=== PATIENT | female | born 2000 | race Caucasian/White ===

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

== ENCOUNTER 2023-05-28 17:58 | Inpatient (IN) ==
[2023-05-28] MEDS ORDERED: OXYTOCIN 30 UNITS/NSS 30 UNITS/500 ML BAG IV PRN (18:05)
[2023-05-28] MEDS ORDERED: LACTATED RINGER'S 1,000 ML IV PRN (18:05)
[2023-05-28] MEDS ORDERED: LIDOCAINE 1% LOCAL 20 ML VIAL INFIL PRN (18:05)
[2023-05-28] MEDS ORDERED: BETAMETH SOD PHOS/ACETATE IA 6 MG/ML IM STA (18:07)
--- OUTSIDE RECORDS SUMMARY | 2023-05-28 18:09 | External Medical Summary | Summary of Care ---
Author Name Unknown Organization [facility] Address [address] [place] [address] Phone [phone] Care Team Providers Care Kitchen And Bath Designer Name Role Phone Gail Gil MD Primary Care Provid er Reason for Visit * Reason Comments Return Visit Encounter Details Date Type Department Care Team (Late st Contact Info) Description 04/24/2023 1:15 PM EDT Office Visit Gynecology/Obstetri gm Devi [address] [place] [address] Darlni Grace CRNP [address] [place] [address] Nurse [facility] Return Alfie [address] [place] [address] Normal in third trimester*; Late care; Vapes nicotine containing substance; Family history of Down syndrome; Marijuana use during ; Gonorrhea affecting , antepartum; Need for prophylactic vaccination with combined zifmfevkwu-fburkop-up rtussis (DTP) vaccine Allergies No known active allergiesdocumented as of this encounter (statuses as of 04/24/2023) Medications Medication Sig Dispensed Refills Start Date End Date Status Breast PumpIndications:No rmal in second trimester Pump daily when 1 Each 0 03/27/2023 Active 19 29-1 MG Oral Tablet ChewableIndication s:Normal in second trimester Take 1 Tablet by mouth every evening. 90 Tablet 2 04/11/2023 Active Azelastine HCl 0.15 % Nasal SolutionIndication s:Dysfunction of right eustachian tube Administer 1 [place] into nostril in the morning and 1 [place] before bedtime. 30 mL 12 04/11/2023 Active documented as of this encounter (statuses as of 04/24/2023) Active Problems Problem Noted Date Diagnosed Date Abnormal GTT (glucose tolerance test) 04/11/2023 Gonorrhea affecting 04/06/2023 Marijuana use during 03/29/2023 Overview: Urine drug screen positive for cannabinoids on 03/28/23 at [facility] visit at 26w3d History of abnormal cervical Pap smear Overview: 03/2022 ASCUS, HPV+. Pap repeated 03/27/2023 at [facility] visit. History of gonorrhea 03/27/2023 Family history of Down syndrome 03/27/2023 Overview: Maternal aunt. Offered Qnatal at [facility] on 03/27/23 at 26w2d. Patient checking insurance coverage. Health counseling 03/27/2023 Overview: Problem Action Taken Date entered Entered by Date resolved Father of baby incarcerated Talked to patient, she has good support at home 03/27/2023 Gabriela Guallpa RN 03/27/2023 Problem Action Taken Date entered Entered by Date resolved Need for baby supplies Breast pump prescription set 03/27/2023 Gabriela Guallpa RN 03/27/2023 Problem Action Taken Date entered Entered by Date resolved Poor dental hygiene referal to local dental clinic that [place] 03/27/2023 Gabriela Guallpa RN 03/27/2023 Problem Action Taken Date entered Entered by Date resolved Need for food assistance referred to [facility] and local food alberts 03/27/2023 Gabriela Guallpa RN 03/27/2023 Problem Action Taken Date entered Entered by Date resolved Current needs or questions Patient denies having any current needs or questions 04/10/2023 Gabriela Guallpa RN 04/10/2023 Problem Action Taken Date entered Entered by Date resolved Current needs or questions Patient denies having any current needs or questions 04/24/2023 Zahira De Guzman RN 04/24/2023 Normal 03/15/2023 Late care 03/15/2023 Overview: Initiated care at [facility] at 26w2d. Dating ultrasound [facility] at 16 weeks. Anxiety 03/15/2023 Vapes nicotine containing substance 03/15/2023 Estimated Date of Delivery Comme nts Yes 07/01/2023 Based on last me nstrual period of 09/24/2022 (Exact Date) documented as of this encounter (statuses as of 04/24/2023) Immunizations Name Administration Dates Next Due [id number] PENTAVALENT NON-US 01/13/2000 DTaP Dipth/Tet/Acell Pertussis (Infanrix), Peds 01/13/2000 HPV Vaccine, 9-Valent 04/05/2021 IPV - Polio Virus Vaccine (Inact) 01/13/2000 SEASONAL INFLUENZA, PF, 6 M & Above, IM , (FLULAVAL or FLUZONE) 03/27/2023 TDAP (age 10 and older)(Boostrix) 04/24/2023 documented as of this encounter Social History Tobacco Use Types Packs/Day Years Used Date Smoking Tobacco: Former Cigarettes 0.2 Smokeless Tobacco: Never Alcohol Use Standard Drinks/Week Comments Not Currently 0 (1 standard drink = 0.6 oz pur e alcohol) PHQ-2 Answer Date Recorded PHQ Adult Total Score 0 04/10/2023 Hunger Vital Sign Answer Date Recorded Within the past 12 months, y ou worried that your food would run out before you got the money to buy more. Never true 03/27/20 23 Within the past 12 months, t he food you bought just didn't last and you didn't have money to get more. Never true 03/27/2023 [place] Depression Scale Answer Date Recorded [place] Depression Scale Total 3 03/27/2023 The thought of harming myself has occurred to me . Never 03/27/2023 Estimated Date of Delivery Comme nts Yes 07/01/2023 Based on last me nstrual period of 09/24/2022 (Exact Date) Sex and Gender Information Value Date Recorded Sex Assigned at Female 03/27/2023 2:49 PM EDT Gender Identity Female 03/27/2023 2:49 PM EDT Sexual Orientation Straight 03/27/2023 2: 49 PM EDT Job Start Date Occupation Industry Not on file Not on file Not on file documented as of this encounter Last Filed Vital Signs Vital Sign Reading Time Taken Comments Blood Pressure 116/60 04/24/2023 1:15 PM EDT Pulse - - Temperature - - Respiratory Rate - - Oxygen Saturation - - Inhaled Oxygen Concentration - - Weight 68.6 kg (151 lb 3.2 oz) 04/24/2023 1:15 P M EDT Height 160 cm (5' 3") 04/24/2023 1:15 PM EDT Body Mass Index 26.78 04/24/2023 1:15 PM EDT documented in this encounter Progress Notes * Darlin Grace CRNP - 04/24/2023 1:39 PM EDT 30w2d C/o constipation, nursing staff reviewed remedies and meds safe in . No other concerns. Baby moving well. No contractions or bleeding, no LOF. Planning to breastfeed today. TDAP today. GAVIOTA Lovell * Mary Sahni LPN - 04/24/2023 1:23 PM EDT 30w2d Pt denies any concerns, desires tdap. documented in this encounter Nursing Notes * Zahira De Guzman RN - 04/24/2023 2:28 PM EDT Patient seen by [facility] Utility Forester. * Mary Sahni LPN - 04/24/2023 1:31 PM EDT Patient here for tdap injection. Patient doing well no complaints. Injection given IM as ordered. Patient tolerated well. Patient to follow up as directed. Patient instructed to call if any complications. Patient verbalized understanding of instructions given. Injection site: Left Deltoid Medication Source: Dispensed stock medication documented in this encounter Plan of Treatment Health Maintenance Due Date Last Done Comments Hepatitis B (1 of 3 - 3-dose series) 1998 COVID-19 Vaccine (#1) 06/28/1999 GARDASIL-HPV IMMUNIZATION SERIES (2 - 3-dose series) 05/03/2021 04/05/2021 Gonorrhea / Chlamydia Screen 03/27/202407/2022, 04/05/2021 Depression Screening 04/10/2024 04/10/2023 Pap Smear 03/27/2026 03/27/2023, 04/05/2021 DTaP,Tdap,and Td Vaccines (3 - Td or Tdap) 04/24/2033 04/24/2023, 01/13/2000 Influenza Vaccine (FLU shot) Completed 03/27/2023 MENINGOCOCCAL (MENACTRA/MENVEO) Aged Out No longer eligible b ased on patient's age to complete this topic Pneumococcal Vaccine: Pediatrics (0 to 5 Years) and At-Risk Patients (6 to 64 Years) Aged Out No longer eligible b ased on patient's age to complete this topic documented as of this encounter Medical Devices Not on filedocumented as of this encounter Visit Diagnoses Diagnosis Normal in third trimester- Primary Late care Insufficient care Vapes nicotine containing substance Family history of Down syndrome Family history of congenital anomalies Marijuana use during Gonorrhea affecting , antepartum Need for prophylactic vaccination with combined tozshvzion-jvcyddn-rkspqubcv (DTP) vaccine documented in this encounter Care Teams Kitchen And Bath Designer Relationship Specialty Start Date End Date Gail Gil MD [address] [place] [address] PCP - General Family Medicine 03/18/21 documented as of this encounter
--- OUTSIDE RECORDS SUMMARY | 2023-05-28 18:09 | External Medical Summary ---
Author Name Unknown Address Unknown Organization [id number]:[facility] [address] [place] [address] Laboratory Report Ordering Provider Test Date Status NIURKA ALLAN 04/17/2023 11:29:02 Final Observation Date Value Abnormality Reference (Units ) Status Glucose [Mass/volume] in Serum or Plasma --1 hour post dose glucose 04/17/2023 11:29:02 142 70-179 (mg/dL) Final Performing Location [facility] [address] [place] [address]
--- OUTSIDE RECORDS SUMMARY | 2023-05-28 18:09 | External Medical Summary | Summary of Care ---
Author Name Unknown Organization [facility] Address [address] [place] [address] Phone [phone] Care Team Providers Care Compressor Repairer Name Role Phone Gail Gil MD Primary Care Provid er Encounter Details Date Type Department Care Team Description 04/11/2023 Telephone Gynecology/Obstetrics [facility] [address] [facility] [place] [address] Lexus Corrigan, F[place]SH[place] [address] [facility] [place] [phone] Allergies No known active allergiesdocumented as of this encounter (statuses as of 04/11/2023) Medications Medication Sig Dispensed Refills Start Date End Date Status 19 29-1 MG Oral Tablet ChewableIndication s:Normal in second trimester Take 1 Tablet by mouth every evening. 90 Tablet 2 03/27/2023 Active Breast PumpIndications:No rmal in second trimester Pump daily when 1 Each 0 03/27/2023 Active documented as of this encounter (statuses as of 04/11/2023) Active Problems Problem Noted Date Abnormal GTT (glucose tolerance test) Gonorrhea affecting 04/06/2023 Marijuana use during Overview: Urine drug screen positive for cannabinoids on 03/28/23 at [facility] visit at 26w3d History of abnormal cervical Pap smear 1 Overview: 03/2022 ASCUS, HPV+. Pap repeated 03/27/2023 at [facility] visit. History of gonorrhea 03/27/2023 Family history of Down syndrome 03/27/20 Overview: Maternal aunt. Offered Qnatal at [facility] [...] supplies Breast pump prescription set 03/27/2023 Gabriela Guallpa, ANKUSH 03/27/2023 Problem Action Taken Date entered Entered by Date resolved Poor dental hygiene referal to local dental clinic that [place] 03/27/2023 Gabriela Guallpa RN 03/27/2023 Problem Action Taken Date entered Entered by Date resolved Need for food assistance referred to [facility] and local [place] 03/27/2023 Gabriela Guallpa RN 03/27/2023 Problem Action Taken Date entered Entered by Date resolved Current needs or questions Patient denies having any current needs or questions 04/10/2023 Gabriela Guallpa RN 04/10/2023 Normal 03/15/2023 Late care 03/15/2023 Overview: Initiated care at [facility] at 26w2d. Dating ultrasound was done at [facility] at 16 weeks. Anxiety 03/15/2023 Vapes nicotine containing substance 02/25 Estimated Date of Delivery Comme nts Yes 07/01/2023 Based on last me nstrual period of 09/24/2022 (Exact Date) documented as of this encounter (statuses as of 04/11/2023) Immunizations Name Administration Dates Next Due HPV Vaccine, 9-Valent 04/05/2021 SEASONAL INFLUENZA, PF, 6 M & Above, IM , (FLULAVAL or FLUZONE) 03/27/2023 documented as of this encounter Social History Tobacco Use Types Packs/Day Years Used Date Smoking Tobacco: Former Cigarettes 0.2 Smokeless Tobacco: Never Alcohol Use Standard Drinks/Week Comments Not Currently 0 (1 standard drink = 0.6 oz pur e alcohol) Food Insecurity Answer Date Recorded Within the past 12 months, y ou worried that your food would run out before you got money to buy more. Never true 03/27/2023 Within the past 12 months, t he food you bought just didn't last and you didn't have money to get more. Never true 03/27/2023 Estimated Date of Delivery Comme nts Yes 07/01/2023 Based on last me nstrual period of 09/24/2022 (Exact Date) Sex Assigned at Date Recorded Female 03/27/2023 2:49 PM E DT Job Start Date Occupation Industry Not on file Not on file Not on file documented as of this encounter Miscellaneous Notes * Telephone Encounter - Gabriela Guallpa RN - 04/11/2023 9:04 AM EDT Attempted to call patient. No answer, LVM to return call. * Telephone Encounter - Alyssia Kimbrough LPN - 04/11/2023 8:24 AM EDT ----- Message from Lexus Corrigan CNM sent at 04/11/2023 8:20 AM EDT ----- Please let patient know she did not pass her 1 hour glucose screen. She needs to complete a 3 hour GTT as soon as possible. Please provide instructions and assist with scheduling. Thanks! Lexus Corrigan CNM documented in this encounter Plan of Treatment Upcoming Encounters Date Type Specialty Care Team Description 04/11/2023 Office Visit Family Medicine Gail Gil MD [address] [place] [address] 04/24/2023 Office Visit Gynecology Obstetrics Darlin Grace CRNP [address] [place] [address] Nurse [facility] Return Alfie [address] [place] [address] Health Maintenance Due Date Last Done Comments Hepatitis B (1 of 3 - 3-dose series) 1998 COVID-19 Vaccine (#1) 06/28/1999 DTaP,Tdap,and Td Vaccines (1 - Tdap) 2017 GARDASIL-HPV IMMUNIZATION SERIES (2 - 3-dose series) 05/03/2021 04/05/2021 Gonorrhea / Chlamydia Screen 03/27/202407/2022, 04/05/2021 Depression Screening 04/10/2024 04/10/2023 Pap Smear 03/27/2026 03/27/2023, 04/05/2021 Influenza Vaccine (FLU shot) Completed 03/27/2023 MENINGOCOCCAL [...] Not on filedocumented as of this encounter Care Teams Compressor Repairer Relationship Specialty Start Date End Date Gail Gil MD [address] [place] [address] PCP - General Family Medicine 03/18/21 documented as of this encounter
--- OUTSIDE RECORDS SUMMARY | 2023-05-28 18:09 | External Medical Summary | Summary of Care ---
Author Name Unknown Organization [facility] Address [address] [place] [address] Phone [phone] Care Team Providers Care Clinical Implementation Specialist Name Role Phone Gail Gil MD Primary Care Provid er Encounter Details Date Type Department Care Team Description 04/11/2023 Telephone Gynecology/Obstetrics [facility] 132 [facility] [place] [address] Lexus Corrigan, [facility] [address] [facility] [place] [address] Allergies No known active allergiesdocumented as of this encounter (statuses as of 04/14/2023) Medications Medication Sig Dispensed Refills Start Date End Date Status Breast PumpIndications: Normal in second trimester Pump daily when 1 Each 0 03/27/2023 Active 19 29-1 MG Oral Tablet ChewableIndicati ons:Normal in second trimester Take 1 Tablet by mouth every evening. 90 Tablet 2 03/27/2023 3 Discontinue d(Refill) documented as of this encounter (statuses as of 04/14/2023) Active Problems Problem Noted Date Abnormal GTT [...] resolved Need for food assistance referred to [facility] and local food alberts 03/27/2023 Gabriela Guallpa RN 03/27/2023 Problem Action Taken Date entered Entered by Date resolved Current needs or questions Patient denies having any current needs or questions 04/10/2023 Gabriela Guallpa RN 04/10/2023 Normal 03/15/2023 Late care 03/15/2023 Overview: Initiated care at [facility] at 26w2d. Dating ultrasound was done at [facility] at 16 weeks. Anxiety 03/15/2023 Vapes nicotine containing substance 02/25 Estimated Date of Delivery Comme nts Yes 07/01/2023 Based on last me nstrual period of 09/24/2022 (Exact Date) documented as of this encounter (statuses as of 04/14/2023) Immunizations Name Administration Dates Next Due [id number] PENTAVALENT NON-US 01/13/2000 DTaP Dipth/Tet/Acell Pertussis (Infanrix), [...] Telephone Encounter - Gabriela Guallpa RN - 04/14/2023 9:15 AM EDT Patient calling back in. Made aware. Patient given instructions for 3 hour glucose testing. Patientverbalized understanding, sent to scheduling. * Telephone Encounter - Gabriela Guallpa RN - 04/13/2023 9:03 AM EDT Attempted to call patient. No answer, LVM to return call. Certified letter sent. * Telephone Encounter - Gabriela Guallpa RN [...] Encounters Date Type Specialty Care Team Description 04/17/2023 Laboratory Laboratory Jory Devi [address] [place] [address] 04/24/2023 Office Visit Gynecology Obstetrics Darlin Grace CRNP [address] [place] [address] Nurse [facility] Return Alfie [address] [place] [address] Health Maintenance Due Date Last Done Comments Hepatitis B (1 of 3 - 3-dose series) 1998 COVID-19 Vaccine (#1) 06/28/1999 DTaP,Tdap,and Td Vaccines (2 - Tdap) 2017 01/13/2000 GARDASIL-HPV IMMUNIZATION SERIES (2 - 3-dose series) [...] filedocumented as of this encounter Care Teams Clinical Implementation Specialist Relationship Specialty Start Date End Date Gail Gil MD [address] [place] [address] PCP - General Family Medicine 03/18/21 documented as of this encounter
--- OUTSIDE RECORDS SUMMARY | 2023-05-28 18:09 | External Medical Summary | Summary of Care ---
Author Name Unknown Organization [facility] Address [address] [place] [address] Phone [phone] Care Team Providers Care Insulation Extruder Operator Name Role Phone Gail Gil MD Primary Care Provid er Encounter Details Date Type Department Care Team (Late st Contact Info) Description 04/18/2023 Telephone Gynecology/Obstetrics [facility] [address] [facility] [place] [address] Lexus Corrigan CN [address] [facility] [place] [phone] Allergies No known active allergiesdocumented as of this encounter (statuses as of 04/21/2023) Medications Medication Sig Dispensed Refills Start Date End Date Status Breast PumpIndications:No rmal in second trimester Pump daily when 1 Each 0 03/27/2023 Active 19 29-1 MG Oral Tablet ChewableIndication s:Normal in second trimester Take 1 Tablet by mouth every evening. 90 Tablet 2 04/11/2023 Active Azelastine HCl 0.15 % Nasal SolutionIndication s:Dysfunction of right eustachian tube Administer 1 [place] into nostril in the morning and 1 [place] before bedtime. 30 mL 12 04/11/2023 Active documented as of this encounter (statuses as of 04/21/2023) Active Problems Problem Noted Date Diagnosed Date [...] resolved Need for food assistance referred to [facility] and local food alberts 03/27/2023 Gabriela Guallpa RN 03/27/2023 Problem Action Taken Date entered Entered by Date resolved Current needs or questions Patient denies having any current needs or questions 04/10/2023 Gabriela Guallpa RN 04/10/2023 Normal 03/15/2023 Late care 03/15/2023 Overview: Initiated care at [facility] at 26w2d. Dating ultrasound was done at [facility] at 16 weeks. Anxiety 03/15/2023 Vapes nicotine containing substance 03/15/2023 Estimated Date of Delivery Comme nts Yes 07/01/2023 Based on last me nstrual period of 09/24/2022 (Exact Date) documented as of this encounter (statuses as of 04/21/2023) Immunizations Name Administration Dates Next Due [id number] PENTAVALENT NON-US 01/13/2000 DTaP Dipth/Tet/Acell Pertussis (Infanrix), [...] money to get more. Never true 03/27/2023 [place] Depression Scale Answer Date Recorded [place] Depression Scale Total 3 03/27/2023 The thought [...] encounter Miscellaneous Notes * Telephone Encounter - Alyssia Kimbrough LPN - 04/18/2023 8:24 AM EDT ----- Message from Lexus Corrigan CNM sent at 04/18/2023 8:13 AM EDT ----- Please let patient know she passed her 3 hour glucose screen. Thanks! Lexus Corrigan CNM documented in this encounter Plan of Treatment Upcoming Encounters Date Type Department Care Team (Late st Contact Info) Description 04/24/2023 1:15 PM EDT Office Visit Gynecology/Obstetrics Jason Devi [address] [place] [address] Darlin Grace CRNP [address] [place] [address] Nurse [facility] Return Alfie [address] [place] [address] Health Maintenance Due Date Last Done Comments [...] filedocumented as of this encounter Care Teams Insulation Extruder Operator Relationship Specialty Start Date End Date Gail Gil MD [address] [facility] [place] [address] PCP - General Family Medicine 03/18/21 documented as of this encounter
--- OUTSIDE RECORDS SUMMARY | 2023-05-28 18:09 | External Medical Summary | Summary of Care ---
Author Name Unknown Organization [facility] Address [address] [place] [address] Phone [phone] Care Team Providers Care Metal Melter Name Role Phone Gail Gil MD Primary Care Provid er Reason for Visit * Reason Comments Outpatient Testing Encounter Details Date Type Department Care Team Description 04/10/2023 Laboratory Laboratory, [facility] [address] [place] [address] [facility] [address] [place] [address] Normal in second trimester Allergies No known active allergiesdocumented as of this encounter (statuses as of 04/10/2023) Medications Medication Sig Dispensed Refills Start Date End Date Status 19 29-1 MG Oral Tablet ChewableIndication s:Normal in second trimester Take 1 Tablet by mouth every evening. 90 Tablet 2 03/27/2023 Active Breast PumpIndications:No rmal in second trimester Pump daily when 1 Each 0 03/27/2023 Active documented as of this encounter (statuses as of 04/10/2023) Active Problems Problem Noted Date Gonorrhea affecting 04/06/2023 Marijuana use during Overview: [...] resolved Need for food assistance referred to [facility] and local food alberts 03/27/2023 Gabriela Guallpa RN 03/27/2023 Problem Action Taken Date entered Entered by Date resolved Current needs or questions Patient denies having any current needs or questions 04/10/2023 Gabriela Guallpa RN 04/10/2023 Normal 03/15/2023 Late care 03/15/2023 Overview: Initiated care at [facility] at 26w2d. Dating ultrasound was done at [facility] at 16 weeks. Anxiety 03/15/2023 Vapes nicotine containing substance 02/25 Estimated Date of Delivery Comme nts Yes 07/01/2023 Based on last me nstrual period of 09/24/2022 (Exact Date) documented as of this encounter (statuses as of 04/10/2023) Immunizations Name Administration Dates Next Due HPV [...] on file documented as of this encounter Plan of Treatment Upcoming Encounters Date Type Specialty Care Team Description 04/11/2023 Office Visit Family Medicine Gail Gil MD [address] [place] [address] 04/24/2023 Office Visit Gynecology Obstetrics Darlin Grace CRNP [address] [place] [address] Nurse [facility] Return Alfie [address] [place] [address] Pending Results Name Type Priority Associated Diagnoses Date /Time 50-G GESTATIONAL GLUCOSE, 1 HOUR Lab Routine Normal in second trimester 04/10/2023 10:57 AM EDT Health Maintenance Due Date Last Done Comments Hepatitis B (1 of 3 - 3-dose series) 1998 COVID-19 Vaccine (#1) 06/28/1999 Depression Screening 2010 DTaP,Tdap,and Td Vaccines (1 - Tdap) 2017 GARDASIL-HPV IMMUNIZATION SERIES (2 - 3-dose series) 05/03/2021 04/05/2021 Gonorrhea / Chlamydia Screen 03/27/202407/2022, 04/05/2021 Pap Smear 03/27/2026 03/27/2023, 04/05/2021 Influenza Vaccine [...] this encounter Visit Diagnoses Diagnosis Normal in second trimester documented in this encounter Care Teams Metal Melter Relationship Specialty Start Date End Date Gail Gil MD [address] [place] [address] PCP - General Family Medicine 03/18/21 documented as of this encounter
--- OUTSIDE RECORDS SUMMARY | 2023-05-28 18:09 | External Medical Summary | Summary of Care ---
Author Name Unknown Organization [facility] Address [address] [place] [address] Phone [phone] Care Team Providers Care Board Handler Name Role Phone Gail Gil MD Primary Care Provid er Reason for Visit * Reason Onset Date Comments TRIAGE 05/28/2023 Encounter Details Date Type Department Care Team (Late st Contact Info) Description 05/28/2023 Telephone [facility] [address] [place] [address] Rehana Marina, DO [address], [place] [id number] TRIAGE Allergies No known active allergiesdocumented as of this encounter (statuses as of 05/28/2023) Medications Medication Sig Dispensed Refills Start Date End Date Status Breast PumpIndications:No rmal in second trimester Pump daily when 1 Each 0 03/27/2023 Active 19 29-1 MG Oral Tablet ChewableIndication s:Normal in second trimester Take 1 Tablet by mouth every evening. 90 Tablet 2 04/11/2023 Active Azelastine HCl 0.15 % Nasal SolutionIndication s:Dysfunction of right eustachian tube Administer 1 [place] into nostril in the morning and 1 [place] before bedtime. 30 mL 12 04/11/2023 Active documented as of this encounter (statuses as of 05/28/2023) Active Problems Problem Noted Date Diagnosed Date Abnormal GTT (glucose tolerance test) 04/11/2023 Gonorrhea affecting 04/06/2023 Overview: Gonorrhea of the throat - Patient tested positive on 01/12/23 and was treated at the [facility]. Neg testing 03/2023 Marijuana use during 03/29/2023 Overview: Urine drug [...] resolved Need for food assistance referred to [facility] and local food alberts 03/27/2023 Gabriela Guallpa RN 03/27/2023 Problem Action Taken Date entered Entered by Date resolved Current needs or questions Patient denies having any current needs or questions 04/10/2023 Gabriela Guallpa RN 04/10/2023 Problem Action Taken Date entered Entered by Date resolved Current needs or questions Patient denies having any current needs or questions 04/24/2023 Zahira De Guzman RN 04/24/2023 Problem Action Taken Date entered Entered by Date resolved Current needs or questions Patient denies having any current needs or questions 05/16/2023 Gabriela Guallpa RN 05/16/2023 Normal 03/15/2023 Late care 03/15/2023 Overview: Initiated care at [facility] at 26w2d. Dating ultrasound was done at [facility] at 16 weeks. Anxiety 03/15/2023 Vapes nicotine containing substance 03/15/2023 Estimated Date of Delivery Comme nts Yes 07/01/2023 Based on last me nstrual period of 09/24/2022 (Exact Date) documented as of this encounter (statuses as of 05/28/2023) Immunizations Name Administration Dates Next Due [id number] PENTAVALENT NON-US 01/13/2000 DTaP Dipth/Tet/Acell Pertussis (Infanrix), [...] money to get more. Never true 03/27/2023 [place] Depression Scale Answer Date Recorded [place] Depression Scale Total 8 05/16/2023 The thought of harming myself has occurred to me . Never 05/16/2023 Estimated Date of Delivery Comme nts Yes [...] encounter Miscellaneous Notes * Telephone Encounter - Rehana Marina DO - 05/28/2023 4:42 PM EST Returned patient page. Confirmed name and . Patient states she is 36 weeks and is complaining of a large amount of vaginal bleeding similar to a period. She was on her exercise ball when she felt the first gush of blood, she got up and walked around and continued to have gushes of blood. She has been using paper towels and has been changing them frequently as she continues to endorse bleeding. Endorses some FM, but decreased compared to baseline. Endorses some tightening of her abdomen, but states its irregular and not very painful. She lives 2 hours from [place] and [facility] is 15 minutes from her. Recommend she present to [facility] ED for further evaluation. Patient agrees. Will call transfer center to inform of her arrival. documented in this encounter Plan of Treatment Upcoming Encounters Date Type Department Care Team (Late st Contact Info) Description 06/01/2023 2:45 PM EST Office Visit Gynecology/Obstetrics Jason Devi [address] [place] [phone] Boy Enriquez MD [address] [place] [address] Nurse [facility] Return Alfie [address] [place] [address] Health Maintenance Due Date Last Done Comments [...] filedocumented as of this encounter Care Teams Board Handler Relationship Specialty Start Date End Date Gail Gil MD [address] [place] [address] PCP - General Family Medicine 03/18/21 documented as of this encounter
--- OUTSIDE RECORDS SUMMARY | 2023-05-28 18:09 | External Medical Summary | Summary of Care ---
Author Name Unknown Organization [facility] Address [address] [place] [address] Phone [phone] Care Team Providers Care Accountant Tax Name Role Phone Gail Gil MD Primary Care Provid er Reason for Visit * Reason Comments Return Visit Encounter Details Date Type Department Care Team (Late st Contact Info) Description 04/24/2023 1:15 PM EDT Office Visit Gynecology/Obstetri gm Devi [address] [place] [address] Darlin Grace CRNP [address] [place] [address] Nurse [facility] Return Alfie [address] [place] [address] Normal in third trimester*; Late care; Vapes nicotine containing substance; Family history of Down syndrome; Marijuana use during ; Gonorrhea affecting , antepartum; Need for prophylactic vaccination with combined rogmognkzm-dyabxdu-ql rtussis (DTP) vaccine Allergies No known active [...] s:Dysfunction of right eustachian tube Administer 1 [place] into nostril in the morning and 1 [place] before bedtime. 30 mL 12 04/11/2023 Active [...] Need for food assistance referred to [facility] and local food alberts 03/27/2023 Gabreila Guallpa RN 03/27/2023 Problem Action Taken Date entered Entered by Date resolved Current needs or questions Patient denies having any current needs or questions 04/10/2023 Gabriela Guallpa RN 04/10/2023 Normal 03/15/2023 Late care 03/15/2023 Overview: Initiated care at [facility] at 26w2d. Dating ultrasound was done at [facility] at 16 weeks. Anxiety 03/15/2023 Vapes nicotine containing substance 03/15/2023 Estimated Date of Delivery Comme nts Yes 07/01/2023 Based on last me nstrual period of 09/24/2022 (Exact Date) documented as of this encounter (statuses as of 04/24/2023) Immunizations Name Administration Dates Next Due [id number] PENTAVALENT NON-US 01/13/2000 DTaP Dipth/Tet/Acell Pertussis (Infanrix), [...] money to get more. Never true 03/27/2023 [place] Depression Scale Answer Date Recorded [place] Depression Scale Total 3 03/27/2023 The thought [...] documented in this encounter Nursing Notes * Mary Sahni LPN - 04/24/2023 1:31 [...] antepartum Need for prophylactic vaccination with combined nuhqnavjae-qamanxp-jelvceoyh (DTP) vaccine documented in this encounter Care Teams Accountant Tax Relationship Specialty Start Date End Date Gail Gil MD [address] [place] [address] PCP - General Family Medicine 03/18/21 documented as of this encounter
--- OUTSIDE RECORDS SUMMARY | 2023-05-28 18:09 | External Medical Summary | Summary of Care ---
Author Name Unknown Organization [facility] Address [address] [place] [address] Phone [phone] Care Team Providers Care Stretching Machine Tender Frame Name Role Phone Gail Gil MD Primary Care Provid er Encounter Details Date Type Department Care Team Description 04/11/2023 Telephone Gynecology/Obstetrics [facility] [address] [facility] [place] [address] Lexus Corrigan, [facility] [address] [facility] [place] [address] Allergies No known active allergiesdocumented as of this encounter (statuses as of 04/13/2023) Medications Medication Sig Dispensed Refills Start Date End Date Status Breast PumpIndications: Normal in second trimester Pump daily when 1 Each 0 03/27/2023 Active 19 29-1 MG Oral Tablet ChewableIndicati ons:Normal in second trimester Take 1 Tablet by mouth every evening. 90 Tablet 2 03/27/2023 3 Discontinue d(Refill) documented as of this encounter (statuses as of 04/13/2023) Active Problems Problem Noted Date Abnormal GTT [...] resolved Need for food assistance referred to [facility] and local food alberts 03/27/2023 Gabriela Guallpa RN 03/27/2023 Problem Action Taken Date entered Entered by Date resolved Current needs or questions Patient denies having any current needs or questions 04/10/2023 Gabriela Guallpa RN 04/10/2023 Normal 03/15/2023 Late care 03/15/2023 Overview: Initiated care at [facility] at 26w2d. Dating ultrasound was done at [facility] at 16 weeks. Anxiety 03/15/2023 Vapes nicotine containing substance 02/25 Estimated Date of Delivery Comme nts Yes 07/01/2023 Based on last me nstrual period of 09/24/2022 (Exact Date) documented as of this encounter (statuses as of 04/13/2023) Immunizations Name Administration Dates Next Due [id number] PENTAVALENT NON-US 01/13/2000 DTaP Dipth/Tet/Acell Pertussis (Infanrix), [...] Encounters Date Type Specialty Care Team Description 04/24/2023 Office Visit Gynecology Obstetrics Darlin Grace CRNP [address] [place] [address] Nurse [facility] Return Alfie [address] [place] [address] Health Maintenance Due Date Last Done Comments [...] filedocumented as of this encounter Care Teams Stretching Machine Tender Frame Relationship Specialty Start Date End Date Gail Gil MD [address] [place] [address] PCP - General Family Medicine 03/18/21 documented as of this encounter
--- OUTSIDE RECORDS SUMMARY | 2023-05-28 18:09 | External Medical Summary ---
Author Name Unknown Address Unknown Organization [facility] [address] [place] [address] Laboratory Report Ordering Provider Test Date Status NIURKA ALLAN 04/17/2023 10:28:51 Final Based on ACOG guideline, ges tational diabetes mellitus is diagnosed when any of the following is met:
Fasting is greater than or equal to 95 mg/dL
1 hour is greater than or equal to 180 mg/dL
2 hour is greater than or equal to 155 mg/dL
3 hour is greater than or equal to 140 mg/dL Observation Date Value Abnormality Reference (Units ) Status Glucose, fasting 04/17/2023 10:28:51 93 70- 94 (mg/dL) Final Performing Location [facility] [address] [place] [address]
--- OUTSIDE RECORDS SUMMARY | 2023-05-28 18:09 | External Medical Summary | Summary of Care ---
Author Name Unknown Organization [facility] Address [address] [place] [address] Phone [phone] Care Team Providers Care Teradata Developer Name Role Phone Gail Gil MD Primary Care Provid er Reason for Visit * Reason Comments Ear Pain Pt states that she h as been having R ear pain about 4 days Encounter Details Date Type Department Care Team Description 04/11/[address] [facility] [address] [place] [address] Gail Gil MD [address] [place] [address] Dysfunction of right eustachian tube*; Normal in second trimester Allergies No known [...] 04/11/2023 Active Azelastine HCl 0.15 % Nasal SolutionIndicati ons:Dysfunction of right eustachian tube Administer 1 [place] into nostril in the morning and 1 [place] before bedtime. 30 mL 12 04/11/2023 Active 19 29-1 MG Oral Tablet ChewableIndicati ons:Normal in second trimester Take 1 Tablet by mouth every evening. 90 Tablet 2 03/27/2023 Discontinue d(Refill) documented as of this encounter (statuses as of 04/11/2023) Active Problems Problem Noted Date Abnormal GTT (glucose tolerance test) Gonorrhea affecting 04/06/2023 Marijuana use during Overview: Urine drug screen positive for cannabinoids on 03/28/23 at [facility] visit at 26w3d History of abnormal cervical Pap smear 1 Overview: 03/2022 ASCUS, HPV+. Pap repeated 03/27/2023 at [facility] visit. History of gonorrhea 03/27/2023 Family history of Down syndrome 03/27/20 Overview: Maternal aunt. Offered Qnatal at [facility] on 03/27/23 at 26w2d. Patient checking insurance [...] resolved Need for food assistance referred to [facility] and local food [place] 03/27/2023 Gabriela Guallpa RN 03/27/2023 Problem Action Taken Date entered Entered by Date resolved Current needs or questions Patient denies having any current needs or questions 04/10/2023 Gabriela Guallpa RN 04/10/2023 Normal 03/15/2023 Late care 03/15/2023 Overview: Initiated care at [facility] at 26w2d. Dating ultrasound was done at [facility] at 16 weeks. Anxiety 03/15/2023 Vapes nicotine containing substance 02/25 Estimated Date of Delivery Comme nts Yes 07/01/2023 Based on last me nstrual period of 09/24/2022 (Exact Date) documented as of this encounter (statuses as of 04/11/2023) Immunizations Name Administration Dates Next Due [id number] PENTAVALENT NON-US 01/13/2000 DTaP Dipth/Tet/Acell Pertussis (Infanrix), Peds 01/13/2000 HPV Vaccine, 9-Valent 04/05/2021 IPV - Polio Virus Vaccine (Inact) 01/13/2000 SEASONAL INFLUENZA, PF, 6 M & Above, IM , (FLULAVAL or FLUZONE) 03/27/2023 documented as of this encounter Social History Tobacco Use Types Packs/Day Years Used Date Smoking Tobacco: Former Cigarettes 0.2 Smokeless Tobacco: Never Tobacco Cessation:Counseling Given: Not Answered Alcohol Use Standard Drinks/Week Comments Not Currently [...] Sign Reading Time Taken Comments Blood Pressure 102/84 04/11/2023 11:22 AM EDT Pulse 86 04/11/2023 11:22 AM EDT Temperature 36.1 C (97 F) 04/11/2023 11: 22 AM EDT Respiratory Rate 18 04/11/2023 11:2 2 AM EDT Oxygen Saturation 97% 04/11/2023 11: 22 AM EDT Inhaled Oxygen Concentration - - Weight 67.1 kg (147 lb 14.4 oz) 023 11:22 AM EDT Height 160 cm (5' 3") 04/11/2023 11:22 AM EDT Body Mass Index 26.2 04/11/2023 11:22 AM EDT documented in this encounter Progress Notes * Gail Gil MD - 04/11/2023 11:32 AM EDT ASSESSMENT / PLAN: Una Eagle is a 22 year old female Dysfunction of right eustachian tube (Primary) - Azelastine HCl 0.15 % Nasal Solution; Administer 1 [place] into nostril in the morning and 1 [place] before bedtime. Normal in second trimester - 19 29-1 MG Oral Tablet Chewable; Take 1 Tablet by mouth every evening. A/P: This is day 4 of illness and not improving - reviewed supportive care like saline spray (if no improvement could consider steroid containing spray), antihistamine, and pushing fluids. If needed, prefers contact by: Ok to leave message on phone: SUBJECTIVE: Nursing Notes: ADWOA Boss 04/11/23 1124 Signed Una Eagle is a 22 year old female who presents today for Chief Complaint Patient presents with Ear Pain Pt states that she has been having R ear pain about 4 days HPI: Una Eagle is a 22 year old female. This is day 4 of illness - endorses right ear pressure. No hearing changes but will get a sensationlike "thumping" in the ear . Has tried cleaning out her ears Sick contacts? no Missed days of work / needs doctor's note? no Patient Active Problem List Diagnosis Code Normal Z34.90 Late care O09.30 Anxiety F41.9 Vapes nicotine containing substance Z72.0 History of abnormal cervical Pap smear Z87.42 History of gonorrhea Z86.19 Family history of Down syndrome Z82.79 Health counseling Z71.9 Marijuana use during O99.320, F12.90 Gonorrhea affecting O98.219 Abnormal GTT (glucose tolerance test) R73.09 Current Outpatient Medications Medication Sig Dispense Refill Breast Pump Pump daily when 1 Each 0 19 29-1 MG Oral Tablet Chewable Take 1 Tablet by mouth every evening. 90 Tablet 2 Azelastine HCl 0.15 % Nasal Solution Administer 1 [place] into nostril in the morning and 1 [place] before bedtime. 30 mL 12 No current facility-administered medications for this visit. OBJECTIVE: BP 102/84 (BP Site: Right Arm, BP Position: Sitting, BP Cuff Size: Regular) | Pulse 86 | Temp 36.1 C (97 F) (Temporal Artery) | Resp 18 | Ht 1.6 m (5' 3") | Wt 67.1 kg (147 lb 14.4 oz) | LMP 09/24/2022 (Exact Date) | SpO2 97% | BMI 26.20 kg/m | BSA 1.73 m Vitals reviewed and is normotensive / afebrile / and not tachycardic General: No acute distress. Neuro: Alert Pleasant & interactive. Respiratory: Good inspiratory effort, no labored breathing. CTAB CV: RRR no M R G HEENT: Conjunctivae appear clear. No swelling noted face or lips. RT TM has small clear effusion, negative for erythema or otorrhea. LT TM wnl. Skin: No rash visible on exposed skin areas, normal coloration & appears dry. Psych: Normal affect. Fluent speech. Gail Gil MD [address] [address] There are no Patient Instructions on file for this visit. documented in this encounter Nursing Notes * ADWOA Boss - 04/11/2023 11:22 AM EDT Una Eagle is a 22 year old female who presents today for Chief Complaint Patient presents with Ear Pain Pt states that she has been having R ear pain about 4 days documented in this encounter Plan of Treatment Upcoming Encounters Date Type Specialty Care Team Description 04/24/2023 Office Visit Gynecology Obstetrics Darlin Grace CRNP [address] [place] [address] Nurse Mar[facility] Return Alfie [address] [place] [address] Health Maintenance Due Date Last Done Comments [...] as of this encounter Visit Diagnoses Diagnosis Dysfunction of right eustachian tube- Primary Dysfunction of Eustachian tube Normal in second trimester documented in this encounter Care Teams Teradata Developer Relationship Specialty Start Date End Date [facility] Gil [facility] [address] [facility] [address] PCP - General Family Medicine 03/18/21 documented as of this encounter
--- OUTSIDE RECORDS SUMMARY | 2023-05-28 18:09 | External Medical Summary | Summary of Care ---
Author Name Unknown Organization [facility] Address [address] [place] [address] Phone [phone] Care Team Providers Care Merry Go Round Attendant Name Role Phone Gail Gil MD Primary Care Provid er Reason for Visit * Reason Comments Return Visit Encounter Details Date Type Department Care Team (Late st Contact Info) Description 05/16/2023 1:30 PM EST Office Visit Gynecology/Obstetric s Jason Devi [address] [place] [address] Maryanne Nuñez CRNP [address] [place] [address] Normal in third trimester*; Late care; Vapes nicotine containing substance; Family history of Down syndrome; Marijuana use during ; Gonorrhea affecting , antepartum Allergies No known active allergiesdocumented as of this encounter (statuses as of 05/16/2023) Medications Medication Sig Dispensed Refills Start Date End Date Status Breast PumpIndications:No rmal in second trimester Pump daily when 1 Each 0 03/27/2023 Active 19 29-1 MG Oral Tablet ChewableIndication s:Normal in second trimester Take 1 Tablet by mouth every evening. 90 Tablet 2 04/11/2023 Active Azelastine HCl 0.15 % Nasal SolutionIndication s:Dysfunction of right eustachian tube Administer 1 [place] into nostril in the morning and 1 [place] before bedtime. 30 mL 12 04/11/2023 Active documented as of this encounter (statuses as of 05/16/2023) Active Problems Problem Noted Date Diagnosed Date Abnormal GTT (glucose tolerance test) 04/11/2023 Gonorrhea affecting 04/06/2023 Overview: Gonorrhea of the throat - Patient tested positive on 01/12/23 and was treated at the [facility]. Neg testing 03/2023 Marijuana use during 03/29/2023 [...] resolved Need for food assistance referred to [facility] and local food alberts 03/27/2023 [...] Late care 03/15/2023 Overview: Initiated care at [facility] at 26w2d. Dating ultrasound was done at [facility] at 16 weeks. Anxiety 03/15/2023 Vapes nicotine containing substance 03/15/2023 Estimated Date of Delivery Comme nts Yes 07/01/2023 Based on last me nstrual period of 09/24/2022 (Exact Date) documented as of this encounter (statuses as of 05/16/2023) Immunizations Name Administration Dates Next Due [id number] PENTAVALENT NON-US 01/13/2000 DTaP Dipth/Tet/Acell Pertussis (Infanrix), [...] money to get more. Never true 03/27/2023 [place] Depression Scale Answer Date Recorded [place] Depression Scale Total 8 05/16/2023 The thought [...] Sign Reading Time Taken Comments Blood Pressure 102/60 05/16/2023 1:20 PM EST Pulse - - Temperature - - Respiratory Rate - - Oxygen Saturation - - Inhaled Oxygen Concentration - - Weight 69.9 kg (154 lb) 05/16/2023 1:20 PM EST Height - - Body Mass Index 27.28 04/24/2023 1:15 PM EDT documented in this encounter Progress Notes * Maryanne Nuñez CRNP - 05/16/2023 1:27 PM EST 33w3d Doing well, reports good movement. No ctx/leaking/bleeding. Labor instructions given. Plans to see peds at [facility]. 2 week return GAVIOTA Mendoza * Roselyn Estrada LPN - 05/16/2023 1:21 PM EST 33w3d Denies vaginal bleeding/rom + movement Labor instructions given today documented in this encounter Nursing Notes * Gabriela Guallpa RN - 05/16/2023 1:30 PM EST Patient seen by [facility] Preschool Education Director. Patient denies any questions or concerns. documented in this encounter Plan of Treatment Upcoming Encounters Date Type Department Care Team (Late st Contact Info) Description 06/01/2023 2:45 PM EST Office Visit Gynecology/Obstetrics [facility] [address] [place] [address] Boy Enriquez MD [address] [place] [address] Nurse Marito [facility] Return Alfie [address] [place] [address] Health Maintenance Due Date Last Done Comments [...] Marijuana use during Gonorrhea affecting , antepartum documented in this encounter Care Teams Merry Go Round Attendant Relationship Specialty Start Date End Date Gail Gil MD [address] [place] [address] PCP - General Family Medicine 03/18/21 documented as of this encounter
--- OUTSIDE RECORDS SUMMARY | 2023-05-28 18:09 | External Medical Summary | Summary of Care ---
Author Name Unknown Organization [facility] Address [address] [place] [address] Phone [phone] Care Team Providers Care Medical Staff Assistant Name Role Phone Gail Gil MD Primary Care Provid er Encounter Details Date Type Department Care Team (Late st Contact Info) Description 01/27/2023 Telephone Gynecology/Obstetrics Jason Devi [address] [place] [id number] Karma Sharma PA-C [address] [place] [id number] Allergies No known active allergiesdocumented as of this encounter (statuses as of 04/28/2023) Medications Medication Sig Dispensed Refills Start Date End Date Status Clindamycin Phosphate 1 % External GelIndications:Acn e, unspecified acne type Apply topically to affected area 2 times a day. To affected area of skin on buttocks. 60 g 11 04/05/2021 03/15/2023 Discontinued (Medication List Clean Up) documented as of this encounter (statuses as of 04/28/2023) Active Problems Problem Noted Date Diagnosed Date [...] 03/27/2023 Overview: Maternal aunt. Offered Qnatal at [facility] on 03/27/23 at 26w2d. Patient checking insurance [...] resolved Need for food assistance referred to [facility] and local [employer] 03/27/2023 Gabriela Guallpa RN 03/27/2023 Problem Action [...] Late care 03/15/2023 Overview: Initiated care at [facility] at 26w2d. Dating ultrasound was done at [facility] at 16 weeks. Anxiety 03/15/2023 Vapes nicotine containing substance 03/15/2023 documented as of this encounter (statuses as of 04/28/2023) Immunizations Name Administration Dates Next Due [id number] PENTAVALENT NON-US 01/13/2000 DTaP Dipth/Tet/Acell Pertussis (Infanrix), Peds 01/13/2000 HPV Vaccine, 9-Valent 04/05/2021 IPV - Polio Virus Vaccine (Inact) 01/13/2000 documented as of this encounter Social History Tobacco Use Types Packs/Day Years Used Date Smoking Tobacco: Every Day Cigarettes 0.2 Smokeless Tobacco: Never Alcohol Use Standard Drinks/Week Comments Not Asked 0 (1 standard drink = 0.6 oz [...] money to get more. Never true 03/27/2023 [place] Depression Scale Answer Date Recorded [place] Depression Scale Total 3 03/27/2023 The thought of harming myself has occurred to me . Never 03/27/2023 Sex and Gender Information Value Date Recorded Sex Assigned at Female 03/27/2023 2:49 PM EDT Gender Identity Female 03/27/2023 2:49 PM EDT Sexual Orientation Straight 03/27/2023 2: 49 PM EDT Job Start Date Occupation Industry Not on file Not on file Not on file documented as of this encounter Miscellaneous Notes * Telephone Encounter - Karma Sharma PA-C - 01/30/2023 8:22 AM EDT Records reviewed and indicate patient had ultrasound on 01/13/2023 indicating viable perdomo at 16weeks 2 days. Placenta posterior fundal and EDC by U/S at 06/28/2023. LMP 09/24/2022. EDC 07/02/2023. Patient does not need another ultrasound ahead of NOB. Will plan to coordinate anatomy ultrasound shortly after NOB visit. Routing back as FYI. * Telephone Encounter - Gabriela Guallpa RN - 01/27/2023 11:30 AM EDT Received records from [facility] on patient. Patient was seen there for Dating US and STI testing. Patientscheduled for NOB with Karma on 01/31. Records placed on Karma's desk for review to determine if we need to get another dating US for patient prior to NOB. documented in this encounter Plan of Treatment [...] filedocumented as of this encounter Care Teams Medical Staff Assistant Relationship Specialty Start Date End Date Gail Gil MD [address] [place] [address] PCP - General Family Medicine 03/18/21 documented as of this encounter
--- OUTSIDE RECORDS SUMMARY | 2023-05-28 18:09 | External Medical Summary ---
Author Name Unknown Address Unknown Organization [id number] [address] [place] [address] Laboratory Report Ordering Provider Test Date Status NIURKA ALLAN 04/17/2023 12:27:34 Final Observation Date Value Abnormality Reference (Units ) Status Glucose, 2-hr post glucose challenge 04/17/2023 12:27:34 141 70-154 (mg/dL) Final Performing Location [facility] [address] [place] [address]
--- OUTSIDE RECORDS SUMMARY | 2023-05-28 18:09 | External Medical Summary | Summary of Care ---
Author Name Unknown Organization [facility] Address [address] [place] [address] Phone [phone] Care Team Providers Care Shoe Patternmaker Name Role Phone Gail Gil MD Primary Care Provid er Reason for Visit * Reason Onset Date Comments New Visit Medication Administration 03/27/2023 Flu an d/or Pneumo Inj Encounter Details Date Type Department Care Team Description 03/27/2023 Office Visit Gynecology/Obstetrics [facility] [address] [facility] [place] [address] Jerrell Corrigan, [facility] [address] [place] [address] Normal in second trimester*; Late care; Vapes nicotine containing substance; History of abnormal cervical Pap smear; History of gonorrhea; Family history of Down syndrome; Need for prophylactic vaccination and inoculation against influenza; Abnormal GTT (glucose tolerance test) Allergies No known active allergiesdocumented as of this encounter (statuses as of 04/11/2023) Medications Medication Sig Dispensed Refills Start Date End Date Status 19 29-1 MG Oral Tablet ChewableIndicati ons:Normal in second trimester Take 1 Tablet by mouth every evening. 90 Tablet 2 03/27/2023 Active Breast PumpIndications: Normal in second trimester Pump daily when 1 Each 0 03/27/2023 Active 19 29-1 MG Oral Tablet Chewable Take by mouth. 0 3 Discontinue d(Refill) documented as of this [...] 03/27/20 Overview: Maternal aunt. Offered Qnatal at B on 03/27/23 at 26w2d. Patient checking insurance [...] Need for food assistance referred to [facility] and local food alberts 03/27/2023 Gabriela Guallpa RN 03/27/2023 Problem Action Taken Date entered Entered by Date resolved Current needs or questions Patient denies having any current needs or questions 04/10/2023 Gabriela Guallpa RN 04/10/2023 Normal 03/15/2023 Late care 03/15/2023 Overview: Initiated care at [facility] at 26w2d. Dating ultrasound was done [...] Sign Reading Time Taken Comments Blood Pressure - - Pulse - - Temperature - - Respiratory Rate - - Oxygen Saturation - - Inhaled Oxygen Concentration - - Weight 65.3 kg (144 lb) 03/27/2023 2:36 PM EDT Height - - Body Mass Index 25.51 03/15/2023 9:33 AM EDT documented in this encounter Progress Notes * Jerrell Corrigan CNM - 03/27/2023 2:44 PM EDT Una Eagle [id number] CC: NOB HPI: Una Eagle is a 22 year old female here for initial OB exam at 26w2d EGA. LAURA 07/01/2023 by LMP. LMP: 09/24/2022 Menses were regular, occuring q 28 days. Last menses were normal. Patient states this was unplanned but she is now very excited to meet the baby. She is expecting a boy and plans to name him "Reuben Shah." She had a dating and viability ultrasound performed at the [facility] and plans to continue going there for parenting classes and resources. FOB is Avery, age 22, currently incarcerated, physically healthy, no children outside this relationship (per patient report). She is taking vitamins. Desires an Rx for PNV. She plans to breastfeed infant. Reviewed PMH, social hx, family hx, surgical hx, ob hx with patient. Pertinent positives: (1) Patient's maternal aunt has Down Syndrome (age 34). (2) Gonorrhea of the throat - Patient tested positive on 01/12/23 and was treated at the [facility]. Patient denies any new sex partners. Denies family history of genetic conditions in patient's and FOB's families except as listed above. Current symptoms: no breast tenderness, +nausea, vomiting about once weekly, +headaches (2-3 weekly, resolve "almost immediately") Denies vaginal bleeding, pelvic pain, vision changes, and RUQ pain. Affirms good movement. Current medications: PNV only Last pap smear: 04/05/2021 (ASCUS, HPV+) Denies tobacco, marijuana, and vaping. Quit vaping 4-5 days ago. She is agreeable to a urine drug screen due to late care. Denies concern for depression or anxiety. Plans to start therapy at [facility] and has an upcoming intake appointment on 04/11/23. She states it is preventative and was recommended by her mother. Patient lives with her mother in [place]. Feels safe at home. Works at [employer]. Plans to deliver at [facility]. Review of outside records from [facility]: Negative HIV on 01/12/23 Non-reactive syphilis on 01/12/23 Negative chlamydia on 01/12/23 (throat and vaginal) Negative vaginal gonorrhea on 01/12/23 Positive throat gonorrhea on 01/12/23 Dating/viability ultrasound on 01/13/23 showing "Viable perdomo at 16 2/7 days" with EDC 06/28/2023 by ultrasound. FHR 141bpm. Posterior fundal placenta. (Per Dr. Ahsan Álvarez, OBGYN). [place] Depression Scale: Score = 3 OB History Para Term AB Living 1 SAB IAB Ectopic Multiple Live Births # Outcome Date GA Lbr Rodrick/2nd Weight Sex Delivery Anes PTL Lv 1 Current Past Medical History: Diagnosis Date Anxiety 03/15/2023 Vapes nicotine containing substance 03/15/2023 Social History Socioeconomic History Marital status: Single Tobacco Use Smoking status: Former Packs/day: 0.20 Types: Cigarettes Smokeless tobacco: Never Vaping Use Vaping Use: Every day Substance and Sexual Activity Alcohol use: Not Currently Drug use: Not Currently Sexual activity: Yes Partners: Male No past surgical history on file. Current Outpatient Medications Medication Sig Dispense Refill 19 29-1 MG Oral Tablet Chewable Take by mouth. No current facility-administered medications for this visit. Review of patient's allergies indicates: No Known Allergies Family History Problem Relation Age of Onset Other (brain tumor) Grandfather (Maternal) ROS: General: no fevers, chills CV: no chest pain, SOB GI: no constipation, diarrhea, + nausea, +vomiting Breast: no masses, nipple discharge, + tenderness : no vaginal bleeding, unusual vaginal discharge, dysuria Psychological: no anxiety, no depression PHYSICAL EXAM: please see physical FHT: 130-140bpm per doppler FH: 25cm Air Conditioning Mechanic Industrial Documentation Provider requested rawhide trimmer. Name of rawhide trimmer: Alyssia Kimbrough LPN ASSESSMENT/PLAN: (O09.30) Late care Plan: TOXICOLOGY, URINE SCREEN W/ CONFIRMATION, BUPRENORPHINE, URINE SCREEN W/ CONFIRMATION, BUPRENORPHINE, URINE SCREEN W/ CONFIRMATION -Patient agreeable to a urine drug screen today. Explained that this was due to late care. (Z72.0) Vapes nicotine containing substance Plan: -Patient states she quit a few days ago. -Encouraged complete cessation from vaping and avoidance of marijuana and tobacco during . (Z87.42) History of abnormal cervical Pap smear Plan: FLAT SHEET MAKER PAP DIAGNOSTIC -Pap smear done today (Z86.19) History of gonorrhea Plan: -STI testing repeated today, including trichomonas (with patient's permission). (Z82.79) Family history of Down syndrome Plan: -Discussed Qnatal; patient is considering. -Recommended anatomy ultrasound as soon as possible. (Z23) Need for prophylactic vaccination and inoculation against influenza Plan: INFLUENZA VACC, QUAD, PF, 6 MONTHS & UP, 0.5 ML, IM (Z34.92) Normal in second trimester (primary encounter diagnosis) Plan: CULTURE, URINE, QUANTITATIVE, TYPE AND SCREEN, HIV ANTIGEN & ANTIBODY SCREEN W/ CONFIRMATION, ABO/RH, CBC WITH WBC DIFFERENTIAL AND ANEMIA REFLEX WORKUP, HEPATITIS C ANTIBODY SCREEN WITH PROGRESSION TO HEPATITIS C RNA QUANTITATIVE, RUBELLA IGG ANTIBODY, SYPHILIS ANTIBODY SCREEN WITH REFLEX TO RPR, HEPATITIS B SURFACE ANTIGEN, CHLAMYDIA TRACHOMATIS AND NEISSERIA GONORRHOEAE, AMPLIFIED PROBE, 50-G GESTATIONAL GLUCOSE, 1 HOUR, CULTURE, URINE, QUANTITATIVE, CHLAMYDIA TRACHOMATIS AND NEISSERIA GONORRHOEAE, AMPLIFIED PROBE, TRICHOMONAS VAGINALIS, AMPLIFIED PROBE, US PREG SINGLE/1ST GEST, 14 WEEKS OR LATER - discussed timing of routine OB care - flu vaccine given today - Patient has received the Moderna Covid-19 vaccine - Offered genetic screening and explained that screening does not provide a definitive diagnosis. Patient is considering Qnatal and will check insurance coverage and notified provider. - Recommended clean healthy diet and discussed foods/drinks to avoid in . Discussed recommend weight gain in . - Recommended daily vitamin. Patient was given a prescription. - Discussed labs as ordered and instructed patient to present to lab following appointment. - MFM referral not indicated. -anatomy scan ordered to be done as soon as possible -provided Rx for breast pump -patient was enrolled in [employer] and met with Gabriela Guallpa RN - discussed 1 hour glucose screen to be completed at next visit Follow up: - RTO in 2 weeks for SARAH, PRN with concern Jerrell Corrigan CNM documented in this encounter Nursing Notes * Gabriela Guallpa RN - 03/27/2023 3:43 PM EDT Patient here to enroll [facility] the [facility] program. Forms completed and intake assessment form completed. have you cut down with your smoking yes have you quit yes have you seen a furniture fabricator no have you seen a social work professor no are you receiving counseling no have you received dental care during your no are you enrolled in WIC has appointment do you receive food stamps or baldwin assistance yes Patient here for flu injection. Patient doing well no complaints. Injection given IM as ordered. Patient tolerated well. Patient to follow up as directed. Patient instructed to call if any complications. Patient verbalized understanding of instructions given and her follow up appt for 2 weeks Injection site: Left Deltoid Medication Source: Dispensed stock medication Gabriela Guallpa RN * Alyssia Kimbrough LPN - 03/27/2023 2:40 PM EDT Pt is currently 26w2d with an Estimated Date of Delivery: 07/01/23 - documented in this encounter Miscellaneous Notes * Addendum Note - Jerrell Corrigan CNM - 04/11/2023 8:20 AM EDTAddended by: JERRELL CORRIGAN on: 04/11/2023 08:20 AM Modules accepted: Orders * Result Encounter Note - Jerrell Corrigan CNM - 04/05/2023 1:02 PM EDT Please let patient know her pap smear was abnormal showing high risk HPV (HPV+) and low grade squamous intraepithelial lesion (LSIL) and atypical squamous cells, cannot exclude high grade lesions (ASC-H). She needs a colposcopy as soon as possible, which may be done during . She may also elect to defer until after , but I recommend it be done as soon as possible. Please assist with scheduling. Thanks! Jerrell Corrigan CNM documented in this encounter Plan of Treatment Upcoming Encounters Date Type Specialty Care Team Description 04/11/2023 Office Visit Family Medicine Gail Gil MD [address] [place] [address] 04/24/2023 Office Visit Gynecology Obstetrics Darlin Grace CRNP [address] [place] [address] Nurse Mar[facility] Return [place] [address] [place] [address] Scheduled Orders Name Type Priority Associated Diagnoses Orde r Schedule GESTATIONAL GLUCOSE TOLERANCE, 3 HOUR Lab Routine Abnormal GTT (glucose tolerance test) Expected: 04/11/2023, Expires: 04/11/2024 Health Maintenance Due Date Last Done Comments [...] Not on filedocumented as of this encounter Procedures Procedure Name Priority Date/Time Associated Diagnosis Comments TOXICOLOGY, URINESCREEN W/ CONFIRMATION Routine 03/27/2023 3:25 PM EDT Late care BUPRENORPHINE, URINE SCREEN W/ CONFIRMATION Routine 03/27/2023 3:25 PM EDT Late care THC METABOLITE, URINE CONFIRMATION Routine 03/27/2023 3:25 PM EDT Late care HUMAN PAPILLOMA VIRUS, PROBE Routine 03/27/2023 3:25 PM EDT History of abnormal cervical Pap smear FLAT SHEET MAKER PAP DIAGNOSTIC Routine 03/27/2023 3: 25 PM EDT History of abnormal cervical Pap smear CHLAMYDIA TRACHOMATIS AND NEISSERIA GONORRHOEAE, AMPLIFIED PROBE Routine 03/27/2023 3:18 PM EDT Normal in second trimester TRICHOMONAS VAGINALIS, AMPLIFIED PROBE Routine 03/27/2023 3:18 PM EDT Normal in second trimester CULTURE, URINE, QUANTITATIVE Routine 03/27/2023 3:18 PM EDT Normal in second trimester documented in this encounter Results * (ABNORMAL) 50-G GESTATIONAL GLUCOSE, 1 HOUR (04/10/2023 10:57 AM EDT) 50-g Gestational Glucose, 1 Hour 157(H) 70 - 129 mg/dL 04/10/2023 11:41 AM EDT [facility] [place] 57-10 Blood Venous blood specimen / Unknown Venipuncture / Unknown 04/10/2023 10:57 AM EDT 04/10/2023 10:57 AM EDT Jerrell Corrigan [facility] LAB BLOOD ORDERABLES [facility] [place] [address] [place] [address] * US PREG SINGLE/1ST GEST, 14 WEEKS OR LATER (04/05/2023 2:53 PM EDT) Anatomical Region Laterality Modality Pelvis, Body Ultrasound 04/05/2023 4:08 PM EDT Impressions 04/05/2023 4:06 PM EDT IMPRESSION 1. Single live fetus with composite age 27 weeks 3 days and LAURA of 07/02/2023. 2. Anatomy well demonstrated and normal, as above. Narrative 04/05/2023 4:06 PM EDT EXAM US PREG SINGLE/1ST GEST, 14 WEEKS OR LATER - 04/05/2023 2:53 pm HISTORY anatomy ultrasound COMPARISON None TECHNIQUE Sonographic examination performed. FINDINGS General : Perdomo Presentation: Vertex heart rate: 139 bpm Amniotic Fluid: Normal YENI: 16.1 cm which is near 50th percentile for this stage of . Placenta: Posterior, no previa Anatomy Lateral ventricles: Seen Cerebellum: Seen Cisterna magna: Seen C-Spine: Seen T-Spine: Seen L-Spine: Seen S-Spine: Seen Nuchal fold: N/A Orbits: Seen Facial profile: Seen Upper lip: Seen 4-chamber view: Seen LVOT: Seen RVOT: Seen Stomach: Seen Abdominal cord insertion: Seen Umbilical cord: 3 vessel cord Kidneys: Seen Bladder: Seen Arms: Seen Legs: Seen Biometry Biparietal diameter: 6.9 cm, 27w 4d Head circumference: 25.5 cm, 27w 5d Abdominal circumference: 22.8 cm, 27w 1d Femur length: 5.1 cm, 27w 1d Humeral length: 4.6 cm, 27w 1d HC/AC: 1.12,within normal limits EFW: 1044 g. The composite age is 27 weeks 3 days, which gives an estimated date of delivery of 07/02/2023. All anatomic measurements within normal limits of variation. Maternal Structures Myometrium: Unremarkable Right ovary: Normal Left ovary: Normal Procedure Note Charlie Whiteside MD - 04/05/2023 EXAM US PREG SINGLE/1ST GEST, 14 WEEKS OR LATER - 04/05/2023 2:53 pm HISTORY anatomy ultrasound COMPARISON None TECHNIQUE Sonographic examination performed. FINDINGS General : Perdomo Presentation: Vertex heart rate: 139 bpm Amniotic Fluid: Normal YENI: 16.1 cm which is near 50th percentile for this stage of . Placenta: Posterior, no previa Anatomy Lateral ventricles: Seen Cerebellum: Seen Cisterna magna: Seen C-Spine: Seen T-Spine: Seen L-Spine: Seen S-Spine: Seen Nuchal fold: N/A Orbits: Seen Facial profile: Seen Upper lip: Seen 4-chamber view: Seen LVOT: Seen RVOT: Seen Stomach: Seen Abdominal cord insertion: Seen Umbilical cord: 3 vessel cord Kidneys: Seen Bladder: Seen Arms: Seen Legs: Seen Biometry Biparietal diameter: 6.9 cm, 27w 4d Head circumference: 25.5 cm, 27w 5d Abdominal circumference: 22.8 cm, 27w 1d Femur length: 5.1 cm, 27w 1d Humeral length: 4.6 cm, 27w 1d HC/AC: 1.12,within normal limits EFW: 1044 g. The composite age is 27 weeks 3 days, which gives an estimated dateof delivery of 07/02/2023. All anatomic measurements within normal limitsof variation. Maternal Structures Myometrium: Unremarkable Right ovary: Normal Left ovary: Normal IMPRESSION IMPRESSION 1. Single live fetus with composite age 27 weeks 3 days and LAURA of07/02/2023. 2. Anatomy well demonstrated and normal, as above. Jerrell Corrigan CNM RAD ULTRASOUND * TYPE AND SCREEN (03/27/2023 3:55 PM EDT) ABO A 03/28/2023 12:37 AM EDT LABORATORY [facility] BLOOD BANK Rh Positive 03/28/2023 12:37 AM EDT LABORATORY [facility] BLOOD BANK Red Blood Cell Antibody Screen Negative 03/28/2023 12:37 AM EDT LAB[facility]ATORY [facility] BLOOD BANK Specimen Expiration Date 03/30/2023 23:59 03/28/2023 12:37 AM EDT LAB[facility]ATORY [facility] BLOOD BANK Blood Venous blood specimen / Unknown Venipuncture / Unknown 03/27/2023 3:55 PM EDT 03/27/2023 3:55 PM EDT Jerrell Corrigan CNM LAB BLOOD BANK TEST ORDERABLES LABORATORY [facility] BLOOD BANK [address] [place] [address] * HEPATITIS B SURFACE ANTIGEN (03/27/2023 3:54 PM EDT) Hepatitis B Surface Antigen Negative Negative 03/28/2023 12:16 AM EDT LAB[facility]ATORY [facility] Blood Venous blood specimen / Unknown Venipuncture / Unknown 03/27/2023 3:54 PM EDT 03/27/2023 3:54 PM EDT Jerrell Corrigan CNM LAB BLOOD ORDERABLES LABORATORY [address] [address] * (ABNORMAL) RUBELLA IGG ANTIBODY (03/27/2023 3:54 PM EDT) Pathologist [facility] Rubella IgG Antibody Positive( A) Negative 03/28/2023 12:16 AM EDT LABORATORY [facility] Comment:A positive result is consistent with having had rubella virus or vaccination. Blood Venous blood specimen / Unknown Venipuncture / Unknown 03/27/2023 3:54 PM EDT 03/27/2023 3:54 PM EDT Jerrell SHANNON LAB BLOOD ORDERABLES Performing Organization Address [facility] Co de Phone Number LABORATORY [facility] [address] [place] [address] * HIV ANTIGEN & ANTIBODY SCREEN W/ CONFIRMATION (03/27/2023 3:54 PM EDT) [facility] HIV Antigen & Antibody Negative Negative 03/28/2023 12:16 AM EDT LABORATORY [facility] Comment:Negative HIV-1/2 ant igen and antibody screening tset results usually indicate the absence of HIV-1 and HIV-2 infection. However, such negative results do not rule-out acute HIV infection. If acute HIV-1 infection is highly suspected, it is recommended that a specimen be submitted for detection of HIV-1 RNA. Blood Venous blood specimen / Unknown Venipuncture / Unknown 03/27/2023 3:54 PM EDT 03/27/2023 3:54 PM EDT Jerrell SHANNONM LAB BLOOD ORDERABLES Performing Organization Address [facility] Co de Phone Number LABORATORY [address] [address] * (ABNORMAL) HUMAN PAPILLOMA VIRUS, PROBE (03/27/2023 3:25 PM EDT) [facility] Human Papilloma Virus Result Positive (A) Not Applicable 04/04/2023 11:33 AM EDT LABORATORY [facility] Comment: One or more high/intermediate-risk Human Papillomavirus (HPV E6/E7 messenger RNA) detected by nucleic acid amplification. This assay looks for high/intermediate risk Human Papillomavirus (HPV E6/E7 messenger RNA) by nucleic acid amplification. This assay includes the qualitative detection of HPV types 16,18,31,33,35,39,45,51,52,56,58,59,66 and 68 from cervical specimens. This assay has been FDA cleared for Thin prep collection vials. This assay has not been approved for use as a primary screening test for HPV and should be tested in conjunction with a PAP screen. If collected utilizing a Surepath vial, the collection and specimen preparation of this test was developed, and its performance characteristics determined by [facility]. It has not been cleared or approved by the U.S. Food and Drug Administration (FDA). The FDA has determined that such clearance or approval is not necessary. This assay has been performed at [facility], [address] [place] [address]. [id number]. Pap Test Specimen from wound / Unknown 03/27/2023 3:25 PM EDT 03/30/2023 6:16 AM EDT Jerrell Corrigan [facility] LAB MICRO - GENERAL [place] [address] * (ABNORMAL) THC METABOLITE, URINE CONFIRMATION (03/27/2023 3:25 PM EDT) [facility] Methodology LC-MS/MS 03/30/2023 9:26 AM EDT LABORATORY [facility] Cannabinoids 229(H) Negative ng/mL 03/30/2023 9:26 AM EDT LAB[facility]ATORY [facility] Urine Urine specimen obtained by clean catch procedure / Unknown Non-blood Collection / Unknown 03/27/2023 3:25 PM EDT 03/27/2023 3:25 PM EDT [facility] LABORATORY [facility] - 03/30/2023 9:26 AM EDT Cutoff Concentration: Drug Level THC-COOH 10 ng/mL This test was developed and its performance characteristics determined by [facility]. It has not been cleared or approved by the US Food and Drug Administration. Jerrell Corrigan CNM LAB URINE ORDERABLES LABORATORY [facility] [address] [place] [address] * FLAT SHEET MAKER PAP DIAGNOSTIC (03/27/2023 3:25 PM EDT) Final Diagnosis A. Cervix, SurePath Pap test: Adequacy: Satisfactory for evaluation; transformation zone present. Interpretation: Epithelial cell abnormality: Low-grade squamous intraepithelial lesion (LSIL, [facility]). Epithelial cell abnormality: Focal atypical squamous cells, cannot exclude HSIL (ASC-H, [facility]). AUTOMATED REVIEW: Focal Point computerized screening device (quintile 4, review). 04/04/2023 11:33 AM EDT LABORATORY [facility] Performing Labs Primary Montessori Teacher screening performed at [address] [address]. Pathologist sign out performed at [facility] ([facility] [address] [place] [id number]. 04/04/2023 11:33 AM EDT LABORATORY [facility] Gross Description A. Cervix. SurePath vial received labeled with the patient's identification. 04/04/2023 11:33 AM EDT LABORATORY [facility] EDUCATIONAL NOTE: The Pap test (thin-layer cervical screening specimen) is a screening test that aids in the detection of cervical cancer and cancer precursors. Both false positive and false negative results can occur. The test should be used at regular intervals (as per the ASCCP guidelines) and positive results should be confirmed before definitive therapy. Discrepancies between the Pap test findings and clinical impressions should be resolved with diagnostic tests such as colposcopy and biopsy. 04/04/2023 11:33 AM EDT LABORATORY [facility] Case Report Gynecologic Cytology Report Case: [id number] Authorizing Provider: Jerrell Corrigan CNM Collected: 03/27/2023 03:25 PM Ordering Location: Gynecology/Obstetr ics Received: 03/27/2023 03:25 PM Jason Devi First Screen: SADIE Fuentes(ASCP) Pathologist: Uma Hendrix MD Specimen: SurePath Pap test, Cervix 04/04/2023 11:33 AM EDT LABORATORY [facility] PAP Indication for Procedure: Previous abnormal pap 04/04/2023 11:33 AM EDT LABORATORY [facility] PAP Previous Cancer: None 04/04/2023 11:33 AM EDT LAB[facility]ATORY [facility] HPV Permissions: HPV Regardless (Including cotest) 04/04/2023 11:33 AM EDT LABORATORY [facility] PAP Contraceptive History: None 04/04/2023 11:33 AM EDT LABORATORY [facility] Pap Test Specimen from wound / Unknown 03/27/2023 3:25 PM EDT 03/27/2023 3:25 PM EDT Jerrell Corrigan CNM LAB CYTOLOGY ORDERAB LES LABORATORY [facility] [address] [place] [address] * BUPRENORPHINE, URINE SCREEN W/ CONFIRMATION (03/27/2023 3:25 PM EDT) Buprenorphine Negative Negative 03/27/2023 10:37 PM EDT LABORATORY [facility] Urine Urine specimen obtained by clean catch procedure / Unknown Non-blood Collection / Unknown 03/27/2023 3:25 PM EDT 03/27/2023 3:25 PM EDT Narrative LABORATORY [facility] - 03/27/2023 10:37 PM EDT Cutoff Concentration: Drug Level Buprenorphine 5 ng/mL Screening results are presumptive and can only be used for medical purposes. Positive screening results are reflexed to confirmatory testing. Jerrell Corrigan CNM LAB URINE ORDERABLES Performing Organization Address City/[facility]/ZIP Co de Phone Number LABORATORY [place] [address] [place] [address] * (ABNORMAL) TOXICOLOGY, URINESCREEN W/ CONFIRMATION (03/27/2023 3:25 PM EDT) Amphetamine Negative Negative 03/27/2023 10:45 PM EDT LABORATORY C Benzodiazepines Negative Negative 10:45 PM EDT LABORATORY [facility] Cannabinoids Positive(A) Negative 03/27/2023 10:45 PM EDT LABORATORY [facility] Cocaine Metabolite Negative Negative 2022 10:45 PM EDT LAB[facility]ATORY [facility] Fentanyl Negative Negative 03/27/2023 10:45 PM EDT LABORATORY [facility] Hydrocodone / Hydromorphone Negative Negative 03/27/2023 10:45 PM EDT LAB[facility]ATORY [facility] Methadone Metabolite Negative Negative 03/27/2023 10:45 PM EDT LABORATORY [facility] Morphine / Codeine Negative Negative 2022 10:45 PM EDT LABORATORY [facility] Oxycodone / Oxymorphone Negative Negative 03/27/2023 10:45 PM EDT LAB[facility]ATORY [facility] Urine Urine specimen obtained by clean catch procedure / Unknown Non-blood Collection / Unknown 03/27/2023 3:25 PM EDT 03/27/2023 3:25 PM EDT Narrative LABORATORY [facility] - 03/27/2023 10:45 PM EDT Cutoff Concentrations: Drug Level Amphetamines 500 ng/mL Benzodiazepines 100 ng/mL Cannabinoids 50 ng/mL Cocaine Metabolite 150 ng/mL Fentanyl 1 ng/mL Hydrocodone / Hydromorphone 300 ng/mL Methadone Metabolite 100 ng/mL Morphine / Codeine 300 ng/mL Oxycodone / Oxymorphone 100 ng/mL Screening results are presumptive and can only be used for medical purposes. Positive screening results are reflexed to confirmatory testing. Jerrell Corrigan CNM LAB URINE ORDERABLES LABORATORY [facility] [address] [place] [address] * TRICHOMONAS VAGINALIS, AMPLIFIED PROBE (03/27/2023 3:18 PM EDT) Trichomonas Vaginalis Result Negative Negative 03/28/2023 1:30 PM EDT LABORATORY [facility] Comment:No Trichomonas vagin wesley detected by property supervisor mediated nucleic acid amplification. Swab Specimen from wound / Unknown 03/27/2023 3:18 PM EDT 03/27/2023 3:18 PM EDT Jerrell Corrigan CNM LAB MICRO - GENERAL ORDERABLES Performing Organization Address [facility] Co de Phone Number LABORATORY [facility] [address] [place] [address] * CHLAMYDIA TRACHOMATIS AND NEISSERIA GONORRHOEAE, AMPLIFIED PROBE (03/27/2023 3:18 PM EDT) Chlamydia Trachomatis Result Negative Negative 03/28/2023 1:44 PM EDT LABORATORY [facility] Comment:No Chlamydia trachom atis detected by property supervisor-mediated nucleic acid amplification. Neisseria Gonorrhoeae Result Negative Negative 03/28/2023 1:44 PM EDT LABORATORY [facility] Comment:No Neisseria gonorrh oeae detected by property supervisor-mediated nucleic acid amplification. Swab Specimen from wound / Unknown 03/27/2023 3:18 PM EDT 03/27/2023 3:18 PM EDT Jerrell Corrigan CNM LAB MICRO - GENERAL ORDERABLES Performing Organization Address [facility] de Phone Number LABORATORY [facility] [address] [place] [address] * CULTURE, URINE, QUANTITATIVE (03/27/2023 3:18 PM EDT) Pathologist [facility] Culture Growth No significant growth 03/28/2023 4:31 PM EDT LABORATORY [facility] Urine Urine specimen obtained by clean catch procedure / Unknown Non-blood Collection / Unknown 03/27/2023 3:18 PM EDT 03/27/2023 3:18 PM EDT Jerrell Corrigan CNM LAB MICRO - GENERAL ORDERABLES Performing Organization Address [facility] Co de Phone Number LABORATORY [facility] [address] [place] [address] documented in this encounter Visit Diagnoses Diagnosis Normal in second trimester- Primary Late care Insufficient care Vapes nicotine containing substance History of abnormal cervical Pap smear Personal history of other genital system and obstetric disorders History of gonorrhea Personal history of other infectious and parasitic disease Family history of Down syndrome Family history of congenital anomalies Need for prophylactic vaccination and inoculation against influenza Abnormal GTT (glucose tolerance test) Impaired glucose tolerance test Normal in second trimester documented in this encounter Care Teams Shoe Patternmaker Relationship Specialty Start Date End Date Gail Gil MD [address] [place] [phone] PCP - General Family Medicine 03/18/21 documented as of this encounter
--- OUTSIDE RECORDS SUMMARY | 2023-05-28 18:09 | External Medical Summary | Summary of Care ---
Author Name Unknown Organization [facility] Address [address] [place] [address] Phone [phone] Care Team Providers Care Band Tacker Name Role Phone Gail Gil MD Primary Care Provid er Reason for Visit * Reason Comments Outpatient Testing Encounter Details Date Type Department Care Team (Late st Contact Info) Description 04/17/2023 10:20 AM EDT Laboratory [facility] [address] [phone] [facility] [address] [place] [address] Abnormal GTT (glucose tolerance test) Allergies No known active allergiesdocumented as of this encounter (statuses as of 04/17/2023) Medications Medication Sig Dispensed Refills Start Date End Date Status Breast PumpIndications:No rmal in second trimester Pump daily when 1 Each 0 03/27/2023 Active 19 29-1 MG Oral Tablet ChewableIndication s:Normal in second trimester Take 1 Tablet by mouth every evening. 90 Tablet 2 04/11/2023 Active Azelastine HCl 0.15 % Nasal SolutionIndication s:Dysfunction of right eustachian tube Administer 1 [place] into nostril in the morning and 1 [place] before bedtime. 30 mL 12 04/11/2023 Active documented as of this encounter (statuses as of 04/17/2023) Active Problems Problem Noted Date Diagnosed Date [...] resolved Need for food assistance referred to [facility] and local food alberts 03/27/2023 Gabriela Guallpa RN 03/27/2023 Problem Action Taken Date entered Entered by Date resolved Current needs or questions Patient denies having any current needs or questions 04/10/2023 Gabriela Guallpa RN 04/10/2023 Normal 03/15/2023 Late care 03/15/2023 Overview: Initiated care at [facility] at 26w2d. Dating ultrasound was done at [facility] at 16 weeks. Anxiety 03/15/2023 Vapes nicotine containing substance 03/15/2023 Estimated Date of Delivery Comme nts Yes 07/01/2023 Based on last me nstrual period of 09/24/2022 (Exact Date) documented as of this encounter (statuses as of 04/17/2023) Immunizations Name Administration Dates Next Due [id number] PENTAVALENT NON-US 01/13/2000 DTaP Dipth/Tet/Acell Pertussis (Infanrix), [...] money to buy more. Never true 03/27/20 Within the past 12 months, t he food you bought just didn't last and you didn't have money to get more. Never true 03/27/2023 Flushing Depression Scale Answer Date Recorded Flushing Depression Scale Total 3 03/27/2023 The thought [...] Jason Devi [address] [place] [address] Darlin Grace CRNP [address] [place] [place] [phone] Nurse [facility] Return [facility]f[place] [address] [place] [phone] Pending Results Name Type Priority Associated Diagnoses Date /Time GESTATIONAL GLUCOSE TOLERANCE, 3 HOUR Lab Routine Abnormal GTT (glucose tolerance test) 04/17/2023 10:28 AM EDT 100-G GESTATIONAL GLUCOSE, 3 HOUR Lab Routine Abnormal GTT (glucose tolerance test) 04/17/2023 1:30 PM EDT Health Maintenance Due Date Last Done [...] Procedure Name Priority Date/Time Associated Diagnosis Comments 100-G GESTATIONAL GLUCOSE, 2 HOUR Routine 04/17/2023 12:27 PM EDT Abnormal GTT (glucose tolerance test) 100-G GESTATIONAL GLUCOSE, 1 HOUR Routine 04/17/2023 11:29 AM EDT Abnormal GTT (glucose tolerance test) 100-G GESTATIONAL GLUCOSE, FASTING Routine 04/17/2023 10:28 AM EDT Abnormal GTT (glucose tolerance test) documented in this encounter Results * 100-G GESTATIONAL GLUCOSE, 2 HOUR (04/17/2023 12:27 PM EDT) 100-g Gestational Glucose, 2 Hour 141 70 - 154 mg/dL 04/17/2023 1:43 PM EDT LAB[facility]ATORY [place] [facility]10 Blood Venous blood specimen / Unknown Venipuncture / Unknown 04/17/2023 12:27 PM EDT 04/17/2023 12:27 PM EDT Lexus SHANNON LAB BLOOD ORDERABLES LABORATORY [place] [address] [place] [address] * 100-G GESTATIONAL GLUCOSE, 1 HOUR (04/17/2023 11:29 AM EDT) 100-g Gestational Glucose, 1 Hour 142 70 - 179 mg/dL 04/17/2023 12:41 PM EDT LABORATORY [place] [facility]10 Blood Venous blood specimen / Unknown Venipuncture / Unknown 04/17/2023 11:29 AM EDT 04/17/2023 11:29 AM EDT Lexus SHANNON LAB BLOOD ORDERABLES LAB[facility] [address] [place] [address] * 100-G GESTATIONAL GLUCOSE, FASTING (04/17/2023 10:28 AM EDT) 100-g Gestational Glucose, Fasting 93 70 - 94 mg/dL 04/17/2023 11:42 AM EDT LABORATORY [place] [facility] Blood Venous blood specimen / Unknown Venipuncture / Unknown 04/17/2023 10:28 AM EDT 04/17/2023 10:28 AM EDT Narrative LABORATORY [place] [facility] - 04/17/2023 11:42 AM EDT Based on ACOG guideline, gestational diabetes mellitus is diagnosed when any of the following is met: Fasting is greater than or equal to 95 mg/dL 1 hour is greater than or equal to 180 mg/dL 2 hour is greater than or equal to 155 mg/dL 3 hour is greater than or equal to 140 mg/dL Lexus Corrigan CNM LAB BLOOD ORDERABLES LAB[facility]ATORY [place] [facility] [address] [facility] [place] [address] documented in this encounter Visit Diagnoses Diagnosis Abnormal GTT (glucose tolerance test) Impaired glucose tolerance test documented in this encounter Care Teams Band Tacker Relationship Specialty Start Date End Date Gail Gil MD [address] [phone] PCP - General Family Medicine 03/18/21 documented as of this encounter
--- OUTSIDE RECORDS SUMMARY | 2023-05-28 18:10 | External Medical Summary ---
Author Name Unknown Address Unknown Organization [id number]:LABORATORY [facility] - [address] [place] [address] Laboratory Report Ordering Provider Test Date Status NIURKA ALLAN 03/27/2023 15:18:02 Final Observation Date Value Abnormality Reference (Units ) Status Trichomonas vaginalis rRNA [Presence] in Specimen by CLEOPATRA with probe detection 03/27/2023 15:18:02 Negative Negative Final No Trichomonas vaginalis det ected by production stage manager mediated nucleic acid amplification. Performing Location LABORATORY [facility] - [address] [place] [address]
--- OUTSIDE RECORDS SUMMARY | 2023-05-28 18:10 | External Medical Summary ---
Author Name Unknown Address Unknown Organization [id number]:[facility]ATORY [facility] [place] [address] [place] [address] Laboratory Report Ordering Provider Test Date Status JERRELLPARISHY 03/27/2023 15:54:51 Final Observation Date Value Abnormality Reference (Units ) Status Rubella virus IgG Ab [Presence] in Serum 03/27/2023 15:54:51 Positive Abnormal Negative Final A positive result is consist ent with having had rubella virus or vaccination. Performing Location LAB[facility]ATORY [facility] - [address] [place] [address]
--- OUTSIDE RECORDS SUMMARY | 2023-05-28 18:10 | External Medical Summary ---
Author Name Unknown Address Unknown Organization K01:LABORATORY [address] [facility] [address] Laboratory Report Ordering Provider Test Date Status NIURKA ALLAN 03/27/2023 15:25:00 Final Observation Date Value Abnormality Reference (Units ) Status Human papilloma virus E6+E7 mRNA [Presence] in Cervix by CLEOPATRA with probe detection 03/27/2023 15:25:00 Positive Abnormal Not Applicable Final One or more high/intermediat e-risk Human Papillomavirus (HPV E6/E7 messenger RNA) detected [...] developed, and its performance characteristics determined by [employer]. It has not been cleared or approved by the U.S. Food and Drug Administration (FDA). The FDA has determined that such clearance or approval is not necessary.
This assay has been performed at [facility], [address], [place]. [address]. Performing Location LABORATORY [address] [place] [facility] [address]
--- OUTSIDE RECORDS SUMMARY | 2023-05-28 18:10 | External Medical Summary ---
Author Name Unknown Address Unknown Organization [id number]:[facility] [place] [facility] [address] [place] [address] Laboratory Report Ordering Provider Test Date Status NIURKA ALLAN 03/27/2023 15:18:02 Final Observation Date Value Abnormality Reference (Units ) Status Chlamydia trachomatis rRNA [Presence] in Specimen by CLEOPATRA with probe detection 03/27/2023 15:18:02 Negative Negative Final No Chlamydia trachomatis det ected by manufacturing analyst-mediated nucleic acid amplification. Neisseria gonorrhoeae rRNA [ Presence] in Specimen by CLEOPATRA with probe detection 03/27/2023 15:18:02 Negative Negative Final No Neisseria gonorrhoeae det ected by manufacturing analyst-mediated nucleic acid amplification. Performing Location [facility] [place] [address] [place] [address]
--- OUTSIDE RECORDS SUMMARY | 2023-05-28 18:10 | External Medical Summary | Summary of Care ---
Author Name Unknown Organization [facility] Address [address] [place] [address] Phone [phone] Care Team Providers Care Senior Media Planner Name Role Phone Gail Gil MD Primary Care Provid er Reason for Visit * Reason Comments Return Visit Encounter Details Date Type Department Care Team Description 04/10/2023 Office Visit Gynecology/Obstetric s Jason Devi [address] [place] [address] Karma Sharma PA-C [address] [place] [address] Nurse [facility] Return [place]fie [address] [place] [address] Normal in third trimester*; Late care; Vapes nicotine containing substance; Family history of Down syndrome; Marijuana use during ; Gonorrhea affecting in third trimester Allergies No known active allergiesdocumented as [...] Late care 03/15/2023 Overview: Initiated care at [facility] at 26w2d. Dating ultrasound was done at [...] Sign Reading Time Taken Comments Blood Pressure 110/70 04/10/2023 9:14 AM EDT Pulse - - Temperature - - Respiratory Rate - - Oxygen Saturation - - Inhaled Oxygen Concentration - - Weight 66.1 kg (145 lb 12.8 oz) 04/10/2023 9:14 AM EDT Height 160 cm (5' 3") 04/10/2023 9:14 AM EDT Body Mass Index 25.83 04/10/2023 9:14 AM EDT documented in this encounter Progress Notes * Karma Sharma PA-C - 04/10/2023 10:00 AM EDT 28w2d Had questions regarding pap screen results: LSIL, cannot exclude high grade ASC- H/+HPV. Colpo recommended, she is now in third trimester. Pt deferring to after . Reviewed importance of follow up for colpo, we discuss pap screening purpose is for cervical cancer. All questions answered, sheunderstands importance. Denies bleeding, leaking, contractions. Pos fm. RTC in 2 weeks Karma Sharma PA-C * Mary Sahni LPN - 04/10/2023 9:20 AM EDT 28w2d Pt plans to do 28wk labs today. Pt needs referral for pcp. Would like to discuss +HPV test results. documented in this encounter Nursing Notes * Gabriela Guallpa RN - 04/10/2023 9:45 AM EDT Patient seen by [facility] Laboratory Technician. Patient denies any questions or concerns. Stillworking on getting in contact with [facility] for breast pump. documented in this encounter Plan of Treatment Upcoming Encounters Date Type Specialty Care Team Description 04/11/2023 Office Visit Family Medicine Gail Gil MD [address] [place] [address] 04/24/2023 Office Visit Gynecology Obstetrics Darlin Grace CRNP [address] [place] [address] Nurse Mar[facility]ie [address] [place] [address] Health Maintenance Due Date Last Done Comments [...] congenital anomalies Marijuana use during Gonorrhea affecting in third trimester documented in this encounter Care Teams Senior Media Planner Relationship Specialty Start Date End Date Gail Gil MD [address] [place] [address] PCP - General Family Medicine 03/18/21 documented as of this encounter
--- OUTSIDE RECORDS SUMMARY | 2023-05-28 18:10 | External Medical Summary | Summary of Care ---
Author Name Unknown Organization [facility] Address [address] [place] [address] Phone [phone] Care Team Providers Care A Class Lineman Name Role Phone Gail Gil MD Primary Care Provid er Encounter Details Date Type Department Care Team Description 03/29/2023 Telephone Gynecology/Obstetrics [facility] [address] [facility] [address] [facility] [place] [address] Lexus Corrigan, FARSH[place] [address] [facility] [address] [place] [phone] Allergies No known active allergiesdocumented as of this encounter (statuses as of 03/31/2023) Medications Medication Sig Dispensed Refills Start Date End Date Status 19 29-1 MG Oral Tablet ChewableIndication s:Normal in second trimester Take 1 Tablet by mouth every evening. 90 Tablet 2 03/27/2023 Active Breast PumpIndications:No rmal in second trimester Pump daily when 1 Each 0 03/27/2023 Active documented as of this encounter (statuses as of 03/31/2023) Active Problems Problem Noted Date Marijuana use during Overview: Urine drug screen positive for cannabinoids on 03/28/23 at [facility] visit at 26w3d History of abnormal cervical Pap smear 1 Overview: 03/2022 ASCUS, HPV+. Pap repeated 03/27/2023 at [facility] visit. History of gonorrhea 03/27/2023 Family history of Down syndrome 03/27/20 Overview: Maternal aunt. Offered [facility] at [facility] on 03/27/23 at 26w2d. Patient checking insurance [...] assistance referred to [facility] and local [place] 03/27/2023 Gabriela Guallpa RN 03/27/2023 Normal 03/15/2023 Late care 03/15/2023 Overview: Initiated care at [facility] at 26w2d. Dating ultrasound was done at [facility] at 16 weeks. Anxiety 03/15/2023 Vapes nicotine containing substance 02/25 Estimated Date of Delivery Comme nts Yes 07/01/2023 Based on last me nstrual period of 09/24/2022 (Exact Date) documented as of this encounter (statuses as of 03/31/2023) Immunizations Name Administration Dates Next Due HPV [...] encounter Miscellaneous Notes * Telephone Encounter - Kira Elder LPN - 03/31/2023 8:22 AM EDT Letter sent and myg sent * Telephone Encounter - Gabriela Guallpa RN - 03/29/2023 1:36 PM EDT Attempted to call patient on both numbers in chart, no answer, LVM to return call. * Telephone Encounter - Gabriela Guallpa RN - 03/29/2023 12:59 PM EDT ----- Message from Lexus Corrigan CNM sent at 03/29/2023 12:10 PM EDT ----- Please let patient know she tested negative for gonorrhea, chlamydia, trichomonas, syphilis, hepatitis B, hepatitis C, and HIV. Her urine drug screen was positive for cannabinoids (Marijuana) only. We do not recommend marijuana in . Her CBC showed no anemia, blood type is A positive and she has immunity to rubella. Her urine culture showed no infection. Thanks! Lexus Corrigan CNM documented in this encounter Plan of Treatment Upcoming Encounters Date Type Specialty Care Team Description 04/05/2023 Imaging Radiology 04/10/2023 Office Visit Gynecology Obstetrics Karma Sharma PA-C [address] [place] [address] Nurse [facility] [address] [place] [address] Health Maintenance Due Date Last Done Comments Hepatitis B (1 of 3 - 3-dose series) 1998 COVID-19 Vaccine (#1) 06/28/1999 Depression Screening 2010 DTaP,Tdap,and Td Vaccines (1 - Tdap) 2017 GARDASIL-HPV IMMUNIZATION SERIES (2 - 3-dose series) 05/03/2021 04/05/2021 Gonorrhea / Chlamydia Screen 03/27/202407/2022, 04/05/2021 Pap Smear 04/05/2024 04/05/2021 Influenza Vaccine (FLU shot) Completed 03/27/2023 [...] filedocumented as of this encounter Care Teams A Class Lineman Relationship Specialty Start Date End Date Gail Gil MD [address] [place] [address] PCP - General Family Medicine 03/18/21 documented as of this encounter
--- OUTSIDE RECORDS SUMMARY | 2023-05-28 18:10 | External Medical Summary ---
Author Name Unknown Address Unknown Organization K01:LABORATORY [facility] [place] [facility] - [address] [place] [address] Laboratory Report Ordering Provider Test Date Status NIURKA ALLAN 03/27/2023 15:55:22 Final Observation Date Value Abnormality Reference (Units ) Status ABO 03/27/2023 15:55:22 A Final RH 03/27/2023 15:55:22 Positive Final RED BLOOD CELL ANTIBODY SCREEN 03/27/2023 15:55:22 Negative Final SPECIMEN EXPIRATION DATE 03/27/2023 15:55:22 03/30/2023 23:59 Final Performing Location LABORATORY [facility] [place] [facility] - [address] [place] [address]
--- OUTSIDE RECORDS SUMMARY | 2023-05-28 18:10 | External Medical Summary ---
Author Name Unknown Address Unknown Organization K01:LABORATORY [facility] [place] - [address] [place] [address] [place] [address] Laboratory Report Ordering Provider Test Date Status NIURKA ALLAN 03/27/2023 15:54:51 Final Observation Date Value Abnormality Reference (Units ) Status Treponema pallidum Ab [Presence] in Serum by Immunoassay 03/27/2023 15:54:51 Nonreactive Nonreactive Final No serologic evidence of syp hilis. No additional testing clinicially indicated at this time. Consider repeat testing in 2-4 weeks if acute or primary syphilis is suspected. Performing Location LABORATORY [facility] [place] - [address] [place] [address]
--- OUTSIDE RECORDS SUMMARY | 2023-05-28 18:10 | External Medical Summary | Summary of Care ---
Author Name Unknown Organization [facility] Address [address] [place] [address] Phone [phone] Care Team Providers Care Float Operator Name Role Phone Gail Gil MD Primary Care Provid er Reason for Visit * Reason Onset Date Comments New Visit Medication Administration 03/27/2023 Flu an d/or Pneumo Inj Encounter Details Date Type Department Care Team Description 03/27/2023 Office Visit Gynecology/Obstetrics [facility] [address] [facility] [place] [address] Lexus Corrigan, [facility] [address] [place] [address] Normal in second trimester*; Late care; Vapes nicotine containing substance; History of abnormal cervical Pap smear; History of gonorrhea; Family history of Down syndrome; Need for prophylactic vaccination and inoculation against influenza Allergies No known active allergiesdocumented as of this encounter (statuses as of 03/27/2023) Medications Medication Sig Dispensed Refills Start Date [...] as of this encounter (statuses as of 03/27/2023) Active Problems Problem Noted Date History of abnormal cervical Pap smear 1 Overview: 03/2022 ASCUS, HPV+. Pap repeated 03/27/2023 at [facility] visit. History of gonorrhea 03/27/2023 Family history of Down syndrome 03/27/20 Overview: Maternal aunt. Offered Qnatal at [facility] on 03/27/23 at 26w2d. Patient checking insurance [...] resolved Need for food assistance referred to [facility] and local food alberts 03/27/2023 Gabriela Guallpa RN 03/27/2023 Normal 03/15/2023 Late care 03/15/2023 Overview: Initiated care at [facility] at 26w2d. Dating ultrasound was done at [facility] at 16 weeks. Anxiety 03/15/2023 Vapes nicotine containing substance 02/25 Estimated Date of Delivery Comme nts Yes 07/01/2023 Based on last me nstrual period of 09/24/2022 (Exact Date) documented as of this encounter (statuses as of 03/27/2023) Immunizations Name Administration Dates Next Due HPV [...] documented in this encounter Progress Notes * Lexus Corrigan CNM - 03/27/2023 2:44 PM EDT Una Eagle [id number] CC: NOB HPI: Una Eagle is a [...] ultrasound performed at the [facility] and plans to continue going there for [...] was treated at the [facility]. Patient denies any new sex partners. Denies [...] or anxiety. Plans to start therapy at [facility] and has an upcoming intake appointment on 04/11/23. She states it is preventative and was recommended by her mother. Patient lives with her mother in [place]. Feels safe at home. Works at [email or web address]. Plans to deliver at [facility]. Review of outside records from [facility]: Negative HIV on 01/12/23 Non-reactive syphilis on 01/12/23 Negative chlamydia on 01/12/23 (throat and vaginal) Negative vaginal gonorrhea on 01/12/23 Positive throat gonorrhea on 01/12/23 Dating/viability ultrasound on 01/13/23 showing "Viable perdomo at 16 2/7 days" with EDC 06/28/2023 by ultrasound. FHR 141bpm. Posterior fundal placenta. (Per Dr. Ahsan Álvarez, OBGYN). Carriere Depression Scale: Score = 3 OB History [...] physical FHT: 130-140bpm per doppler FH: 25cm Knifeman Documentation Provider requested climatology teacher. Name of climatology teacher: Alyssia Kimbrough LPN ASSESSMENT/PLAN: (O09.30) Late care [...] History of abnormal cervical Pap smear Plan: SIGN WIRER PAP DIAGNOSTIC -Pap smear done today (Z86.19) [...] for breast pump -patient was enrolled in [facility] and met with Gabriela Guallpa RN - discussed 1 hour glucose screen to be completed at next visit Follow up: - RTO in 2 weeks for BEBETO SMITH with concern Lexus Corrigan CNM documented in this encounter Nursing Notes * Gabriela Guallpa RN - 03/27/2023 3:43 PM EDT Patient here to enroll in the [facility] program. Forms completed and intake assessment form completed. have you cut down with your smoking yes have you quit yes have you seen a network design architect no have you seen a social worker assistant no are you receiving counseling no have you received dental care during your no are you enrolled in [facility] has appointment do you receive food stamps [...] Delivery: 07/01/23 - documented in this encounter Plan of Treatment Upcoming Encounters Date Type Specialty Care Team Description 04/05/2023 Imaging Radiology 04/10/2023 Office Visit Gynecology Obstetrics Karma Sharma PA-C [address] [place] [address] Nurse Mar[facility] Return [place] [address] [place] [address] Pending Results Name Type Priority Associated Diagnoses Date /Time CULTURE, URINE, QUANTITATIVE Lab Routine Normal in second trimester 03/27/2023 3:18 PM EDT TYPE AND SCREEN Lab Routine Normal in second trimester 03/27/2023 3:55 PM EDT HIV ANTIGEN & ANTIBODY SCREEN W/ CONFIRMATION Lab Routine Normal in second trimester 03/27/2023 3:54 PM EDT ABO/RH Lab Routine Normal in second trimester 03/27/2023 3:54 PM EDT CBC WITH WBC DIFFERENTIAL AND ANEMIA REFLEX WORKUP Lab Routine Normal in second trimester 03/27/2023 3:54 PM EDT HEPATITIS C ANTIBODY SCREEN WITH PROGRESSION TO HEPATITIS C RNA QUANTITATIVE Lab Routine Normal in second trimester 03/27/2023 3:54 PM EDT RUBELLA IGG ANTIBODY Lab Routine Normal in second trimester 03/27/2023 3:54 PM EDT SYPHILIS ANTIBODY SCREEN WITH REFLEX TO RPR Lab Routine Normal in second trimester 03/27/2023 3:54 PM EDT HEPATITIS B SURFACE ANTIGEN Lab Routine Normal in second trimester 03/27/2023 3:54 PM EDT CHLAMYDIA TRACHOMATIS AND NEISSERIA GONORRHOEAE, AMPLIFIED PROBE Lab Routine Normal in second trimester 03/27/2023 3:18 PM EDT TOXICOLOGY, URINESCREEN W/ CONFIRMATION Lab Routine Late care 03/27/2023 3:25 PM EDT BUPRENORPHINE, URINE SCREEN W/ CONFIRMATION Lab Routine Late care 03/27/2023 3:25 PM EDT SIGN WIRER PAP DIAGNOSTIC Pathology Routine History of abnormal cervical Pap smear 03/27/2023 3:25 PM EDT Scheduled Orders Name Type Priority Associated Diagnoses Orde r Schedule CULTURE, URINE, QUANTITATIVE Lab Routine Normal in second trimester Expected: 03/27/2023, Expires: 03/27/2024 TYPE AND SCREEN Lab Routine Normal in second trimester Expected: 03/27/2023, Expires: 04/27/2024 HIV ANTIGEN & ANTIBODY SCREEN W/ CONFIRMATION Lab Routine Normal in second trimester Expected: 03/27/2023, Expires: 03/27/2024 ABO/RH Lab Routine Normal in second trimester Expected: 03/27/2023, Expires: 04/27/2024 CBC WITH WBC DIFFERENTIAL AND ANEMIA REFLEX WORKUP Lab Routine Normal in second trimester Expected: 03/27/2023, Expires: 03/27/2024 HEPATITIS C ANTIBODY SCREEN WITH PROGRESSION TO HEPATITIS C RNA QUANTITATIVE Lab Routine Normal in second trimester Expected: 03/27/2023, Expires: 03/27/2024 RUBELLA IGG ANTIBODY Lab Routine Normal in second trimester Expected: 03/27/2023, Expires: 03/27/2024 SYPHILIS ANTIBODY SCREEN WITH REFLEX TO RPR Lab Routine Normal in second trimester Expected: 03/27/2023, Expires: 03/27/2024 HEPATITIS B SURFACE ANTIGEN Lab Routine Normal in second trimester Expected: 03/27/2023, Expires: 03/27/2024 CHLAMYDIA TRACHOMATIS AND NEISSERIA GONORRHOEAE, AMPLIFIED PROBE Lab Routine Normal in second trimester Expected: 03/27/2023, Expires: 03/27/2024 50-G GESTATIONAL GLUCOSE, 1 HOUR Lab Routine Normal in second trimester Expected: 04/27/2023 (Approximate), Expires: 03/27/2024 BUPRENORPHINE, URINE SCREEN W/ CONFIRMATION Lab Routine Late care Expected: 03/27/2023, Expires: 03/27/2024 TRICHOMONAS VAGINALIS, AMPLIFIED PROBE Lab Routine Normal in second trimester Expected: 03/27/2023, Expires: 03/27/2024 US PREG SINGLE/1ST GEST, 14 WEEKS OR LATER Medical Imaging Routine Normal in second trimester Expected: 03/27/2023, Expires: 04/27/2024 Health Maintenance Due Date Last Done Comments Hepatitis B (1 of 3 - 3-dose series) 1998 COVID-19 Vaccine (#1) 06/28/1999 Depression Screening 2010 HIV Screening 2013 Hepatitis C Screening 2016 DTaP,Tdap,and Td Vaccines (1 - Tdap) 2017 GARDASIL-HPV IMMUNIZATION SE MARY (2 - 3-dose series) 05/03/2021 04/05/2021 Gonorrhea / Chlamydia Screen 04/05/2022 04/05/2021 Pap Smear 04/05/2024 04/05/2021 Influenza Vaccine (FLU shot) Completed 03/27/2023 MENINGOCOCCAL (MENACTRA/MENVEO) Aged Out No longer eligible based on patient's age to complete this topic Pneumococcal Vaccine: Pediat rics (0 to 5 Years) and At-Risk Patients (6 to 64 Years) Aged Out No longer eligi ble based on patient's age to complete this topic [...] for prophylactic vaccination and inoculation against influenza documented in this encounter Care Teams Float Operator Relationship Specialty Start Date End Date Gail Gil MD [address] [place] [address] PCP - General Family Medicine 03/18/21 documented as of this encounter
--- OUTSIDE RECORDS SUMMARY | 2023-05-28 18:10 | External Medical Summary | Summary of Care ---
Author Name Unknown Organization [facility] Address [address] [facility] [address] Phone [phone] Care Team Providers Care Aquatic Laborer Name Role Phone Gail Gil MD Primary Care Provid er Reason for Visit * Reason Comments Outpatient Testing Encounter Details Date Type Department Care Team Description 03/27/2023 Laboratory Laboratory, [facility] [address] [place] [address] [facility] [address] [place] [address] Normal in second trimester Allergies No known active allergiesdocumented as of this encounter (statuses as of 03/27/2023) Medications Medication Sig Dispensed Refills Start Date End Date Status 19 29-1 MG Oral Tablet ChewableIndications:N ormal in second trimester Take 1 Tablet by mouth every evening. 90 Tablet 2 03/27/2023 Active documented as of this encounter (statuses as of 03/27/2023) Active Problems Problem Noted Date History of abnormal cervical Pap smear 1 Overview: 03/2022 ASCUS, HPV+. Pap repeated 03/27/2023 at [facility] visit. History of gonorrhea 03/27/2023 Family history of Down syndrome 03/27/20 Overview: Maternal aunt. Offered Qnatal at [facility] on 03/27/23 at 26w2d. Patient checking insurance [...] Initiated care at [facility] at 26w2d. Dating ultrasound was done at [...] Visit Gynecology Obstetrics Karma Sharma PA-C [address] [place] [address] Nurse [facility] Return [facility] [address] [place] [address] Pending Results Name Type Priority Associated Diagnoses Date /Time HIV ANTIGEN & ANTIBODY SCREEN W/ CONFIRMATION [...] in second trimester 03/27/2023 3:54 PM EDT ANEMIA CBC Lab Routine Normal in second trimester 03/27/2023 3:54 PM EDT DIFFERENTIAL, AUTOMATED Lab Routine Normal in second trimester 03/27/2023 3:54 PM EDT ANEMIA REFLEX CHEMISTRY HOLD Lab Routine Normal in second trimester 03/27/2023 3:54 PM EDT HEPATITIS C ANTIBODY Lab Routine Normal in second trimester 03/27/2023 3:54 PM EDT HEPATITIS C RNA ADD ON Lab Routine Normal in second trimester 03/27/2023 3:54 PM EDT SYPHILIS ANTIBODY SCREEN Lab Routine Normal in second trimester 03/27/2023 3:54 PM EDT TYPE AND SCREEN Lab Routine Normal in second trimester 03/27/2023 3:55 PM EDT Health Maintenance Due Date Last [...] trimester documented in this encounter Care Teams Aquatic Laborer Relationship Specialty Start Date End Date Gail Gil MD [address] [place] [address] PCP - General Family Medicine 03/18/21 documented as of this encounter
--- OUTSIDE RECORDS SUMMARY | 2023-05-28 18:10 | External Medical Summary | Summary of Care ---
Author Name Unknown Organization [facility] Address [address] [place] [address] Phone [phone] Care Team Providers Care Tack Puller Machine Name Role Phone Gail Gil MD Primary Care Provid er Encounter Details Date Type Department Care Team Description 04/05/2023 Telephone Gynecology/Obstetrics [facility] [address] [place] [address] Lexus Corrigan [facility] [address] [place], [place] [id number] Allergies No known active allergiesdocumented as of this encounter (statuses as of 04/05/2023) Medications Medication Sig Dispensed Refills Start Date End Date Status 19 29-1 MG Oral Tablet ChewableIndication s:Normal in second trimester Take 1 Tablet by mouth every evening. 90 Tablet 2 03/27/2023 Active Breast PumpIndications:No rmal in second trimester Pump daily when 1 Each 0 03/27/2023 Active documented as of this encounter (statuses as of 04/05/2023) Active Problems Problem Noted Date Marijuana use during Overview: Urine drug screen positive for cannabinoids on 03/28/23 at [facility] visit at 26w3d History of abnormal cervical Pap smear 1 Overview: 03/2022 ASCUS, HPV+. Pap repeated 03/27/2023 at [facility] visit. History of gonorrhea 03/27/2023 Family history of Down syndrome 03/27/20 Overview: Maternal aunt. Offered Qnatal at [facility] on 03/27/23 at 26w2d. Patient checking [...] resolved Need for food assistance referred to [facility] and local [employer] [place] 03/27/2023 Gabriela Guallpa RN 03/27/2023 Normal 03/15/2023 Late care 03/15/2023 Overview: Initiated care at [facility] at 26w2d. Dating ultrasound was done at [facility] at 16 weeks. Anxiety 03/15/2023 Vapes nicotine containing substance 02/25 Estimated Date of Delivery Comme nts Yes 07/01/2023 Based on last me nstrual period of 09/24/2022 (Exact Date) documented as of this encounter (statuses as of 04/05/2023) Immunizations Name Administration Dates Next Due HPV [...] Telephone Encounter - Kira Elder LPN - 04/05/2023 2:41 PM EDT Spoke with pt she would like to discuss with provider at her next visit and see if she should have done during or wait until after she delivers. I went over the procedure with her multiple times and she still would like to discuss with provider. * Telephone Encounter - Kira Elder LPN - 04/05/2023 2:30 PM EDT ----- Message from Lexus Corrigan CNM sent at 04/05/2023 1:02 PM EDT ----- Please let patient know her pap smear [...] as possible. Please assist with scheduling. Thanks! Lexus Corrigan CNM documented in this encounter Plan of Treatment Upcoming Encounters Date Type Specialty Care Team Description 04/10/2023 Office Visit Gynecology Obstetrics Karma Sharma PA-C [address] [facility] [place] [address] Nurse Mar[facility]ie [address] [place] [address] Health Maintenance Due Date Last Done Comments [...] filedocumented as of this encounter Care Teams Tack Puller Machine Relationship Specialty Start Date End Date Gail Gil MD [address] [place] [facility] [place] [address] PCP - General Family Medicine 03/18/21 documented as of this encounter
--- OUTSIDE RECORDS SUMMARY | 2023-05-28 18:10 | External Medical Summary ---
Author Name Unknown Address Unknown Organization [id number]:LABORATORY [facility] - [facility] [address] [place] [address] Laboratory Report Ordering Provider Test Date Status NIURKA ALLAN 03/27/2023 15:54:51 Final Observation Date Value Abnormality Reference (Units ) Status HIV 1+2 Ab+HIV1 p24 Ag [Presence] in Serum or Plasma by Immunoassay 03/27/2023 15:54:51 Negative Negative Final Negative HIV-1/2 antigen and antibody screening tset results usually indicate the absence of HIV-1 and HIV-2 infection. However, such negative results do not rule-out acute HIV infection. If acute HIV-1 infection is highly suspected, it is recommended that a specimen be submitted for detection of HIV-1 RNA. Performing Location LABORATORY [facility] - [address] [place] [address]
--- OUTSIDE RECORDS SUMMARY | 2023-05-28 18:10 | External Medical Summary ---
Author Name Unknown Address Unknown Organization [id number]:LABORATORY [facility] - [address] [place] [address] Laboratory Report Ordering Provider Test Date Status NIURKA ALLAN 03/27/2023 15:25:01 Final Cutoff Concentration:
Dr ug Level
Buprenorphine 5 ng/mL

Screening results are presumptive and can only be used for medical purposes. Positive screening results are reflexed to confirmatory testing. Observation Date Value Abnormality Reference (Units ) Status Buprenorphine [Presence] in Urine 03/27/2023 15:25:01 Negative Negative Final Performing Location LABORATORY [facility] - [address] [place] [address]
--- OUTSIDE RECORDS SUMMARY | 2023-05-28 18:10 | External Medical Summary ---
Author Name Unknown Address Unknown Organization [id number]:[facility] - [facility] [address] [place] [address] Laboratory Report Ordering Provider Test Date Status NIURKA ALLAN 03/27/2023 15:25:01 Final Cutoff Concentration:
D rug Level
THC-COOH 10 ng/mL

This test was developed and its performance characteristics determined by [employer]. It has not been cleared or approved by the [place] Food and Drug Administration.
null Observation Date Value Abnormality Reference (Units ) Status METHODOLOGY 03/27/2023 15:25:01 LC-MS/MS Final Cannabinoids, Urine confirmatory 03/27/2023 15:25:01 229 Above high normal Negative (ng/mL) Final Performing Location LAB[facility] - [facility] [place] [address]
--- OUTSIDE RECORDS SUMMARY | 2023-05-28 18:10 | External Medical Summary | Summary of Care ---
Author Name Unknown Organization [facility] Address [address] [facility] [place] [address] Phone [phone] Care Team Providers Care Hospitality Intern Name Role Phone Gail Gil MD Primary Care Provid er Reason for Visit * Reason Onset Date Comments Left Without Being Seen 03/15/2023 Encounter Details Date Type Department Care Team Description 03/15/2023 [facility] [address] [place] [address] Maryanne Nuñez CRNP [address] [place] [address] Left without being seen* Allergies No known active allergiesdocumented as of this encounter (statuses as of 03/15/2023) Medications Medication Sig Dispensed Refills Start Date End Date Status 19 29-1 MG Oral Tablet Chewable Take by mouth. 0 Active Clindamycin Phosphate 1 % External GelIndications:Acn e, unspecified acne type Apply topically to affected area 2 times a day. To affected area of skin on buttocks. 60 g 11 04/05/2021 03/15/2023 Discontinued (Medication List Clean Up) documented as of this encounter (statuses as of 03/15/2023) Active Problems Problem Noted Date Normal 03/15/2023 Late care 03/15/2023 Anxiety 03/15/2023 Vapes nicotine containing substance 02/25 Estimated Date of Delivery Comme nts Yes 07/01/2023 Based on last me nstrual period of 09/24/2022 (Exact Date) documented as of this encounter (statuses as of 03/15/2023) Immunizations Name Administration Dates Next Due HPV Vaccine, 9-Valent 04/05/2021 documented as of this encounter Social History Tobacco Use Types Packs/Day Years Used Date Smoking Tobacco: Former Cigarettes 0.2 Smokeless Tobacco: Never Alcohol Use Standard Drinks/Week Comments Not Currently 0 (1 standard drink = 0.6 oz pur e alcohol) Estimated Date of Delivery Comme nts Yes 07/01/2023 Based on last me nstrual period of 09/24/2022 (Exact Date) Sex Assigned at Date Recorded Not on file Job Start Date Occupation Industry Not on file Not on file Not on file documented as of this encounter Last Filed Vital Signs Vital Sign Reading Time Taken Comments Blood Pressure - - Pulse - - Temperature - - Respiratory Rate - - Oxygen Saturation - - Inhaled Oxygen Concentration - - Weight - - Height 160 cm (5' 3") 03/15/2023 9:33 AM EDT Body Mass Index - - documented in this encounter Progress Notes * GAVIOTA Arthur - 03/15/2023 10:06 AM EDT Patient left without being seen by the provider. documented in this encounter Plan of Treatment Upcoming Encounters Date Type Specialty Care Team Description 03/27/2023 Office Visit Gynecology Obstetrics Lexus Corrigan, [address] [place] [address] Health Maintenance Due Date Last Done Comments Hepatitis B (1 of 3 - 3-dose series) 1998 COVID-19 Vaccine (#1) 06/28/1999 Depression Screening 2010 HIV Screening 2013 Hepatitis C Screening 2016 DTaP,Tdap,and Td Vaccines (1 - Tdap) 2017 GARDASIL-HPV IMMUNIZATION SE MARY (2 - 3-dose series) 05/03/2021 04/05/2021 Gonorrhea / Chlamydia Screen 04/05/2022 04/05/2021 Influenza Vaccine (FLU shot) (#1) 2023 Pap Smear 04/05/2024 04/05/2021 MENINGOCOCCAL (MENACTRA/MENVEO) Aged Out No longer eligible based on patient's age to complete this topic Pneumococcal Vaccine: Pediat rics (0 to 5 Years) and At-Risk Patients (6 to 64 Years) Aged Out No longer eligi ble based on patient's age to complete this topic documented as of this encounter Medical Devices Not on filedocumented as of this encounter Visit Diagnoses Diagnosis Left without being seen- Primary documented in this encounter Care Teams Hospitality Intern Relationship Specialty Start Date End Date Gail Gil MD [address] [place] [address] PCP - General Family Medicine 03/18/21 documented as of this encounter
--- OUTSIDE RECORDS SUMMARY | 2023-05-28 18:10 | External Medical Summary ---
Author Name Unknown Address Unknown Organization K01:[facility]ORY [facility] - [address] [place] [id number] Laboratory Report Ordering Provider Test Date Status NIURKA ALLAN 03/27/2023 15:18:02 Final Observation Date Value Abnormality Reference (Units) Status Bacteria identified in Specimen by Culture 03/27/2023 15:18:02 No significant growth Final Test: Culture, Urine, Quanti tative
Specimen Source: Urine, Clean Catch
Specimen Type: Urine
Specimen Date: 03/27/2023 3:18 PM
Result Date: 03/28/2023 4:31 PM
Result Status: Final result
Resulting Lab: [facility]
[address]
[place] [id number]

CULTURE

No significant growth

null Performing Location LABOR[facility] - [address] [facility] [address]
--- OUTSIDE RECORDS SUMMARY | 2023-05-28 18:10 | External Medical Summary | Summary of Care ---
Author Name Unknown Organization [facility] Address [address] [place] [address] Phone [phone] Care Team Providers Care Electrical Maintenance Supervisor Name Role Phone Gail Gil MD Primary Care Provid er Encounter Details Date Type Department Care Team Description 03/29/2023 Telephone Gynecology/Obstetrics [facility] 132 [facility] [place] [address] Lexus Corrigan, FARSHAD 400 [facility] [place] [id number] Allergies No known active allergiesdocumented as of this encounter (statuses as of 03/29/2023) Medications Medication Sig Dispensed Refills Start Date End Date Status 19 29-1 MG Oral Tablet ChewableIndication s:Normal in second trimester Take 1 Tablet by mouth every evening. 90 Tablet 2 03/27/2023 Active Breast PumpIndications:No rmal in second trimester Pump daily when 1 Each 0 03/27/2023 Active documented as of this encounter (statuses as of 03/29/2023) Active Problems Problem Noted Date Marijuana use during Overview: Urine drug screen positive for cannabinoids on 03/28/23 at NOB visit at 26w3d History of abnormal cervical Pap smear 1 Overview: 03/2022 ASCUS, HPV+. Pap repeated 03/27/2023 at NOB visit. History of gonorrhea 03/27/2023 Family history of Down syndrome 03/27/20 Overview: Maternal aunt. Offered Qnatal at [facility] on 03/27/23 at 26w2d. Patient [...] referred to [facility] and local [email or web address] 03/27/2023 Gabriela Guallpa RN 03/27/2023 Normal 03/15/2023 Late care 03/15/2023 Overview: Initiated care at [facility] at 26w2d. Dating ultrasound was done at [facility] at 16 weeks. Anxiety 03/15/2023 Vapes nicotine containing substance 02/25 Estimated Date of Delivery Comme nts Yes 07/01/2023 Based on last me nstrual period of 09/24/2022 (Exact Date) documented as of this encounter (statuses as of 03/29/2023) Immunizations Name Administration Dates Next Due HPV [...] Karma Sharma PA-C [address] [place] [address] Nurse [facility] Return [place]fie [address] [place] [address] Health Maintenance Due Date Last Done Comments [...] filedocumented as of this encounter Care Teams Electrical Maintenance Supervisor Relationship Specialty Start Date End Date Gail Gil MD [address] [place] [address] PCP - General Family Medicine 03/18/21 documented as of this encounter
--- OUTSIDE RECORDS SUMMARY | 2023-05-28 18:10 | External Medical Summary ---
Author Name Unknown Address Unknown Organization [id number]:[facility] [place] 100 [facility] [address] [place] [address] Laboratory Report Ordering Provider Test Date Status NIURKA ALLAN 03/27/2023 15:54:51 Final Observation Date Value Abnormality Reference (Units ) Status WBC, Total 03/27/2023 15:54:51 10.58 4.00-10.8 0 (K/uL) Final RBC 03/27/2023 15:54:51 4.11 3.85-5.15 (M/uL) Final Hemoglobin 03/27/2023 15:54:51 12.4 12.0-15.3 (g/dL) Final Anemia reflex testing trigge rs on a HGB < 12.0 for Females and HGB < 13.0 for Males in accordance with the WHO Anemia Guidelines
Anemia reflex testing triggers on a HGB < 12.0 for Females and HGB < 13.0 for Males in accordance with the WHO Anemia Guidelines HCT 03/27/2023 15:54:51 38.2 36.0-45.2 (%) Final MCV 03/27/2023 15:54:51 92.9 81.5-97.5 (fL) Final MCH 03/27/2023 15:54:51 30.2 27.0-34.0 (pg) Final MCHC 03/27/2023 15:54:51 32.5 32.0-36.0 (g/dL) Final RDW 03/27/2023 15:54:51 12.9 11.5-15.5 (%) Final Platelets 03/27/2023 15:54:51 261 140-400 (K /uL) Final MPV 03/27/2023 15:54:51 11.1 6.6-11.1 ( fL) Final Nucleated erythrocytes/100 leukocytes [Ratio] in Blood by Automated count 03/27/2023 15:54:51 0 <=0 (/100 WBCs) Fi [facility] Performing Location [facility] [place] [address] [facility] [address]
--- OUTSIDE RECORDS SUMMARY | 2023-05-28 18:10 | External Medical Summary ---
Author Name Unknown Address Unknown Organization [id number][place] [place] [address] [place] [id number] Laboratory Report Ordering Provider Test Date Status NIURKA ALLAN 03/27/2023 15:25:01 Final Cutoff Concentrations:
Drug Level
Amphetamines 500 ng/mL
[...] Date Value Abnormality Reference (Units ) Status Amphetamines, Urine screen 03/27/2023 15:25:01 Negative Negative Final Benzodiazepines, Urine screen 03/27/2023 15:25:01 Negative Negative Final Cannabinoids, Urine screen 03/27/2023 15:25:01 Positive Abnormal Negative Final Cocaine Metabolite, Urine screen 03/27/2023 15:25:01 Negative Negative Final fentaNYL [Presence] in Urine by Screen method 03/27/2023 15:25:01 Negative Negative Final HYDROcodone [Presence] in Urine by Screen method 03/27/2023 15:25:01 Negative Negative Final 2-Zdgotpshkh-5,5-Dimeth yl-3,3-Diphenylpyrrolid ine (EDDP) [Presence] in Urine 03/27/2023 15:25:01 Negative Negative Final Opiates, Urine screen 03/27/2023 15:25:01 Negative Negative Final oxyCODONE [Presence] in Urine by Screen method 03/27/2023 15:25:01 Negative Negative Final Performing Location [facility] [place] [address] [facility] [address]
--- OUTSIDE RECORDS SUMMARY | 2023-05-28 18:10 | External Medical Summary | Summary of Care ---
Author Name Unknown Organization [facility] Address [address] [place] [address] Phone [phone] Care Team Providers Care Votator Machine Operator Name Role Phone Gail Gil MD Primary Care Provid er Encounter Details Date Type Department Care Team Description 03/29/2023 Telephone Gynecology/Obstetrics [facility] 132 [facility] [place] [address] Lexus Corrigan, FARSHAD 400 [facility] [place] [phone] Allergies No known active allergiesdocumented as of [...] Maternal aunt. Offered Qnatal at [facility] on 03/27/23 at 26w2d. Patient [...] resolved Need for food assistance referred to [facility] and local [employer] 03/27/2023 Gabriela Guallpa RN 03/27/2023 Normal 03/15/2023 Late care 03/15/2023 Overview: Initiated care at [facility] at 26w2d. Dating ultrasound was done at [...] - 03/31/2023 8:22 AM EDT Letter sent * Telephone Encounter - Gabriela Guallpa [...] Karma Sharma PA-C [address] [place] [address] Nurse [facility] Alfie [address] [place] [address] Health Maintenance Due Date Last Done Comments [...] filedocumented as of this encounter Care Teams Votator Machine Operator Relationship Specialty Start Date End Date Gail Gil MD [address] [place] [address] PCP - General Family Medicine 03/18/21 documented as of this encounter
--- OUTSIDE RECORDS SUMMARY | 2023-05-28 18:10 | External Medical Summary ---
Author Name Unknown Address Unknown Organization [id number]:LABORATORY [facility] - [address] [place] [address] Laboratory Report Ordering Provider Test Date Status NIURKA ALLAN 04/10/2023 10:57:50 Final Observation Date Value Abnormality Reference (Units ) Status Glucose [Moles/volume] in Serum or Plasma --1 hour post 50 g glucose PO 04/10/2023 10:57:50 157 Above high normal 70-129 (mg/dL) Final Performing Location [facility] - [address] [place] [address]
--- OUTSIDE RECORDS SUMMARY | 2023-05-28 18:10 | External Medical Summary ---
Author Name Unknown Address Unknown Organization [id number]:[facility] [place] - [address] [place] [address] Laboratory Report Ordering Provider Test Date Status NIURKA ALLAN 03/27/2023 15:54:51 Final Observation Date Value Abnormality Reference (Units ) Status Hep B surface Ag 03/27/2023 15:54:51 Negative Neg ative Final Performing Location LABORATORY [facility] - [address] [place] [address]
--- OUTSIDE RECORDS SUMMARY | 2023-05-28 18:10 | External Medical Summary ---
Author Name Unknown Address Unknown Organization [id number]:[facility]ORY [facility] [place] - [address] [facility] [address] [place] [address] Laboratory Report Ordering Provider Test Date Status NIURKA ALLAN 03/27/2023 15:54:51 Final Observation Date Value Abnormality Reference (Units ) Status Hep C Ab 03/27/2023 15:54:51 Negative Negative Final Further HCV quantitative ayanna ting not performed per protocol. Performing Location LABORATORY [facility] - [address] [place] [address]
--- OUTSIDE RECORDS SUMMARY | 2023-05-28 18:10 | External Medical Summary | Summary of Care ---
Author Name Unknown Organization [facility] Address [address] [facility] [place] [address] Phone [phone] Care Team Providers Care Inorganic Chemistry Teacher Name Role Phone Gail Gil MD Primary Care Provid er Reason for Visit * Reason Comments New Visit Encounter Details Date Type Department Care Team Description 03/06/2023 Nurse Only Gynecology/Obstetrics [facility] 132 [facility] [place] [address] Gw, Nurse Optometry Professor [facility] [address] [facility] [place] [address] New Visit Allergies No known active allergiesdocumented as of this encounter (statuses as of 03/06/2023) Medications Medication Sig Dispensed Refills Start Date End Date Status Clindamycin Phosphate 1 % External GelIndications:Acne, unspecified acne type Apply topically to affected area 2 times a day. To affected area of skin on buttocks. 60 g 11 04/05/2021 Active Additional Information Patient not taking.Reported on 03/06/2023 19 29-1 MG Oral Tablet Chewable Take by mouth. 0 Active documented as of this encounter (statuses as of 03/06/2023) Active Problems Estimated Date of Delivery Comme nts Yes 07/01/2023 Based on last me nstrual period of 09/24/2022 (Exact Date) No known active problems documented as of this encounter (statuses as of 03/06/2023) Immunizations Name Administration Dates Next Due HPV [...] - Inhaled Oxygen Concentration - - Weight 58.1 kg (128 lb) 03/06/2023 12:52 PM EDT Height - - Body Mass Index 22.67 04/05/2021 4:40 PM EDT documented in this encounter Progress Notes * Gabriela Guallpa RN - 03/06/2023 12:53 PM EDT Patient documented in this encounter Nursing Notes * Gabriela Guallpa RN - 03/06/2023 1:16 PM EDT Patient called for NOB visit Patient is Currently 23w2d Had US at [facility] Dating information entered LAURA 07/01/2022 per LMP Patient denies bleeding/leaking/pain/N/V/BOWLES Eduction given Taking Triage number given Gabriela Guallpa RN documented in this encounter Plan of Treatment Upcoming Encounters Date Type Specialty Care Team Description 03/15/2023 Office Visit Gynecology Obstetrics Backer, GAVIOTA Marr [address] [place] [address] Health Maintenance Due Date Last Done Comments Hepatitis B (1 of 3 - 3-dose series) 1998 COVID-19 Vaccine (#1) 06/28/1999 Pneumococcal Vaccine: Pediat rics (0 to 5 Years) and At-Risk Patients (6 to 64 Years) (1 - PCV) 2004 Depression Screening 2010 HIV Screening 2013 Hepatitis [...] filedocumented as of this encounter Care Teams Inorganic Chemistry Teacher Relationship Specialty Start Date End Date Gail Gil MD [address] [place] [address] PCP - General Family Medicine 03/18/21 documented as of this encounter
--- OUTSIDE RECORDS SUMMARY | 2023-05-28 18:10 | External Medical Summary ---
Author Name Unknown Address Unknown Organization [id number][place] [place] 100 [facility] [place] [address] Laboratory Report Ordering Provider Test Date Status NIURKA ALLAN 03/27/2023 15:54:51 Final Observation Date Value Abnormality Reference (Units ) Status SYNC LEUKOCYTES IN BLOOD BY AUTOMATED COUNT 03/27/2023 15:54:51 10.58 4.00-10.80 (K/uL) Final Segs 03/27/2023 15:54:51 74.0 40.0-75.0 (%) Final Lymphs % 03/27/2023 15:54:51 16.6 Below low normal 18.0-42.0 (%) Final Monos 03/27/2023 15:54:51 6.8 1.0-11.0 (%) Final Eosinophils 03/27/2023 15:54:51 1.3 0.0-6.0 (%) Final Basos 03/27/2023 15:54:51 0.4 0.0-2.0 (%) Final Immature Granulocyte, Percent 03/27/2023 15:54:51 0.9 0.0-2.0 (%) Final Absolute Segs 03/27/2023 15:54:51 7.82 Above high normal 1.80-7.70 (K/uL) Final Lymphs, absolute 03/27/2023 15:54:51 1.76 1.00-4.80 (K/ul) Final Monos, Abs 03/27/2023 15:54:51 0.72 0.00-1.10 (K/uL) Final Eos, Abs 03/27/2023 15:54:51 0.14 0.00-0.70 (K/uL) Final Basos, Abs 03/27/2023 15:54:51 0.04 0.00-0.20 (K/uL) Final Immature Granulocytes, Number 03/27/2023 15:54:51 0.10 0.00-0.20 (K/uL) Final Performing Location [facility] [place] [facility] [place] [address]
--- NOTE | 2023-05-28 18:47 | History & Physical Report ---
Date of Service May 28, 2023 Assessment & Plan (1) Hemorrhage affecting in third trimester: Plan: 22-year-old at 35 weeks and 1 day gestation presenting today with acute hemorrhage, active vaginal bleeding, and contractions most likely with premature rupture of membranes and remote from delivery, Vital signs stable afebrile, heart rate is reassuring for now, History of smoking and drug use in this , her history is inconsistent Due to above findings and heaviness of the vaginal bleeding recommended delivery via primary , Patient understands the risks and benefits and signed informed consent, Plan to admit, stat labs, proceed with primary , All questions were answered. (2) Placental abruption in third trimester: (3) Marijuana use during : (4) Tobacco smoking affecting : Admission and Anticipated Discharge Date Admission Date: May 28, 2023 History of Present Illness Chief Complaint: Gushing blood Primary Care Provider: NO PCP Patient is an 22-year-old G1, P0 at 35 weeks and 1 days gestation who was exercising, bending on the ball this evening when she started to gush blood. She Ativan shoulders soaked a large pad within minutes and then called here labor and delivery. She she was then told to come to labor and delivery at [facility] by answering service. Within half an hour or so she soaked 6 pads, regular menstrual pads as well as multiple toilet papers and paper towels. She initially had a lot of cramping but then slowed down. She has been feeling the baby move. Her has been complicated by 1. Late care in second trimester, 2. Depression anxiety for which she uses marijuana and stop using her antidepressant medications which are not helping her, 3. Marijuana use during , her UDS showed positive marijuana as well as Suboxone but patient declines using Suboxone, She admits using marijuana today 4. Gonorrhea infection during this , treated She denies smoking tobacco, cocaine nor heroin use to me. She admits smoking and vaping daily to her nurse Tawana. Allergies Allergy/AdvReac Type Severity Reaction Status Date / Time No Known Allergies Allergy Verified 11/06/21 23:44 Home Medications Medication Instructions Recorded Confirmed Type No Known Home Medications 11/06/21 11/06/21 History Patient History Medical History ADD (attention deficit disorder) No pertinent family history Surgical History No pertinent past surgical history Social History Smoking Status: Current every day smoker Tobacco Type: Cigarettes and E-cigarettes / Vaping Second Hand Exposure: Yes; Do You Dip or Chew Tobacco: No; Tobacco Cessation Education Requested by Patient: No Hx Alcohol Use: No Hx Substance Use: Yes Last Used Substance Other:: Marijuana daily- pt states she has medical card (unable to provide) Preferred Language: Vietnamese Communication Ability: Effective Dag Sprayer Required: No Beliefs That Will Affect Care: None Current Living Situation Comment: Boyfriend- Gary Moreno Other Information That Helps Us Care for You: No Feels Safe at Home: Yes Safety Concerns: Feels Safe At This Time Assistive Devices: None VERIFICATION CLERK History Has a history of gonorrhea during this , treated Review of Systems as per Subjective / HPI Physical Exam Constitutional: WD/WN, vitals as above well developed, well nourished and + acute distress (She is nervous and appears to be anxious) Gastrointestinal (Abdomen): normal bowel sounds, soft, nontender, no hepatosplenomegaly (She has multiple contractions every 1 to 2 minutes) Genitourinary: normal external appearance (Covered with blood) Speculum/Bimanual Exam: + vaginal bleeding (There was about 5 to 6 cc of blood in upper fornix which was cleared) Manual OB Exam: + cervical dilation fingertip, + cervical effacement 20% and + station -2 OB Exam Monitor Tracing: + external uterine monitor used and + category I Bedside sono revealed vertex presentation, placenta fundal posterior, AFV is visually decreased, when I measure 3 pockets YENI came up to 8 cm. Results & Data Vital Signs (Past 12 Hours) Vital Signs Temp Resp BP 05/28/23 18:15 36.7 C 16 122/76
[2023-05-28 18:48] LABS: Hematocrit (blood only) 33.4 % (37.0-47.0); Hemoglobin 11.7 g/dl (12.0-16.0); Mean Corpuscular Hemoglobin 29.5 pg (25.0-34.0); Mean Corpuscular Volume 84.3 fL (80.0-100.0); Mean Platelet Volume 11.1 fL (9.4-12.4); Platelet Count 224 K/uL (130-400); RDW Coefficient of Variation 13.1 % (11.5-14.5); RDW Standard Deviation 39.9 fL (36.4-46.3); Red Blood Count 3.96 M/uL (4.20-5.40); White Blood Count 14.17 K/ul (4.8-10.8)
[2023-05-28 18:59] LABS: Alanine Aminotransferase 13 U/L (7-52); Albumin Globulin Ratio 1.3 (0.9-2); Albumin Level 3.6 gm/dl (3.4-5.0); Alkaline Phosphatase 176 U/L (34-104); Anion Gap 8 (3-11); Aspartate Aminotransferase 15 U/L (13-39); BUN Creatinine Ratio 14.3 (10-20); Bilirubin,Total 0.3 mg/dl (0.2-1.0); Blood Urea Nitrogen 7 mg/dl (6-23); Calcium 8.3 mg/dl (8.6-10.3); Carbon Dioxide 19 mmol/L (21-32); Chloride 108 mmol/L (98-107); Creatinine Clr Calc Pharmacy 162.1 ml/min; Est GFR (African American) > 150.0 ml/min; Est GFR (Non-African American) 136.4 ml/min; Globulin 2.7 gm/dl (2.5-4.0); Glucose 79 mg/dl (70-99(Fasting)); Potassium 3.6 mmol/L (3.5-5.1); Sodium 135 mmol/L (136-145); Total Protein 6.3 gm/dl (6.0-8.3)
[2023-05-28] MEDS ORDERED: CITRIC ACID/SODIUM CITRATE 15 ML UDC PO SCH (19:00)
[2023-05-28] MEDS ORDERED: ceFAZolin 2000MG 2,000 MG/15 ML SYR IV SCH (19:00)
[2023-05-28] MEDS ORDERED: LACTATED RINGER'S 1,000 ML IV SCH ×2 (19:00→20:45)
[2023-05-28 19:10] LABS: Fibrinogen 514 mg/dl (184-400); INR 0.9 (0.9-1.1); Partial Thromboplastin Ratio 0.9; Partial Thromboplastin Time 26.5 Seconds (21.0-31.0)
[2023-05-28 19:12] LABS: Amphetamines+Metham, Urine Neg (Neg); Barbiturates, Urine Neg (Neg); Benzodiazepine, Urine Neg (Neg); Cocaine, Urine Neg (Neg); MDMA (Ecstacy), Urine Neg (Neg); Marijuana, Urine Pos (Neg); Methadone, Urine Neg (Neg); Opiate, Urine Neg (Neg); Phencyclidine, Urine Neg (Neg)
--- NOTE | 2023-05-28 19:12 | Anesthesiology Consultation ---
Date of Service May 28, 2023 Assessment & Plan Chart Review Chart Review: Acceptable Risk for Surgery and Patient NOT seen in Pre Admission Testing Consults Requested none ASA ASA2E Proposed Anesthesia Anesthesia Type: MAC Spinal (intrathecal narcotics) Risk / Benefits Reviewed With: PT / POA / Parent / Guardian, Accepts Plan and Informed Consent Obtained History Surgery Operation Date: 05/28/23 19:00 Proposed Procedures p Section in LD - Jonn Ellis MD Height/Weight Height: 5 ft 2 in Weight: 69.853 kg Allergies Allergy/AdvReac Type Severity Reaction Status Date / Time No Known Allergies Allergy Verified 11/06/21 23:44 Medications Home Medications Medication Instructions Recorded Confirmed Last Taken No Known Home Medications 11/06/21 11/06/21 Unknown Active Medications Generic Name Dose Route Start Last Admin Trade Name Freq PRN Reason Stop Dose Admin Lactated Ringer's 1,000 mls @ 150 mls/hr 05/28/23 18:05 05/28/23 18:30 Lr IV 05/30/23 18:04 999 mls/hr .[id number] PRN Administration L&D Protocol Protocol Past Medical History Medical History ADD (attention deficit disorder) No pertinent family history Exercise / Class Metabolic Activity II 4-5 Yardwork/Stairs/Walk up hill Past Surgical History Surgical History No pertinent past surgical history Past Anesthesia History No Hx of Anesthesia Complications and No Family Hx of Anesthesia Complications History of PONV No Hx of PONV and No Hx of Motion Sickness Social History Smoking Status: Current every day smoker tobacco type: cigarettes and e-cigarettes Do You Dip or Chew Tobacco: No Hx Alcohol Use: No Hx Substance Use: Yes substance use type: marijuana Last Used Substance Other:: Marijuana daily- pt states she has medical card (unable to provide) Physical Exam Vital Signs Last Vital Signs Temp 36.7 C 05/28/23 18:15 Pulse 62 05/28/23 19:02 Resp 16 05/28/23 18:15 BP 112/56 L 05/28/23 19:02 ENMT Mouth: no dentition abnormality Thyromental Distance: > or= 3.5 Finger Breadths Mallampati Class: II Neck normal visual inspection Respiratory normal respiratory effort Auscultation: lungs clear to auscultation bilaterally Cardiovascular Rate/Rhythm: regular rate and regular rhythm Psychiatric Orientation: alert Testing Laboratory Results 05/28/23 18:18 05/28/23 18:18 PT 10.0 Seconds (9.0-12.0) 05/28/23 18:18 INR 0.9 (0.9-1.1) 05/28/23 18:18 APTT 26.5 Seconds (21.0-31.0) 05/28/23 18:18
[2023-05-28] MEDS ORDERED: MoRPHine SULFATE PF 1 MG/ML 10 ML AMP/VIAL ONE (19:22)
[2023-05-28] MEDS ORDERED: fentaNYL citrate PF 100 MCG/2 ML VIAL ONE ×2 (20:01→20:11)
[2023-05-28] MEDS ORDERED: KETOROLAC 30 MG/ML VIAL ONE (20:33)
[2023-05-28] MEDS ORDERED: OXYTOCIN 10 UNITS/ML VIAL ONE (20:33)
[2023-05-28] MEDS ORDERED: ONDANSETRON INJ 2 MG/ML 2 ML VIAL ONE (20:33)
[2023-05-28] MEDS ORDERED: HYDROCORTISONE ACETATE 25 MG SUPP PR PRN (20:38)
[2023-05-28] MEDS ORDERED: SENNA 8.6 MG TAB PO PRN (20:38)
[2023-05-28] MEDS ORDERED: BENZOCAINE 20% SPRY 85 APPLN/85 GM CAN EXT PRN (20:38)
[2023-05-28] MEDS ORDERED: MAGNESIUM HYDROXIDE SUSP 30 ML UDC PO PRN (20:38)
--- NOTE | 2023-05-28 20:43 | Operative Report ---
Post Operative Report Pre & Post Diagnosis Operation Date: 05/28/23 19:00 Pre-Op Diagnosis: 1.) Placental Abruption 2.) Vaginal Bleeding 3.) Remote from Delivery Post-Op Diagnosis: Same as pre op I identified the patient and participated in the time-out.: Yes Procedure Operation Date: 05/28/23 19:00 Actual Procedures p Primary Section for the of a liable male child at 1953. - Jonn Ellis MD Surgeon Jonn Ellis MD Medication Reconciliation Technician Radha Oscar RN Estimated Blood Loss 600 Findings Consistent with Post-Op Diagnosis Baby was a viable male infant delivered at 1951 2 PM Apgars were 5/8, weight was 2390 g. Bloody amniotic fluid was noted Maternal findings: Small amount of free blood in anterior cul-de-sac, otherwise normal uterus open tubes and ovaries. Fluids 1000 ML LR Specimens Placenta Drains Paredes catheter drained 250 cc of clear urine Anesthesia Type Spinal Complications none Indications Patient is a 22-year-old at 35 weeks and 1 day gestation presented to labor and delivery acute hemorrhage, contractions suggesting placental abruption and remote from delivery. Maternal vital signs were stable and heart rate was reassuring. Due to above decision was made to proceed with emergent delivery via primary . Description of Procedure Patient was taken to operating room where a spinal anesthesia was given without difficulty. She was placed in dorsal supine position with a leftward tilt. She was prepared and draped in usual sterile fashion. Testing was done and patient was still feeling pain. Per Dr. Wolf, anesthesiologist, recommendations we waited another 3 to 4 minutes and then tested again with good pain control. A financial skin incision was made and carried through to the underlying layer of fascia with the Bovie. Fascia was incised in the midline and incision was extended laterally with the help of Pfeiffer scissors. Then the upper aspect of the fascial incision was grasped with 2 Bela clamps elevated the underlying rectus muscles were dissected off sharply with Pfeiffer scissors. Same thing was done on the lower incision. Then the muscles were in the midline, peritoneum was identified grasped with 2 pickups and entered sharply with Metzenbaum scissors. Peritoneal incision was extended superior and inferiorly with good visualization of the bladder. The bladder blade was inserted. There was a small amount of dark blood in the anterior cul-de-sac. Vesicouterine peritoneum was identified, grasped with pickups and entered sharply with Metzenbaum scissors, bladder flap was created digitally and bladder blade was reinserted. Uterus was incised in transverse fashion, incision was extended laterally with fingers, membranes were ruptured and bloodstained amniotic fluid was obtained. Then baby is hand was presenting over the head. The hand was pushed back into uterine cavity and then the head was brought to the incision and was delivered without faculty difficulty, followed by shoulders and then body. The cord was noted to be long and wrapped around the ankles. Those were reduced and then mouth and nose were suctioned, the cord was clamped times and cut and then the was handed off to the pediatric team. The placenta was delivered manually as intact and complete. Uterus was externalized and cleared of all clots and debris's. Uterine incision was repaired with 0 Vicryl in a running locked fashion, second umbricating layer was placed with the same suture in running locked fashion. Excellent hemostasis achieved. Cul-de-sac and the pelvis was irrigated with warm normal saline and suctioned. Incision was checked of anesthetic again. Uterus was returned to the abdomen, parietal peritoneum was reapproximated with 3-0 Vicryl in a running fashion and the muscles were reapproximated in the same suture in a running fashion. All of the fascia and rectus muscles were hemostatic. Rectus fascia was reapproximated with 3-0 Vicryl starting from both columns meeting in the midline. Subcuticular fat tissue was brought together with 2-0 Vicryl in a runn ing fashion, skin was closed with 4-0 Monocryl in a subcuticular cuticular fashion. The mom and baby tolerated procedure well. Sponge needle instrument count was correct x3. No complications happened, I was present during whole procedure. My application assistant was needed for retraction, hemostasis and aid during delivery of . I attest to the content of the Intraoperative Record and any orders documented therein. Any exceptions are noted below.
[2023-05-28] MEDS ORDERED: MEPERIDINE HCL 25 MG/ML CARP/VIAL IV PRN (20:52)
[2023-05-28] MEDS ORDERED: KETOROLAC 30 MG/ML VIAL IV PRN (20:52)
[2023-05-28] MEDS ORDERED: diphenhydrAMINE 50 MG/ML VIAL IV PRN (20:52)
[2023-05-28] MEDS ORDERED: LACTATED RINGER'S 500 ML IV PRN (20:52)
[2023-05-28] MEDS ORDERED: MoRPHine SULFATE 2 MG/ML CARP IV PRN (20:52)
[2023-05-28] MEDS ORDERED: ePHEDrine sulfate 50 MG/ML AMP IV PRN (20:52)
[2023-05-28] MEDS ORDERED: NALOXONE HCL 0.4 MG/1 ML VIAL/CARP IV PRN (20:52)
[2023-05-28] MEDS ORDERED: PROMETHAZINE HCL 6.25 MG in SODIUM CHLORIDE 0.9% 50 ML IV PRN (20:52)
[2023-05-28] MEDS ORDERED: NALBUPHINE HCL 5 MG in SYRINGE 0 ML IV PRN (20:52)
[2023-05-28] MEDS ORDERED: NALOXONE HCL 1 MG in SODIUM CHLORIDE 0.9% 1,000 ML IV PRN (20:52)
[2023-05-28] MEDS ORDERED: MoRPHine SULFATE PF 1 MG/ML 10 ML AMP/VIAL INT SPINAL ONE (20:52)
[2023-05-28] MEDS ORDERED: ONDANSETRON INJ 2 MG/ML 2 ML VIAL IV PRN (20:52)
[2023-05-28] MEDS ORDERED: NALOXONE HCL 0.08 MG in SYRINGE 1.8 ML IV PRN (20:52)
[2023-05-28] MEDS ORDERED: HYDROmorphone INJ 0.5 MG/0.5 ML SYR IV PRN (20:52)
--- NOTE | 2023-05-28 20:52 | Anesthesiology Progress Note ---
Date of Service May 28, 2023 Anesthesia Post Procedure Vital Signs Vital Signs: Temp Pulse Resp BP 05/28/23 20:44 53 L 107/56 L 05/28/23 19:02 62 112/56 L 05/28/23 18:15 36.7 C 16 122/76 Transfer of Care Handoff Completed per policy Notes Mental Status: alert / awake / arousable Nausea / Vomiting: adequately controlled Pain: adequately controlled Airway Patency, RR, SpO2: stable & adequate BP & HR: stable & adequate Hydration State: stable & adequate Neuraxial Anesthesia: was administered and sensory block is resolving Anesthetic Complications: no major complications apparent and Pt Satisfied with anesthetic care Notes: spinal injected without issue, csf drawn at start and end of injection. however, it did seem to be quite slow to set up enough for surgical anesthetic, and never did reach T4 level. Patient was well managed intraoperatively with some opioids and prn nitrous.
[2023-05-28 20:54] LABS: CO2 Cord Arterial Blood 56 mmHg (39.1-73.5); HCO3 Cord Arterial Blood 25 mmol/L (19.7-28.5); Oxygen Sat Cord Arterial Blood < 60.0 % (<60); PO2 Cord Arterial Blood < 20 mmHg (4.1-31.7); pH Cord Arterial Blood 7.26 (7.1-7.38)
[2023-05-28 20:55] LABS: Base Excess Cord Venous Blood -2.7 mEq/L (-7.7-1.9); Cord Venous Blood HCO3 24 mmol/L (18.4-26.8); Cord Venous Blood PCO2 48 mmHg (30.4-57.2); Cord Venous Blood PO2 < 20 mmHg (14.1-43.3); Cord Venous Blood pH 7.31 (7.20-7.44); O2 Saturation Cord Venous Bld < 60.0 % (<68)
[2023-05-28] MEDS ORDERED: NO NARCOTICS OR SEDATIVES SCH (21:00)
[2023-05-28] MEDS ORDERED: SODIUM CHLORIDE 0.9% 1,000 ML IV SCH (21:00)
[2023-05-28] MEDS ORDERED: DC INTRASPINAL MORPHINE SCH (21:00)
[2023-05-28] MEDS: OXYTOCIN 20 UNITS/LR 1,002 ML IV SCH (22:57)
[2023-05-29] MEDS: DOCUSATE SODIUM 100 MG CAP PO SCH ×3 (01:22→20:18)
[2023-05-29] MEDS: SIMETHICONE 80 MG CHEW PO SCH ×5 (01:22→20:18)
[2023-05-29 06:22] LABS: Basophils # (auto) 0.03 K/uL (0.00-0.20); Basophils % (auto) 0.2 %; Eosinophils # (auto) 0.08 K/uL (0.00-0.50); Eosinophils % (auto) 0.5 %; Hematocrit (blood only) 35.4 % (37.0-47.0); Hemoglobin 11.7 g/dl (12.0-16.0); Immature Granulocytes # (auto) 0.11 K/uL (0.01-0.20); Immature Granulocytes % (auto) 0.6 %; Lymphocytes # (auto) 1.05 K/uL (1.20-3.40); Mean Corpuscular Hemoglobin 28.6 pg (25.0-34.0); Mean Corpuscular Hgb Conc 33.1 g/dL (32.0-36.0); Mean Corpuscular Volume 86.6 fL (80.0-100.0); Mean Platelet Volume 10.9 fL (9.4-12.4); Monocytes # (auto) 0.55 K/uL (0.11-0.59); Monocytes % (auto) 3.1 %; Neutrophils # (auto) 15.75 K/uL (1.40-6.50); Neutrophils % (auto) 89.6 %; Platelet Count 213 K/uL (130-400); RDW Coefficient of Variation 13.1 % (11.5-14.5); RDW Standard Deviation 40.7 fL (36.4-46.3); Red Blood Count 4.09 M/uL (4.20-5.40); White Blood Count 17.57 K/ul (4.8-10.8)
[2023-05-29] MEDS: OXYTOCIN 20 UNITS/LR 1,002 ML IV SCH (07:13)
--- NOTE | 2023-05-29 07:55 | Obstetrical Progress Note ---
Date of Service May 29, 2023 Assessment & Plan (1) Normal course: Continue routine care Child Referral already placed, anticipate case management to see patient Admission HIV and syphilis were not drawn, lab came by to draw this morning. 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, buprenorphine added to urine tox screen (3) Placental abruption in third trimester: Postop hemoglobin same as preoperatively Subjective Ambulation: limited ambulation Voiding: martines catheter in place Passing Gas:: Yes Diet Tolerance:: regular diet Lochia:: Small Feeding Type:: breast feeding Current Pain Level(1-10): 0 Doing well, support person at bedside (boyfriend) Childline referral already placed with poor latch, also using formula Physical Exam Constitutional WD/WN, vitals as above Respiratory normal respiratory effort, lungs clear to auscultation Cardiovascular RRR, no murmur, no edema Gastrointestinal (Abdomen) normal bowel sounds, soft, nontender, no hepatosplenomegaly Incision clean dry, bandage in place Results & Data Vital Signs (Past 12 Hours) Vital Signs Temp Pulse Pulse Resp BP BP Pulse Ox 05/29/23 06:06 18 97 05/29/23 04:57 18 97 05/29/23 04:04 16 96 05/29/23 03:01 16 99 05/29/23 02:33 36.7 C 58 L 18 101/60 100 05/29/23 01:50 16 99 05/29/23 01:09 18 98 05/29/23 00:00 16 97 05/28/23 23:15 05/28/23 23:15 36.6 C 55 L 16 112/63 98 05/28/23 23:00 05/28/23 23:00 16 98 05/28/23 22:45 36.7 C 18 05/28/23 22:45 68 121/59 L 05/28/23 22:39 61 100 05/28/23 22:34 66 100 05/28/23 22:29 68 100 05/28/23 22:24 64 100 05/28/23 22:19 70 100 05/28/23 22:15 18 05/28/23 22:15 75 134/78 05/28/23 22:14 66 100 05/28/23 22:09 60 100 05/28/23 22:04 55 L 100 05/28/23 21:59 56 L 100 05/28/23 21:54 65 100 05/28/23 21:49 64 100 05/28/23 21:45 18 05/28/23 21:44 59 L 100 05/28/23 21:43 55 L 138/67 05/28/23 21:39 67 100 05/28/23 21:35 18 05/28/23 21:34 50 L 100 05/28/23 21:32 50 L 126/73 05/28/23 21:29 52 L 100 05/28/23 21:25 18 05/28/23 21:24 57 L 100 05/28/23 21:23 51 L 111/70 05/28/23 21:19 64 100 05/28/23 21:14 51 L 129/74 100 05/28/23 21:09 50 L 100 05/28/23 21:05 18 05/28/23 21:04 54 L 100 05/28/23 21:02 49 L 117/71 05/28/23 20:59 54 L 100 05/28/23 20:55 36.4 C L 18 05/28/23 20:54 49 L 100 05/28/23 20:52 54 L 115/58 L 05/28/23 20:49 49 L 91 05/28/23 20:44 53 L 107/56 L Pulse Ox O2 Del Method O2 Del Method 05/29/23 06:06 05/29/23 04:57 05/29/23 04:04 05/29/23 03:01 05/29/23 02:33 Room Air 05/29/23 01:50 05/29/23 01:09 05/29/23 00:00 05/28/23 23:15 Room Air 05/28/23 23:15 Room Air 05/28/23 23:00 98 Room Air 05/28/23 23:00 05/28/23 22:45 05/28/23 22:45 05/28/23 22:39 05/28/23 22:34 05/28/23 22:29 05/28/23 22:24 05/28/23 22:19 05/28/23 22:15 05/28/23 22:15 05/28/23 22:14 05/28/23 22:09 05/28/23 22:04 05/28/23 21:59 05/28/23 21:54 05/28/23 21:49 05/28/23 21:45 05/28/23 21:44 05/28/23 21:43 05/28/23 21:39 05/28/23 21:35 05/28/23 21:34 05/28/23 21:32 05/28/23 21:29 05/28/23 21:25 05/28/23 21:24 05/28/23 21:23 05/28/23 21:19 05/28/23 21:14 05/28/23 21:09 05/28/23 21:05 05/28/23 21:04 05/28/23 21:02 05/28/23 20:59 05/28/23 20:55 05/28/23 20:54 05/28/23 20:52 05/28/23 20:49 05/28/23 20:44 Laboratory Results Laboratory Results WBC 17.57 K/ul (4.8-10.8) H 05/29/23 06:03 RBC 4.09 M/uL (4.20-5.40) L 05/29/23 06:03 Hgb 11.7 g/dl (12.0-16.0) L 05/29/23 06:03 Hct 35.4 % (37.0-47.0) L 05/29/23 06:03 MCV 86.6 fL (80.0-100.0) 05/29/23 06:03 MCH 28.6 pg (25.0-34.0) 05/29/23 06:03 MCHC 33.1 g/dL (32.0-36.0) 05/29/23 06:03 RDW Std Deviation 40.7 fL (36.4-46.3) 05/29/23 06:03 RDW Coeff of Jatinder 13.1 % (11.5-14.5) 05/29/23 06:03 Plt Count 213 K/uL (130-400) 05/29/23 06:03 MPV 10.9 fL (9.4-12.4) 05/29/23 06:03 Immature Gran % (Auto) 0.6 % 05/29/23 06:03 Neut % (Auto) 89.6 % 05/29/23 06:03 Lymph % (Auto) 6.0 % 05/29/23 06:03 [place] % (Auto) 3.1 % 05/29/23 06:03 Eos % (Auto) 0.5 % 05/29/23 06:03 Baso % (Auto) 0.2 % 05/29/23 06:03 Neut # (Auto) 15.75 K/uL (1.40-6.50) H 05/29/23 06:03 Lymph # (Auto) 1.05 K/uL (1.20-3.40) L 05/29/23 06:03 [place] # (Auto) 0.55 K/uL (0.11-0.59) 05/29/23 06:03 Eos # (Auto) 0.08 K/uL (0.00-0.50) 05/29/23 06:03 Baso # (Auto) 0.03 K/uL (0.00-0.20) 05/29/23 06:03 Immature Gran # (Auto) 0.11 K/uL (0.01-0.20) 05/29/23 06:03 PT 10.0 Seconds (9.0-12.0) 05/28/23 18:18 INR 0.9 (0.9-1.1) 05/28/23 18:18 APTT 26.5 Seconds (21.0-31.0) 05/28/23 18:18 PTT Ratio 0.9 05/28/23 18:18 Fibrinogen 514 mg/dl (184-400) H 05/28/23 18:18 Cord ABG pH 7.26 (7.1-7.38) 05/28/23 19:52 Cord ABG pCO2 56 mmHg (39.1-73.5) 05/28/23 19:52 Cord ABG pO2 < 20 mmHg (4.1-31.7) 05/28/23 19:52 Cord ABG HCO3 25 mmol/L (19.7-28.5) 05/28/23 19:52 Cord ABG Base Excess -3.0 mEq/L (-9-1.8) 05/28/23 19:52 Cord ABG O2 Sat < 60.0 % (<60) 05/28/23 19:52 Cord VBG pH 7.31 (7.20-7.44) 05/28/23 19:52 Cord VBG pCO2 48 mmHg (30.4-57.2) 05/28/23 19:52 Cord VBG pO2 < 20 mmHg (14.1-43.3) 05/28/23 19:52 Cord VBG HCO3 24 mmol/L (18.4-26.8) 05/28/23 19:52 Cord VBG Base Excess -2.7 mEq/L (-7.7-1.9) 05/28/23 19:52 Cord VBG O2 Sat < 60.0 % (<68) 05/28/23 19:52 Blood Gas Comments INFANT A 05/28/23 19:52 Blood Gas Comments A 05/28/23 19:52 Sodium 135 mmol/L (136-145) L 05/28/23 18:18 Potassium 3.6 mmol/L (3.5-5.1) 05/28/23 18:18 Chloride 108 mmol/L (98-107) H 05/28/23 18:18 Carbon Dioxide 19 mmol/L (21-32) L 05/28/23 18:18 Anion Gap 8 (3-11) 05/28/23 18:18 BUN 7 mg/dl (6-23) 05/28/23 18:18 Creatinine 0.49 mg/dl (0.6-1.2) L 05/28/23 18:18 Est Cr Clr Drug Dosing 162.1 ml/min 05/28/23 18:18 Est GFR ( Amer) > 150.0 ml/min 05/28/23 18:18 Est GFR (Non-Af Amer) 136.4 ml/min 05/28/23 18:18 BUN/Creatinine Ratio 14.3 (10-20) 05/28/23 18:18 Glucose 79 mg/dl (70-99(Fasting)) 05/28/23 18:18 Calcium 8.3 mg/dl (8.6-10.3) L 05/28/23 18:18 Total Bilirubin 0.3 mg/dl (0.2-1.0) 05/28/23 18:18 AST 15 U/L (13-39) 05/28/23 18:18 ALT 13 U/L (7-52) 05/28/23 18:18 Alkaline Phosphatase 176 U/L (34-104) H 05/28/23 18:18 Total Protein 6.3 gm/dl (6.0-8.3) 05/28/23 18:18 Albumin 3.6 gm/dl (3.4-5.0) 05/28/23 18:18 Globulin 2.7 gm/dl (2.5-4.0) 05/28/23 18:18 Albumin/Globulin Ratio 1.3 (0.9-2) 05/28/23 18:18 Urine Opiates Screen Neg (Neg) 05/28/23 18:20 Ur Methadone, Qual Neg (Neg) 05/28/23 18:20 Urine Barbiturates Neg (Neg) 05/28/23 18:20 Ur Phencyclidine (PCP) Neg (Neg) 05/28/23 18:20 U Amphetamin/Meth Scrn Neg (Neg) 05/28/23 18:20 MDMA (Ecstasy) Screen Neg (Neg) 05/28/23 18:20 U Benzodiazepines Scrn Neg (Neg) 05/28/23 18:20 Ur Cocaine Metabolite Neg (Neg) 05/28/23 18:20 U Marijuana (THC) Screen Pos (Neg) H 05/28/23 18:20 Blood Type A Positive 05/28/23 18:18 Antibody Screen NEGATIVE 05/28/23 18:18
[2023-05-29] MEDS: FERROUS SULFATE 325 MG TAB PO SCH (08:06)
[2023-05-29] MEDS: PRENATAL VITAMIN 1 TAB PO SCH (08:06)
[2023-05-29] MEDS ORDERED: MEASLES, MUMPS & RUBELLA VIRUS VACCINE (MMR) VIAL SQ ONE (09:00)
[2023-05-29] MEDS ORDERED: DIPHTHERIA/TETANUS/PERTUSSIS Vaccine (Tdap, Age 7+yrs) 0.5mL SYR/VL IM ONE (09:00)
[2023-05-29] MEDS ORDERED: ONDANSETRON INJ 2 MG/ML 2 ML VIAL IV PRN (14:53)
[2023-05-29] MEDS ORDERED: KETOROLAC 30 MG/ML VIAL IV PRN (14:53)
[2023-05-29] MEDS ORDERED: MEPERIDINE HCL 50 MG/ML CARP IV PRN (14:53)
[2023-05-29] MEDS ORDERED: diphenhydrAMINE 50 MG/ML VIAL IV PRN (14:53)
[2023-05-29] MEDS ORDERED: PROMETHAZINE HCL 25 MG in SODIUM CHLORIDE 0.9% 50 ML IV PRN (14:53)
[2023-05-29] MEDS ORDERED: diphenhydrAMINE Capsule 25 MG CAP PO PRN (14:53)
[2023-05-29] MEDS: oxyCODONE/ACETAMINOPHEN 5mg/325mg TAB PO PRN ×2 (15:54→20:18)
[2023-05-29] MEDS: IBUPROFEN 600 MG TAB PO PRN ×2 (15:55→20:18)
[2023-05-29] MEDS ORDERED: bisacodyL 5 MG TABEC PO SCH (20:00)
[2023-05-30] MEDS: oxyCODONE/ACETAMINOPHEN 5mg/325mg TAB PO PRN ×5 (01:44→22:47)
[2023-05-30] MEDS: IBUPROFEN 600 MG TAB PO PRN ×5 (01:44→22:47)
[2023-05-30 05:50] LABS: Basophils # (auto) 0.03 K/uL (0.00-0.20); Basophils % (auto) 0.2 %; Eosinophils # (auto) 0.03 K/uL (0.00-0.50); Eosinophils % (auto) 0.2 %; Hematocrit (blood only) 33.2 % (37.0-47.0); Immature Granulocytes # (auto) 0.07 K/uL (0.01-0.20); Immature Granulocytes % (auto) 0.6 %; Lymphocytes # (auto) 1.94 K/uL (1.20-3.40); Lymphocytes % (auto) 15.8 %; Mean Corpuscular Hemoglobin 28.9 pg (25.0-34.0); Mean Corpuscular Hgb Conc 33.1 g/dL (32.0-36.0); Mean Corpuscular Volume 87.1 fL (80.0-100.0); Mean Platelet Volume 10.9 fL (9.4-12.4); Monocytes # (auto) 1.18 K/uL (0.11-0.59); Monocytes % (auto) 9.6 %; Neutrophils # (auto) 9.06 K/uL (1.40-6.50); Neutrophils % (auto) 73.6 %; Platelet Count 207 K/uL (130-400); RDW Coefficient of Variation 13.3 % (11.5-14.5); RDW Standard Deviation 41.3 fL (36.4-46.3); Red Blood Count 3.81 M/uL (4.20-5.40); White Blood Count 12.31 K/ul (4.8-10.8)
[2023-05-30] MEDS: PRENATAL VITAMIN 1 TAB PO SCH (08:07)
[2023-05-30] MEDS: FERROUS SULFATE 325 MG TAB PO SCH (08:08)
[2023-05-30] MEDS: DOCUSATE SODIUM 100 MG CAP PO SCH ×2 (08:08→20:35)
[2023-05-30] MEDS: SIMETHICONE 80 MG CHEW PO SCH ×4 (08:08→20:35)
--- NOTE | 2023-05-30 08:33 | Obstetrical Progress Note ---
Date of Service May 30, 2023 Assessment & Plan Admission and Anticipated Discharge Date Admission Date: May 28, 2023 Subjective Patient is seen and examined. She feels well, no complaints. Pain is under control with oral meds. Ambulating without dizziness. Voiding without difficulty Tolerating regular diet with out N&V Flatus + Bleeding is minimal No fever/ chills/ CP/ SOB/ N&V/ Leg pain Pumping breast milk Vital Signs Temp Pulse Pulse Resp BP Pulse Ox O2 Del Method 05/29/23 23:24 36.6 C 80 20 98/70 L 97 Room Air 05/29/23 19:40 36.8 C 56 L 18 118/53 L 96 Room Air 05/29/23 15:30 37.1 C 58 L 18 104/71 96 Room Air 05/29/23 14:00 18 98 05/29/23 13:00 18 99 05/29/23 12:00 16 97 05/29/23 12:00 37.0 C 63 18 115/61 97 Room Air 05/29/23 11:00 16 97 05/29/23 10:00 16 97 05/29/23 09:00 18 99 Intake and Output 05/29/23 05/30/23 05/30/23 22:59 06:59 14:59 Output Total 1100 / 3150 Balance -1100 / -3150 Output: Urine Amount (Catheter) 1100 / 3150 [place] 1100 / 3150 05/30/23 05/29/23 Range/Units 05:21 07:45 WBC 12.31 H (4.8-10.8) K/ul RBC 3.81 L (4.20-5.40) M/uL Hgb 11.0 L (12.0-16.0) g/dl Hct 33.2 L (37.0-47.0) % MCV 87.1 (80.0-100.0) fL MCH 28.9 (25.0-34.0) pg MCHC 33.1 (32.0-36.0) g/dL RDW Std Deviation 41.3 (36.4-46.3) fL RDW Coeff of Jatinder 13.3 (11.5-14.5) % Plt Count 207 (130-400) K/uL MPV 10.9 (9.4-12.4) fL Immature Gran % (Auto) 0.6 % Neut % (Auto) 73.6 % Lymph % (Auto) 15.8 % [place] % (Auto) 9.6 % Eos % (Auto) 0.2 % Baso % (Auto) 0.2 % Neut # (Auto) 9.06 H (1.40-6.50) K/uL Lymph # (Auto) 1.94 (1.20-3.40) K/uL [place] # (Auto) 1.18 H (0.11-0.59) K/uL Eos # (Auto) 0.03 (0.00-0.50) K/uL Baso # (Auto) 0.03 (0.00-0.20) K/uL Immature Gran # (Auto) 0.07 (0.01-0.20) K/uL RPR Nonreactive (Nonreactive) PE: General: Alert, orientedx3, NAD CVS: S1S2 RRR Lungs; CTAB Abd: soft, NT, ND, BS+, fundus firm, below Umbilicus Incision: Clean, dry, intact Perineum intact, Lochia rubra minimal Ext; NT, no edema AP: 22 yo s/p C Section, pod# 2 VSS Afebrile doing well Continue routine postop care Encourage ambulation, PO intake All questions were answered Results & Data Vital Signs (Past 12 Hours) Vital Signs Temp Pulse Resp BP Pulse Ox O2 Del Method 05/29/23 23:24 36.6 C 80 20 98/70 L 97 Room Air
[2023-05-30 13:48] LABS: HBSAG NON-REACTIVE (NON-REACTIVE)
[2023-05-30] MEDS ORDERED: bisacodyL 10 MG SUPP PR PRN (20:38)
[2023-05-30 21:02] VITALS: RESP 16; TEMP 98.6
[2023-05-31 06:33] LABS: Buprenorphine, Ur Quant NEGATIVE ng/mL (<2); Norbuprenorphine, Ur Qnt NEGATIVE ng/mL (<2)
[2023-05-31] MEDS: SIMETHICONE 80 MG CHEW PO SCH ×3 (08:04→16:30)
[2023-05-31] MEDS: oxyCODONE/ACETAMINOPHEN 5mg/325mg TAB PO PRN ×3 (08:04→16:30)
[2023-05-31] MEDS: PRENATAL VITAMIN 1 TAB PO SCH (08:05)
[2023-05-31] MEDS: DOCUSATE SODIUM 100 MG CAP PO SCH (08:05)
[2023-05-31] MEDS: FERROUS SULFATE 325 MG TAB PO SCH (08:05)
[2023-05-31] MEDS: IBUPROFEN 600 MG TAB PO PRN ×3 (08:05→16:30)
--- NOTE | 2023-05-31 10:26 | Obstetrical Progress Note ---
Date of Service May 31, 2023 Subjective Ambulation: ambulating normally Voiding: no voiding problems Passing Gas:: Yes Diet Tolerance:: regular diet Lochia:: Small Feeding Type:: breast feeding Current Pain Level(1-10): 0 doing well. mom to nesting as baby is not being discharged today Physical Exam Constitutional WD/WN, vitals as above Gastrointestinal (Abdomen) Inspection/Auscultation: abdomen normal to inspection and + abdominal surgical incision incision c/d/i Musculoskeletal Extremities: extremities normal to inspection Skin no rashes, warm and dry Neurologic patellar DTR's 2+ bilat, sensation intact Psychiatric A+Ox3, euthymic affect Results & Data Vital Signs (Past 12 Hours) Vital Signs Temp Pulse Resp BP Pulse Ox O2 Del Method 05/31/23 08:22 37.0 C 62 16 117/76 99 Room Air 05/30/23 23:00 37.0 C 62 16 117/71 97 Room Air Laboratory Results 05/28/23 05/28/23 05/28/23 18:18 18:20 19:52 WBC 14.17 H RBC 3.96 L Hgb 11.7 L Hct 33.4 L MCV 84.3 MCH 29.5 MCHC 35.0 RDW Std Deviation 39.9 RDW Coeff of Jatinder 13.1 Plt Count 224 MPV 11.1 Immature Gran % (Auto) Neut % (Auto) Lymph % (Auto) [place] % (Auto) Eos % (Auto) Baso % (Auto) Neut # (Auto) Lymph # (Auto) [place] # (Auto) Eos # (Auto) Baso # (Auto) Immature Gran # (Auto) PT 10.0 INR 0.9 APTT 26.5 PTT Ratio 0.9 Fibrinogen 514 H Cord ABG pH 7.26 Cord ABG pCO2 56 Cord ABG pO2 < 20 Cord ABG HCO3 25 Cord ABG Base Excess -3.0 Cord ABG O2 Sat < 60.0 Cord VBG pH 7.31 Cord VBG pCO2 48 Cord VBG pO2 < 20 Cord VBG HCO3 24 Cord VBG Base Excess -2.7 Cord VBG O2 Sat < 60.0 Blood Gas Comments A Sodium 135 L Potassium 3.6 Chloride 108 H Carbon Dioxide 19 L Anion Gap 8 BUN 7 Creatinine 0.49 L Est Cr Clr Drug Dosing 162.1 Est GFR ( Amer) > 150.0 Est GFR (Non-Af Amer) 136.4 BUN/Creatinine Ratio 14.3 Glucose 79 Calcium 8.3 L Total Bilirubin 0.3 AST 15 ALT 13 Alkaline Phosphatase 176 H Total Protein 6.3 Albumin 3.6 Globulin 2.7 Albumin/Globulin Ratio 1.3 Urine Opiates Screen Neg Ur Buprenorphine Level NEGATIVE Ur Norbuprenorphine Level NEGATIVE Ur Methadone, Qual Neg Urine Barbiturates Neg Ur Phencyclidine (PCP) Neg U Amphetamin/Meth Scrn Neg MDMA (Ecstasy) Screen Neg U Benzodiazepines Scrn Neg Ur Cocaine Metabolite Neg U Marijuana (THC) Screen Pos H Drug Screen Comment SEE NOTE RPR Hep Bs Antigen NON-REACTIVE Hep Bs Ag Confirmation TNP Hepatitis C Ab (EIA) NON-REACTIVE HIV (1&2) Ag & Ab Conf Blood Type A Positive Antibody Screen NEGATIVE 05/28/23 05/29/23 05/29/23 19:52 06:03 07:45 WBC 17.57 H RBC 4.09 L Hgb 11.7 L Hct 35.4 L MCV 86.6 MCH 28.6 MCHC 33.1 RDW Std Deviation 40.7 RDW Coeff of Jatinder 13.1 Plt Count 213 MPV 10.9 Immature Gran % (Auto) 0.6 Neut % (Auto) 89.6 Lymph % (Auto) 6.0 [place] % (Auto) 3.1 Eos % (Auto) 0.5 Baso % (Auto) 0.2 Neut # (Auto) 15.75 H Lymph # (Auto) 1.05 L [place] # (Auto) 0.55 Eos # (Auto) 0.08 Baso # (Auto) 0.03 Immature Gran # (Auto) 0.11 PT INR APTT PTT Ratio Fibrinogen Cord ABG pH Cord ABG pCO2 Cord ABG pO2 Cord ABG HCO3 Cord ABG Base Excess Cord ABG O2 Sat Cord VBG pH Cord VBG pCO2 Cord VBG pO2 Cord VBG HCO3 Cord VBG Base Excess Cord VBG O2 Sat Blood Gas Comments A Sodium Potassium Chloride Carbon Dioxide Anion Gap BUN Creatinine Est Cr Clr Drug Dosing Est GFR ( Amer) Est GFR (Non-Af Amer) BUN/Creatinine Ratio Glucose Calcium Total Bilirubin AST ALT Alkaline Phosphatase Total Protein Albumin Globulin Albumin/Globulin Ratio Urine Opiates Screen Ur Buprenorphine Level Ur Norbuprenorphine Level Ur Methadone, Qual Urine Barbiturates Ur Phencyclidine (PCP) U Amphetamin/Meth Scrn MDMA (Ecstasy) Screen U Benzodiazepines Scrn Ur Cocaine Metabolite U Marijuana (THC) Screen Drug Screen Comment RPR Nonreactive Hep Bs Antigen Hep Bs Ag Confirmation Hepatitis C Ab (EIA) HIV (1&2) Ag & Ab Conf NON-REACTIVE Blood Type Antibody Screen 05/30/23 05:21 WBC 12.31 H RBC 3.81 L Hgb 11.0 L Hct 33.2 L MCV 87.1 MCH 28.9 MCHC 33.1 RDW Std Deviation 41.3 RDW Coeff of Jatinder 13.3 Plt Count 207 MPV 10.9 Immature Gran % (Auto) 0.6 Neut % (Auto) 73.6 Lymph % (Auto) 15.8 [place] % (Auto) 9.6 Eos % (Auto) 0.2 Baso % (Auto) 0.2 Neut # (Auto) 9.06 H Lymph # (Auto) 1.94 [place] # (Auto) 1.18 H Eos # (Auto) 0.03 Baso # (Auto) 0.03 Immature Gran # (Auto) 0.07 PT INR APTT PTT Ratio Fibrinogen Cord ABG pH Cord ABG pCO2 Cord ABG pO2 Cord ABG HCO3 Cord ABG Base Excess Cord ABG O2 Sat Cord VBG pH Cord VBG pCO2 Cord VBG pO2 Cord VBG HCO3 Cord VBG Base Excess Cord VBG O2 Sat Blood Gas Comments Sodium Potassium Chloride Carbon Dioxide Anion Gap BUN Creatinine Est Cr Clr Drug Dosing Est GFR ( Amer) Est GFR (Non-Af Amer) BUN/Creatinine Ratio Glucose Calcium Total Bilirubin AST ALT Alkaline Phosphatase Total Protein Albumin Globulin Albumin/Globulin Ratio Urine Opiates Screen Ur Buprenorphine Level Ur Norbuprenorphine Level Ur Methadone, Qual Urine Barbiturates Ur Phencyclidine (PCP) U Amphetamin/Meth Scrn MDMA (Ecstasy) Screen U Benzodiazepines Scrn Ur Cocaine Metabolite U Marijuana (THC) Screen Drug Screen Comment RPR Hep Bs Antigen Hep Bs Ag Confirmation Hepatitis C Ab (EIA) HIV (1&2) Ag & Ab Conf Blood Type Antibody Screen
[2023-05-31 14:51] LABS: Marijuana Quant, GCMS Urine 342 ng/mL (<5)
[2023-05-31 16:42] VITALS: BP 126/79; PULSE 61; O2SAT 98
== END 2023-05-31 18:58 | disposition home or self-care (01) | DRG 787 ==
LOC: OPB 17:58 → 4S1 17:59 → 4E1 23:09

== ENCOUNTER 2023-08-25 18:06 | Inpatient (IN) ==
[2023-08-25 19:50] LABS: Appearance Urine Clear (Clear); Bilirubin Urine Negative (Negative); Blood Urine Negative (Negative); Color Urine Yellow; Glucose Urine UA Negative (Negative); Ketones Urine Negative (Negative); Leukocyte Esterase Urine Negative (Negative); Nitrite Urine Negative (Negative); Protein Urine Negative (Negative); Specific Gravity Urine 1.002 (1.000-1.030); Urobilinogen Urine Negative (Negative)
[2023-08-25 20:30] LABS: Pregnancy Test, Urine Negative (Negative)
[2023-08-25 20:35] LABS: Amphetamines+Metham, Urine Neg (Neg); Barbiturates, Urine Neg (Neg); Benzodiazepine, Urine Neg (Neg); Cocaine, Urine Neg (Neg); MDMA (Ecstacy), Urine Neg (Neg); Marijuana, Urine Pos (Neg); Methadone, Urine Neg (Neg); Opiate, Urine Neg (Neg); Phencyclidine, Urine Neg (Neg)
[2023-08-25 20:48] LABS: Basophils # (auto) 0.05 K/uL (0.00-0.20); Basophils % (auto) 0.6 %; Eosinophils # (auto) 0.16 K/uL (0.00-0.50); Eosinophils % (auto) 1.8 %; Hematocrit (blood only) 39.8 % (37.0-47.0); Hemoglobin 13.6 g/dl (12.0-16.0); Immature Granulocytes # (auto) 0.02 K/uL (0.01-0.20); Immature Granulocytes % (auto) 0.2 %; Lymphocytes # (auto) 2.88 K/uL (1.20-3.40); Mean Corpuscular Hemoglobin 28.9 pg (25.0-34.0); Mean Corpuscular Hgb Conc 34.2 g/dL (32.0-36.0); Mean Corpuscular Volume 84.7 fL (80.0-100.0); Mean Platelet Volume 10.3 fL (9.4-12.4); Monocytes # (auto) 0.59 K/uL (0.11-0.59); Monocytes % (auto) 6.8 %; Neutrophils # (auto) 5.04 K/uL (1.40-6.50); Neutrophils % (auto) 57.6 %; Platelet Count 275 K/uL (130-400); RDW Coefficient of Variation 13.4 % (11.5-14.5); RDW Standard Deviation 41.7 fL (36.4-46.3); White Blood Count 8.74 K/ul (4.8-10.8)
[2023-08-25 21:02] LABS: Albumin Globulin Ratio 1.5 (0.9-2); Albumin Level 4.5 gm/dl (3.4-5.0); BUN Creatinine Ratio 14.5 (10-20); Bilirubin,Total 0.5 mg/dl (0.2-1.0); Calcium 9.4 mg/dl (8.6-10.3); Creatinine Clr Calc Pharmacy 94.4 ml/min; Est GFR (African American) 127.2 ml/min; Est GFR (Non-African American) 109.8 ml/min; Potassium 3.6 mmol/L (3.5-5.1); Total Protein 7.5 gm/dl (6.0-8.3)
[2023-08-25 21:05] LABS: Acetaminophen < 3 ug/ml (10-30); Salicylate < 3.0 mg/dl (3.0-30)
[2023-08-25 21:18] LABS: Thyroid Stimulating Hormone 0.761 uIu/ml (0.300-4.500)
--- NOTE | 2023-08-25 21:34 | Emergency Department Note ---
History of Present Illness General Chief complaint: Mental Health Evaluation Stated complaint: NEEDS TO GET BACK ON MEDS Time Seen by Provider: 08/25/23 19:34 History of Present Illness Provider complaint: Mental health evaluation 22-year-old female presents emergency department for mental health evaluation. Patient states she is having a manic episode and wants to be admitted for inpatient mental health care. She states she was recommended to come here by her family and CYS so that she can be restarted on her medications and have access to see her children. Home Medications Medication Instructions Recorded Confirmed Type No Known Home Medications 11/06/21 05/28/23 History ibuprofen 600 mg tablet 600 mg PO Q6H PRN fever or pain 05/31/23 Rx #30 tabs oxycodone-acetaminophen 5 mg-325 1 tab PO Q4H PRN pain #10 tabs 05/31/23 Rx mg tablet (Percocet) Allergies Allergy/AdvReac Type Severity Reaction Status Date / Time No Known Allergies Allergy Verified 11/06/21 23:44 Past Med/Surg History Medical History Marijuana use during Bipolar disorder ADD (attention deficit disorder) No pertinent family history Surgical History No pertinent past surgical history Social History Smoking Status: Current every day smoker Tobacco Type: Cigarettes and E-cigarettes / Vaping Second Hand Exposure: Yes; Do You Dip or Chew Tobacco: No; Hx Alcohol Use: No Hx Substance Use: Yes Last Used Substance Other:: Marijuana daily- pt states she has medical card (unable to provide) Preferred Language: Syriac Communication Ability: Effective Carpet Installation Specialist Required: No Beliefs That Will Affect Care: None marital status: Single Current Living Situation Comment: Boyfriend- Gary Moreno Feels Safe at Home: Yes Gender Identity: Female Assistive Devices: None Physical Exam Vital Signs Vital Signs - 24 hr 08/25/23 18:13 08/25/23 18:34 08/25/23 20:06 Temperature 36.5 C Temperature Source Temporal Artery Scan Pulse Rate 94 H Pulse Rate [Finger] 86 Respiratory Rate 18 16 Respiratory Effort / Characteristics Non-Labored Non-Labored Respiratory Depth Normal Normal Respiratory Pattern Regular Regular Blood Pressure 135/76 Blood Pressure [Right Arm] 133/78 Blood Pressure Mean 95 Blood Pressure Mean [Right Arm] 96 Blood Pressure Position [Right Arm] Sitting Pulse Oximetry 99 97 Oxygen Delivery Method Room Air Room Air Room Air Sepsis Recent Fever Within 48 Hours No Sepsis New/Unexplained Change in Mental Status No Sepsis Action Taken by Nursing No Action Required 08/25/23 22:00 Temperature Temperature Source Pulse Rate Pulse Rate [Finger] 78 Respiratory Rate 16 Respiratory Effort / Characteristics Non-Labored Respiratory Depth Normal Respiratory Pattern Regular Blood Pressure Blood Pressure [Right Arm] 135/76 Blood Pressure Mean Blood Pressure Mean [Right Arm] 95 Blood Pressure Position [Right Arm] Sitting Pulse Oximetry 99 Oxygen Delivery Method Room Air Sepsis Recent Fever Within 48 Hours Sepsis New/Unexplained Change in Mental Status Sepsis Action Taken by Nursing Physical Exam GENERAL: oriented to person, place, and time. appears well-developed and well- nourished. HENT: Exam performed. - Head: Normocephalic and atraumatic. EYES: Conjunctivae and EOM are normal. Right eye exhibits no discharge. Left eye exhibits no discharge. No scleral icterus. NECK: Normal range of motion. Neck supple. No JVD present. CV: Normal rate, regular rhythm, normal heart sounds and intact distal pulses. There is no peripheral edema. Palpable radial pulses bue. PULM/CHEST: Effort normal and breath sounds normal. No respiratory distress. No stridor. no wheezes. no rales. ABD: The abdomen is soft. There is no tenderness. NEURO: Motor and sensation grossly intact. SKIN: Skin is warm and dry. He is not diaphoretic. PSYCH: Bizarre affect. Course Course 1933: The patient was evaluated in room A6. A complete history and physical exam was performed 2133: Patient medically cleared. Awaiting psychiatric evaluation. 2249: Patient excepted to 3 S. Medical Decision Making Laboratory Data Attestation: I reviewed the patient's lab results. 08/25/23 20:33 08/25/23 20:33 Lab Results 08/25/23 08/25/23 Range/Units 19:35 20:33 WBC 8.74 (4.8-10.8) K/ul RBC 4.70 (4.20-5.40) M/uL Hgb 13.6 (12.0-16.0) g/dl Hct 39.8 (37.0-47.0) % MCV 84.7 (80.0-100.0) fL MCH 28.9 (25.0-34.0) pg MCHC 34.2 (32.0-36.0) g/dL RDW Std Deviation 41.7 (36.4-46.3) fL RDW Coeff of Jatinder 13.4 (11.5-14.5) % Plt Count 275 (130-400) K/uL MPV 10.3 (9.4-12.4) fL Immature Gran % (Auto) 0.2 % Neut % (Auto) 57.6 % Lymph % (Auto) 33.0 % [place] % (Auto) 6.8 % Eos % (Auto) 1.8 % Baso % (Auto) 0.6 % Neut # (Auto) 5.04 (1.40-6.50) K/uL Lymph # (Auto) 2.88 (1.20-3.40) K/uL [place] # (Auto) 0.59 (0.11-0.59) K/uL Eos # (Auto) 0.16 (0.00-0.50) K/uL Baso # (Auto) 0.05 (0.00-0.20) K/uL Immature Gran # (Auto) 0.02 (0.01-0.20) K/uL Sodium 140 (136-145) mmol/L Potassium 3.6 (3.5-5.1) mmol/L Chloride 108 H (98-107) mmol/L Carbon Dioxide 24 (21-32) mmol/L Anion Gap 8 (3-11) BUN 11 (6-23) mg/dl Creatinine 0.76 (0.6-1.2) mg/dl Est Cr Clr Drug Dosing 94.4 ml/min Est GFR ( Amer) 127.2 ml/min Est GFR (Non-Af Amer) 109.8 ml/min BUN/Creatinine Ratio 14.5 (10-20) Glucose 84 (70-99(Fasting)) mg/dl Calcium 9.4 (8.6-10.3) mg/dl Total Bilirubin 0.5 (0.2-1.0) mg/dl AST 36 (13-39) U/L ALT 57 H (7-52) U/L Alkaline Phosphatase 88 (34-104) U/L Total Protein 7.5 (6.0-8.3) gm/dl Albumin 4.5 (3.4-5.0) gm/dl Globulin 3.0 (2.5-4.0) gm/dl Albumin/Globulin Ratio 1.5 (0.9-2) TSH 0.761 (0.300-4.500) uIu/ml Urine Color Yellow Urine Appearance Clear (Clear) Urine pH 7.0 (4.5-7.5) Ur Specific [place] 1.002 (1.000-1.030) Urine Protein Negative (Negative) Urine Glucose (UA) Negative (Negative) Urine Ketones Negative (Negative) Urine Blood Negative (Negative) Urine Nitrite Negative (Negative) Urine Bilirubin Negative (Negative) Urine Urobilinogen Negative (Negative) Ur Leukocyte Esterase Negative (Negative) Urine Test Negative (Negative) Salicylates < 3.0 L (3.0-30) mg/dl Urine Opiates Screen Neg (Neg) Ur Methadone, Qual Neg (Neg) Acetaminophen < 3 L (10-30) ug/ml Urine Barbiturates Neg (Neg) Ur Phencyclidine (PCP) Neg (Neg) U Amphetamin/Meth Scrn Neg (Neg) MDMA (Ecstasy) Screen Neg (Neg) U Benzodiazepines Scrn Neg (Neg) Ur Cocaine Metabolite Neg (Neg) U Marijuana (THC) Screen Pos H (Neg) Ethyl Alcohol mg/dL 19.9 H (<10.0) mg/dl SARS-CoV-2, RNA, NAAT NEGATIVE (NEGATIVE) MDM Narrative 1933: The patient was evaluated in room A6. A complete history and physical exam was performed 2133: Patient medically cleared. Awaiting psychiatric evaluation. 2249: Patient excepted to 3 S. Impression & Plan Hattie Discharge Plan Visit Data Chief Complaint: Mental Health Evaluation Stated Complaint: NEEDS TO GET BACK ON MEDS ED Provider: Lasha Horton Discharge Problem: Hattie Patient Disposition: Admitted As Inpatient Forms Stand Alone Forms: My [facility], Suicide Prevention Resources Prescriptions Prescriptions: No Action No Known Home Medications oxycodone-acetaminophen [Percocet] 5-325 mg Tablet 1 tab PO Q4H PRN (Reason: pain) Qty: 10 0RF ibuprofen 600 mg Tablet 600 mg PO Q6H PRN (Reason: fever or pain) Qty: 30 2RF Referrals Referrals: PCP,NO [Primary Care Provider] -
[2023-08-25] MEDS ORDERED: SODIUM CHLORIDE 0.65% NA SOLN 45 ML (OCEAN) PRN (22:42)
[2023-08-25] MEDS ORDERED: ACETAMINOPHEN 325 MG TAB PO PRN (22:42)
[2023-08-25] MEDS ORDERED: MAGNESIUM HYDROXIDE SUSP 30 ML UDC PO PRN (22:42)
[2023-08-25] MEDS ORDERED: BISMUTH SUBSALICYLATE LIQD 236 ML PO PRN (22:42)
[2023-08-25] MEDS ORDERED: ALUMINUM/MAGNESIUM SUSP 30 ML UDC PO PRN (22:42)
[2023-08-26] MEDS: hydrOXYzine HCl 25 MG TAB PO PRN (00:05)
[2023-08-26 06:32] VITALS: RESP 16; O2SAT 98
[2023-08-26] MEDS: NICOTINE 21 MG/24 HR TDSY TD SCH (08:22)
[2023-08-26] MEDS: OLANZapine 5 MG TABLET PO PRN (14:20)
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
--- OUTSIDE RECORDS SUMMARY | 2023-08-26 18:27 | External Medical Summary | Summary of Care ---
Author Name Unknown Organization [facility] Address [address] [place] [address] Phone [phone] Care Team Providers Care Equipment Coordinator Name Role Phone Gail Gil MD Primary Care Provid er Reason for Visit * Reason Comments Incision check Encounter Details Date Type Department Care Team (Late st Contact Info) Description 06/15/2023 4:15 PM EST Office Visit Gynecology/Obstetric s [facility] Dev[facility] [address] [place] [address] Boy Enriquez MD [address] [place] [phone] Post-operative state* Allergies No known active allergiesdocumented as of this encounter (statuses as of 06/15/2023) Medications Medication Sig Dispensed Refills Start Date End Date Status Breast PumpIndications:No rmal in second trimester Pump daily when 1 Each 0 03/27/2023 Active 19 29-1 MG Oral Tablet ChewableIndication s:Normal in second trimester Take 1 Tablet by mouth every evening. 90 Tablet 2 04/11/2023 Active Azelastine HCl 0.15 % Nasal SolutionIndication s:Dysfunction of right eustachian tube Administer 1 [place] into nostril in the morning and 1 [place] before bedtime. 30 mL 12 04/11/2023 Active Additional Information Patient not taking.Reported on 06/15/2023 documented as of this encounter (statuses as of 06/15/2023) Active Problems Problem Noted Date Diagnosed Date Abnormal GTT (glucose tolerance test) 04/11/2023 Gonorrhea affecting 04/06/2023 Overview: Gonorrhea of the throat - Patient tested positive on 01/12/23 and was treated at the [facility]. Neg testing 03/2023 Marijuana use during 03/29/2023 [...] resolved Need for food assistance referred to [facility] and local food alberts 03/27/2023 Gabriela Guallpa [...] as of this encounter (statuses as of 06/15/2023) Immunizations Name Administration Dates Next Due [id number] PENTAVALENT NON-US 01/13/2000 DTaP Dipth/Tet/Acell Pertussis (Infanrix), Peds 01/13/2000 HPV Vaccine, 9-Valent 04/05/2021 IPV - Polio Virus Vaccine (Inact) 01/13/2000 Seasonal Influenza, PF, 6 M & above, IM , (FluLaval or Fluzone) 03/27/2023 TDAP (age 10 and older)(Boostrix) 04/24/2023 [...] money to get more. Never true 03/27/2023 [place] Depression Scale Answer Date Recorded [place] Depression Scale Total 3 06/15/2023 The thought of harming myself has occurred to me . Never 06/15/2023 Sex and Gender Information Value Date Recorded Sex Assigned at Female 03/27/2023 2:49 PM EDT Gender Identity Female 03/27/2023 2:49 PM EDT Sexual Orientation Straight 03/27/2023 2: 49 PM EDT Job Start Date Occupation Industry Not on file Not on file Not on file documented as of this encounter Last Filed Vital Signs Vital Sign Reading Time Taken Comments Blood Pressure 102/60 06/15/2023 4:19 PM EST Pulse - - Temperature - - Respiratory Rate - - Oxygen Saturation - - Inhaled Oxygen Concentration - - Weight 61.7 kg (136 lb) 06/15/2023 4:19 PM EST Height - - Body Mass Index 24.09 04/24/2023 1:15 PM EDT documented in this encounter Progress Notes * Karma Sharma PA-C - 06/15/2023 4:42 PM EST SUBJECTIVE: Here for incision check HPI: 22 year old female here for incision check She is s/p LTCS on 05/28/[address] Montiel secondary to placental abruption at 35 weeks GA. Doing well post op. Vaginal bleeding light. Reports normal BM. Denies urinary complaints. Passing flatus. Denies fever, chills. Pain appropriate following delivery. Not using pain meds. Patient is . Medications: Current Outpatient Medications Medication Sig Dispense Refill 19 29-1 MG Oral Tablet Chewable Take 1 Tablet by mouth every evening. 90 Tablet 2 Breast Pump Pump daily when 1 Each 0 Azelastine HCl 0.15 % Nasal Solution Administer 1 [place] into nostril in the morning and 1 [place] before bedtime. (Patient not taking: Reported on 06/15/2023) 30 mL 12 No current facility-administered medications for this visit. Allergies: Review of patient's allergies indicates: No Known Allergies Past Medical History: Diagnosis Date Anxiety 03/15/2023 Vapes nicotine containing substance 03/15/2023 OB History Para Term AB Living 1 1 1 SAB IAB Ectopic Multiple Live Births # Outcome Date GA Lbr Rodrick/2nd Weight Sex Delivery Anes PTL Lv 1 05/28/23 35w1d M CS-Unspec Y Complications: Abruptio Placenta Obstetric Comments FOB #1 (2022): Chance, age 20, currently incarcerated, healthy, no children outside this relationship. OBJECTIVE: BP 102/60 | Wt 61.7 kg (136 lb) | LMP 09/24/2022 (Exact Date) | Yes | BMI 24.09 kg/m | BSA 1.66 m General: awake, alert, and oriented x 3, normal affect, no acute distress Heart: regular rate & rhythm, no murmurs, and no gallops Lungs: chest symmetric with normal AP diameter, no chest wall tenderness, lungs clear to auscultation Abdomen: abdomen soft, non-tender, normal bowel sounds, and no masses or organomegaly, incision C/D/I, no overlying erythema ASSESSMENT/PLAN: Post-operative state (Primary) Doing well, no concerns. RTC in 3 weeks for 6 week PP visit, sooner PRN. Follow Up: Return in about 3 weeks (around 07/06/2023), or if symptoms worsen or fail to improve, for Clinic Visit. | For: Clinic Visit Karma Sharma PA-C documented in this encounter Nursing Notes * Roselyn Estrada LPN - 06/15/2023 4:19 PM EST Chief Complaint Patient presents with Incision check Doing well. Denies pain, drainage, fevers, chills. documented in this encounter Plan of Treatment Upcoming Encounters Date Type Department Care Team (Late st Contact Info) Description 07/13/2023 12:00 PM EST Office Visit Gynecology/Obstetrics [facility] [address] [place] [address] Darlin Grace CRNP [address] [place] [phone] Health Maintenance Due Date Last Done Comments [...] as of this encounter Visit Diagnoses Diagnosis Post-operative state- Primary Other postprocedural status documented in this encounter Care Teams Equipment Coordinator Relationship Specialty Start Date End Date Gail Gil MD [address] [place] [address] PCP - General Family Medicine 03/18/21 documented as of this encounter"
--- OUTSIDE RECORDS SUMMARY | 2023-08-26 18:27 | External Medical Summary | Summary of Care ---
Author Name Unknown Organization [facility] Address [address] [facility] [address] Phone [phone] Care Team Providers Care Talent Acquisition Program Manager Name Role Phone Gail Gil MD Primary Care Provid er Reason for Visit * Reason Onset Date Comments Appointment 05/30/2023 Post visi ts Encounter Details Date Type Department Care Team (Late st Contact Info) Description 05/30/2023 Telephone Gynecology/Obstetrics [facility] [address] [place] [id number] Jonn Gresham MD [address] [place] [address] Appointment (Post visits) Allergies No known active allergiesdocumented as of this encounter (statuses as of 07/08/2023) Medications Medication Sig Dispensed Refills Start Date End Date Status Breast PumpIndications:No rmal in second trimester Pump daily when 1 Each 0 03/27/2023 Active 19 29-1 MG Oral Tablet ChewableIndication s:Normal in second trimester Take 1 Tablet by mouth every evening. 90 Tablet 2 04/11/2023 Active Azelastine HCl 0.15 % Nasal SolutionIndication s:Dysfunction of right eustachian tube Administer 1 Chama into nostril in the morning and 1 Chama before bedtime. 30 mL 12 04/11/2023 Active Additional Information Patient not taking.Reported on 06/15/2023 documented as of this encounter (statuses as of 07/08/2023) Active Problems Problem Noted Date Diagnosed Date Abnormal GTT (glucose tolerance test) 04/11/2023 Gonorrhea affecting 04/06/2023 Overview: Gonorrhea of the throat - Patient tested positive on 01/12/23 and was treated at the [facility]. Neg testing 03/2023 Marijuana use during 03/29/2023 [...] resolved Need for food assistance referred to [facility] and local food alberts 03/27/2023 Gabriela [...] Late care 03/15/2023 Overview: Initiated care at [facility] at 26w2d. Dating ultrasound was done at [facility] at 16 weeks. Anxiety 03/15/2023 Vapes nicotine containing substance 03/15/2023 Comments Yes documented as of this encounter (statuses as of 07/08/2023) Immunizations Name Administration Dates Next Due [id number] PENTAVALENT NON-US 01/13/2000 DTaP Dipth/Tet/Acell Pertussis (Infanrix), [...] money to get more. Never true 03/27/2023 [place] Depression Scale Answer Date Recorded [place] Depression Scale Total 3 06/15/2023 The thought of harming myself has occurred to me . Never 06/15/2023 Comments Yes Sex and Gender Information Value Date Recorded Sex Assigned at Female 03/27/2023 2:49 PM EDT Gender Identity Female 03/27/2023 2:49 PM EDT Sexual Orientation Straight 03/27/2023 2: 49 PM EDT Job Start Date Occupation Industry Not on file Not on file Not on file documented as of this encounter Plan of Treatment Upcoming Encounters Date Type Department Care Team ([facility] st Contact Info) Description 07/13/2023 12:00 PM EST Office Visit [facility] [address] [place] [phone] Darlin Grace CRNP [address] [place] [phone] 08/25/2023 9:00 AM EST Office Visit Gynecology/Obstetrics [facility] [address] [place] [phone] Maryanne Nuñez CRNP [address] [place] [address] Health Maintenance Due Date Last Done Comments [...] filedocumented as of this encounter Care Teams Talent Acquisition Program Manager Relationship Specialty Start Date End Date Gail Gil MD [address] [place] [address] PCP - General Family Medicine 03/18/21 documented as of this encounter
--- OUTSIDE RECORDS SUMMARY | 2023-08-26 18:27 | External Medical Summary | Summary of Care ---
Author Name Unknown Organization [facility] Address [address] [place] [address] Phone [phone] Care Team Providers Care Disease Management Nurse Name Role Phone Gail Gil MD Primary Care Provid er Encounter Details Date Type Department Care Team (Late st Contact Info) Description 06/07/2023 Telephone Gynecology/Obstetrics Jason Coronados [address] [place] [address] BackMaryanne laureano CRNP [address] [place] [address] Allergies No known active allergiesdocumented as of this encounter (statuses as of 06/07/2023) Medications Medication Sig Dispensed Refills Start Date End Date Status Breast PumpIndications:No rmal in second trimester Pump daily when 1 Each 0 03/27/2023 Active 19 29-1 MG Oral Tablet ChewableIndication s:Normal in second trimester Take 1 Tablet by mouth every evening. 90 Tablet 2 04/11/2023 Active Azelastine HCl 0.15 % Nasal SolutionIndication s:Dysfunction of right eustachian tube Administer 1 [place] into nostril in the morning and 1 [place] before bedtime. 30 mL 12 04/11/2023 Active documented as of this encounter (statuses as of 06/07/2023) Active Problems Problem Noted Date Diagnosed Date Abnormal GTT (glucose tolerance test) 04/11/2023 Gonorrhea affecting 04/06/2023 Overview: Gonorrhea of the throat - Patient tested positive on 01/12/23 and was treated at the [facility] [place]. Neg testing 03/2023 Marijuana use during 03/29/2023 [...] Initiated care at [facility] at 26w2d. Dating ultrasound was done at [facility] at 16 weeks. Anxiety 03/15/2023 Vapes nicotine containing substance 03/15/2023 documented as of this encounter (statuses as of 06/07/2023) Immunizations Name Administration Dates Next Due [id number] PENTAVALENT NON-US 01/13/2000 DTaP Dipth/Tet/Acell Pertussis (Infanrix), [...] money to get more. Never true 03/27/2023 [place] Depression Scale Answer Date Recorded [place] Depression Scale Total 8 05/16/2023 The thought of harming myself has occurred to me . Never 05/16/2023 Sex and Gender Information Value Date Recorded Sex Assigned at Female 03/27/2023 2:49 PM EDT Gender Identity Female 03/27/2023 2:49 PM EDT Sexual Orientation Straight 03/27/2023 2: 49 PM EDT Job Start Date Occupation Industry Not on file Not on file Not on file documented as of this encounter Miscellaneous Notes * Telephone Encounter - Violeta Hair, MED ASSIST - 06/07/2023 3:59 PM EST Pt states she is doing well. Appt scheduled, pt aware * Telephone Encounter - Maryanne Nuñez CRNP - 06/07/2023 1:38 PM EST Reviewing high risk list, noted that patient delivered (apparently C/S) on 05/28/23. She was not scheduled for an incision check. Can you please call pt to see how she is doing, and schedule an incision check? Her other PP visitsare scheduled (does not need a 3 week visit if having a 1 and 6 week). GAVIOTA Mendoza documented in this encounter Plan of Treatment Upcoming Encounters Date Type Department Care Team (Late st Contact Info) Description 06/15/2023 4:15 PM EST Office Visit Gynecology/Obstetrics [facility] [address] [place] [phone] Boy Enriquez MD [address] [place] [address] 07/13/2023 12:00 PM EST Office Visit Gynecology/Obstetrics [facility] [address] [place] [address] Darlin Grcae CRNP [address] [place] [address] Health Maintenance Due Date Last Done Comments [...] filedocumented as of this encounter Care Teams Disease Management Nurse Relationship Specialty Start Date End Date Gail Gil MD [address] [place] [address] PCP - General Family Medicine 03/18/21 documented as of this encounter
--- OUTSIDE RECORDS SUMMARY | 2023-08-26 18:27 | External Medical Summary | Summary of Care ---
Author Name Unknown Organization [facility] Address [address] [place] [address] Phone [phone] Care Team Providers Care Knitting Machine Operator Helper Name Role Phone Gail Gil MD Primary Care Provid er Encounter Details Date Type Department Care Team (Late st Contact Info) Description 05/27/2023 Result Scan Unspecified Department Jonn Gresham MD [address] [place] [address] <No scans attached> Allergies No known active allergiesdocumented as of this encounter (statuses as of 05/31/2023) Medications Medication Sig Dispensed Refills Start Date End Date Status Breast PumpIndications:No rmal in second trimester Pump daily when 1 Each 0 03/27/2023 Active 19 29-1 MG Oral Tablet ChewableIndication s:Normal in second trimester Take 1 Tablet by mouth every evening. 90 Tablet 2 04/11/2023 Active Azelastine HCl 0.15 % Nasal SolutionIndication s:Dysfunction of right eustachian tube Administer 1 [place] into nostril in the morning and 1 [place] before bedtime. 30 mL 12 04/11/2023 Active documented as of this encounter (statuses as of 05/31/2023) Active Problems Problem Noted Date Diagnosed Date Abnormal GTT (glucose tolerance test) 04/11/2023 Gonorrhea affecting 04/06/2023 Overview: Gonorrhea of the throat - Patient tested positive on 01/12/23 and was treated at the [facility] [place]. Neg testing 03/2023 Marijuana use during 03/29/2023 [...] resolved Need for food assistance referred to [facility] and local food alberts 03/27/2023 [...] Late care 03/15/2023 Overview: Initiated care at [facility] at 26w2d. Dating ultrasound was done at [facility] at 16 weeks. Anxiety 03/15/2023 Vapes nicotine containing substance 03/15/2023 Estimated Date of Delivery Comme nts Yes 07/01/2023 Based on last me nstrual period of 09/24/2022 (Exact Date) documented as of this encounter (statuses as of 05/31/2023) Immunizations Name Administration Dates Next Due [id number] PENTAVALENT NON-US 01/13/2000 DTaP Dipth/Tet/Acell Pertussis (Infanrix), [...] money to get more. Never true 03/27/2023 [place] Depression Scale Answer Date Recorded [place] Depression Scale Total 8 05/16/2023 The thought [...] Care Team (Late st Contact Info) Description 06/20/2023 10:00 AM EST Telemedicine Gynecology/Obstetrics [facility] [address] [place] [address] Maryanne Nuñez CRNP [address] [place] [address] 07/13/2023 12:00 PM EST Office Visit [facility] [address] [place] [address] Darlin Grace CRNP [address] [place] [address] Health Maintenance Due Date Last Done Comments [...] Procedure Name Priority Date/Time Associated Diagnosis Comments PATHOLOGY SCANNED RESULT 05/27/2023 documented in this encounter Results * PATHOLOGY SCANNED RESULT (05/27/2023) 05/27/2023 Jonn Mancuso MD PATHOLOGY documented in this encounter Care Teams Knitting Machine Operator Helper Relationship Specialty Start Date End Date Gail Gil MD [address] [place] [address] PCP - General Family Medicine 03/18/21 documented as of this encounter
--- OUTSIDE RECORDS SUMMARY | 2023-08-26 18:27 | External Medical Summary | Summary of Care ---
Author Name Unknown Organization [facility] Address [address] [facility] [address] Phone [phone] Care Team Providers Care Optical Sales Associate Name Role Phone Gail Gil MD Primary Care Provid er Reason for Visit * Reason Comments Healthy Beginnings Encounter Details Date Type Department Care Team (Late st Contact Info) Description 08/03/2023 12:00 PM EST Office Visit Gynecology/Obstetric s Jason Devi [address] [place] [address] Darlin Grace CRNP [address] [place] [address] Routine follow-up*; Late care; Normal in second trimester Allergies No known active allergiesdocumented as of this encounter (statuses as of 08/03/2023) Medications Medication Sig Dispensed Refills Start Date End Date Status Breast PumpIndications: Normal in second trimester Pump daily when 1 Each 0 03/27/2023 Active Azelastine HCl 0.15 % Nasal SolutionIndicati ons:Dysfunction of right eustachian tube Administer 1 [place] into nostril in the morning and 1 [place] before bedtime. 30 mL 12 04/11/2023 Active Additional Information Patient not taking.Reported on 06/15/2023 19 29-1 MG Oral Tablet ChewableIndicati ons:Normal in second trimester Take 1 Tablet by mouth every evening. 100 Tablet 2 08/03/2023 Active 19 29-1 MG Oral Tablet ChewableIndicati ons:Normal in second trimester Take 1 Tablet by mouth every evening. 90 Tablet 2 04/11/2023 4 Discontinue d(Refill) documented as of this encounter (statuses as of 08/03/2023) Active Problems Problem Noted Date Diagnosed Date Abnormal GTT (glucose tolerance test) 04/11/2023 Gonorrhea affecting 04/06/2023 Overview: Gonorrhea of the throat - Patient tested positive on 01/12/23 and was treated at the [facility] [place]. Neg testing 03/2023 Marijuana use during 03/29/2023 [...] resolved Need for food assistance referred to [facility] and local food alberts 03/27/2023 [...] or questions 05/16/2023 Gabriela Guallpa RN 05/16/2023 Problem Action Taken Date entered Entered by Date resolved Current needs or questions Patient denies having any current needs or questions 08/03/2023 Gabriela Guallpa RN 08/03/2023 Normal 03/15/2023 Late care 03/15/2023 Overview: Initiated care at [facility] at 26w2d. Dating ultrasound was done at [facility] at 16 weeks. Anxiety 03/15/2023 Vapes nicotine containing substance 03/15/2023 documented as of this encounter (statuses as of 08/03/2023) Immunizations Name Administration Dates Next Due [id number] PENTAVALENT NON-US 01/13/2000 DTaP Dipth/Tet/Acell Pertussis (Infanrix), [...] money to get more. Never true 03/27/2023 [place] Depression Scale Answer Date Recorded [place] Depression Scale Total 7 08/03/2023 The thought of harming myself has occurred to me . Never 08/03/2023 Sex and Gender Information Value Date Recorded Sex Assigned at Female 03/27/2023 2:49 PM EDT Gender Identity Female 03/27/2023 2:49 PM EDT Sexual Orientation Straight 03/27/2023 2: 49 PM EDT Job Start Date Occupation Industry Not on file Not on file Not on file documented as of this encounter Last Filed Vital Signs Vital Sign Reading Time Taken Comments Blood Pressure 118/84 08/03/2023 12:07 PM EST Pulse - - Temperature - - Respiratory Rate - - Oxygen Saturation - - Inhaled Oxygen Concentration - - Weight 56.7 kg (125 lb) 08/03/2023 12:07 PM EST Height 160 cm (5' 3") 08/03/2023 12:07 PM EST Body Mass Index 22.14 08/03/2023 12:07 PM EST documented in this encounter Progress Notes * Darlin Grace CRNP - 08/03/2023 12:17 PM EST HPI: 22 year old female s/p C/s for placental abruption at 35w on 05/28/23, delivered by Dr. Montiel. Baby named Reuben- 5lbs 4oz. Patient is bottlefeeding. Pt is feeling well rested. She has no issues with depression. She has been sexually active since the delivery. She is no interested in discussing control options today. Planning to use condoms. Pap 03/2023 showing ASC-. Has colpo scheduled for 08/25/23. Past Medical History: Diagnosis Date Anxiety 03/15/2023 Vapes nicotine containing substance 03/15/2023 Current Outpatient Medications Medication Sig Dispense Refill 19 29-1 MG Oral Tablet Chewable Take 1 Tablet by mouth every evening. 90 Tablet 2 Breast Pump Pump daily when 1 Each 0 Azelastine HCl 0.15 % Nasal Solution Administer 1 [place] into nostril in the morning and 1 [place] before bedtime. (Patient not taking: Reported on 06/15/2023) 30 mL 12 No current facility-administered medications for this visit. Assessment/Plan: Routine follow-up (Primary) Stressed importance of returning for colpo. Late care Follow Up: Return if symptoms worsen or fail to improve, for colpo scheduled for 08/24. | For: colpo scheduled for 08/24 GAVIOTA Lovell documented in this encounter Nursing Notes * Gabriela Guallpa RN - 08/03/2023 12:34 PM EST Patient seen by [facility] Service Dog Trainer. Patient denies any questions or concerns. * Cass Romano LPN - 08/03/2023 12:07 PM EST Date of Delivery: 05/28/2023 Delivered by: Dr Jonn Ellis. Type of Delivery: Elective Degree of Laceration: NA Gender: male, Reuben Feeding: Bottle Weight: 5lb 4oz Sadness or Blues: no Control: condoms Last Pap: 03/2023 ASCUS-H. Needs colpo, scheduled for 08/25/23. documented in this encounter Plan of Treatment Upcoming Encounters Date Type Department Care Team (Late st Contact Info) Description 08/25/2023 9:00 AM EST Office Visit Gynecology/Obstetrics [facility] [address] [place] [phone] Maryanne Nuñez CRNP [address] [place] [address] Health Maintenance Due Date Last Done Comments [...] as of this encounter Visit Diagnoses Diagnosis Routine follow-up- Primary Late care Insufficient care Normal in second trimester documented in this encounter Care Teams Optical Sales Associate Relationship Specialty Start Date End Date Gail Gil MD [address] [place] [address] PCP - General Family Medicine 03/18/21 documented as of this encounter
--- OUTSIDE RECORDS SUMMARY | 2023-08-26 18:27 | External Medical Summary | Summary of Care ---
Author Name Unknown Organization [facility] Address [address] [place] [facility] [place] [address] Phone [phone] Care Team Providers Care Talent Development Manager Name Role Phone Gail Gil MD Primary Care Provid er Encounter Details Date Type Department Care Team (Late st Contact Info) Description 08/09/2023 Documentation Pediatrics [facility] [address] [place] [address] [facility]aci Mera [facility] [address] [facility] [place] [address] Allergies No known active allergiesdocumented as of this encounter (statuses as of 08/09/2023) Medications Medication Sig Dispensed Refills Start Date End Date Status Breast PumpIndications:N ormal in second trimester Pump daily when 1 Each 0 03/27/2023 Active Azelastine HCl 0.15 % Nasal SolutionIndicatio ns:Dysfunction of right eustachian tube Administer 1 [place] into nostril in the morning and 1 [place] before bedtime. 30 mL 12 04/11/2023 Active Additional Information Patient not taking.Reported on 06/15/2023 19 29-1 MG Oral Tablet ChewableIndicatio ns:Normal in second trimester Take 1 Tablet by mouth every evening. 100 Tablet 2 08/03/2023 Active documented as of this encounter (statuses as of 08/09/2023) Active Problems Problem Noted Date Diagnosed Date Abnormal GTT (glucose tolerance test) 04/11/2023 Gonorrhea affecting 04/06/2023 Overview: Gonorrhea of the throat - Patient tested positive on 01/12/23 and was treated at the [facility] [place]. Neg testing 03/2023 Marijuana use during 03/29/2023 [...] resolved Need for food assistance referred to [facility] and local food alberts 03/27/2023 [...] care 03/15/2023 Overview: Initiated care at [facility] at 26w2d. Dating ultrasound was done at [facility] at 16 weeks. Anxiety 03/15/2023 Vapes nicotine containing substance 03/15/2023 documented as of this encounter (statuses as of 08/09/2023) Immunizations Name Administration Dates Next Due [id number] PENTAVALENT NON-US 01/13/2000 DTaP Dipth/Tet/Acell Pertussis (Infanrix), [...] money to get more. Never true 03/27/2023 [place] Depression Scale Answer Date Recorded [place] Depression Scale Total 7 08/03/2023 The thought [...] on file documented as of this encounter Progress Notes * Traci Mera MD - 08/09/2023 9:52 AM EST [place] Depression Scale Documentation Una Eagle was screened for post- depression on 08/09/2023 during her child's visit. [place] Depression Screen 06/15/2023 10:41 08/03/2023 12:18 08/09/2023 09:44 [place] Depression Screening I have been able to laugh and see the funny side of things. As much as I always could [0] As much as I always could [0] As much as I always could [0] I have looked forward with enjoyment to things. As much as I ever did [0] As much as I ever did [0]As much as I ever did [0] I have blamed myself unnecessarily when things went wrong. Not very often [1] Yes, some of the time[2] Yes, some of the time [2] I have been anxious or worried for no good reason. Hardly ever [1] Yes, sometimes [2] Hardly ever [1] I have felt scared or panicky for no good reason. No, not much [1] No, not at all [0] No, not much [1] Things have been getting on top of me. No, I have been coping as well as ever [0] No, most of the time I have coped quite well [1] No, I have been coping as well as ever [0] I have been so unhappy that I have had difficulty sleeping. Not at all [0] Not at all [0] Not at all [0] I have felt sad or miserable. No, not at all [0] Not very often [1] No, not at all [0] I have been so unhappy that I have been crying. No, never [0] Only occasionally [1] No, never [0] The thought of harming myself has occurred to me. Never [0] Never [0] Never [0] [place] Depression Scale Total 3 7 4 [place] Depression Scale: [place] Depression Scale Total: 4 [place] suicide question and score: Score of 3 = Yes, quite often. Score of 2 = Sometimes. Score of 1 = Hardly ever The thought of harming myself has occurred to me.: 0 documented in this encounter Plan of Treatment Upcoming Encounters Date Type Department Care Team (Late st Contact Info) Description 08/25/2023 9:00 AM EST [facility] [address] [place] [address] Maryanne Nuñez CRNP [address] [place] [address] Health Maintenance Due Date Last Done Comments [...] as of this encounter Care Teams Talent Development Manager Relationship Specialty Start Date End Date Gail Gil MD [address] [facility] [place] [address] PCP - General Family Medicine 03/18/21 documented as of this encounter
--- OUTSIDE RECORDS SUMMARY | 2023-08-26 18:27 | External Medical Summary | Summary of Care ---
Author Name Unknown Organization [facility] Address [address] [facility] [place] [address] Phone [phone] Care Team Providers Care General Freight Agent Name Role Phone Gail Gil MD Primary Care Provid er Encounter Details Date Type Department Care Team (Late st Contact Info) Description 07/13/2023 Telephone Gynecology/Obstetrics Jason Devi [address] [place] [address] Darlin Grace CRNP [address] [place] [address] Allergies No known active allergiesdocumented as of this encounter (statuses as of 07/13/2023) Medications Medication Sig Dispensed Refills Start Date End Date Status Breast PumpIndications:No rmal in second trimester Pump daily when 1 Each 0 03/27/2023 Active 19 29-1 MG Oral Tablet ChewableIndication s:Normal in second trimester Take 1 Tablet by mouth every evening. 90 Tablet 2 04/11/2023 Active Azelastine HCl 0.15 % Nasal SolutionIndication s:Dysfunction of right eustachian tube Administer 1 [place] into nostril in the morning and 1 [place] before bedtime. 30 mL 12 04/11/2023 Active Additional Information Patient not taking.Reported on 06/15/2023 documented as of this encounter (statuses as of 07/13/2023) Active Problems Problem Noted Date Diagnosed Date Abnormal GTT (glucose tolerance test) 04/11/2023 Gonorrhea affecting 04/06/2023 Overview: Gonorrhea of the throat - Patient tested positive on 01/12/23 and was treated at the [facility] [place]. Neg testing 03/2023 Marijuana use during 03/29/2023 [...] Late care 03/15/2023 Overview: Initiated care at [facility] at 26w2d. Dating ultrasound was done at [facility] at 16 weeks. Anxiety 03/15/2023 Vapes nicotine containing substance 03/15/2023 documented as of this encounter (statuses as of 07/13/2023) Immunizations Name Administration Dates Next Due [id number] PENTAVALENT NON-US 01/13/2000 DTaP Dipth/Tet/Acell Pertussis (Infanrix), [...] money to get more. Never true 03/27/2023 [place] Depression Scale Answer Date Recorded [place] Depression Scale Total 3 06/15/2023 The thought [...] Telephone Encounter - Gabriela Guallpa RN - 07/13/2023 1:24 PM EST Attempted to call patient due to n/s 6 wk PPV. No answer, LVM to return call. R/s appt and sent letter. documented in this encounter Plan of Treatment Upcoming Encounters Date Type Department Care Team (Late st Contact Info) Description 08/03/2023 12:00 PM EST Office Visit Gynecology/Obstetrics [facility] [address] [place] [address] Darlin Grace CRNP [address] [place] [address] 08/25/2023 9:00 AM EST Office Visit Gynecology/Obstetrics [facility] [address] [place] [address] Maryanne Nuñez CRNP [address] [place] [address] Health Maintenance Due Date Last Done Comments [...] filedocumented as of this encounter Care Teams General Freight Agent Relationship Specialty Start Date End Date Gail Gil MD [address] [place] [address] PCP - General Family Medicine 03/18/21 documented as of this encounter
--- OUTSIDE RECORDS SUMMARY | 2023-08-26 18:27 | External Medical Summary | Summary of Care ---
Author Name Unknown Organization [facility] Address [address] [place] [address] Phone [phone] Care Team Providers Care Manager Development Name Role Phone Gail Gil MD Primary Care Provid er Encounter Details Date Type Department Care Team (Late st Contact Info) Description 07/06/2023 Telephone Gynecology/Obstetrics [address] [address] Lexus Corrigan [facility] [address] [place] [address] Allergies No known active allergiesdocumented as of this encounter (statuses as of 07/14/2023) Medications Medication Sig Dispensed Refills Start Date End Date Status Breast PumpIndications:No rmal in second trimester Pump daily when 1 Each 0 03/27/2023 Active 19 29-1 MG Oral Tablet ChewableIndication s:Normal in second trimester Take 1 Tablet by mouth every evening. 90 Tablet 2 04/11/2023 Active Azelastine HCl 0.15 % Nasal SolutionIndication s:Dysfunction of right eustachian tube Administer 1 [place] into nostril in the morning and 1 [place] before bedtime. 30 mL 12 04/11/2023 Active Additional Information Patient not taking.Reported on 06/15/2023 documented as of this encounter (statuses as of 07/14/2023) Active Problems Problem Noted Date Diagnosed Date Abnormal GTT (glucose tolerance test) 04/11/2023 Gonorrhea affecting 04/06/2023 Overview: Gonorrhea of the throat - Patient tested positive on 01/12/23 and was treated at the [facility]. Neg testing 03/2023 Marijuana use during 03/29/2023 [...] resolved Need for food assistance referred to [facility] and local [employer] 03/27/2023 Gabriela Guallpa RN 03/27/2023 Problem Action [...] Late care 03/15/2023 Overview: Initiated care at [facility] at 26w2d. Dating ultrasound was done at [facility] at 16 weeks. Anxiety 03/15/2023 Vapes nicotine containing substance 03/15/2023 documented as of this encounter (statuses as of 07/14/2023) Immunizations Name Administration Dates Next Due [id number] PENTAVALENT NON-US 01/13/2000 DTaP Dipth/Tet/Acell Pertussis (Infanrix), [...] money to get more. Never true 03/27/2023 [place] Depression Scale Answer Date Recorded [place] Depression Scale Total 3 06/15/2023 The thought [...] encounter Miscellaneous Notes * Telephone Encounter - Adeola Petersen OSA - 07/07/2023 8:54 AM EST Scheduled; LMOM; when pt calls back please let her know of the 08/25/23 appointment for a Colpo * Telephone Encounter - Alyssia Kimbrough LPN - 07/06/2023 3:57 PM EST Please help patient schedule a colposcopy * Telephone Encounter - Lexus Corrigan CNM - 07/06/2023 3:52 PM EST Patient is due for a colposcopy. Could you assist with scheduling? Her pap history is as follows: 04/05/2021 ASCUS, HPV+ 03/27/2023 ASC-H, LSIL, HPV+ She is scheduled for a visit with Darlin on 07/13/23. I have let Darlin know via staff message that she is due for a colpo. Thanks! Lexus Corrigan CNM documented in this encounter Plan of Treatment Upcoming Encounters Date Type Department Care Team (Late st Contact Info) Description 08/03/2023 12:00 PM EST [facility] [address] [place] [id number] Darlin Grace CRNP [address] [place] [id number] 08/25/2023 9:00 AM EST Office [facility] [address] [place] [address] AndreierMaryanne CRNP [address] [place] [id number] Health Maintenance Due Date Last Done Comments [...] filedocumented as of this encounter Care Teams Manager Development Relationship Specialty Start Date End Date Gail Gil MD [address] [place] [address] PCP - General Family Medicine 03/18/21 documented as of this encounter
[2023-08-26] MEDS: ARIPiprazole 5 MG TAB PO SCH (21:17)
--- NOTE | 2023-08-27 15:41 | Psychiatric Progress Note ---
Date of Service August 27, 2023 Impression / Recommendations Impression 22 yo female with a hx of at least 1 prior manic episode, presentation complicated at that time by substance abuse and continues to test positive for amphetamine and THC (suspect meth use). Currently mixed symptoms with tangentiality and mood lability, luckily less agitated in past but reactive toward family. CYS has indicated no contact allowed with child at this time per ED CM notes. 08/27/2023: significantly more organized. Overall, I spent a total of 38 minutes with this case, including review of chart, direct evaluation of the patient, counseling the patient, ordering medication, coordination with nursing, risk assessment, and documentation. (1) Bipolar I disorder with mixed features: Plan 08/27/2023: continue Abilify trial to 5 mg daily. Will reoorder fasting labs for am. confirmatory tox labs pending. 08/26/2023: The patient was admitted to the [facility] ([facility] mental health unit) on q15 min checks (behavioral with suicide precautions) for safety. The patient will participate in group, recreational, and milieu therapies and will be offered additional individual and family sessions as clinically appropriate. Risks/benefits/alternatives were reviewed re: antipsychotics for mood and/or psychosis. Discussion included but was not limited to metabolic side effects, risks of TD and suicidal thoughts. There were no abnormal motor movements at baseline. Fasting glucose and lipid panel ordered for baseline monitoring. She agreed to a trial of Abilify (2.5 mg hs to start) and will offer GODOY when tolerability assessed. Inventory Assets Strengths: voluntary, help seeking Needs: improve coping, truthfulness around substance use. Suicide Risk Level Suicide Risk Level: Low (q15 min observation checks) Risk Factors Assessment : Yes Do You Have Access To A Gun?: No Mental Health Diagnoses: Yes Substance Use Disorders: Yes (hx, need to assess current use) Previous Psychiatric Hospitalization: Yes Protective Factors Assessment Employed: No Interval History Identifying Information BRIT ROCA is a 22-year-old F from [place], has a history of 2 prior inpatient hospitalizations in 2021, and was admitted on 08/25/23 22:42 on a 201 voluntary commitment for behavior change. Chief Complaint "I'm sorry I had an outburst yesterday. I need caffeine." Review of Systems Sleep Information Total Hours of Sleep: 8 Meal Information Percent Meal Consumed - Breakfast: 25 Percent Meal Consumed - Lunch: 95 Percent Meal Consumed - Dinner: 95 Subjective Subjective Patient was seen & assessed and interval progress reviewed with nursing and social work. Patient states that she drinks 5+ energy drinks daily and is feeling fatigued from lack of caffeine. Requested caffeine pills and reviewed that neither that or stimulants are appropriate or would be prescribed here and that symptoms she are experiencing are typical of withdrawal from caffeine and less likely related to medication. She recognizes that he thoughts are more organized and in fact is very aggreeable to titrate Abilify and consider GODOY. Physical Exam Psychiatric Orientation: alert and oriented x 3 Apperance: appropriately dressed and appropriately groomed Eye Contact: good eye contact Motor Behavior: no abnormal motor movements Speech: normal rate/rhythm/volume of speech Affect: + depressed affect Mood: + anxious mood Thought Process: linear/logical thought process Thought Content: reality based without delusions Suicidal Thoughts: denies suicidal thoughts Homicidal Thoughts: denies homicidal thoughts Hallucinations: no auditory hallucinations and no visual hallucinations Cognition: language grossly intact; + attention not intact (but improved) Estimated Intelligence: consistent with education level Insight: + limited insight Judgment: + limited judgement Vital Signs (Past 24 Hours) Last Vital Signs Temp 36.4 C 08/27/23 06:08 Pulse 62 08/27/23 06:08 Resp 16 08/27/23 06:08 BP 109/75 08/27/23 06:08 Pulse Ox 98 08/27/23 06:08 O2 Del Method Room Air 08/27/23 06:08 Results & Data ([facility]) Current Inpatient Medications Current Inpatient Medications: Current Inpatient Medications Acetaminophen (Acetaminophen 325 Mg Tab) 650 mg PO Q4H PRN PRN Reason: Headache or Minor Fever Stop: 09/24/23 22:41 Al Hydrox/Mg Hydrox/Simethicone (Aluminum/Magnesium Susp 30 Ml Udc) 30 ml PO Q4H PRN PRN Reason: GI Upset Stop: 09/24/23 22:41 Aripiprazole (Aripiprazole 5 Mg Tab) 5 mg PO HS PAT Stop: 09/26/23 21:59 Benztropine Mesylate (Benztropine Mesylate 1 Mg Tab) 1 mg PO Q6 PRN PRN Reason: Muscle Spasm Stop: 09/25/23 11:19 Bismuth Subsalicylate (Bismuth Subsalicylate Liqd 236 Ml) 15 ml PO PRN PRN PRN Reason: Loose Stool Stop: 09/24/23 22:41 Hydroxyzine HCl (Hydroxyzine Hcl 25 Mg Tab) 50 mg PO HSZ PRN PRN Reason: Insomnia Stop: 09/24/23 22:41 Last Admin: 08/26/23 00:05 Dose: 50 mg Hydroxyzine HCl (Hydroxyzine Hcl 25 Mg Tab) 25 mg PO Q4H PRN PRN Reason: Anxiety Stop: 09/24/23 22:41 Magnesium Hydroxide (Magnesium Hydroxide Susp 30 Ml Udc) 30 ml PO DAILY PRN PRN Reason: Constipation Stop: 09/24/23 22:41 Miscellaneous (Remove Nicoderm Patch) 1 each N/A DAILY@0859 [facility] Stop: 09/25/23 08:58 Last Admin: 08/27/23 09:01 Dose: 1 each Nicotine (Nicotine 21 Mg/24 Hr Tdsy) 21 mg TD QAM PAT Stop: 09/25/23 08:59 Last Admin: 08/27/23 09:00 Dose: 21 mg Nicotine Polacrilex (Nicotine Polacrilex 2 Mg Gum) 1 piece MT PRN PRN PRN Reason: nicotine withdrawal Stop: 09/25/23 13:49 Olanzapine (Olanzapine 5 Mg Tablet) 5 mg PO Q6 PRN PRN Reason: Anxiety/Agitation Stop: 09/25/23 11:59 Last Admin: 08/26/23 14:20 Dose: 5 mg Sodium Chloride (Sodium Chloride 0.65% Na Soln 45 Ml ([place])) 1 - 2 sprays NA PRN PRN PRN Reason: Nasal Dryness/Congestion Stop: 09/24/23 22:41 Mental Health & Subst Abuse Tx Therapist Name of Therapist: NA Date of Therapist Appointment: NA Timers Inspector Name of Timers Inspector: NA Post Discharge Appointments Primary Care Physician Name Of Family Doctor/PCP: DEBBIE
[2023-08-27] MEDS: NICOTINE POLACRILEX 2 MG GUM MT PRN (20:00)
[2023-08-27] MEDS: ARIPiprazole 5 MG TAB PO SCH (20:38)
[2023-08-28 00:32] LABS: Marijuana Quant, GCMS Urine 138 ng/mL (<5)
[2023-08-28 07:54] LABS: Chol HDL Ratio 3.5 (0-5)
--- NOTE | 2023-08-28 14:24 | Psychiatric Progress Note ---
Date of Service August 28, 2023 Impression / Recommendations Impression 22 yo female with a hx of at least 1 prior manic episode, presentation complicated at that time by substance abuse and continues to test positive for amphetamine and THC (suspect meth use). Currently mixed symptoms with tangentiality and mood lability, luckily less agitated in past but reactive toward family. CYS has indicated no contact allowed with child at this time per ED CM notes. 08/28/2023: improving but emotionally labile, need to clarify CYS involvement with home Overall, I spent a total of 36 minutes with this case, including review of chart, direct evaluation of the patient, counseling the patient, ordering medication, coordination with nursing/treatment team, risk assessment, and documentation. (1) Bipolar I disorder with mixed features: Plan 08/28/2023: titrate Abilify to 10 mg this pm to assess tolerability with plan for maintenna after a few more doses. Patient voiced understanding that she would require ongoing monitoring and there is typically an initial 2 week period of overlap between PO until GODOY takes effect. Reviewed metabolic labs. Reviewed longer term monitoring for risks of tD. She denies side effects. 08/27/2023: continue Abilify trial to 5 mg daily. Will reoorder fasting labs for am. confirmatory tox labs pending. 08/26/2023: The patient was admitted to the [facility] on q15 min checks (behavioral with suicide precautions) for safety. The patient will participate in group, recreational, and milieu therapies and will be offered additional individual and family sessions as clinically appropriate. Risks/benefits/alternatives were reviewed re: antipsychotics for mood and/or psychosis. Discussion included but was not limited to metabolic side effects, risks of TD and suicidal thoughts. There were no abnormal motor movements at baseline. Fasting glucose and lipid panel ordered for baseline monitoring. She agreed to a trial of Abilify (2.5 mg hs to start) and will off er GODOY when tolerability assessed. Inventory Assets Strengths: voluntary, help seeking Needs: improve coping, truthfulness around substance use. Suicide Risk Level Suicide Risk Level: Low (q15 min observation checks) Risk Factors Assessment : Yes Do You Have Access To A Gun?: No Mental Health Diagnoses: Yes Substance Use Disorders: Yes (hx, need to assess current use) Previous Psychiatric Hospitalization: Yes Protective Factors Assessment Employed: No Interval History Identifying Information BRIT ROCA is a 22-year-old F from [place], has a history of 2 prior inpatient hospitalizations in 2021, and was admitted on 08/25/23 22:42 on a 201 voluntary commitment for behavior change. Chief Complaint "I don't want my mood to stay at a 6" Review of Systems Sleep Information Total Hours of Sleep: 6.5 Meal Information Percent Meal Consumed - Breakfast: 90 Percent Meal Consumed - Lunch: 95 Percent Meal Consumed - Dinner: 100 Subjective Subjective Patient was seen & assessed and interval progress reviewed with treatment team. Patient notes that her mood is feeling more predictable. She reported a period of possible dissociation in group therapy yesterday but sw describes her being aware/talking and issues resolved by time nursing arrived to assess. She seems to miss feeling hyper and manic. Reviewed that the report of the positive amphetamine/meth screen was per CYS, not [facility] ED. THC level elevated but relatively low. Patient is sleeping and attending to ADLs. She continues to deny SI but escalated quickly on phone with mother. Will need input from CYS re: home situation prior to discharge [facility] reports of mother's behavior in home. Physical Exam Psychiatric Orientation: alert and oriented x 3 Apperance: appropriately dressed and appropriately groomed Eye Contact: good eye contact Motor Behavior: no abnormal motor movements Speech: normal rate/rhythm/volume of speech Affect: + depressed affect Mood: + anxious mood Thought Process: linear/logical thought process Thought Content: reality based without delusions Suicidal Thoughts: denies suicidal thoughts Homicidal Thoughts: denies homicidal thoughts Hallucinations: no auditory hallucinations and no visual hallucinations Cognition: language grossly intact; + attention not intact (but improved) Estimated Intelligence: consistent with education level Insight: + limited insight Judgment: + limited judgement Vital Signs (Past 24 Hours) Last Vital Signs Temp 36.6 C 08/28/23 06:38 Pulse 73 08/28/23 06:38 Resp 16 08/28/23 06:38 BP 120/71 08/28/23 06:38 Pulse Ox 98 08/27/23 06:08 O2 Del Method Room Air 08/27/23 06:08 Results & Data ([facility]) Laboratory Results Laboratory Results - last 24 hr 08/25/23 08/28/23 19:35 07:12 Fasting Glucose 97 Triglycerides 144 Cholesterol 166 LDL Cholesterol, Calc 89 VLDL Cholesterol, Calc 29 HDL Cholesterol 48 Cholesterol/HDL Ratio 3.5 U Marijuana THC Carboxy 138 H Drug Screen Comment SEE NOTE Current Inpatient Medications Current Inpatient Medications: Current Inpatient Medications Acetaminophen (Acetaminophen 325 Mg Tab) 650 mg PO Q4H PRN PRN Reason: Headache or Minor Fever Stop: 09/24/23 22:41 Al Hydrox/Mg Hydrox/Simethicone (Aluminum/Magnesium Susp 30 Ml Udc) 30 ml PO Q4H PRN PRN Reason: GI Upset Stop: 09/24/23 22:41 Aripiprazole (Aripiprazole 5 Mg Tab) 5 mg PO HS PAT Stop: 09/26/23 21:59 Last Admin: 08/27/23 20:38 Dose: 5 mg Benztropine Mesylate (Benztropine Mesylate 1 Mg Tab) 1 mg PO Q6 PRN PRN Reason: Muscle Spasm Stop: 09/25/23 11:19 Bismuth Subsalicylate (Bismuth Subsalicylate Liqd 236 Ml) 15 ml PO PRN PRN PRN Reason: Loose Stool Stop: 09/24/23 22:41 Hydroxyzine HCl (Hydroxyzine Hcl 25 Mg Tab) 50 mg PO HSZ PRN PRN Reason: Insomnia Stop: 09/24/23 22:41 Last Admin: 08/27/23 20:37 Dose: 50 mg Hydroxyzine HCl (Hydroxyzine Hcl 25 Mg Tab) 25 mg PO Q4H PRN PRN Reason: Anxiety Stop: 09/24/23 22:41 Magnesium Hydroxide (Magnesium Hydroxide Susp 30 Ml Udc) 30 ml PO DAILY PRN PRN Reason: Constipation Stop: 09/24/23 22:41 Miscellaneous (Remove Nicoderm Patch) 1 each N/A DAILY@0859 [facility] Stop: 09/25/23 08:58 Last Admin: 08/28/23 09:09 Dose: 1 each Nicotine (Nicotine 21 Mg/24 Hr Tdsy) 21 mg TD QAM [facility] Stop: 09/25/23 08:59 Last Admin: 08/28/23 09:08 Dose: 21 mg Nicotine Polacrilex (Nicotine Polacrilex 2 Mg Gum) 1 piece MT PRN PRN PRN Reason: nicotine withdrawal Stop: 09/25/23 13:49 Last Admin: 08/27/23 20:00 Dose: 1 piece Olanzapine (Olanzapine 5 Mg Tablet) 5 mg PO Q6 PRN PRN Reason: Anxiety/Agitation Stop: 09/25/23 11:59 Last Admin: 08/28/23 14:02 Dose: 5 mg Sodium Chloride (Sodium Chloride 0.65% Na Soln 45 Ml ([place])) 1 - 2 sprays NA PRN PRN PRN Reason: Nasal Dryness/Congestion Stop: 09/24/23 22:41 Mental Health & Subst Abuse Tx Psychiatrist Name of Psychiatrist: Yeni Noyola- INTAKE Therapist Name of Therapist: Yeni Noyola Date of Therapist Appointment: NA Sea Foam Kiss Maker Name of Sea Foam Kiss Maker: DEBBIE Post Discharge Appointments Primary Care Physician Name Of Family Doctor/PCP: DEBBIE
[2023-08-28] MEDS: ARIPiprazole 10 MG TAB PO SCH (22:04)
[2023-08-29] MEDS: BENZTROPINE MESYLATE 1 MG TAB PO PRN (00:42)
[2023-08-29] MEDS: hydrOXYzine HCl 25 MG TAB PO PRN (10:35)
--- NOTE | 2023-08-29 13:24 | Psychiatric Progress Note ---
Date of Service August 29, 2023 Impression / Recommendations Impression 22 yo female with a hx of at least 1 prior manic episode, presentation complicated at that time by substance abuse and continues to test positive for amphetamine and THC (suspect meth use). Currently mixed symptoms with tangentiality and mood lability, luckily less agitated in past but reactive toward family. CYS has indicated no contact allowed with child at this time per ED CM notes. 08/29/2023: ?mild akathisia last pm, shift dose time of Abilify Overall, I spent a total of 35 minutes with this case, including review of chart, direct evaluation of the patient, counseling the patient, ordering medication, coordination with nursing/treatment team, and documentation. (1) Bipolar I disorder with mixed features: Plan 08/29/2023: continue Abilify trial, shift to earlier. Likes Zyprexa prn but desires GODOY. 08/28/2023: titrate Abilify to 10 mg this pm to assess tolerability with plan for maintenna after a few more doses. Patient voiced understanding that she would require ongoing monitoring and there is typically an initial 2 week period of overlap between PO until GODOY takes effect. Reviewed metabolic labs. Reviewed longer term monitoring for risks of tD. She denies side effects. 08/27/2023: continue Abilify trial to 5 mg daily. Will reoorder fasting labs for am. confirmatory tox labs pending. 08/26/2023: [facility]) on q15 min checks (behavioral with suicide precautions) for safety. The patient will participate in group, recreational, and milieu therapies and will be offered additional individual and family sessions as clinically appropriate. Risks/benefits/alternatives were reviewed re: antipsychotics for mood and/or psychosis. Discussion included but was not limited to metabolic side effects, risks of TD and suicidal thoughts. There were no abnormal motor movements at baseline. Fasting glucose and lipid panel ordered for baseline monitoring. She agreed to a trial of Abilify (2.5 mg hs to start) and will offer GODOY when tolerability assessed. Inventory Assets Strengths: voluntary, help seeking Needs: improve coping, truthfulness around substance use. Suicide Risk Level Suicide Risk Level: Low (q15 min observation checks) Risk Factors Assessment : Yes Do You Have Access To A Gun?: No Mental Health Diagnoses: Yes Substance Use Disorders: Yes (hx, need to assess current use) Previous Psychiatric Hospitalization: Yes Protective Factors Assessment Employed: No Interval History Identifying Information BRIT ROCA is a 22-year-old F from [place], has a history of 2 prior inpatient hospitalizations in 2021, and was admitted on 08/25/23 22:42 on a 201 voluntary commitment for behavior change. Chief Complaint "I feel more put together, even but also anxious." Review of Systems Sleep Information Total Hours of Sleep: 4.75 Meal Information Percent Meal Consumed - Breakfast: 100 Percent Meal Consumed - Lunch: 70 Percent Meal Consumed - Dinner: 100 Nutrition Comment: Ate later in evening at snack time Subjective Subjective Patient was seen & assessed and interval progress reviewed with nursing and social work. The patient has received Vistaril, Cogentin, and Zyprexa prns for restless thoughts, ?akathisia though patient admits she is typically more physically active and minimized any discomfort today. Wanted prn prior to meeting with mother. CYS has confirmed that patient has been staying in [place] and they have no concerns re: baby at mother's home. Didn't sleep as well last pm but had actually napped earlier. Physical Exam Psychiatric Orientation: alert and oriented x 3 Apperance: appropriately dressed and appropriately groomed Eye Contact: good eye contact Motor Behavior: no abnormal motor movements Speech: normal rate/rhythm/volume of speech Affect: euthymic affect Mood: + anxious mood Thought Process: linear/logical thought process Thought Content: reality based without delusions Suicidal Thoughts: denies suicidal thoughts Homicidal Thoughts: denies homicidal thoughts Hallucinations: no auditory hallucinations and no visual hallucinations Cognition: attention grossly intact and language grossly intact Estimated Intelligence: consistent with education level Insight: + limited insight Judgment: + limited judgement Vital Signs (Past 24 Hours) Last Vital Signs Temp 36.9 C 08/29/23 06:33 Pulse 65 08/29/23 06:33 Resp 16 08/29/23 06:33 BP 113/77 08/29/23 06:33 Pulse Ox 98 08/27/23 06:08 O2 Del Method Room Air 08/27/23 06:08 Results & Data (U) Current Inpatient Medications Current Inpatient Medications: Current Inpatient Medications Acetaminophen (Acetaminophen 325 Mg Tab) 650 mg PO Q4H PRN PRN Reason: Headache or Minor Fever Stop: 09/24/23 22:41 Al Hydrox/Mg Hydrox/Simethicone (Aluminum/Magnesium Susp 30 Ml Udc) 30 ml PO Q4H PRN PRN Reason: GI Upset Stop: 09/24/23 22:41 Aripiprazole (Aripiprazole 10 Mg Tab) 10 mg PO DAILYBD PAT Stop: 08/29/23 17:16 Benztropine Mesylate (Benztropine Mesylate 1 Mg Tab) 1 mg PO Q6 PRN PRN Reason: Muscle Spasm Stop: 09/25/23 11:19 Last Admin: 08/29/23 00:42 Dose: 1 mg Bismuth Subsalicylate (Bismuth Subsalicylate Liqd 236 Ml) 15 ml PO PRN PRN PRN Reason: Loose Stool Stop: 09/24/23 22:41 Hydroxyzine HCl (Hydroxyzine Hcl 25 Mg Tab) 50 mg PO HSZ PRN PRN Reason: Insomnia Stop: 09/24/23 22:41 Last Admin: 08/29/23 00:39 Dose: 50 mg Hydroxyzine HCl (Hydroxyzine Hcl 25 Mg Tab) 25 mg PO Q4H PRN PRN Reason: Anxiety Stop: 09/24/23 22:41 Last Admin: 08/29/23 10:35 Dose: 25 mg Magnesium Hydroxide (Magnesium Hydroxide Susp 30 Ml Udc) 30 ml PO DAILY PRN PRN Reason: Constipation Stop: 09/24/23 22:41 Miscellaneous (Remove Nicoderm Patch) 1 each N/A DAILY@0859 [facility] Stop: 09/25/23 08:58 Last Admin: 08/29/23 09:16 Dose: Not Given Nicotine (Nicotine 21 Mg/24 Hr Tdsy) 21 mg TD QAM [facility] Stop: 09/25/23 08:59 Last Admin: 08/29/23 09:15 Dose: 21 mg Nicotine Polacrilex (Nicotine Polacrilex 2 Mg Gum) 1 piece MT PRN PRN PRN Reason: nicotine withdrawal Stop: 09/25/23 13:49 Last Admin: 08/27/23 20:00 Dose: 1 piece Olanzapine (Olanzapine 5 Mg Tablet) 5 mg PO Q6 PRN PRN Reason: Anxiety/Agitation Stop: 09/25/23 11:59 Last Admin: 03/05/24 09:17 Dose: 5 mg Sodium Chloride (Sodium Chloride 0.65% Na Soln 45 Ml ([place])) 1 - 2 sprays NA PRN PRN PRN Reason: Nasal Dryness/Congestion Stop: 09/24/23 22:41 Mental Health & Subst Abuse Tx Psychiatrist Name of Psychiatrist: [facility]- INTAKE via telehealth with Andie Dunbarmarina Psychiatrist's Date Of Appointment With Psychiatric Provider: 09/13/23 Time of Appointment with Psychiatrist: 11:00 Psychiatric Appointment Comment: intake via telehealth-You will receive 2 emails ([employer] & [facility]) Therapist Name of Therapist: [facility] Date of Therapist Appointment: NA Alterations Workroom Clerk Name of Alterations Workroom Clerk: DEBBIE Post Discharge Appointments Primary Care Physician Name Of Family Doctor/PCP: DEBBIE
[2023-08-29] MEDS: ARIPiprazole 10 MG TAB PO SCH (17:13)
[2023-08-30] MEDS: ARIPiprazole 10 MG TAB PO SCH (12:50)
[2023-08-30] MEDS: ARIPiprazole 400 MG PRE-FILLED SYRINGE IM SCH (13:21)
--- NOTE | 2023-08-30 15:15 | Psychiatric Progress Note ---
Date of Service August 30, 2023 Impression / Recommendations Impression 22 yo female with a hx of at least 1 prior manic episode, presentation complicated at that time by substance abuse and continues to test positive for amphetamine and THC (suspect meth use). Currently mixed symptoms with tangentiality and mood lability, luckily less agitated in past but reactive toward family. CYS has indicated no contact allowed with child at this time per ED CM notes. 08/30/2023: improving Overall, I spent a total of 36 minutes with this case, including review of chart, direct evaluation of the patient, counseling the patient, ordering medication, coordination with nursing/treatment team, and documentation. (1) Bipolar I disorder with mixed features: Plan 08/30/2023: continue Abilify 10 mg daily, 1st dose maintenna today. finalize safety planning. 08/29/2023: continue Abilify trial, shift to earlier. Likes Zyprexa prn but desires GODOY. 08/28/2023: titrate Abilify to 10 mg this pm to assess tolerability with plan for maintenna after a few more doses. Patient voiced understanding that she would require ongoing monitoring and there is typically an initial 2 week period of overlap between PO until GODOY takes effect. Reviewed metabolic labs. Reviewed longer term monitoring for risks of tD. She denies side effects. 08/27/2023: continue Abilify trial to 5 mg daily. Will reoorder fasting labs for am. confirmatory tox labs pending. 08/26/2023: The patient was admitted to the [facility] ([facility] mental health unit) on q15 min checks (behavioral with suicide precautions) for safety. The patient will participate in group, recreational, and milieu therapies and will be offered additional individual and family sessions as clinically appropriate. Risks/benefits/alternatives were reviewed re: antipsychotics for mood and/or psychosis. Discussion included but was not limited to metabolic side effects, risks of TD and suicidal thoughts. There were no abnormal motor movements at baseline. Fasting glucose and lipid panel ordered for baseline monitoring. She agreed to a trial of Abilify (2.5 mg hs to start) and will offer GODOY when tolerability assessed. Inventory Assets Strengths: voluntary, help seeking Needs: improve coping, truthfulness around substance use. Suicide Risk Level Suicide Risk Level: Low (q15 min observation checks) Risk Factors Assessment : Yes Do You Have Access To A Gun?: No Mental Health Diagnoses: Yes Substance Use Disorders: Yes (hx, need to assess current use) Previous Psychiatric Hospitalization: Yes Protective Factors Assessment Employed: No Interval History Identifying Information BRIT ROCA is a 22-year-old F from [place], has a history of 2 prior inpatient hospitalizations in 2021, and was admitted on 08/25/23 22:42 on a 201 voluntary commitment for behavior change. Chief Complaint "I'm feeling so much better." Review of Systems Sleep Information Total Hours of Sleep: 6.5 Meal Information Percent Meal Consumed - Breakfast: 100 Percent Meal Consumed - Lunch: 100 Percent Meal Consumed - Dinner: 100 Nutrition Comment: Ate later in evening at snack time Subjective Subjective Patient was seen & assessed and interval progress reviewed with treatment team. cooperative with unit routines. She reports anxiety as seeks vistaril. denies akathisia. Dose of Abilify will be given as scheduled earlier today. Remains agreeable to GODOY. Physical Exam Psychiatric Orientation: alert and oriented x 3 Apperance: appropriately dressed and appropriately groomed Eye Contact: good eye contact Motor Behavior: no abnormal motor movements Speech: normal rate/rhythm/volume of speech Affect: euthymic affect Mood: + anxious mood; no depressed mood Thought Process: linear/logical thought process Thought Content: reality based without delusions Suicidal Thoughts: denies suicidal thoughts Homicidal Thoughts: denies homicidal thoughts Hallucinations: no auditory hallucinations and no visual hallucinations Cognition: attention grossly intact and language grossly intact Estimated Intelligence: consistent with education level Insight: + limited insight Judgment: + limited judgement Vital Signs (Past 24 Hours) Last Vital Signs Temp 36.8 C 08/30/23 06:33 Pulse 81 08/30/23 06:34 Resp 16 08/30/23 06:33 BP 109/72 08/30/23 06:34 Pulse Ox 98 08/27/23 06:08 O2 Del Method Room Air 08/27/23 06:08 Results & Data ([facility]) Current Inpatient Medications Current Inpatient Medications: Current Inpatient Medications Acetaminophen (Acetaminophen 325 Mg Tab) 650 mg PO Q4H PRN PRN Reason: Headache or Minor Fever Stop: 09/24/23 22:41 Al Hydrox/Mg Hydrox/Simethicone (Aluminum/Magnesium Susp 30 Ml Udc) 30 ml PO Q4H PRN PRN Reason: GI Upset Stop: 09/24/23 22:41 Aripiprazole (Aripiprazole 10 Mg Tab) 10 mg PO QAM [facility] Stop: 09/29/23 12:29 Last Admin: 08/30/23 12:50 Dose: 10 mg Benztropine Mesylate (Benztropine Mesylate 1 Mg Tab) 1 mg PO Q6 PRN PRN Reason: Muscle Spasm Stop: 09/25/23 11:19 Last Admin: 08/30/23 12:45 Dose: 1 mg Bismuth Subsalicylate (Bismuth Subsalicylate Liqd 236 Ml) 15 ml PO PRN PRN PRN Reason: Loose Stool Stop: 09/24/23 22:41 Hydroxyzine HCl (Hydroxyzine Hcl 25 Mg Tab) 50 mg PO HSZ PRN PRN Reason: Insomnia Stop: 09/24/23 22:41 Last Admin: 08/29/23 20:54 Dose: 50 mg Hydroxyzine HCl (Hydroxyzine Hcl 25 Mg Tab) 25 mg PO Q4H PRN PRN Reason: Anxiety Stop: 09/24/23 22:41 Last Admin: 08/30/23 11:35 Dose: 25 mg Magnesium Hydroxide (Magnesium Hydroxide Susp 30 Ml Udc) 30 ml PO DAILY PRN PRN Reason: Constipation Stop: 09/24/23 22:41 Miscellaneous (Remove Nicoderm Patch) 1 each N/A DAILY@0859 [facility] Stop: 09/25/23 08:58 Last Admin: 08/30/23 08:59 Dose: 1 each Nicotine (Nicotine 21 Mg/24 Hr Tdsy) 21 mg TD QAM [facility] Stop: 09/25/23 08:59 Last Admin: 08/30/23 08:57 Dose: 21 mg Nicotine Polacrilex (Nicotine Polacrilex 2 Mg Gum) 1 piece MT PRN PRN PRN Reason: nicotine withdrawal Stop: 09/25/23 13:49 Last Admin: 08/27/23 20:00 Dose: 1 piece Olanzapine (Olanzapine 5 Mg Tablet) 5 mg PO Q6 PRN PRN Reason: Anxiety/Agitation Stop: 09/25/23 11:59 Last Admin: 08/29/23 18:00 Dose: 5 mg Sodium Chloride (Sodium Chloride 0.65% Na Soln 45 Ml ([place])) 1 - 2 sprays NA PRN PRN PRN Reason: Nasal Dryness/Congestion Stop: 09/24/23 22:41 Mental Health & Subst Abuse Tx Psychiatrist Name of Psychiatrist: Yanet Weeks Psychiatrist's Date Of Appointment With Psychiatric Provider: 09/11/23 Time of Appointment with Psychiatrist: 2:30 PM Psychiatric Appointment Comment: [address] [place] [address] Therapist Name of Therapist: [facility]-INTAKE via telehealth with Andei Dunbarmarina Therapist's Date of Therapist Appointment: 09/13/2023 Time of Therapist Appointment: 11am Therapy Appointment Comment: INTAKE VIA TELHEALTH-You will receive 2 emails ([employer] & Yeni) Shear Operator Helper Name of Shear Operator Helper: [employer] Phone Number for Shear Operator Helper: [phone] Date of Appointment with Shear Operator Helper: 09/04/23 Time of Appointment with Shear Operator Helper: 1:30 PM Case Management Appointment Comment: BCM will meet you at your home. Post Discharge Appointments Primary Care Physician Name Of Family Doctor/PCP: [facility] Date of Future Appointment with PCP: 09/11/2023 Time of Appointment with PCP: Arrival time 10:45am for 11:00am appointment Provider Appointment Comment: Yolanda SotoefontCHRISTOPHER tesfaye [phone] Contact Information Discharge Discharge Address: [address] [place] [address]
[2023-08-31 06:11] VITALS: TEMP 96.5
[2023-08-31] MEDS ORDERED: DESTROY THIS MEDICATION ONE (10:12)
[2023-08-31 10:17] VITALS: BP 109/72; PULSE 78
[2023-08-31] MEDS: hydrOXYzine HCl 25 MG TAB PO ONE (10:27)
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
--- NOTE | 2023-09-01 11:04 | Communication Note ---
Date of Service: September 01, 2023 patient called nurses station requesting prn Cogentin specifically for "restlessness." As I previously discussed with patient she did not appear to have akathisia and rx is typically beta jacob. I feel she is restless at times due to anxiety and muscles may feel different as adjusts to Abilify so since she had reported benefit for this subjective symptom during stay, rx for Cogentin 1 mg BID prn #14 sent to pharmacy. As patient's Abilify was decreased and no longer receiving Zyprexa prn in addition should be improving as well. charge coordinator notified patient.
== END 2023-08-31 10:30 | disposition home or self-care (01) | DRG 885 ==
LOC: ED 18:06 → 3S 22:42
DX: F31.60 Bipolar disorder, current episode mixed, unspecified; F17.290 Nicotine dependence, other tobacco product, uncomplicated; F17.210 Nicotine dependence, cigarettes, uncomplicated

== ENCOUNTER 2024-01-26 13:21 | Inpatient (IN) ==
[2024-01-26 14:53] LABS: Basophils # (auto) 0.05 K/uL (0.00-0.20); Basophils % (auto) 0.4 %; Eosinophils # (auto) 0.13 K/uL (0.00-0.50); Hematocrit (blood only) 44.3 % (37.0-47.0); Hemoglobin 14.8 g/dl (12.0-16.0); Immature Granulocytes # (auto) 0.05 K/uL (0.01-0.20); Immature Granulocytes % (auto) 0.4 %; Lymphocytes # (auto) 2.96 K/uL (1.20-3.40); Lymphocytes % (auto) 21.9 %; Mean Corpuscular Hemoglobin 29.4 pg (25.0-34.0); Mean Corpuscular Hgb Conc 33.4 g/dL (32.0-36.0); Mean Corpuscular Volume 87.9 fL (80.0-100.0); Mean Platelet Volume 10.2 fL (9.4-12.4); Monocytes # (auto) 0.87 K/uL (0.11-0.59); Monocytes % (auto) 6.4 %; Neutrophils # (auto) 9.47 K/uL (1.40-6.50); Neutrophils % (auto) 69.9 %; Platelet Count 280 K/uL (130-400); RDW Coefficient of Variation 13.1 % (11.5-14.5); RDW Standard Deviation 41.9 fL (36.4-46.3); Red Blood Count 5.04 M/uL (4.20-5.40); White Blood Count 13.53 K/ul (4.8-10.8)
[2024-01-26 15:02] LABS: Appearance Urine Clear (Clear); Bacteria Urine Automated None Seen (None Seen); Bilirubin Urine Negative (Negative); Blood Urine Negative (Negative); Cast Urine Automated 0-2 /lpf (0-2); Color Urine Yellow; Glucose Urine UA Negative (Negative); Ketones Urine Negative (Negative); Leukocyte Esterase Urine Negative (Negative); Nitrite Urine Negative (Negative); Protein Urine 2+ (Negative); RBC Urine Automated 0-2 /hpf (0-2); Specific Gravity Urine 1.017 (1.000-1.030); Urobilinogen Urine Negative (Negative); WBC Urine Automated 0-5 /hpf (0-5); pH Urine 7.5 (4.5-7.5)
[2024-01-26 15:09] LABS: Albumin Globulin Ratio 1.6 (0.9-2); Albumin Level 4.9 gm/dl (3.4-5.0); BUN Creatinine Ratio 16.3 (10-20); Bilirubin,Total 0.5 mg/dl (0.2-1.0); Calcium 10.1 mg/dl (8.6-10.3); Creatinine Clr Calc Pharmacy 88.9 ml/min; Est GFR (African American) 118.8 ml/min; Est GFR (Non-African American) 102.5 ml/min; Potassium 4.1 mmol/L (3.5-5.1); Total Protein 7.9 gm/dl (6.0-8.3)
[2024-01-26 15:24] LABS: Amphetamines+Metham, Urine Neg (Neg); Barbiturates, Urine Neg (Neg); Benzodiazepine, Urine Neg (Neg); Cocaine, Urine Neg (Neg); Fentanyl, Urine Neg (Neg); MDMA (Ecstacy), Urine Neg (Neg); Marijuana, Urine Pos (Neg); Methadone, Urine Neg (Neg); Opiate, Urine Neg (Neg); Phencyclidine, Urine Neg (Neg); Thyroid Stimulating Hormone 0.592 uIu/ml (0.300-4.500)
[2024-01-26 15:52] LABS: Acetaminophen < 3 ug/ml (10-30); Salicylate < 3.0 mg/dl (3.0-30)
--- NOTE | 2024-01-26 15:57 | Emergency Department Note ---
Impression & Plan Impulsive, Mood disorder ED Provider Note ED Provider Note NAME: BRIT ROCA AGE:23 SEX: Female : 2000 ARRIVES VIA: private vehicle INFORMANT: Patient ED PROVIDER(s): Kati Goldsmith DO CHIEF COMPLAINT: Mental health evaluation HPI: This is a 23-year-old female who presents due to concern for mood swings and impulsive behavior. She denies SI or HI. Patient is seeking inpatient mental health treatment as she states she has been admitted before with similar symptoms. She denies any concern for recent injury or illness. She states she does not take any medications. She states she does smoke and uses marijuana occasionally. No ongoing alcohol or other substance abuse. PAST MEDICAL HISTORY:See Below PAST SURGICAL HISTORY:See Below FAMILY HISTORY:See Below SOCIAL HISTORY:See Below HOME MEDICATIONS:See Below ALLERGIES:See Below VITALS:See Below PHYSICAL EXAMINATION: GENERAL: alert, well appearing, well nourished, no distress, non-toxic EYE EXAM: normal conjunctiva, PERRL and EOM's grossly intact NECK: supple, no nuchal rigidity, no adenopathy, non-tender LUNGS: Clear to auscultation. Normal chest wall mechanics, no w/r/r HEART: no murmurs, S1 normal and S2 normal ABDOMEN: abdomen soft, non-tender, normo-active bowel sounds, no masses, no rebound or guarding. SKIN: no rashes, petechiae, orbruising UPPER EXTREMITIES: upper extremities are grossly normal. FROM, nml pulses b/l. LOWER EXTREMITIES: No pitting edema. FROM, nml pulses b/l. NEURO EXAM: Normal sensorium, cranial nerves II-XII grossly intact, normal speech, no facial droop,nogross weakness of arms, no gross weakness of legs. Gross sensation intact. No ataxia. Vital Signs: reviewed and remarkable Differential Diagnosis: mood disorder, suicidal ideation, anxiety, depression, substance abuse, toxidrome, infection, hypoglycemia, electrolyte abnormalities, ICH as well as others were considered. MEDICAL DECISION MAKING: This is a 23-year-old female who presents emerged department due to concern for mood swings, impulsive behavior and angry outbursts. She denies SI or HI. She was hemodynamically stable and afebrile on arrival. Labs and urine collected and sent per protocol. Patient medically cleared and then evaluated by case management. She does desire inpatient mental treatment. She was referred to [facility] Patient accepted by [facility] 201 signed by me. Consultation(s): 1535: Patient seen and evaluated by case management. Patient desires inpatient mental health treatment. Referrals made. ER Treatment Provided: See below Diagnostics Interpreted By Me: -Laboratory studies: As stated above and show below. Triage Nursing Note Reviewed Prior/Outside Records Reviewed Past Med/Surg History Problem List (Updated 01/26/24 @ 15:57 by Kati Goldsmith DO) Mood disorder (Acute) Impulsive (Acute) Bipolar I disorder with mixed features Normal course Tobacco smoking affecting Placental abruption in third trimester Hemorrhage affecting in third trimester ADD (attention deficit disorder) No significant past medical history Medical History Hattie Marijuana use during Bipolar disorder No pertinent family history Surgical History No pertinent past surgical history Social History Smoking Status: Current every day smoker Tobacco Type: Cigarettes Second Hand Exposure: Yes; Do You Dip or Chew Tobacco: No; Hx Alcohol Use: No Hx Substance Use: Yes Last Used Substance Other:: Marijuana daily- pt states she has medical card (unable to provide) Preferred Language: Swiss Communication Ability: Effective Budget Director Required: No Beliefs That Will Affect Care: None marital status: Single Current Living Situation Comment: Boyfriend- Gary Moreno Feels Safe at Home: Yes Gender Identity: Female Assistive Devices: None Allergies Allergies Allergy/AdvReac Type Severity Reaction Status Date / Time No Known Allergies Allergy Verified 11/06/21 23:44 Home Meds Home Medications Medication Instructions Recorded Confirmed No Known Home Medications 01/26/24 01/26/24 Results & Data (ED) Vital Signs Vital Signs - 24 hr 01/26/24 13:34 01/26/24 15:35 Temperature 36.6 C Temperature Source Temporal Artery Scan Pulse Rate 92 H Pulse Rate [Right Finger] 55 L Pulse Rhythm Regular Pulse Strength Normal Respiratory Rate 18 14 Respiratory Effort / Characteristics Non-Labored Spontaneous Non-Labored Spontaneous Respiratory Depth Normal Normal Respiratory Pattern Regular Regular Blood Pressure 124/84 Blood Pressure [Right Arm] 112/66 Blood Pressure Mean 97 Blood Pressure Mean [Right Arm] 81 Blood Pressure Position Sitting Blood Pressure Position [Right Arm] Semi-fowlers Pulse Oximetry 98 99 Oxygen Delivery Method Room Air Room Air Sepsis Recent Fever Within 48 Hours No Sepsis New/Unexplained Change in Mental Status No Sepsis Action Taken by Nursing No Action Required Laboratory Data 01/26/24 13:50 01/26/24 13:50 Lab Results 01/26/24 Range/Units 13:50 WBC 13.53 H (4.8-10.8) K/ul RBC 5.04 (4.20-5.40) M/uL Hgb 14.8 (12.0-16.0) g/dl Hct 44.3 (37.0-47.0) % MCV 87.9 (80.0-100.0) fL MCH 29.4 (25.0-34.0) pg MCHC 33.4 (32.0-36.0) g/dL RDW Std Deviation 41.9 (36.4-46.3) fL RDW Coeff of Jatinder 13.1 (11.5-14.5) % Plt Count 280 (130-400) K/uL MPV 10.2 (9.4-12.4) fL Immature Gran % (Auto) 0.4 % Neut % (Auto) 69.9 % Lymph % (Auto) 21.9 % Wharton % (Auto) 6.4 % Eos % (Auto) 1.0 % Baso % (Auto) 0.4 % Neut # (Auto) 9.47 H (1.40-6.50) K/uL Lymph # (Auto) 2.96 (1.20-3.40) K/uL Wharton # (Auto) 0.87 H (0.11-0.59) K/uL Eos # (Auto) 0.13 (0.00-0.50) K/uL Baso # (Auto) 0.05 (0.00-0.20) K/uL Immature Gran # (Auto) 0.05 (0.01-0.20) K/uL Sodium 137 (136-145) mmol/L Potassium 4.1 (3.5-5.1) mmol/L Chloride 101 (98-107) mmol/L Carbon Dioxide 29 (21-32) mmol/L Anion Gap 7 (3-11) BUN 13 (6-23) mg/dl Creatinine 0.80 (0.6-1.2) mg/dl Est Cr Clr Drug Dosing 88.9 ml/min Est GFR ( Amer) 118.8 ml/min Est GFR (Non-Af Amer) 102.5 ml/min BUN/Creatinine Ratio 16.3 (10-20) Glucose 91 (70-99(Fasting)) mg/dl Calcium 10.1 (8.6-10.3) mg/dl Total Bilirubin 0.5 (0.2-1.0) mg/dl AST 19 (13-39) U/L ALT 15 (7-52) U/L Alkaline Phosphatase 103 (34-104) U/L Total Protein 7.9 (6.0-8.3) gm/dl Albumin 4.9 (3.4-5.0) gm/dl Globulin 3.0 (2.5-4.0) gm/dl Albumin/Globulin Ratio 1.6 (0.9-2) TSH 0.592 (0.300-4.500) uIu/ml Urine Color Yellow Urine Appearance Clear (Clear) Urine pH 7.5 (4.5-7.5) Ur Specific [place] 1.017 (1.000-1.030) Urine Protein 2+ H (Negative) Urine Glucose (UA) Negative (Negative) Urine Ketones Negative (Negative) Urine Blood Negative (Negative) Urine Nitrite Negative (Negative) Urine Bilirubin Negative (Negative) Urine Urobilinogen Negative (Negative) Ur Leukocyte Esterase Negative (Negative) Urine WBC (Auto) 0-5 (0-5) /hpf Urine RBC (Auto) 0-2 (0-2) /hpf U Hyaline Cast (Auto) 0-2 (0-2) /lpf U Epithel Cells (Auto) 3-5 H (0-2) /hpf Urine Bacteria (Auto) None Seen (None Seen) Salicylates < 3.0 L (3.0-30) mg/dl Urine Opiates Screen Neg (Neg) Ur Methadone, Qual Neg (Neg) Urine Fentanyl Screen Neg (Neg) Acetaminophen < 3 L (10-30) ug/ml Urine Barbiturates Neg (Neg) Ur Phencyclidine (PCP) Neg (Neg) U Amphetamin/Meth Scrn Neg (Neg) MDMA (Ecstasy) Screen Neg (Neg) U Benzodiazepines Scrn Neg (Neg) Ur Cocaine Metabolite Neg (Neg) U Marijuana (THC) Screen Pos H (Neg) Ethyl Alcohol mg/dL < 10.0 (<10.0) mg/dl SARS-CoV-2, RNA, NAAT NEGATIVE (NEGATIVE) Administered Medications Hydroxyzine HCl (Hydroxyzine Hcl 25 Mg Tab) 25 mg PO Q4H PRN PRN Reason: Anxiety Stop: 02/25/24 18:05 Last Admin: 01/26/24 18:40 Dose: 25 mg Documented By: KARISSA Discharge Plan Visit Data Chief Complaint: Mental Health Evaluation Stated Complaint: MENTAL HEALTH EVAL ED Provider: Kati Goldsmith Discharge Problem: Impulsive, Mood disorder Patient Disposition: Admitted As Inpatient Discharge Instructions Interventions: ED Discharge Assessment Last Done: 01/26/24 18:22
[2024-01-26] MEDS ORDERED: SODIUM CHLORIDE 0.65% NA SOLN 45 ML (OCEAN) PRN (18:06)
[2024-01-26] MEDS ORDERED: ALUMINUM/MAGNESIUM SUSP 30 ML UDC PO PRN (18:06)
[2024-01-26] MEDS ORDERED: MAGNESIUM HYDROXIDE SUSP 30 ML UDC PO PRN (18:06)
[2024-01-26] MEDS ORDERED: BISMUTH SUBSALICYLATE LIQD 236 ML PO PRN (18:06)
[2024-01-26] MEDS: hydrOXYzine HCl 25 MG TAB PO PRN (18:40)
--- OUTSIDE RECORDS SUMMARY | 2024-01-26 18:49 | External Medical Summary | Summary of Care ---
Author Name Unknown Organization [facility] Address [address] [place] [address] Phone [phone] Care Team Providers Care Electrician Wiring Name Role Phone Gail Gil MD Primary Care Provid er Reason for Visit * Reason Comments Strategic Advisor Return Encounter Details Date Type Department Care Team (Late st Contact Info) Description 10/24/2023 12:30 PM EDT Office Visit Gynecology/Obstetric s Jason Coronados [address] [place] [address] Boy Enriquez MD [address] [place] [address] Atypical squamous cells of undetermined significance (ASCUS) on Papanicolaou smear of cervix*; History of abnormal cervical Pap smear Allergies No known active allergiesdocumented as of this encounter (statuses as of 10/24/2023) Medications Medication Sig Dispensed Refills Start Date End Date Status Azelastine HCl 0.15 % Nasal SolutionIndications: Dysfunction of right eustachian tube Administer 1 Cro[place]on into nostril in the morning and 1 Cro[place]on before bedtime. 30 mL 12 04/11/2023 Active Additional Information Patient not taking.Reported on 06/15/2023 ARIPiprazole ER 400 MG Intramuscular Prefilled Syringe (Abiliftony Branda) Inject 400 mg into a large muscle Every Month. 0 Active Benztropine Mesylate 1 MG Oral Tablet (Cogentin) TAKE 1 TABLET BY MOUTH 2 TIMES A DAY NEEDED FOR MUSCLE SPASM. 0 09/01/2023 Active ARIPiprazole 5 MG Oral Tablet (Abilify) Take 1 Tablet by mouth in the morning. 30 Tablet 0 09/14/2023 Active hydrOXYzine HCl 25 MG Oral Tablet Take 1 Tablet by mouth 3 times a day as needed for Anxiety. (may use 1-2 tabs, max daily dose 200 mg) 90 Tablet 0 09/14/2023 Active documented as of this encounter (statuses as of 10/24/2023) Active Problems Problem Noted Date Diagnosed Date Bipolar 1 disorder 09/11/2023 Abnormal GTT (glucose tolerance test) 04/11/2023 Gonorrhea affecting 04/06/2023 Overview: Gonorrhea of the throat - Patient tested positive on 01/12/23 and was treated at the [facility]. Neg testing 03/2023 Marijuana use during 03/29/2023 [...] has good support at home 03/27/2023 Gabriela Guallpa, ANKUSH 03/27/2023 Problem Action [...] referred to [facility] and local food alberts 03/27/2023 Gabriela [...] Late care 03/15/2023 Overview: Initiated care at [facility] at 26w2d. Dating ultrasound was done at [facility] at 16 weeks. Anxiety 03/15/2023 Vapes nicotine containing substance 03/15/2023 documented as of this encounter (statuses as of 10/24/2023) Immunizations Name Administration Dates Next Due [id number] PENTAVALENT NON-US 01/13/2000 DTaP Dipth/Tet/Acell Pertussis (Infanrix), Peds 01/13/2000 HPV Vaccine, 9-Valent 09/11/2023,04/05/2021 IPV - Polio Virus Vaccine (Inact) 01/13/2000 Seasonal Influenza, PF, 6 M & above, IM , (FluLaval or Fluzone) 03/27/2023 TDAP (age 10 and older)(Boostrix) 04/24/2023 documented as of this encounter Social History Tobacco Use Types Packs/Day Years Used Date Smoking Tobacco: Every Day Cigarettes Smokeless Tobacco: Never Alcohol Use Standard Drinks/Week Comments Not Currently 0 (1 standard drink = 0.6 oz pur e alcohol) PHQ-2 Answer Date Recorded PHQ Adult Total Score 2 09/07/2023 Hunger Vital Sign Answer Date Recorded Within the past 12 months, y ou worried that your food would run out before you got the money to buy more. Never true 09/07/19 24 Within the past 12 months, t he food you bought just didn't last and you didn't have money to get more. Never true 09/07/2023 [place] Depression Scale Answer Date Recorded [place] Depression Scale Total 2 10/10/2023 The thought of harming myself has occurred to me . Never 10/10/2023 Sex and Gender Information Value Date Recorded [...] - Inhaled Oxygen Concentration - - Weight 59 kg (130 lb) 10/24/2023 12:30 PM EDT Height 160 cm (5' 3") 10/24/2023 12:30 PM EDT Body Mass Index 23.03 10/24/2023 12:30 PM EDT documented in this encounter Progress Notes * Boy Enriquez MD - 10/24/2023 12:48 PM EDT Colposcopy; A ''time out'' was initiated by me prior to procedure.The patient was identified by name and date of . The correct procedure, and correct site identified. Correct positioning (as applicable). There is availability of necessary equipment. Patient states she me allergic to latex. Patient is here for colposcopy after having a pap showing:ASCUS HR HPV Previous pap smears:nml LMP: Reviewed in detail procedure, risks, benefits and indications. PE: ext gen: Nml vagina:Nml cervix:NMl TMZ; present Acetowhite lesions:neg Mosaicism:neg Abnormal vessels:neg Satisfactory Colpo:yes A/P: Colpo for ASCUS HR HPV with pap Unremarkable colpo ECC obtained Check path including RTC pending above results. Reviewed instructions including no sex, tampons, or douching for at least 5 days documented in this encounter Nursing Notes * Kira Elder LPN - 10/24/2023 12:23 PM EDT Pt is here for colpo 04/05/2021 Pap:ASCUS, HPV+ 03/27/2023 Pap: ASC-H, LSIL, HPV+ documented in this encounter Plan of Treatment Pending Results Name Type Priority Associated Diagnoses Date /Time SURGICAL PATHOLOGY Pathology Routine History of abnormal cervical Pap smear 10/24/2023 12:45 PM EDT Health Maintenance Due Date Last Done Comments Pneumococcal Vaccine: Pediatrics (0 to 5 Years) and At-Risk Patients (6 to 64 Years) (1 of 2 - PCV) 2004 Hepatitis B (1 of 3 - 19+ 3-dose series) 2017 COVID-19 Vaccine ( - 2022-2 4 season) 2023 GARDASIL-HPV IMMUNIZATION SERIES (3 - 3-dose series) 12/04/2023 09/11/2023, 04/05/2021 Gonorrhea / Chlamydia Screen 03/27/202407/2022, 04/05/2021 Pap Smear 03/27/2026 03/27/2023, 04/05/2021 DTaP,Tdap,and Td Vaccines (3 - Td or Tdap) 04/24/2033 04/24/2023, 01/13/2000 Influenza Vaccine (FLU shot) Completed 03/27/2023 MENINGOCOCCAL (MENACTRA/MENVEO) Aged Out No longer eligible b ased on patient's age to complete this topic documented as of this encounter Medical Devices Not on filedocumented as of this encounter Procedures Procedure Name Priority Date/Time Associated Diagnosis Comments URINE SCREEN, POINT OF CARE (ENTER/EDIT) Routine 10/24/2023 History of abnormal cervical Pap smear documented in this encounter Results * URINE SCREEN, POINT OF CARE (ENTER/EDIT) (10/24/2023) hCG Beta, Urine Negative Negative Procedural Control Valid? Yes Lot Number [id number] Expiration Date 11/12/24 Urine 10/24/2023 Boy Enriquez MD LAB POINT OF CARE TE ST ENTER/EDIT ORDERABLES documented in this encounter Visit Diagnoses Diagnosis Atypical squamous cells of undetermined significance (ASCUS) on Papanicolaou smear of cervix- Primary History of abnormal cervical Pap smear Personal history of other genital system and obstetric disorders documented in this encounter Care Teams Electrician Wiring Relationship Specialty Start Date End Date Gail Gil MD [address] [place] [address] PCP - General Family Medicine 03/18/21 documented as of this encounter
--- OUTSIDE RECORDS SUMMARY | 2024-01-26 18:49 | External Medical Summary | Summary of Care ---
Author Name Unknown Organization [facility] Address [address] [place] [address] Phone [phone] Care Team Providers Care Violin Mechanic Name Role Phone Gail Gil MD Primary Care Provid er Encounter Details Date Type Department Care Team (Late st Contact Info) Description 10/10/2023 Documentation Pediatrics [facility] [address] [facility] [place] [address] Traci Mera MD [address] [facility] [place] [address] Allergies No known active allergiesdocumented as of this encounter (statuses as of 10/10/2023) Medications Medication Sig Dispensed Refills Start Date End Date Status Azelastine HCl 0.15 % Nasal SolutionIndications: Dysfunction of right eustachian tube Administer 1 Belva into nostril in the morning and 1 Belva before bedtime. 30 mL 12 04/11/2023 Active Additional Information Patient not taking.Reported on 06/15/2023 ARIPiprazole ER 400 MG Intramuscular Prefilled Syringe (Abilify Maintena) Inject 400 mg into a large muscle [...] times a day as needed for Anxiety. (october use 1-2 tabs, max daily dose 200 mg) 90 Tablet 0 09/14/2023 Active documented as of this encounter (statuses as of 10/10/2023) Active Problems Problem Noted Date Diagnosed Date Bipolar 1 disorder 09/11/2023 Abnormal GTT (glucose tolerance test) 04/11/2023 Gonorrhea affecting 04/06/2023 Overview: Gonorrhea of the throat - Patient tested positive on 01/12/23 and was treated at the [facility] [place]. Neg testing 03/2023 Marijuana use during 03/29/2023 [...] resolved Need for food assistance referred to [facility] and local food alberts 03/27/2023 [...] Late care 03/15/2023 Overview: Initiated care at [facility] at 26w2d. Dating ultrasound was done at [facility] at 16 weeks. Anxiety 03/15/2023 Vapes nicotine containing substance 03/15/2023 documented as of this encounter (statuses as of 10/10/2023) Immunizations Name Administration Dates Next Due [id number] PENTAVALENT NON-US 01/13/2000 DTaP Dipth/Tet/Acell Pertussis (Infanrix), [...] money to get more. Never true 09/07/2023 [place] Depression Scale Answer Date Recorded [place] Depression Scale Total 4 08/09/2023 The thought of harming myself has occurred to me . Never 08/09/2023 Sex and Gender Information Value Date Recorded Sex Assigned at Female 03/27/2023 2:49 PM EDT Gender Identity Female 03/27/2023 2:49 PM EDT Sexual Orientation Straight 03/27/2023 2: 49 PM EDT Job Start Date Occupation Industry Not on file Not on file Not on file documented as of this encounter Progress Notes * Traci Mera MD - 10/10/2023 10:43 AM EDT Cecilia Depression Scale Documentation Una Eagle was screened for post- depression on 10/10/2023 during her child's visit. Cecilia Depression Screen 08/03/2023 12:18 08/09/2023 09:44 10/10/2023 10:40 Cecilia Depression Screening I have been able to [...] blamed myself unnecessarily when things went wrong. Yes, some of the time [2] Yes, some of the time [2] Not very often [1] I have been anxious or worried for no good reason. Yes, sometimes [2] Hardly ever [1] Hardly ever [1] I have felt scared or panicky for no good reason. No, not at all [0] No, not much [1] No, not at all [0] Things have been getting on top of me. No, most of the time I have coped quite well [1] No, I have been coping as well as ever [0] No, I have been coping as well as ever [0] I have been so unhappy that I have had difficulty sleeping. Not at all [0] Not at all [0] Not at all [0] I have felt sad or miserable. Not very often [1] No, not at all [0] No, not at all [0] I have been so unhappy that I have been crying. Only occasionally [1] No, never [0] No, never [0] The thought of harming myself has occurred to me. Never [0] Never [0] Never [0] Cecilia Depression Scale Total 7 4 2 Cecilia Depression Scale: Cecilia Depression Scale Total: 2 Cecilia suicide question and score: Score of 3 = Yes, quite often. Score of 2 = Sometimes. Score of 1 = Hardly ever The thought of harming myself has occurred to me.: 0 [place] Suicide Severity Rating Scale Results 09/07/2023 16:02 [place] SUICIDE SEVERITY RATING SCALE (C-SSRS) Have you wished you were or wished you could go to sleep and not wake up? (In the Past Month or Since Last Visit) Yes Have you had any actual thoughts of killing yourself? (In the Past Month or Since Last Visit) Yes Have you been thinking about how you might do this? (In the Past Month or Since Last Visit) Yes Have you had thoughts and had some intention of acting on them? (In the Past Month or Since Last Visit) Yes Have you started to work out or worked out the details of how to kill yourself? Do you intend to carry out this plan? (In the Past Month or Since Last Visit) Yes Have you ever done anything, started to do anything, or prepared to do anything to end your life? (Lifetime) Yes Was this within the past 3 months? Yes Level of Risk High Protective Factors Social Support/Family;Future Plans;Access to appropriate services;Willing to participate in less restrictive means of help;Help-Seeking Behaviors Risk Factors History of Depression;Anxiety [place] Suicide Severity Rating Scale Results 09/07/2023 16:02 [place] SUICIDE SEVERITY RATING SCALE (C-SSRS) Have you wished you were or wished you could go to sleep and not wake up? (In the Past Month or Since Last Visit) Yes Have you had any actual thoughts of killing yourself? (In the Past Month or Since Last Visit) Yes Have you been thinking about how you might do this? (In the Past Month or Since Last Visit) Yes Have you had thoughts and had some intention of acting on them? (In the Past Month or Since Last Visit) Yes Have you started to work out or worked out the details of how to kill yourself? Do you intend to carry out this plan? (In the Past Month or Since Last Visit) Yes Have you ever done anything, started to do anything, or prepared to do anything to end your life? (Lifetime) Yes Was this within the past 3 months? Yes Level of Risk High Protective Factors Social Support/Family;Future Plans;Access to appropriate services;Willing to participate in less restrictive means of help;Help-Seeking Behaviors Risk Factors History of Depression;Anxiety documented in this encounter Plan of Treatment Upcoming Encounters Date Type Department Care Team (Late st Contact Info) Description 10/24/2023 12:30 PM EDT Office Visit [facility] [address] [place] [address] Boy Enriquez MD [address] [place] [address] Health Maintenance Due Date Last Done Comments [...] filedocumented as of this encounter Care Teams Violin Mechanic Relationship Specialty Start Date End Date Gail Gil MD [address] [place] [address] PCP - General Family Medicine 03/18/21 documented as of this encounter
--- OUTSIDE RECORDS SUMMARY | 2024-01-26 18:49 | External Medical Summary | Summary of Care ---
Author Name Unknown Organization [facility] Address [address] [place] [address] Phone [phone] Care Team Providers Care Custody Officer Name Role Phone Gail Gil MD Primary Care Provid er Encounter Details Date Type Department Care Team (Late st Contact Info) Description 10/09/2023 Telephone [facility] Gynecology and Obstetrics [address] [place] [address] Lexus Corrigan CN [address] [place] [address] Allergies No known active allergiesdocumented as of this encounter (statuses as of 10/09/2023) Medications Medication Sig Dispensed Refills Start Date End Date Status Azelastine HCl 0.15 % Nasal SolutionIndications: Dysfunction of right eustachian tube Administer 1 Dodge into nostril in the morning and 1 Dodge before bedtime. 30 mL 12 04/11/2023 Active [...] as of this encounter (statuses as of 10/09/2023) Active Problems Problem Noted Date Diagnosed Date Bipolar 1 disorder 09/11/2023 Abnormal GTT (glucose tolerance test) 04/11/2023 Gonorrhea affecting 04/06/2023 Overview: Gonorrhea of the throat - Patient tested positive on 01/12/23 and was treated at the [facility] [place]. Neg testing 03/2023 Marijuana use during 03/29/2023 [...] resolved Need for food assistance referred to [facility] and local food alberts 03/27/2023 Gabriela [...] Late care 03/15/2023 Overview: Initiated care at [facility] at 26w2d. Dating ultrasound was done at [facility] at 16 weeks. Anxiety 03/15/2023 Vapes nicotine containing substance 03/15/2023 documented as of this encounter (statuses as of 10/09/2023) Immunizations Name Administration Dates Next Due [id number] PENTAVALENT NON-US 01/13/2000 DTaP Dipth/Tet/Acell Pertussis (Infanrix), [...] money to get more. Never true 09/07/2023 [place] Depression Scale Answer Date Recorded [place] Depression Scale Total 4 08/09/2023 The thought [...] encounter Miscellaneous Notes * Telephone Encounter - Lexus Corrigan CNM - 10/09/2023 10:39 AM EDT I received a message from Dr. Vickie Morley regarding follow up for patient's abnormal pap. I called the patient on 10/09/23. Patient confirmed that she is able to come to her colposcopy appointment with Dr. Enriquez on 10/24/23 at 12:30pm. Instructed patient to avoid unprotected intercourse for 2 weeks prior to her colposcopy. Also recommended she arrive 15 minutes prior to her appointment. Patient hadno further questions. Last pap: 03/27/2023 (LSIL, ASC-H, HPV+) Lexus Corrigan CNM 10/09/23 10:41 AM documented in this encounter Plan of Treatment Upcoming Encounters Date Type Department Care Team (Late st Contact Info) Description 10/24/2023 12:30 PM EDT Office Visit Gynecology/Obstetrics [facility] [address] [place] [address] Boy Enriquez MD [address] [place] [address] Health Maintenance Due Date Last Done Comments [...] filedocumented as of this encounter Care Teams Custody Officer Relationship Specialty Start Date End Date Gail Gil MD [address] [place] [address] PCP - General Family Medicine 03/18/21 documented as of this encounter
--- OUTSIDE RECORDS SUMMARY | 2024-01-26 18:50 | External Medical Summary | Summary of Care ---
Author Name Unknown Organization [facility] Address [address] [place] [address] Phone [phone] Care Team Providers Care Litigation Secretary Name Role Phone Gail Gil MD Primary Care Provid er Reason for Visit * Reason Onset Date Comments Med Request 09/11/2023 Encounter Details Date Type Department Care Team ([facility] st Contact Info) Description 09/11/2023 Telephone [facility] [address] [place] [address] Gail Gil MD [address] [place] [address] Med Request Allergies No known active allergiesdocumented as of this encounter (statuses as of 09/14/2023) Medications Medication Sig Dispensed Refills Start Date End Date Status Azelastine HCl 0.15 % Nasal SolutionIndications:D ysfunction of right eustachian tube Administer 1 Franklin into nostril in the morning and 1 Franklin before bedtime. 30 mL 12 04/11/2023 Active Additional Information Patient not taking.Reported on 06/15/2023 ARIPiprazole 5 MG Oral Tablet (Abilify) Take 1 Tablet by mouth in the morning. 0 Active hydrOXYzine HCl 25 MG Oral Tablet Take 1 Tablet by mouth 3 times a day as needed. (may use 1-2 tabs, max daily dose 200 mg) 0 Active ARIPiprazole ER 400 MG Intramuscular Prefilled Syringe (José Calabrese) Inject 400 mg into a large muscle Every Month. 0 Active Benztropine Mesylate 1 MG Oral Tablet (Cogentin) TAKE 1 TABLET BY MOUTH 2 TIMES A DAY NEEDED FOR MUSCLE SPASM. 0 09/01/2023 Active documented as of this encounter (statuses as of 09/14/2023) Active Problems Problem Noted Date Diagnosed Date Bipolar 1 disorder 09/11/2023 Abnormal GTT (glucose tolerance test) 04/11/2023 Gonorrhea affecting 04/06/2023 Overview: Gonorrhea of the throat - Patient tested positive on 01/12/23 and was treated at the [facility] [place]. Neg testing 03/2023 Marijuana use during 03/29/2023 Overview: Urine drug screen positive for cannabinoids on 03/28/23 at [facility] visit at 26w3d History of abnormal cervical Pap smear Overview: 03/2022 ASCUS, HPV+. Pap repeated 03/27/2023 at [facility] visit. History of gonorrhea 03/27/2023 Family history of Down syndrome 03/27/2023 Overview: Maternal aunt. Offered Qnatal at [facility] [...] resolved Need for food assistance referred to [facility] and local food alberts 03/27/2023 Gabriela [...] as of this encounter (statuses as of 09/14/2023) Immunizations Name Administration Dates Next Due [id number] PENTAVALENT NON-US 01/13/2000 DTaP Dipth/Tet/Acell Pertussis (Infanrix), [...] money to get more. Never true 09/07/2023 [place] Depression Scale Answer Date Recorded [place] Depression Scale Total 4 08/09/2023 The thought [...] encounter Miscellaneous Notes * Telephone Encounter - Jose Antonio Santos PHARM Tech - 09/13/2023 10:12 AM EDT Pt is requesting high priority due to being out of her medication for 2-3 days now. Pt calling to check on status of ARIPiprazole 5 MG Oral Tablet (Abilify) & hydrOXYzine HCl 25 MG Oral Tablet . Caller can be reached at [phone] . Thank you, Jose Antonio Santos Sponge Press Operator I [facility]) 09/13/2023,10:12 AM * Telephone Encounter - Rajni Miranda CPhT - 09/12/2023 3:47 PM EDT Patient calling to check on status of ARIPiprazole 5 MG Oral Tablet (Abilify) & hydrOXYzine HCl25 MG Oral Tablet . Caller can be reached at [phone] Thank you, Rajni Miranda Manager Supply Chain Planning [facility] 09/12/2023, 3:47 PM * Telephone Encounter - Purnima Sharma PHARM Tech - 09/11/2023 2:10 PM EDT Pt calling requesting the following medication below that is listed as "Historical". The following information was provided: Medication Name: ARIPiprazole 5 MG Oral Tablet (Abilify) & hydrOXYzine HCl 25 MG Oral Tablet Strength: 5 MG, 25 MG Directions: Take 1 Tablet by mouth in the morning, Take 1 Tablet by mouth 3 times a day as needed. (may use 1-2 tabs, max daily dose 200 mg) Previous Prescriber: Rhonda Bernard Preferred Pharmacy: [address] Please review and approve if appropriate. Thank you, Purnima Sharma, Manager Supply Chain Planning [facility] (Formerly [facility]) 09/11/2023,2:11 PM documented in this encounter Plan of Treatment Upcoming Encounters Date Type Department Care Team ([facility] st Contact Info) Description 10/24/2023 12:30 PM EDT Office Visit Gynecology/Obstetrics [facility] [address] [place] [address] Boy Enriquez MD [address] [place] [address] Health Maintenance Due Date Last Done Comments Pneumococcal Vaccine: Pediatrics (0 to 5 Years) and At-Risk Patients (6 to 64 Years) (1 of 2 - PCV) 2004 Hepatitis B (1 of 3 - 19+ 3-dose series) 2017 COVID-19 Vaccine (2022-2 4 season) 2023 GARDASIL-HPV IMMUNIZATION SERIES (3 - 3-dose series) 12/04/2023 09/11/2023, 04/05/2021 Gonorrhea / Chlamydia Screen 03/27/202407/2022, 04/05/2021 Depression Screening 09/06/2024 09/07/2023 Pap Smear 03/27/2026 03/27/2023, 04/05/2021 DTaP,Tdap,and Td Vaccines (3 - Td or Tdap) 04/24/2033 04/24/2023, 01/13/2000 Influenza Vaccine (FLU shot) Completed 03/27/2023 MENINGOCOCCAL (MENACTRA/MENVEO) Aged Out No longer eligible b ased on patient's age to complete this topic documented as of this encounter Medical Devices Not on filedocumented as of this encounter Care Teams Litigation Secretary Relationship Specialty Start Date End Date Gail Gil MD [address] [place] [address] PCP - General Family Medicine 03/18/21 documented as of this encounter
--- OUTSIDE RECORDS SUMMARY | 2024-01-26 18:50 | External Medical Summary | Summary of Care ---
Author Name Unknown Organization [facility] Address [address] [place] [address] Phone [phone] Care Team Providers Care Learning And Development Officer Name Role Phone Gail Gil MD Primary Care Provid er Reason for Visit * Reason Onset Date Comments Med Request 09/11/2023 Encounter Details Date Type Department Care Team ([facility] st Contact Info) Description 09/11/2023 Telephone [facility] [address] [place] [address] Gail Gil MD [address] [place] [address] Med Request Allergies No known active allergiesdocumented as of this encounter (statuses as of 09/12/2023) Medications Medication Sig Dispensed Refills Start Date End Date Status Azelastine HCl 0.15 % Nasal SolutionIndications:D ysfunction of right eustachian tube Administer 1 [place] into nostril in the morning and 1 [place] before bedtime. 30 mL 12 04/11/2023 Active [...] as of this encounter (statuses as of 09/12/2023) Active Problems Problem Noted Date Diagnosed Date Bipolar 1 disorder 09/11/2023 Abnormal GTT (glucose tolerance test) 04/11/2023 Gonorrhea affecting 04/06/2023 Overview: Gonorrhea of the throat - Patient tested positive on 01/12/23 and was treated at the [facility]. Neg testing 03/2023 Marijuana use during 03/29/2023 [...] resolved Need for food assistance referred to [facility] and local food alberts 03/27/2023 Gabriela [...] Late care 03/15/2023 Overview: Initiated care at [facility] at 26w2d. Dating ultrasound was done at [facility] at 16 weeks. Anxiety 03/15/2023 Vapes nicotine containing substance 03/15/2023 documented as of this encounter (statuses as of 09/12/2023) Immunizations Name Administration Dates Next Due [id number] PENTAVALENT NON-US 01/13/2000 DTaP Dipth/Tet/Acell Pertussis (Infanrix), [...] money to get more. Never true 09/07/2023 [place] Depression Scale Answer Date Recorded [place] Depression Scale Total 4 08/09/2023 The thought [...] encounter Miscellaneous Notes * Telephone Encounter - Rajni Miranda CPhT - 09/12/2023 3:47 PM EDT Patient calling to check on status of ARIPiprazole 5 MG Oral Tablet (Abilify) & hydrOXYzine HCl25 MG Oral Tablet . Caller can be reached at [phone] Thank you, Rajni Miranda Certified Legal Investigator [facility] 09/12/2023, 3:47 PM * Telephone Encounter - Purnima Sharma game attendant - 09/11/2023 2:10 PM EDT Pt calling [...] mg) Previous Prescriber: Rhonda Bernard Preferred Pharmacy: [facility] [address] Please review and approve if appropriate. Thank you, Purnima Sharma, Certified Legal Investigator [facility] ([facility]) (Formerly Telepharmacy) 09/11/2023,2:11 PM documented in this encounter Plan of Treatment Upcoming Encounters Date Type Department Care Team (Late st Contact Info) Description 10/24/2023 12:30 PM EDT Office Visit Gynecology/Obstetrics [facility] Devi [address] [address] Boy Enriquez MD [address] [place] [address] Health Maintenance Due Date Last Done Comments [...] filedocumented as of this encounter Care Teams Learning And Development Officer Relationship Specialty Start Date End Date Gail Gil MD [address] [place] [address] PCP - General Family Medicine 03/18/21 documented as of this encounter
--- OUTSIDE RECORDS SUMMARY | 2024-01-26 18:50 | External Medical Summary | Summary of Care ---
Author Name Unknown Organization [facility] Address [address] [place] [address] Phone [phone] Care Team Providers Care Mining Analyst Name Role Phone Gail Gil MD Primary Care Provid er Encounter Details Date Type Department Care Team (Late st Contact Info) Description 10/02/2023 Documentation Care Coordination and Integration [address] [place] [address] Edgardo Braun, BS [address] [place] [address] Allergies No known active allergiesdocumented as of this encounter (statuses as of 10/02/2023) Medications Medication Sig Dispensed Refills Start Date End Date Status Azelastine HCl 0.15 % Nasal SolutionIndications: Dysfunction of right eustachian tube Administer 1 [place] into nostril in the morning and 1 [place] before bedtime. 30 mL 12 04/11/2023 Active [...] as of this encounter (statuses as of 10/02/2023) Active Problems Problem Noted Date Diagnosed Date Bipolar 1 disorder 09/11/2023 Abnormal GTT (glucose tolerance test) 04/11/2023 Gonorrhea affecting 04/06/2023 Overview: Gonorrhea of the throat - Patient tested positive on 01/12/23 and was treated at the [facility]. Neg testing 03/2023 Marijuana use during 03/29/2023 [...] Late care 03/15/2023 Overview: Initiated care at [facility] at 26w2d. Dating ultrasound was done at [facility] at 16 weeks. Anxiety 03/15/2023 Vapes nicotine containing substance 03/15/2023 documented as of this encounter (statuses as of 10/02/2023) Immunizations Name Administration Dates Next Due [id number] PENTAVALENT NON-US 01/13/2000 DTaP Dipth/Tet/Acell Pertussis (Infanrix), [...] money to get more. Never true 09/07/2023 [place] Depression Scale Answer Date Recorded [place] Depression Scale Total 4 08/09/2023 The thought [...] as of this encounter Progress Notes * Edgardo Braun BS - 10/02/2023 1:20 PM EDT [facility] P4P/SMI/ICP [facility] referral. Closing UTR - no response to calls or letters. [facility] [employer] [email or web address] documented in this encounter Plan of Treatment Upcoming Encounters Date Type Department Care Team (Late st Contact Info) Description 10/24/2023 12:30 PM EDT Office Visit Gynecology/Obstetrics [facility] [address] [place] [address] Boy Enriquez MD [address] [place] [address] Health Maintenance Due Date Last Done Comments Pneumococcal Vaccine: Pediatrics (0 to 5 Years) and At-Risk Patients (6 to 64 Years) (1 of 2 - PCV) 2004 Hepatitis B (1 of 3 - 19+ 3-dose series) 2017 COVID-19 Vaccine (1 - 2022-2 4 season) 2023 GARDASIL-HPV IMMUNIZATION [...] filedocumented as of this encounter Care Teams Mining Analyst Relationship Specialty Start Date End Date Gail Gil MD [address] [place] [address] PCP - General Family Medicine 03/18/21 documented as of this encounter
--- OUTSIDE RECORDS SUMMARY | 2024-01-26 18:50 | External Medical Summary | Summary of Care ---
Author Name Unknown Organization [facility] Address [address] [place] [address] Phone [phone] Care Team Providers Care Pastry Supervisor Name Role Phone Gail Gil MD Primary Care Provid er Reason for Visit * Reason Onset Date Comments Hospital Follow-Up Was given the Benztropine and did help but is out now; would like to discuss refills Hospital Follow-Up 09/11/2023 Encounter Details Date Type Department Care Team (Late st Contact Info) Description 09/11/2023 11:00 AM EDT Office Visit [facility] [address] [place] [address] Gail Gil MD [address] [place] [address] Hospital discharge follow-up*; History of abnormal cervical Pap smear; Need for HPV vaccination; Bipolar 1 disorder (HCC) Allergies No known active allergiesdocumented as of this encounter (statuses as of 09/11/2023) Medications Medication Sig Dispensed Refills Start Date End Date Status Azelastine HCl 0.15 % Nasal SolutionIndicatio ns:Dysfunction of right eustachian tube Administer 1 [place] into nostril in the morning and 1 [place] before bedtime. 30 mL 12 3 Active Additional Information Patient not taking.Reported on 06/15/2023 ARIPiprazole 5 MG Oral Tablet (Abilify) Take 1 Tablet by mouth in the morning. 0 Active hydrOXYzine HCl 25 MG Oral Tablet Take 1 Tablet by mouth 3 times a day as needed. (may use 1-2 tabs, max daily dose 200 mg) 0 Active ARIPiprazole ER 400 MG Intramuscular Prefilled Syringe (Patriciojhony Owencaesara) Inject 400 mg into a large muscle Every Month. 0 Active Benztropine Mesylate 1 MG Oral Tablet (Cogentin) TAKE 1 TABLET BY MOUTH 2 TIMES A DAY NEEDED FOR MUSCLE SPASM. 0 4 Active Breast PumpIndications:N ormal in second trimester Pump daily when 1 Each 0 3 09/11/19 24 Discontinued 19 29-1 MG Oral Tablet ChewableIndicatio ns:Normal in second trimester Take 1 Tablet by mouth every evening. 100 Tablet 2 4 09/11/19 24 Discontinued documented as of this encounter (statuses as of 09/11/2023) Active Problems Problem Noted Date Diagnosed Date Bipolar 1 disorder 09/11/2023 Abnormal GTT (glucose tolerance test) 04/11/2023 Gonorrhea affecting 04/06/2023 Overview: Gonorrhea of the throat - Patient tested positive on 01/12/23 and was treated at the [facility]. Neg testing 03/2023 Marijuana use during 03/29/2023 [...] resolved Need for food assistance referred to [facility] and local food alberts 03/27/2023 Gabriela Guallpa, ANKUSH 03/27/2023 Problem Action [...] care 03/15/2023 Overview: Initiated care at [facility] at 26w2d. Dating ultrasound was done at [facility] at 16 weeks. Anxiety 03/15/2023 Vapes nicotine containing substance 03/15/2023 documented as of this encounter (statuses as of 09/11/2023) Immunizations Name Administration Dates Next Due [id number] PENTAVALENT NON-US 01/13/2000 DTaP Dipth/Tet/Acell Pertussis (Infanrix), Peds 01/13/2000 HPV Vaccine, 9-Valent 09/11/2023,04/05/2021 IPV - Polio Virus Vaccine (Inact) 01/13/2000 Seasonal Influenza, PF, 6 M & above, IM , (FluLaval or Fluzone) 03/27/2023 TDAP (age 10 and older)(Boostrix) 04/24/2023 documented as of this encounter Social History Tobacco Use Types Packs/Day Years Used Date Smoking Tobacco: Every Day Cigarettes Smokeless Tobacco: Never Tobacco Cessation:Ready to Q uit: No; Counseling Given: Yes Alcohol Use Standard Drinks/Week Comments Not Currently [...] money to get more. Never true 09/07/2023 [place] Depression Scale Answer Date Recorded [place] Depression Scale Total 4 08/09/2023 The thought [...] Sign Reading Time Taken Comments Blood Pressure 118/64 09/11/2023 10:52 AM EDT Pulse 70 09/11/2023 10:52 AM EDT Temperature 36.7 C (98 F) 09/11/2023 10:52 AM EDT Respiratory Rate 17 09/11/2023 10:52 AM EDT Oxygen Saturation 100% 09/11/2023 10:52 AM EDT Inhaled Oxygen Concentration - - Weight 57.4 kg (126 lb 8 oz) 09/11/2023 10:52 AM EDT Height 160 cm (5' 3") 09/11/2023 10:52 AM EDT Body Mass Index 22.41 09/11/2023 10:52 AM EDT documented in this encounter Progress Notes * Gail Gil MD - 09/11/2023 12:51 PM EDT ASSESSMENT / PLAN: Una Eagle is a 22 year old female with PMHx bipolar I - Here for KYAW - admitted at [facility] the following dates 08/24-08/30 Presented with: robyn Diagnosis: bipolar I exacerbation Diagnostics: CBC, CMP, urine Tox all normal w exception of marijuana Hospital stay complicated by: 1- none Treatments / Consultation(s): 1- psychiatry Changes to chronic medications: 1 - restart abilify - GODOY 08/31/23 completed - she is following with [facility] They will complete refills Due for HPV #2 - completed in office today, tolerated well If applicable Starting age 19: Screening for Cholesterol every five years beginning at 20 years of age, chlamydiafor sexually active women under 25 years of age, HIV Starting age 40: Screening for Cholesterol, diabetes, colorectal cancer beginning at 50 years, HIV Hospital discharge follow-up (Primary) - DISCH MED RECON CUR MED LIS History of abnormal cervical Pap smear - DISCH MED RECON CUR MED LIS Need for HPV vaccination - DISCH MED RECON CUR MED LIS - HPV VACCINE, 9-VALENT, IM Bipolar 1 disorder (HCC) If needed, prefers contact by: Ok to leave message on phone: SUBJECTIVE: Nursing Notes: Stephanie Oakes LPN 09/11/23 1058 Signed The patient has been properly identified by confirmation of name and date of . Chief Complaint Patient presents with Hospital Follow-Up Was given the Benztropine and did help but is out now; would like to discuss refills HPI: Una Eagle is a 22 year old female. Here for KYAW - denies further robyn symptoms. Adherent with meds. Has psychiatry appt later today Patient Active Problem List Diagnosis Code Normal Z34.90 Late care O09.30 Anxiety F41.9 Vapes nicotine containing substance Z72.0 History of abnormal cervical Pap smear Z87.42 History of gonorrhea Z86.19 Family history of Down syndrome Z82.79 Health counseling Z71.9 Marijuana use during O99.320, F12.90 Gonorrhea affecting O98.219 Abnormal GTT (glucose tolerance test) R73.09 Bipolar 1 disorder (HCC) F31.9 Current Outpatient Medications Medication Sig Dispense Refill ARIPiprazole 5 MG Oral Tablet (Abilify) Take 1 Tablet by mouth in the morning. hydrOXYzine HCl 25 MG Oral Tablet Take 1 Tablet by mouth 3 times a day as needed. (may use 1-2 tabs, max daily dose 200 mg) ARIPiprazole ER 400 MG Intramuscular Prefilled Syringe (José Calabrese) Inject 400 mg into a large muscle Every Month. Benztropine Mesylate 1 MG Oral Tablet (Cogentin) TAKE 1 TABLET BY MOUTH 2 TIMES A DAY NEEDED FORMUSCLE SPASM. Azelastine HCl 0.15 % Nasal Solution Administer 1 [place] into nostril in the morning and 1 [place] before bedtime. (Patient not taking: Reported on 06/15/2023) 30 mL 12 No current facility-administered medications for this visit. OBJECTIVE: BP 118/64 | Pulse 70 | Temp 36.7 C (98 F) | Resp 17 | Ht 1.6 m (5' 3") | Wt 57.4 kg (126 lb 8 oz) | LMP 09/02/2023 | SpO2 100% | BMI 22.41 kg/m | BSA 1.6 m Vitals reviewed and is normotensive / afebrile / and not tachycardic General: No acute distress. Neuro: Alert Pleasant & interactive. Respiratory: Good inspiratory effort, no labored breathing. CTAB CV: RRR no M R G HEENT: Conjunctivae appear clear. No swelling noted face or lips. Skin: No rash visible on exposed skin areas, normal coloration & appears dry. Psych: Normal affect. Fluent speech. Gail Gil MD [address] [address] There are no Patient Instructions on file for this visit. documented in this encounter Nursing Notes * Stephanie Oakes LPN - 09/11/2023 10:58 AM EDT The patient has been properly identified by confirmation of name and date of . Chief Complaint Patient presents with Hospital Follow-Up Was given the Benztropine and did help but is out now; would like to discuss refills documented in this encounter Plan of Treatment Upcoming Encounters Date Type Department Care Team (Late st Contact Info) Description 10/24/2023 12:30 PM EDT Office Visit Gynecology/Obstetrics [facility] [address] [place] [address] Boy Enriquez MD [address] [place] [address] Health Maintenance Due Date Last Done Comments [...] as of this encounter Visit Diagnoses Diagnosis Hospital discharge follow-up- Primary Other follow-up examination History of abnormal cervical Pap smear Personal history of other genital system and obstetric disorders Need for HPV vaccination Need for prophylactic vaccination and inoculation against other viral diseases Bipolar 1 disorder (HCC) Bipolar I disorder, most recent episode (or current) unspecified documented in this encounter Care Teams Pastry Supervisor Relationship Specialty Start Date End Date Gail Gil MD [address] [facility] [address] PCP - General Family Medicine 03/18/21 documented as of this encounter
--- OUTSIDE RECORDS SUMMARY | 2024-01-26 18:50 | External Medical Summary | Summary of Care ---
Author Name Unknown Organization [facility] Address [address] [place] [address] Phone [phone] Care Team Providers Care Applique Cutter Name Role Phone Gail Gil MD Primary Care Provid er Encounter Details Date Type Department Care Team (Late st Contact Info) Description 09/04/2023 Telephone Gynecology/Obstetrics [facility] [address] [place] [address] [place] [address] Lexus Corrigan, SHIVA [address] [facility] [address] [place] [address] Allergies No known active allergiesdocumented as of this encounter (statuses as of 09/04/2023) Medications Medication Sig Dispensed Refills Start Date End Date Status Breast PumpIndications:N ormal in second trimester Pump daily when 1 Each 0 03/27/2023 Active Azelastine HCl 0.15 % Nasal SolutionIndicatio ns:Dysfunction of right eustachian tube Administer 1 [place] into nostril in the morning and 1 [place] before bedtime. 30 mL 12 04/11/2023 Active Additional Information Patient not taking.Reported on 06/15/2023 19 29-1 MG Oral Tablet ChewableIndicatio ns:Normal in second trimester Take 1 Tablet by mouth every evening. 100 Tablet 2 08/03/2023 Active documented as of this encounter (statuses as of 09/04/2023) Active Problems Problem Noted Date Diagnosed Date Abnormal GTT (glucose tolerance test) 04/11/2023 Gonorrhea affecting 04/06/2023 Overview: Gonorrhea of the throat - Patient tested positive on 01/12/23 and was treated at the [facility]. Neg testing 03/2023 Marijuana use during 03/29/2023 [...] resolved Need for food assistance referred to [facility] and local food alberts 03/27/2023 Gabriela [...] Late care 03/15/2023 Overview: Initiated care at [facility] at 26w2d. Dating ultrasound was done at [facility] at 16 weeks. Anxiety 03/15/2023 Vapes nicotine containing substance 03/15/2023 documented as of this encounter (statuses as of 09/04/2023) Immunizations Name Administration Dates Next Due [id number] PENTAVALENT NON-US 01/13/2000 DTaP Dipth/Tet/Acell Pertussis (Infanrix), Peds 01/13/2000 HPV Vaccine, 9-Valent 04/05/2021 IPV - Polio Virus Vaccine (Inact) 01/13/2000 Seasonal Influenza, PF, 6 M & above, IM , (FluLaval or Fluzone) 03/27/2023 TDAP (age 10 and older)(Boostrix) 04/24/2023 documented as of this encounter Social History Tobacco Use Types Packs/Day Years Used Date Smoking Tobacco: Former Cigarettes Smokeless Tobacco: Never Alcohol Use Standard [...] money to get more. Never true 03/27/2023 [place] Depression Scale Answer Date Recorded [place] Depression Scale Total 4 08/09/2023 The thought [...] Telephone Encounter - Alyssia Kimbrough LPN - 09/04/2023 10:06 AM EDT Rescheduled colpo documented in this encounter Plan of Treatment Upcoming Encounters Date Type Department Care Team (Late st Contact Info) Description 09/11/2023 11:00 AM EDT [facility] [address] [place] [facility] [place] [id number] Gail Gil MD [address] [place] [facility] [place] [address] 10/24/2023 12:30 PM EDT Office Visit Gynecology/Obstetrics [facility] [address] [place] [address] Boy Enriquez MD [address] [place] [address] Health Maintenance Due Date Last Done Comments Hepatitis B (1 of 3 - 19+ 3-dose series) 2017 GARDASIL-HPV IMMUNIZATION SERIES (2 - 3-dose series) 05/03/2021 04/05/2021 COVID-19 Vaccine (1 - 2022-2 4 season) 2023 Gonorrhea / Chlamydia Screen 03/27/202407/2022, 04/05/2021 Depression [...] filedocumented as of this encounter Care Teams Applique Cutter Relationship Specialty Start Date End Date Gail Gil MD [address] [place] [address] PCP - General Family Medicine 03/18/21 documented as of this encounter
--- OUTSIDE RECORDS SUMMARY | 2024-01-26 18:50 | External Medical Summary | Summary of Care ---
Author Name Unknown Organization [facility] Address [address] [place] [address] Phone [phone] Care Team Providers Care African History Professor Name Role Phone Gail Gil MD Primary Care Provid er Reason for Visit * Reason Onset Date Comments Med Request 09/11/2023 Encounter Details Date Type Department Care Team ([facility] st Contact Info) Description 09/11/2023 Telephone [facility] [address] [place] [address] Gail Gil MD [address] [place] [address] Med Request Allergies No known active allergiesdocumented as of this encounter (statuses as of 09/13/2023) Medications Medication Sig Dispensed Refills Start Date End Date Status Azelastine HCl 0.15 % Nasal SolutionIndications:D ysfunction of right eustachian tube Administer 1 [place] into nostril in the morning and 1 [place] before bedtime. 30 mL 12 04/11/2023 Active [...] as of this encounter (statuses as of 09/13/2023) Active Problems Problem Noted Date Diagnosed Date Bipolar 1 disorder 09/11/2023 Abnormal GTT (glucose tolerance test) 04/11/2023 Gonorrhea affecting 04/06/2023 Overview: Gonorrhea of the throat - Patient tested positive on 01/12/23 and was treated at the [facility]. Neg testing 03/2023 Marijuana use during 03/29/2023 [...] resolved Need for food assistance referred to [facility] and local food alberts 03/27/2023 Gabriela [...] Late care 03/15/2023 Overview: Initiated care at [facility] at 26w2d. Dating ultrasound was done at [facility] at 16 weeks. Anxiety 03/15/2023 Vapes nicotine containing substance 03/15/2023 documented as of this encounter (statuses as of 09/13/2023) Immunizations Name Administration Dates Next Due [id number] PENTAVALENT NON-US 01/13/2000 DTaP Dipth/Tet/Acell Pertussis (Infanrix), [...] money to get more. Never true 09/07/2023 [place] Depression Scale Answer Date Recorded [place] Depression Scale Total 4 08/09/2023 The thought [...] Tablet . Caller can be reached at [phone] . Thank you, Jose Antonio Santos Registered Client Associate I [facility] ([facility])(formerly Telepharmacy) 09/13/2023,10:12 AM * Telephone Encounter - Rajni Miranda CPhT - 09/12/2023 3:47 PM EDT Patient calling to check on status of ARIPiprazole 5 MG Oral Tablet (Abilify) & hydrOXYzine HCl25 MG Oral Tablet . Caller can be reached at [phone] Thank you, Rajni Miranda Porter Head [facility] 09/12/2023, 3:47 PM * Telephone Encounter - [...] mg) Previous Prescriber: Rhonda Bernard Preferred Pharmacy: [address] Please review and approve if appropriate. Thank you, Purnima Sharma, Porter Head [facility] ([facility]) (Formerly Telepharmacy) 09/11/2023,2:11 PM documented in this encounter Plan of Treatment Upcoming Encounters Date Type Department Care Team ([facility] st Contact Info) Description 10/24/2023 12:30 PM EDT Office Visit [facility]necology/Obst[facility] [address] [address] Boy Enriquez MD [address] [place] [address] Health Maintenance Due Date Last Done Comments [...] filedocumented as of this encounter Care Teams African History Professor Relationship Specialty Start Date End Date Gail Gil MD [address] [place] [address] PCP - General Family Medicine 03/18/21 documented as of this encounter
--- OUTSIDE RECORDS SUMMARY | 2024-01-26 18:50 | External Medical Summary | Summary of Care ---
Author Name Unknown Organization [facility] Address [address] [place] [address] Phone [phone] Care Team Providers Care Fax Machine Operator Name Role Phone Gail Gil MD Primary Care Provid er Reason for Visit * Reason Onset Date Comments Med Request 09/11/2023 Encounter Details Date Type Department Care Team ([facility] st Contact Info) Description 09/11/2023 Telephone [facility] [address] [place] [address] Gail Gil MD [address] [place] [address] Med Request Allergies No known active allergiesdocumented as of this encounter (statuses as of 09/11/2023) Medications Medication Sig Dispensed Refills Start Date End Date Status Azelastine HCl 0.15 % Nasal SolutionIndications:D ysfunction of right eustachian tube Administer 1 [place] into nostril in the morning and 1 [place] before bedtime. 30 mL 12 04/11/2023 Active [...] was treated at the [facility]. Neg testing 03/2023 Marijuana use during 03/29/2023 [...] resolved Need for food assistance referred to [facility] and local food alberts 03/27/2023 [...] Late care 03/15/2023 Overview: Initiated care at [facility] at 26w2d. Dating ultrasound was done at [facility] at 16 weeks. Anxiety 03/15/2023 Vapes nicotine containing substance 03/15/2023 documented as of this encounter (statuses as of 09/11/2023) Immunizations Name Administration Dates Next Due [id number] PENTAVALENT NON-US 01/13/2000 DTaP Dipth/Tet/Acell Pertussis (Infanrix), [...] money to get more. Never true 09/07/2023 [place] Depression Scale Answer Date Recorded [place] Depression Scale Total 4 08/09/2023 The thought [...] encounter Miscellaneous Notes * Telephone Encounter - Purnima Sharma special education math teacher - 09/11/2023 2:10 PM EDT Pt calling [...] mg) Previous Prescriber: Rhonda Bernard Preferred Pharmacy: [address] Please review and approve if appropriate. Thank you, Purnima Sharma, Tank Stave Assembler [facility] ([facility]) (Formerly Telepharm[facility]) 09/11/2023,2:11 PM documented in this encounter Plan of Treatment Upcoming Encounters Date Type Department Care Team (Late st Contact Info) Description 10/24/2023 12:30 PM EDT [facility] [address] [address] Boy Enriquez MD [address] [address] Health Maintenance Due Date Last Done Comments [...] filedocumented as of this encounter Care Teams Fax Machine Operator Relationship Specialty Start Date End Date Gail Gil MD [address] [place] [address] PCP - General Family Medicine 03/18/21 documented as of this encounter
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
--- OUTSIDE RECORDS SUMMARY | 2024-01-26 18:50 | External Medical Summary | Summary of Care ---
Author Name Unknown Organization [facility] Address [address] [place] [address] Phone [phone] Care Team Providers Care Bus Assistant Name Role Phone Gail Gil MD Primary Care Provid er Encounter Details Date Type Department Care Team (Late st Contact Info) Description 09/01/2023 Documentation Care Coordination and Integration [address] [place] [address] Edgardo Braun, BS [address] [place] [address] Allergies No known active allergiesdocumented as of this encounter (statuses as of 09/01/2023) Medications Medication Sig Dispensed Refills Start Date End Date Status Breast PumpIndications:N ormal in second trimester Pump daily when 1 Each 0 03/27/2023 Active Azelastine HCl 0.15 % Nasal SolutionIndicatio ns:Dysfunction of right eustachian tube Administer 1 [place] [...] was treated at the [facility] [place]. Neg testing 03/2023 Marijuana use during 03/29/2023 [...] resolved Need for food assistance referred to [facility] and local [employer] 03/27/2023 Gabriela Guallpa RN 03/27/2023 Problem Action [...] Late care 03/15/2023 Overview: Initiated care at [facility] at 26w2d. Dating ultrasound was done at [facility] at 16 weeks. Anxiety 03/15/2023 Vapes nicotine containing substance 03/15/2023 documented as of this encounter (statuses as of 09/01/2023) Immunizations Name Administration Dates Next Due [id number] PENTAVALENT NON-US 01/13/2000 DTaP Dipth/Tet/Acell Pertussis (Infanrix), [...] money to get more. Never true 03/27/2023 [place] Depression Scale Answer Date Recorded [place] Depression Scale Total 4 08/09/2023 The thought [...] Per review of hospital discharge summary from [facility]: Psychiatrist: Yanet Aden - Myrna Weeks. Next appointment 09/11/23 at 2:30 PM. [facility] - Intake via telehealth with Andie Gonzales 09/13/23 11:00 AM. BCM: [employer] Service Unit. 09/04/23 1:30 PM BCM will meet at her home for intake. PCP: Dr. Gil ([facility]) on 09/11/23 with arrival at 10:45 [...] Description 09/11/2023 11:00 AM EDT Office Visit [facility] [address] [facility] [address] Gail Gil MD [address] [facility] [place] [address] Health Maintenance Due Date Last [...] filedocumented as of this encounter Care Teams Bus Assistant Relationship Specialty Start Date End Date Gail Gil MD [address] [place] [address] PCP - General Family Medicine 03/18/21 documented as of this encounter
--- OUTSIDE RECORDS SUMMARY | 2024-01-26 18:50 | External Medical Summary | Summary of Care ---
Author Name Unknown Organization [facility] Address [address] [place] [address] Phone [phone] Care Team Providers Care Seat Cover Cutter Name Role Phone Gail Gil MD Primary Care Provid er Reason for Visit * Reason Onset Date Comments Med Request 09/11/2023 Encounter Details Date Type Department Care Team ([facility] st Contact Info) Description 09/11/2023 Telephone [facility] [address] [place] [address] Gail Gil MD [address] [place] [address] Med Request Allergies No known active allergiesdocumented as of this encounter (statuses as of 09/14/2023) Medications Medication Sig Dispensed Refills Start Date End Date Status Azelastine HCl 0.15 % Nasal SolutionIndications :Dysfunction of right eustachian tube Administer 1 [place] into nostril in the morning and 1 [place] before bedtime. 30 mL 12 04/11/2023 Active [...] 200 mg) 90 Tablet 0 09/14/2023 Active ARIPiprazole 5 MG Oral Tablet (Abilify) Take 1 Tablet by mouth in the morning. 0 4 Discontinue d(Refill) hydrOXYzine HCl 25 MG Oral Tablet Take 1 Tablet by mouth 3 times a day as needed. (may use 1-2 tabs, max daily dose 200 mg) 0 4 Discontinue d(Refill) documented as of this encounter (statuses as of 09/14/2023) Active Problems Problem Noted Date Diagnosed Date Bipolar 1 disorder 09/11/2023 Abnormal GTT (glucose tolerance test) 04/11/2023 Gonorrhea affecting 04/06/2023 Overview: Gonorrhea of the throat - Patient tested positive on 01/12/23 and was treated at the [facility] [place]. Neg testing 03/2023 Marijuana use during 03/29/2023 [...] 09/14/2023) Immunizations Name Administration Dates Next Due [id number] PENTAVALENT NON-US 01/13/2000 DTaP Dipth/Tet/Acell Pertussis (Infanrix), [...] money to get more. Never true 09/07/2023 [place] Depression Scale Answer Date Recorded [place] Depression Scale Total 4 08/09/2023 The thought [...] encounter Miscellaneous Notes * Telephone Encounter - Gail Gil MD - 09/14/2023 2:33 PM EDT Pt saw me 09/10 - she told me she had psych appt later that day and med refills would be made then. I called pt today to clarify the situation - she tells me psych canceled on her 09/10. She doesn't have a follow up/rescheduled appt yet. I informed her that we would not be sending out further refills that this one sent 09/13 - she will need to follow up with Psychiatrist at [facility]. Verbalized understanding and agreement with this plan,answered all questions. AG * Addendum Note - Emely Acosta MD - 09/14/2023 12:26 PM EDTAddended by: EMELY ACOSTA on: 09/14/2023 12:26 PM Modules accepted: Orders * Telephone Encounter - Emely Acosta MD - 09/14/2023 12:26 PM EDT Sent out one mo amount Pt should f.u with psych or PCP * Telephone Encounter - Jose Antonio Santos PHARM Tech - 09/13/2023 10:12 AM EDT Pt is requesting high priority due to being out of her medication for 2-3 days now. Pt calling to check on status of ARIPiprazole 5 MG Oral Tablet (Abilify) & hydrOXYzine HCl 25 MG Oral Tablet . Caller can be reached at [phone] . Thank you, Jose Antonio Santos Food Service Supervisor I [facility] 09/13/2023,10:12 AM * Telephone Encounter - Rajni Miranda CPhT - 09/12/2023 3:47 PM EDT Patient calling to check on status of ARIPiprazole 5 MG Oral Tablet (Abilify) & hydrOXYzine HCl25 MG Oral Tablet . Caller can be reached at [phone] Thank you, Rajni Miranda Truck Caterer [facility] 09/12/2023, 3:47 PM * Telephone Encounter - [...] Previous Prescriber: Rhonda Bernard Preferred Pharmacy: [facility] [address] [facility] Please review and approve if appropriate. Thank you, Purnima Sharma, Truck Caterer [facility] ([facility]) (Formerly Telepharmacy) 09/11/2023,2:11 PM documented in this encounter Plan of Treatment Upcoming Encounters Date Type Department Care Team (Late st Contact Info) Description 10/24/2023 12:30 PM EDT Office Visit Gynecology/Obstetrics [facility] [address] [place] [address] Boy Enriquez MD [address] [place] [address] Health Maintenance Due Date Last Done Comments [...] filedocumented as of this encounter Care Teams Seat Cover Cutter Relationship Specialty Start Date End Date Gail Gil MD [address] [address] PCP - General Family Medicine 03/18/21 documented as of this encounter
--- OUTSIDE RECORDS SUMMARY | 2024-01-26 18:50 | External Medical Summary | Summary of Care ---
Author Name Unknown Organization [facility] Address [address] [place] [address] Phone [phone] Care Team Providers Care Global Clinical Leader Name Role Phone Gail Gil MD Primary Care Provid er Reason for Visit * Reason Onset Date Comments Hospital Follow-Up Was given the Benztropine and did help but is out now; would like to discuss refills Hospital Follow-Up 09/11/2023 Encounter Details Date Type Department Care Team (Late st Contact Info) Description 09/11/2023 11:00 AM EDT Office Visit [facility] [address] [place] [address] Gail Gil MD [address] [place] [address] Hospital discharge follow-up*; History of abnormal cervical Pap smear; Need for HPV vaccination; Bipolar 1 disorder (HCC) Allergies No known active allergiesdocumented as of this encounter (statuses as of 09/11/2023) Medications Medication Sig Dispensed Refills Start Date End Date Status Azelastine HCl 0.15 % Nasal SolutionIndicatio ns:Dysfunction of right eustachian tube Administer 1 [place] into nostril in the morning and 1 [place] before bedtime. 30 mL 12 3 Active [...] was treated at the [facility]. Neg testing 03/2023 Marijuana use during 03/29/2023 [...] resolved Need for food assistance referred to [facility] and local food [employer] 03/27/2023 Gabriela [...] Late care 03/15/2023 Overview: Initiated care at [facility] at 26w2d. Dating ultrasound was done at [facility] at 16 weeks. Anxiety 03/15/2023 Vapes nicotine containing substance 03/15/2023 documented as of this encounter (statuses as of 09/11/2023) Immunizations Name Administration Dates Next Due [id number] PENTAVALENT NON-US 01/13/2000 DTaP Dipth/Tet/Acell Pertussis (Infanrix), [...] money to get more. Never true 09/07/2023 [place] Depression Scale Answer Date Recorded [place] Depression Scale Total 4 08/09/2023 The thought [...] documented in this encounter Progress Notes * Stephanie Oakes LPN - 09/11/2023 5:28 PM EDT Pre-Administration Time Out Procedure Performed: Yes Patient Identified (Ask Name/Date of ): Yes Does the patient have a fever greater than 101 degrees today? No Patient allergic to latex? No Has the patient ever fainted after receiving an injection? No VFC Stock: No Immunization(s) verified: Yes, Immunization Name: Gardasil, VIS Sheet(s) given: Yes Verified Side and Site: Yes Verified Shot(s) with Parent(s)/Patient: Yes * Gail Gil MD - 09/11/2023 12:51 PM EDT ASSESSMENT / PLAN: Una Eagle is a 22 year old female with PMHx bipolar I - Here for KYAW - admitted at [facility] the following dates 08/24-08/30 Presented with: robyn Diagnosis: bipolar I exacerbation Diagnostics: CBC, CMP, urine Tox all normal w exception of marijuana Hospital stay complicated by: 1- none Treatments / Consultation(s): 1- psychiatry Changes to chronic medications: 1 - restart abilify - [facility]OY 08/31/23 completed - [facility] will complete refills Due [...] HCl 0.15 % Nasal Solution Administer 1 [place] into nostril in the morning and 1 [place] before bedtime. (Patient not taking: Reported on [...] Normal affect. Fluent speech. Gail Gil MD [address] [address] There are no Patient Instructions on file [...] 10/24/2023 12:30 PM EDT Office Visit [facility]necology[facility]st[facility] [address] [address] Boy Enriquez MD [address] [place] [address] Health Maintenance Due Date Last Done Comments [...] unspecified documented in this encounter Care Teams Global Clinical Leader Relationship Specialty Start Date End Date Gail Gil MD [address] [place] [place] [address] PCP - General Family Medicine 03/18/21 documented as of this encounter
--- OUTSIDE RECORDS SUMMARY | 2024-01-26 18:50 | External Medical Summary | Summary of Care ---
Author Name Unknown Organization [facility] Address [address] [place] [address] Phone [phone] Care Team Providers Care Dot Etcher Apprentice Name Role Phone Gail Gil MD Primary Care Provid er Reason for Visit * Reason Onset Date Comments Med Request 09/11/2023 Encounter Details Date Type Department Care Team ([facility] st Contact Info) Description 09/11/2023 Telephone [facility] [address] [place] [address] Gail Gil MD [address] [place] [address] Med Request Allergies No known active allergiesdocumented as of this encounter (statuses as of 09/14/2023) Medications Medication Sig Dispensed Refills Start Date End Date Status Azelastine HCl 0.15 % Nasal SolutionIndications :Dysfunction of right eustachian tube Administer 1 [place] into nostril in the morning and 1 [place] before bedtime. 30 mL 12 04/11/2023 Active [...] was treated at the [facility] [place]. Neg testing 03/2023 Marijuana use during 03/29/2023 [...] referred to [facility] and local food alberts 03/27/2023 Gabriela [...] 09/14/2023) Immunizations Name Administration Dates Next Due [id number] PENTAVALENT NON-US 01/13/2000 DTaP Dipth/Tet/Acell Pertussis (Infanrix), [...] money to get more. Never true 09/07/2023 [place] Depression Scale Answer Date Recorded [place] Depression Scale Total 4 08/09/2023 The thought [...] as of this encounter Miscellaneous Notes * Addendum Note - Emely Acosta MD - 09/14/2023 12:26 PM EDTAddended by: EMELY ACOSTA on: 09/14/2023 12:26 PM Modules accepted: Orders * Telephone Encounter - Emely Acosta MD - 09/14/2023 12:26 PM EDT Sent out one mo amount Pt should f.u with psych or PCP * Telephone Encounter - Jose Antonio Santos garage construction equipment mechanic - 09/13/2023 10:12 AM EDT Pt is requesting high priority due to being out of her medication for 2-3 days now. Pt calling to check on status of ARIPiprazole 5 MG Oral Tablet (Abilify) & hydrOXYzine HCl 25 MG Oral Tablet . Caller can be reached at [phone] . Thank you, Jose Antonio Santos Mixing Tumbler Operator I [facility] ([facility])(formerly [facility]) 09/13/2023,10:12 AM * Telephone Encounter - Rajni Miranda CPhT - 09/12/2023 3:47 PM EDT Patient calling to check on status of ARIPiprazole 5 MG Oral Tablet (Abilify) & hydrOXYzine HCl25 MG Oral Tablet . Caller can be reached at [phone] Thank you, Rajni Miranda Electroencephalographic Technician [facility] 09/12/2023, 3:47 PM * Telephone Encounter - [...] mg) Previous Prescriber: Rhonda Bernard Preferred Pharmacy: [address] Please review and approve if appropriate. Thank you, Purnima Sharma, Electroencephalographic Technician [facility] ([facility]) (Formerly Telepharmacy) 09/11/2023,2:11 PM documented in this encounter Plan of Treatment Upcoming Encounters Date Type Department Care Team ([facility] st Contact Info) Description 10/24/2023 12:30 PM EDT [facility] [address] [address] Boy Enriquez MD [address] [address] Health Maintenance Due Date Last Done Comments [...] filedocumented as of this encounter Care Teams Dot Etcher Apprentice Relationship Specialty Start Date End Date Gail Gil MD [address] [place] [address] PCP - General Family Medicine 03/18/21 documented as of this encounter
--- OUTSIDE RECORDS SUMMARY | 2024-01-26 18:50 | External Medical Summary | Summary of Care ---
Author Name Unknown Organization [facility] Address [address] [place] [address] Phone [phone] Care Team Providers Care Product Development Scientist Name Role Phone Gail Gil MD Primary Care Provid er Reason for Visit * Reason Onset Date Comments Med Request 09/12/2023 hydrOXYzine HCl 25 MG Oral Tablet Encounter Details Date Type Department Care Team ([facility] st Contact Info) Description 09/12/2023 Telephone [facility] [address] [place] [address] Gail Gil MD [address] [place] [address] Med Request (hydrOXYzine HCl 25 MG Oral Ta... Allergies No known active allergiesdocumented as of this encounter (statuses as of 09/12/2023) Medications Medication Sig Dispensed Refills Start Date End Date Status Azelastine HCl 0.15 % Nasal SolutionIndications:D ysfunction of right eustachian tube Administer 1 [place] into nostril in the morning and 1 [place] before bedtime. 30 mL 12 04/11/2023 Active [...] was treated at the [facility]. Neg testing 03/2023 Marijuana use during 03/29/2023 [...] 09/12/2023) Immunizations Name Administration Dates Next Due [id number] PENTAVALENT NON-US 01/13/2000 DTaP Dipth/Tet/Acell Pertussis (Infanrix), [...] money to get more. Never true 09/07/2023 [place] Depression Scale Answer Date Recorded [place] Depression Scale Total 4 08/09/2023 The thought [...] Encounter - Rajni Miranda CPhT - 09/12/2023 3:42 PM EDT Error. Thank you, Rajni Miranda Industrial Organizational Psychologist [facility] 09/12/2023, 3:48 PM documented in this encounter Plan of Treatment Upcoming Encounters Date Type Department Care Team (Late st Contact Info) Description 10/24/2023 12:30 PM EDT [facility] [address] [address] Boy Enriquez MD [address] [address] Health Maintenance Due Date Last Done Comments [...] filedocumented as of this encounter Care Teams Product Development Scientist Relationship Specialty Start Date End Date Gail Gil MD [address] [place] [address] PCP - General Family Medicine 03/18/21 documented as of this encounter
[2024-01-27] MEDS: NICOTINE POLACRILEX 2 MG GUM MT PRN (07:49)
--- NOTE | 2024-01-27 09:30 | History & Physical ---
Date of Service January 27, 2024 Impression / Recommendations Impression UNA ROCA is a 23-year-old F who currently lives in [place] with her mother, brother, and 8 month old son, has a history of PTSD, RUDY, BPAD and was admitted on 01/26/24 18:26 on a 201 voluntary commitment for depression and impulsivity. Diagnostically consistent with unspecified mood disorder with differential including BPAD mixed episode (most likely given history of hospitalizations for suspected robyn with psychosis) vs BPD vs major depression with impulsivity from co-occurring condition such as ADHD vs substance-induced or withdrawal (but denies recent substance use except for cannabis and UDS consistent with this). Discussed medication treatment options in detail. Discussed risks, benefits and alternatives. Patient would like to start and consented to Throop for BPAD, mirtazapine for depression and insomnia and Wellbutrin for depression and nicotine cessation. Reviewed side effects including but not limited to: increased risk for hypomania/robyn with Wellbutrin, potential for increased anxiety, insomnia, low appetite with Wellbutrin; sedation, wgt gain with mirtazapine; dehydration, renal, thyroid, cardiac, drug interactions (NSAIDs, ACEIs, angiotensin receptor antagonists, risks with Throop. TSH, Cr, electrolytes, LFTs, CBC with platelets reviewed and stable to start Throop. MNPR given level of impulsivity and mood lability Overall I spent a total of 75 minutes for this admission including review of chart records, review of labwork, direct evaluation of the patient, counseling the patient, ordering medication, risk assessment, discussion with the psychiatric liason RN and documentation in the electronic health record. (1) Bipolar I disorder with mixed features: (2) Impulsive: (3) Depression with suicidal ideation: Plan 01/27/2024: The patient was admitted to the [facility] ([facility] mental health unit) on q15 min checks (behavioral with suicide precautions) for safety. The patient will participate in group, recreational, and milieu therapies and will be offered additional individual and family sessions as clinically appropriate. -mirtazapine 15mg HS -Throop carbonate 300mg HS -Wellbutrin XL 150mg daily -Mood Disorder Questionnaire and Rodolfo BPD questionnaire Inventory Assets Strengths: supportive relationships, willing to get treatment Needs: safety and stabilization, medication adjustment, additional coping skills, increased outpatient services Suicide Risk Level Suicide Risk Level: High-Moderate (q15 min suicide checks) (mood lability, significant depression, increased impulsivity and SI but feels safe in the hospital) Risk Factors Assessment Male: No : Yes Do You Have Access To A Gun?: No Health Problems: No Mental Health Diagnoses: Yes Substance Use Disorders: No (alcohol use disorder in the past) Previous Attempt: No Family History of Suicide: No Previous Psychiatric Hospitalization: Yes Hopelessness: Yes Protective Factors Assessment Responsible for Young Children: Yes Employed: No Stable Relationships: Yes Supportive Family: Yes Psychiatric History Identifying Data UNA ROCA is a 23-year-old F who currently lives in [place] with her mother, brother, and 8 month old son, has a history of PTSD, RUDY, BPAD and was admitted on 01/26/24 18:26 on a 201 voluntary commitment for depression and impulsivity. Chief Complaint "I've been having so really bad lows and along with that comes some lows and impulsive behaviors". History of Present Illness Una presents for worsening depression, mood swings and impulsivity that she fears could put herself and others at risk. She is very tearful in discussing recent symptoms including feeling numb and depressed in the context of multiple psychosocial stressors including her fiance being in fci, she also lost her job (about a month ago) and car (a couple weeks ago) due to "just doing impulsive things". She identifies impulsive things in the middle of November into December as : "I quit my job and moved to [place] with my fiance but didn't have any family and no finances saved". And since that time with ongoing mood lability and depression. She describes: "I just been feeling really sad. Everything feels like I'm just so f*cking useless and such a disappointment, everything just feels pretty pointless." Over the last two weeks has been sleeping intermittently (struggling to fall asleep), low energy, low motivation, hopelessness, helplessness, anhedonia, loneliness, and intermittent SI. Also gets overwhelming anxiety and has panic attacks (has been occurring a few times per week). She is not currently prescribed any psychiatric medications. Psychiatric ROS notable for history of symptoms of robyn including high energy, not sleeping, "my brain was just go go go", longest period lasted for months, recalls getting "a little bit disoriented and less of myself". History of psychosis, twice, both required hospitalizations during episode of robyn. Endorses symptoms of PTSD including hypervigilance, anxiety about things that are never going to happen, negative self-talk. No history or current symptoms of OCD nor self-harm nor eating disorder. Past Psychiatric History Current Psychiatric Diagnosis: Bipolar, MDD, Anxiety, PTSD Outpatient Services: none Previous Psych Admissions: [facility] August 2023 Age 20[place] Age 17[place] Do You Have Access To A Gun?: No History of Previous Suicide Attempt: No Past Medication Trials: Abilftony Maintena 400mg IM GODOY (once during inpatient admission in August 2023, mood was more stable after this), recalls being on "11 medications" at one point including Throop (she recalls this being helpful, kept her mood better), Wellbutrin (recalls this being helpful, especially with reducing her nicotine use), Effexor, Trazodone, gabapentin. Past Head Trauma/Neuro History History of Concussion/Seizure: Yes concussion in the past; hx of seizures in context of alcohol withdrawal Allergies Allergy/AdvReac Type Severity Reaction Status Date / Time No Known Allergies Allergy Verified 11/06/21 23:44 Home Medications Medication Instructions Recorded Confirmed Type No Known Home Medications 01/26/24 01/26/24 History Family History Family History of: Depression (maternal), Anxiety (maternal), Alcoholism/Drug Abuse (maternal) and Bipolar (maternal) Alcohol History Hx of Alcohol Use Over the Past 12 Months: No AUDIT Total Score: 3 Had a couple beers "a couple times to help me sleep" within the last month; in the past had very problematic use with daily drinking. Smoking Use Have You Smoked or Used Tobacco Products in the Last 30 Days: No tobacco type: cigarettes Smoking Status: Current every day smoker Substance History Hx of Prescription Med Misuse Over the Past 12 Months: No Hx of Over the Counter Med Misuse Over the Past 12 Months: No Hx of Inhalent Misuse Over the Past 12 Months: No Hx of Organic Substance Use Over the Past 12 Months: Yes (marijuana positive on UDS) Hx of Illegal Substances/Street Drug Use Over Past 12 Months: No (denies, appears to have COOPER hx from chart review) Problems as a Result of Past Substance Use: None Identified Cannabis use nightly, helps with sleep, doesn't like that it can "make things a little bit foggy". No history of any recreational substance use but reports at one point had a false positive methamphetamine drug screen but confirmatory was negative. Once took an ativan from a friend. Personal History Childhood: Lived in [place] since age 13. Close with her mother, no contact with her father. Has a brother and sister, close with them. Highest Grade Completed: G.E.D. Employment Status: Unemployed Marital Status: Living w/ Signif. Other (fiance is currently incarcerated) Number Of Children: 1 son Beliefs That Will Affect Care: None Current Legal Problems: Yes (on probation currently for public intoxication charge from 2020) Hx Legal Problems: Yes (past charge for alcohol, shoplifting ) Hx Traumatic Life Events: Yes Patient History Medical History Robyn Marijuana use during Bipolar disorder No pertinent family history Surgical History No pertinent past surgical history Social History Smoking Status: Current every day smoker Tobacco Type: Cigarettes Second Hand Exposure: Yes; Do You Dip or Chew Tobacco: No; Hx Alcohol Use: No Hx Substance Use: Yes Last Used Substance Other:: Marijuana daily- pt states she has medical card (unable to provide) Preferred Language: Bolivian Communication Ability: Effective Silverware Etcher Required: No Beliefs That Will Affect Care: None marital status: Single Current Living Situation Comment: Boyfriend- Gary Moreno Feels Safe at Home: Yes Gender Identity: Female Assistive Devices: None Review of Systems Review of Systems: All systems reviewed & are unremarkable except as noted in HPI & below Physical Exam Psychiatric: Orientation: alert and oriented x 3 Apperance: appropriately dressed and appropriately groomed Eye Contact: good eye contact Motor Behavior: no abnormal motor movements Speech: normal rate/rhythm/volume of speech Affect: + depressed affect, + anxious affect, + tearful affect and + labile affect Mood: + depressed mood and + anxious mood Thought Process: + circumstantial thought process Thought Content: reality based without delusions, + hopelessness and + loneliness Suicidal Thoughts: denies suicidal plan and denies suicidal intent; + reports suicidal thoughts (intermittent thoughts ) Homicidal Thoughts: denies homicidal thoughts Hallucinations: no auditory hallucinations and no visual hallucinations Cognition: recent memory grossly intact, remote memory grossly intact, attention grossly intact and language grossly intact Estimated Intelligence: consistent with education level Insight: + limited insight Judgment: + limited judgement Vital Signs (Past 24 Hours): Last Vital Signs Temp 36.7 C 01/27/24 06:57 Pulse 86 01/26/24 20:21 Resp 16 01/27/24 06:57 BP 112/72 01/27/24 06:57 Pulse Ox 98 01/27/24 06:57 O2 Del Method Room Air 01/27/24 06:57 Exam Statement: A physical exam was performed in the ED by Dr. Goldsmith for the purposes of medical clearance. I accept that physical as correct and adequate for the purposes of the inpatient physical exam. Results & Data ([facility]) Laboratory Results Laboratory Results - last 24 hr 01/26/24 13:50 WBC 13.53 H RBC 5.04 Hgb 14.8 Hct 44.3 MCV 87.9 MCH 29.4 MCHC 33.4 RDW Std Deviation 41.9 RDW Coeff of Jatinder 13.1 Plt Count 280 MPV 10.2 Immature Gran % (Auto) 0.4 Neut % (Auto) 69.9 Lymph % (Auto) 21.9 Rock % (Auto) 6.4 Eos % (Auto) 1.0 Baso % (Auto) 0.4 Neut # (Auto) 9.47 H Lymph # (Auto) 2.96 Rock # (Auto) 0.87 H Eos # (Auto) 0.13 Baso # (Auto) 0.05 Immature Gran # (Auto) 0.05 Sodium 137 Potassium 4.1 Chloride 101 Carbon Dioxide 29 Anion Gap 7 BUN 13 Creatinine 0.80 Est Cr Clr Drug Dosing 88.9 Est GFR ( Amer) 118.8 Est GFR (Non-Af Amer) 102.5 BUN/Creatinine Ratio 16.3 Glucose 91 Calcium 10.1 Total Bilirubin 0.5 AST 19 ALT 15 Alkaline Phosphatase 103 Total Protein 7.9 Albumin 4.9 Globulin 3.0 Albumin/Globulin Ratio 1.6 TSH 0.592 Urine Color Yellow Urine Appearance Clear Urine pH 7.5 Ur Specific [place] 1.017 Urine Protein 2+ H Urine Glucose (UA) Negative Urine Ketones Negative Urine Blood Negative Urine Nitrite Negative Urine Bilirubin Negative Urine Urobilinogen Negative Ur Leukocyte Esterase Negative Urine WBC (Auto) 0-5 Urine RBC (Auto) 0-2 U Hyaline Cast (Auto) 0-2 U Epithel Cells (Auto) 3-5 H Urine Bacteria (Auto) None Seen Salicylates < 3.0 L Urine Opiates Screen Neg Ur Methadone, Qual Neg Urine Fentanyl Screen Neg Acetaminophen < 3 L Urine Barbiturates Neg Ur Phencyclidine (PCP) Neg U Amphetamin/Meth Scrn Neg MDMA (Ecstasy) Screen Neg U Benzodiazepines Scrn Neg Ur Cocaine Metabolite Neg U Marijuana (THC) Screen Pos H U Marijuana THC Carboxy Pending Drug Screen Comment Pending Ethyl Alcohol mg/dL < 10.0 SARS-CoV-2, RNA, NAAT NEGATIVE Current Inpatient Medications Current Inpatient Medications: Current Inpatient Medications Acetaminophen (Acetaminophen 325 Mg Tab) 650 mg PO Q4H PRN PRN Reason: Headache or Minor Fever Stop: 02/25/24 18:05 Al Hydrox/Mg Hydrox/Simethicone (Aluminum/Magnesium Susp 30 Ml Udc) 30 ml PO Q4H PRN PRN Reason: GI Upset Stop: 02/25/24 18:05 Bismuth Subsalicylate (Bismuth Subsalicylate Liqd 236 Ml) 15 ml PO PRN PRN PRN Reason: Loose Stool Stop: 02/25/24 18:05 Hydroxyzine HCl (Hydroxyzine Hcl 25 Mg Tab) 50 mg PO HSZ PRN PRN Reason: Insomnia Stop: 02/25/24 18:05 Hydroxyzine HCl (Hydroxyzine Hcl 25 Mg Tab) 25 mg PO Q4H PRN PRN Reason: Anxiety Stop: 02/25/24 18:05 Last Admin: 01/27/24 07:52 Dose: 25 mg Magnesium Hydroxide (Magnesium Hydroxide Susp 30 Ml Udc) 30 ml PO DAILY PRN PRN Reason: Constipation Stop: 02/25/24 18:05 Nicotine Polacrilex (Nicotine Polacrilex 2 Mg Gum) 1 piece MT PRN PRN PRN Reason: Nicotine Withdrawal Symptoms Stop: 02/25/24 18:05 Last Admin: 01/27/24 07:49 Dose: 1 piece Sodium Chloride (Sodium Chloride 0.65% Na Soln 45 Ml ([place])) 1 - 2 sprays NA PRN PRN PRN Reason: Nasal Dryness/Congestion Stop: 02/25/24 18:05
[2024-01-27] MEDS: NICOTINE 7 MG/24 HR TDSY TD SCH (11:11)
[2024-01-27 14:39] LABS: Pregnancy Test, Urine Negative (Negative)
[2024-01-27] MEDS: ACETAMINOPHEN 325 MG TAB PO PRN (18:40)
[2024-01-27] MEDS: BENZOCAINE 20% (ORAJEL) 11.9 GM TUBE MT PRN (19:33)
[2024-01-27] MEDS: MIRTAZAPINE TAB 15 MG TAB PO SCH (20:56)
[2024-01-27] MEDS: LITHIUM CARBONATE 300 MG TAB PO SCH (20:56)
[2024-01-28] MEDS: buPROPion XL 150 MG TABCR PO SCH (08:32)
--- NOTE | 2024-01-28 08:55 | Psychiatric Progress Note ---
Date of Service January 28, 2024 Impression / Recommendations Impression BRIT ROCA is a 23-year-old F who currently lives in [place] with her mother, brother, and 8 month old son, has a history of PTSD, RUDY, BPAD and was admitted on 01/26/24 18:26 on a 201 voluntary commitment for depression and impulsivity. Diagnostically consistent with unspecified mood disorder with differential including BPAD mixed episode (most likely given history of hospitalizations for suspected robyn with psychosis) vs BPD vs major depression with impulsivity from co-occurring condition such as ADHD vs substance-induced or withdrawal (but denies recent substance use except for cannabis and UDS consistent with this). A: Less mood lability today, but avoiding groups and with constricted affect so suspect minimizing some of her symptoms. Tolerating new medications and finding them helpful so far. Reviewed that with 72 hour notice it will limit some of the ability for disposition planning and getting the recommended 5-7 level of [place]. She states she "accepts" this risk and prefers to have [place] level drawn early here in the hospital vs in the outpatient setting. Will get Li level on Monday, suspect will be normal given low dose. Given 72 hour notice will continue at low dose [place] for now especially given some improvement in mood and decreasing concern for hypomania/robyn today. MNPR given recent level of impulsivity and mood lability Overall, I spent a total of 35 minutes on this case including meeting with the patient, reviewing the chart, nursing report, multidisciplinary team meeting, orders, and documentation. (1) Bipolar I disorder with mixed features: (2) Impulsive: (3) Depression with suicidal ideation: Plan 01/28/2024: Continue current medications and tx plan. Will check Li level on 01/2901/27/2024: The patient was admitted to the [facility] ([facility] inpatient mental health unit) on q15 min checks (behavioral with suicide precautions) for safety. The patient will participate in group, recreational, and milieu therapies and will be offered additional individual and family sessions as clinically appropriate. -mirtazapine 15mg HS -[place] carbonate 300mg HS -Wellbutrin XL 150mg daily -Mood Disorder Questionnaire and Rodolfo BPD questionnaire Inventory Assets Strengths: supportive relationships, willing to get treatment Needs: safety and stabilization, medication adjustment, additional coping skills, increased outpatient services Suicide Risk Level Suicide Risk Level: Moderate (q15 min suicide checks) (mood lability, significant depression, increased impulsivity but mood improving, now denies SI and feels safe in the hospital) Suicide Risk Level Comments: Risk Factors Assessment Male: No : Yes Do You Have Access To A Gun?: No Health Problems: No Mental Health Diagnoses: Yes Substance Use Disorders: No (alcohol use disorder in the past) Previous Attempt: No Family History of Suicide: No Previous Psychiatric Hospitalization: Yes Hopelessness: Yes Protective Factors Assessment Responsible for Young Children: Yes Employed: No Stable Relationships: Yes Supportive Family: Yes Interval History Identifying Information BRIT ROCA is a 23-year-old F who currently lives in [place] with her mother, brother, and 8 month old son, has a history of PTSD, RUDY, BPAD and was admitted on 01/26/24 18:26 on a 201 voluntary commitment for depression and impulsivity. Chief Complaint "fine". Review of Systems Sleep Information Total Hours of Sleep: 7 Meal Information Percent Meal Consumed - Breakfast: 24 Percent Meal Consumed - Lunch: 95 Percent Meal Consumed - Dinner: 90 Subjective Subjective Patient was seen & assessed and interval progress reviewed with treatment team nursing and social work. Attending some groups. Had tooth pain last evening. Mood lability, likes the Vistaril. Put in a 72 hour notice that will on 01/30/2024 at 1950. Reports missing her baby and that her baby's father had to go to snf yesterday so now her mother is providing all the care for her son. She wants to stay in the hospital to see how the medication adjustments go but signed the 72 hour notice "to make sure I'm not in here too long". She slept well last night. Denies any side effects from the medications. Finding prn Vistaril helpful. Feels her mood is more stable today. Physical Exam Psychiatric Orientation: alert and oriented x 3 Apperance: appropriately dressed and appropriately groomed Eye Contact: good eye contact Motor Behavior: no abnormal motor movements Speech: normal rate/rhythm/volume of speech Affect: + depressed affect and + constricted affect Mood: + depressed mood and + anxious mood Thought Process: linear/logical thought process and + concrete thought process Thought Content: reality based without delusions Suicidal Thoughts: denies suicidal thoughts, denies suicidal plan and denies suicidal intent Homicidal Thoughts: denies homicidal thoughts Hallucinations: no auditory hallucinations and no visual hallucinations Cognition: recent memory grossly intact, remote memory grossly intact, attention grossly intact and language grossly intact Estimated Intelligence: consistent with education level Insight: + limited insight Judgment: + limited judgement Vital Signs (Past 24 Hours) Last Vital Signs Temp 36.1 C L 01/28/24 06:00 Pulse 71 01/28/24 06:31 Resp 16 01/28/24 06:00 BP 102/67 01/28/24 06:31 Pulse Ox 98 01/28/24 06:00 O2 Del Method Room Air 01/28/24 06:00 Results & Data ([facility]) Laboratory Results Laboratory Results - last 24 hr 01/27/24 13:44 Urine Test Negative Current Inpatient Medications Current Inpatient Medications: Current Inpatient Medications Acetaminophen (Acetaminophen 325 Mg Tab) 650 mg PO Q4H PRN PRN Reason: Headache or Minor Fever Stop: 02/25/24 18:05 Last Admin: 01/27/24 18:40 Dose: 650 mg Al Hydrox/Mg Hydrox/Simethicone (Aluminum/Magnesium Susp 30 Ml Udc) 30 ml PO Q4H PRN PRN Reason: GI Upset Stop: 02/25/24 18:05 Benzocaine (Benzocaine 20% (Orajel) 11.9 Gm Tube) 1 appln MT BID PRN PRN Reason: Pain Stop: 02/26/24 19:14 Last Admin: 01/27/24 19:33 Dose: 1 appln Bismuth Subsalicylate (Bismuth Subsalicylate Liqd 236 Ml) 15 ml PO PRN PRN PRN Reason: Loose Stool Stop: 02/25/24 18:05 Bupropion HCl (Bupropion Xl 150 Mg Tabcr) 150 mg PO QAM PAT Stop: 02/27/24 08:59 Last Admin: 01/28/24 08:32 Dose: 150 mg Hydroxyzine HCl (Hydroxyzine Hcl 25 Mg Tab) 50 mg PO HSZ PRN PRN Reason: Insomnia Stop: 02/25/24 18:05 Hydroxyzine HCl (Hydroxyzine Hcl 25 Mg Tab) 25 mg PO Q4H PRN PRN Reason: Anxiety Stop: 02/25/24 18:05 Last Admin: 01/27/24 18:04 Dose: 25 mg [place] Carbonate ([place] Carbonate 300 Mg Tab) 300 mg PO HS PAT Stop: 02/26/24 21:59 Last Admin: 01/27/24 20:56 Dose: 300 mg Magnesium Hydroxide (Magnesium Hydroxide Susp 30 Ml Udc) 30 ml PO DAILY PRN PRN Reason: Constipation Stop: 02/25/24 18:05 Mirtazapine (Mirtazapine Tab 15 Mg Tab) 15 mg PO [facility] Stop: 02/26/24 21:59 Last Admin: 01/27/24 20:56 Dose: 15 mg Miscellaneous (Remove Nicoderm Patch) 1 each N/A DAILY@0859 [facility] Stop: 02/27/24 08:58 Last Admin: 01/28/24 08:33 Dose: 1 each Nicotine (Nicotine 7 Mg/24 Hr Tdsy) 1 patch TD QAM [facility] Stop: 02/26/24 10:29 Last Admin: 01/28/24 08:33 Dose: 1 patch Nicotine Polacrilex (Nicotine Polacrilex 2 Mg Gum) 1 piece MT PRN PRN PRN Reason: Nicotine Withdrawal Symptoms Stop: 02/25/24 18:05 Last Admin: 01/27/24 10:17 Dose: 1 piece Sodium Chloride (Sodium Chloride 0.65% Na Soln 45 Ml ([place])) 1 - 2 sprays NA PRN PRN PRN Reason: Nasal Dryness/Congestion Stop: 02/25/24 18:05
--- NOTE | 2024-01-29 09:31 | Psychiatric Progress Note ---
Date of Service January 29, 2024 Impression / Recommendations Impression BRIT ROCA is a 23-year-old F who currently lives in [place] with her mother, brother, and 8 month old son, has a history of PTSD, RUDY, BPAD and was admitted on 01/26/24 18:26 on a 201 voluntary commitment for depression and impulsivity. Diagnostically consistent with unspecified mood disorder with differential including BPAD mixed episode (most likely given history of hospitalizations for suspected robyn with psychosis) vs BPD vs major depression with impulsivity from co-occurring condition such as ADHD vs substance-induced or withdrawal (but denies recent substance use except for cannabis and UDS consistent with this). A: Mood continuing to improve, denies prominent depressive symptoms today, still having some anxiety but much better controlled. Tolerating medications and finding them helpful. Reviewed plan for Li level in the morning and then she desires discharge after that. Declines offer for support meeting. Agreeable to some outpatient referrals (declines CM, agreeable to PCP and psychiatry/therapy, reviewed some limitations due to her prior no show at past psychiatry appointment scheduled from previous admission). MNPR given recent level of impulsivity and mood lability Overall, I spent a total of 30 minutes on this case including meeting with the patient, reviewing the chart, nursing report, multidisciplinary team meeting, orders, and documentation. (1) Bipolar I disorder with mixed features: (2) Impulsive: (3) Depression with suicidal ideation: Plan 01/29/2024: Continue current medications and tx plan. 01/28/2024: Continue current medications and tx plan. Will check Li level on 01/2901/27/2024: The patient was admitted to the [facility] ([facility] mental [facility] unit) on q15 min checks (behavioral with suicide precautions) for safety. The patient will participate in group, recreational, and milieu therapies and will be offered additional individual and family sessions as clinically appropriate. -mirtazapine 15mg HS -Maramec carbonate 300mg HS -Wellbutrin XL 150mg daily -Mood Disorder Questionnaire and Rodolfo BPD questionnaire Inventory Assets Strengths: supportive relationships, willing to get treatment Needs: safety and stabilization, medication adjustment, additional coping skills, increased outpatient services Suicide Risk Level Suicide Risk Level: Moderate (q15 min suicide checks) (mood lability, significant depression, increased impulsivity but mood improving, now denies SI and feels safe in the hospital) Suicide Risk Level Comments: Risk Factors Assessment Male: No : Yes Do You Have Access To A Gun?: No Health Problems: No Mental Health Diagnoses: Yes Substance Use Disorders: No (alcohol use disorder in the past) Previous Attempt: No Family History of Suicide: No Previous Psychiatric Hospitalization: Yes Hopelessness: Yes Protective Factors Assessment Responsible for Young Children: Yes Employed: No Stable Relationships: Yes Supportive Family: Yes Interval History Identifying Information BRIT ROCA is a 23-year-old F who currently lives in [facility] her mother, brother, and 8 month old son, has a history of PTSD, RUDY, BPAD and was admitted on 01/26/24 18:26 on a 201 voluntary commitment for depression and impulsivity. Chief Complaint "I'm good". Review of Systems Sleep Information Total Hours of Sleep: 8.15 Sleep Comments: PRN Vistaril Meal Information Percent Meal Consumed - Breakfast: 100 Percent Meal Consumed - Lunch: 100 Percent Meal Consumed - Dinner: 100 Subjective Subjective Patient was seen & assessed and interval progress reviewed with treatment team nursing and social work. Not attending any groups, but watching movies and TV with peers. Slept well. Eating her meals. Today reports ongoing anxiety but less depression. Finding Vistaril somewhat helpful. Reviewed potential of increased anxiety with Wellbutrin, she doesn't feel this is contributing, feels anxiety is fairly stable in this controlled setting but often increases with environment/social/relationship stressors. Reviewed goal of therapy to help with this and eventually potential benefit from mirtazapine. Reviewed option to consider SSRI in the future in lieu of Wellbutrin, she prefers to remain on Wellbutrin as finding very helpful for her depression. Likes the Maramec and tolerating this well. Denies any side effects. Prefers to remain at low dose, discussed goal of eventually increasing as tolerated with outpatient provider. Sleeping well with mirtazapine. Agreeable with Maramec level in the morning. Physical Exam Psychiatric Orientation: alert and oriented x 3 Apperance: appropriately dressed and appropriately groomed Eye Contact: good eye contact Motor Behavior: no abnormal motor movements Speech: normal rate/rhythm/volume of speech Affect: + constricted affect Mood: + anxious mood Thought Process: linear/logical thought process and + concrete thought process Thought Content: reality based without delusions Suicidal Thoughts: denies suicidal thoughts, denies suicidal plan and denies suicidal intent Homicidal Thoughts: denies homicidal thoughts Hallucinations: no auditory hallucinations and no visual hallucinations Cognition: recent memory grossly intact, remote memory grossly intact, attention grossly intact and language grossly intact Estimated Intelligence: consistent with education level Insight: + fair insight Judgment: + limited judgement Vital Signs (Past 24 Hours) Last Vital Signs Temp 36.8 C 01/29/24 06:45 Pulse 61 01/29/24 06:46 Resp 16 01/29/24 06:45 BP 98/63 L 01/29/24 06:46 Pulse Ox 98 01/28/24 06:00 O2 Del Method Room Air 01/28/24 06:00 Results & Data ([facility]) Current Inpatient Medications Current Inpatient Medications: Current Inpatient Medications Acetaminophen (Acetaminophen 325 Mg Tab) 650 mg PO Q4H PRN PRN Reason: Headache or Minor Fever Stop: 02/25/24 18:05 Last Admin: 01/29/24 09:14 Dose: 650 mg Al Hydrox/Mg Hydrox/Simethicone (Aluminum/Magnesium Susp 30 Ml Udc) 30 ml PO Q4H PRN PRN Reason: GI Upset Stop: 02/25/24 18:05 Benzocaine (Benzocaine 20% (Orajel) 11.9 Gm Tube) 1 appln MT BID PRN PRN Reason: Pain Stop: 02/26/24 19:14 Last Admin: 01/27/24 19:33 Dose: 1 appln Bismuth Subsalicylate (Bismuth Subsalicylate Liqd 236 Ml) 15 ml PO PRN PRN PRN Reason: Loose Stool Stop: 02/25/24 18:05 Bupropion HCl (Bupropion Xl 150 Mg Tabcr) 150 mg PO QAM PAT Stop: 02/27/24 08:59 Last Admin: 01/29/24 09:00 Dose: 150 mg Hydroxyzine HCl (Hydroxyzine Hcl 25 Mg Tab) 50 mg PO HSZ PRN PRN Reason: Insomnia Stop: 02/25/24 18:05 Hydroxyzine HCl (Hydroxyzine Hcl 25 Mg Tab) 25 mg PO Q4H PRN PRN Reason: Anxiety Stop: 02/25/24 18:05 Last Admin: 01/29/24 09:14 Dose: 25 mg Maramec Carbonate (Maramec Carbonate 300 Mg Tab) 300 mg PO HS PAT Stop: 02/26/24 21:59 Last Admin: 01/28/24 20:56 Dose: 300 mg Magnesium Hydroxide (Magnesium Hydroxide Susp 30 Ml Udc) 30 ml PO DAILY PRN PRN Reason: Constipation Stop: 02/25/24 18:05 Mirtazapine (Mirtazapine Tab 15 Mg Tab) 15 mg PO HS [facility] Stop: 02/26/24 21:59 Last Admin: 01/28/24 20:56 Dose: 15 mg Miscellaneous (Remove Nicoderm Patch) 1 each N/A DAILY@0859 [facility] Stop: 02/27/24 08:58 Last Admin: 01/29/24 08:59 Dose: 1 each Nicotine (Nicotine 7 Mg/24 Hr Tdsy) 1 patch TD QAM [facility] Stop: 02/26/24 10:29 Last Admin: 01/29/24 09:00 Dose: 1 patch Nicotine Polacrilex (Nicotine Polacrilex 2 Mg Gum) 1 piece MT PRN PRN PRN Reason: Nicotine Withdrawal Symptoms Stop: 02/25/24 18:05 Last Admin: 01/28/24 15:39 Dose: 1 piece Sodium Chloride (Sodium Chloride 0.65% Na Soln 45 Ml ([place])) 1 - 2 sprays NA PRN PRN PRN Reason: Nasal Dryness/Congestion Stop: 02/25/24 18:05
[2024-01-29] MEDS: TROLAMINE SALICYLATE 10% CRM 255 APPLN/85 GM TUBE EXT PRN (12:35)
[2024-01-29 15:38] LABS: Marijuana Quant, GCMS Urine 608 ng/mL (<5)
[2024-01-29] MEDS: hydrOXYzine HCl 25 MG TAB PO PRN (21:40)
--- NOTE | 2024-01-30 09:14 | Discharge Summary ---
Date of Service January 30, 2024 History of Present Illness Una presents for worsening depression, mood swings and impulsivity that she fears could put herself and others at risk. She is very tearful in discussing recent symptoms including feeling numb and depressed in the context of multiple psychosocial stressors including her fiance being in care home, she also lost her job (about a month ago) and car (a couple weeks ago) due to "just doing impulsive things". She identifies impulsive things in the middle of November into December as : "I quit my job and moved to [place] with my fiance but didn't have any family and no finances saved". And since that time with ongoing mood lability and depression. She describes: "I just been feeling really sad. Everything feels like I'm just so f*cking useless and such a disappointment, everything just feels pretty pointless." Over the last two weeks has been sleeping intermittently (struggling to fall asleep), low energy, low motivation, hopelessness, helplessness, anhedonia, loneliness, and intermittent SI. Also gets overwhelming anxiety and has panic attacks (has been occurring a few times per week). She is not currently prescribed any psychiatric medications. Psychiatric ROS notable for history of symptoms of robyn including high energy, not sleeping, "my brain was just go go go", longest period lasted for months, recalls getting "a little bit disoriented and less of myself". History of psychosis, twice, both required hospitalizations during episode of robyn. Endorses symptoms of PTSD including hypervigilance, anxiety about things that are never going to happen, negative self-talk. No history or current symptoms of OCD nor self-harm nor eating disorder. Physical Exam Vital Signs (Past 24 Hours) Last Vital Signs Temp 36.9 C 01/30/24 06:36 Pulse 65 01/30/24 06:37 Resp 16 01/30/24 06:36 BP 100/69 01/30/24 06:37 Pulse Ox 98 01/28/24 06:00 O2 Del Method Room Air 01/28/24 06:00 Principal Diagnosis Bipolar Affective Disorder, current depressive episode Psychiatric Data See daily stay summary. In short, patient was engaged with the social/therapeutic milieu of the unit, safety was maintained and the patient was cooperative with care. Medication changes included initiation of Opp for mood stabilization, mirtazapine for insomnia and depression, Wellbutrin for depression and Vistaril prn for anxiety and they tolerated this well. Baseline labs of thyroid function, kidney function, weight, electrolytes, CBC, and UA were preformed (see below). Opp level at discharge was 0.2. Recommend repeat lithium level, thyroid function and kidney function labwork after next dose increase, at 6 months and then annually or anytime symptoms arise. She declined a support session, safety plan was completed prior to discharge. They participated in safety planning and in discussions about ways to seek support and recognizing warning signs and utilizing coping skills. Reviewed ways to have their safety plan and contacts easily available should thoughts of SI re-emerge in the future. Reviewed importance of seeking emergency care should SI intensify, worsen or should they feel unsafe in the future which they agree to do. On the day of discharge they stated their mood was "excited to go home" and remained future-oriented including spending time with her mom and baby son and engaging in aftercare appointments for primary care, therapy and psychiatry. Day of Discharge Assessment Today the patient voices readiness for discharge. They note improvement in mood and anxiety. They deny thoughts of harm to self or others. Thoughts are organized and they are clinically improved from admission. There is no evidence of psychosis. They improved in the hospital with support and medication adjustments. They agree to take medications as prescribed and keep follow-up a ppointments. At the time of the discharge they are deemed to be stable and appropriate for outpatient level of care. They are not deemed to be at imminent risk of harm to self or others. They are aware of emergency and crisis services. Knows to call 911 or go to nearest emergency care center if in a crisis which cannot be handled as an outpatient. Suicide risk assessment: Acute risk is low given improvement in mood and denial of SI, lack of access to lethal means, plan to avoid substance use, improvement in sleep, hopefulness. Chronic risk is moderate given some non-modifiable risk factors: psychiatric co- morbid diagnoses periods of impulsivity emotional reactivity prior psychiatric hospitalizations mood disorder but also with protective factors including good s ocial support sense of responsibility to family and social supports outpatient care in place positive coping skills positive problem solving. Counseled on ways to reduce acute and chronic risk including engaging with outpatient providers, using safety plan if needed, utilizing supports, taking medication, and using coping skills. Modifiable risk factors of SI, mood lability and depression were addressed during hospitalization through development of new coping skills, safety planning, and medication adjustments. Discharge physical exam: See admission H&P, MSE per above and day of discharge summary. Overall, I spent a total of 35 minutes on this case including meeting with the patient, reviewing the chart, nursing report, multidisciplinary team meeting, discharge orders, anticipatory planning, safety planning, risk assessment and documentation. Transition of Care Transition Of Care Record: was reviewed with the patient Advance Directives Advance Directives Information Provided: Yes Advance Directives: No Mental Health Advance Directive: No Advance Directives on File: No Living Will: No Power of [place]: No Advance Directives Reason:: Declines as Mental Health Visit. Suicide Risk Level Suicide Risk Level: Low (q15 min observation checks) Suicide Risk Level Comments: Risk Factors Assessment Male: No : Yes Do You Have Access To A Gun?: No Health Problems: No Mental Health Diagnoses: Yes Substance Use Disorders: No (alcohol use disorder in the past) Previous Attempt: No Family History of Suicide: No Previous Psychiatric Hospitalization: Yes Hopelessness: No Protective Factors Assessment Responsible for Young Children: Yes Employed: No Stable Relationships: Yes Supportive Family: Yes Discharge Data Lab Results 01/26/24 01/27/24 13:50 13:44 WBC 13.53 H RBC 5.04 Hgb 14.8 Hct 44.3 MCV 87.9 MCH 29.4 MCHC 33.4 RDW Std Deviation 41.9 RDW Coeff of Jatinder 13.1 Plt Count 280 MPV 10.2 Immature Gran % (Auto) 0.4 Neut % (Auto) 69.9 Lymph % (Auto) 21.9 Crane % (Auto) 6.4 Eos % (Auto) 1.0 Baso % (Auto) 0.4 Neut # (Auto) 9.47 H Lymph # (Auto) 2.96 Crane # (Auto) 0.87 H Eos # (Auto) 0.13 Baso # (Auto) 0.05 Immature Gran # (Auto) 0.05 Sodium 137 Potassium 4.1 Chloride 101 Carbon Dioxide 29 Anion Gap 7 BUN 13 Creatinine 0.80 Est Cr Clr Drug Dosing 88.9 Est GFR ( Amer) 118.8 Est GFR (Non-Af Amer) 102.5 BUN/Creatinine Ratio 16.3 Glucose 91 Calcium 10.1 Total Bilirubin 0.5 AST 19 ALT 15 Alkaline Phosphatase 103 Total Protein 7.9 Albumin 4.9 Globulin 3.0 Albumin/Globulin Ratio 1.6 TSH 0.592 Urine Color Yellow Urine Appearance Clear Urine pH 7.5 Ur Specific [place] 1.017 Urine Protein 2+ H Urine Glucose (UA) Negative Urine Ketones Negative Urine Blood Negative Urine Nitrite Negative Urine Bilirubin Negative Urine Urobilinogen Negative Ur Leukocyte Esterase Negative Urine WBC (Auto) 0-5 Urine RBC (Auto) 0-2 U Hyaline Cast (Auto) 0-2 U Epithel Cells (Auto) 3-5 H Urine Bacteria (Auto) None Seen Urine Test Negative Salicylates < 3.0 L Urine Opiates Screen Neg Ur Methadone, Qual Neg Urine Fentanyl Screen Neg Acetaminophen < 3 L Urine Barbiturates Neg Ur Phencyclidine (PCP) Neg U Amphetamin/Meth Scrn Neg MDMA (Ecstasy) Screen Neg U Benzodiazepines Scrn Neg Ur Cocaine Metabolite Neg U Marijuana (THC) Screen Pos H U Marijuana THC Carboxy 608 H Drug Screen Comment SEE NOTE Ethyl Alcohol mg/dL < 10.0 SARS-CoV-2, RNA, NAAT NEGATIVE Hospital Course (1) Bipolar I disorder with mixed features: (2) Impulsive: (3) Depression with suicidal ideation: (4) Bipolar affective disorder, currently depressed, moderate: Plan 01/29/2024: Continue current medications and tx plan. 01/28/2024: Continue current medications and tx plan. Will check Li level on 01/2901/27/2024: The patient was admitted to the [facility]) on q15 min checks (behavioral with suicide precautions) for safety. The patient will participate in group, recreational, and milieu therapies and will be offered additional individual and family sessions as clinically appropriate. -mirtazapine 15mg HS -Opp carbonate 300mg HS -Wellbutrin XL 150mg daily -Mood Disorder Questionnaire and Rodolfo BPD questionnaire Mental Health & Subst Abuse Tx Therapist Name of Therapist: Christianoascentifyderick Noyola - Faizan Keller Therapist's Date of Therapist Appointment: 02/14/24 Time of Therapist Appointment: 12:30 PM Therapy Appointment Comment: [address], [address], [place] [address] Post Discharge Appointments Primary Care Physician Name Of Family Doctor/PCP: Dr. Gil [facility] Date of Future Appointment with PCP: 02/06/24 Time of Appointment with PCP: 2:00 PM Provider Appointment Comment: [address] [facility] [address], [place] [address] Please Arrive at 1:45 PM Discharge Plan Discharge Items Patient Disposition: Home - Self-Care Reason For Visit: UNSPECIFIED MOOD DISORDER Discharge Diagnosis: Bipolar Affective Disorder, current depressive episode Activity: Resume your previous activity Non-emergency contact: Primary Care Provider and Therapist Call non-emergency contact if: you have any medication questions and your symptoms worsen Follow-up/Referrals: PCP,NO [Primary Care Provider] - Diet: Regular Addtl Attending Provider Instructions: Optional mobile apps: -Suicide safety plan -Virtual Hope Box SPECIAL CARE INSTRUCTIONS: 1. Follow through with your scheduled aftercare appointments. If unable to keep an appointment, please call to reschedule. 2. Take your medication only as prescribed. Medication should not be changed or stopped without the approval of your doctor. In the event of worsening symptoms or concerns about side effects, contact your doctor immediately. 3. Utilize new healthy coping skills, anger management skills, and stress management skills learned during your hospitalization. Journal feelings and process them with a support person. Identify stressors or situations that may result in relapse, deterioration or inappropriate behaviors and develop a plan to deal with those issues. 4. If your coping skills are ineffective and you are in crisis, contact your outpatient providers for direction. If unable to reach your providers, please call the [facility] CRISIS LINE AT , go to the [facility] walk-in center at [address], [place], or go to the closest Emergency Room. 5. Avoid alcohol and un-prescribed drugs. 6. You have been provided with the Mental Health Advance Directives Pamphlet for your review. 7. Your condition is stable for discharge to outpatient level of care, but recovery is an ongoing process. Ifthoughts to harm yourself or others return, follow the safety plan developed during your stay. Planning for a safe return home includes securing weapons. Our treatment team recommends weaponsbe removed from the home until your outpatient provider reassesses your progress. In rare cases where the items themselvescannot be removed, guns and ammunitionshould be secured separatelyand keys stored by a reliable personoutside of the home. If you were admitted on an involuntary commitment, the police or other legal authorities may be involved in this process. AFTERCARE APPOINTMENTS: * Please call your insurance company prior to your scheduled appointment to confirm your aftercare providers are covered. Take your insurance information to your appointments. WHO TO CALL AND WHEN: Medical Emergencies: For questions or emergencies related to your hospital stay, please contact the Inpatient Behavioral Health Unit at [phone]. A trading manager is on-call 16/01 for the Behavioral Health Unit for emergencies At any time you feel your situation is an emergency, you may also call 911 immediately. [place] Crisis Hotline: 598 Pending Studies at Discharge: Yes (Li level-patient confirmed contact information, will be called with result) Stand-Alone Forms: My [facility] [employer], Smoking Cessation Medications and DC Order Prescriptions: New hydroxyzine HCl 25 mg Tablet 25 mg PO BID PRN (Reason: anxiety) 30 Days Qty: 60 0RF mirtazapine 15 mg Tablet 15 mg PO HS 30 Days Qty: 30 0RF lithium carbonate 300 mg Tablet 300 mg PO HS 30 Days Qty: 30 0RF bupropion HCl 150 mg Tablet Extended Release 24 Hr 150 mg PO QAM 30 Days Qty: 30 0RF Discharge Orders: Discharge Order (Routine); Ordered 01/30/24 Ordered By: Marion Ch/Other Patient Handouts: Understanding Bipolar Disorder Admission Data Admit Date/Time: 01/26/24 18:26 Attending Provider: Marion Ponce Admit Provider: Marion Ponce Primary Care Provider: PCP,NO Other Interventions: Discharge Summary Assessment (RN) Last Done: 01/30/24 09:38 PSY Interdisciplinary Discharge Planning Last Done: 01/29/24 12:47 Coding Level of Care Code 26208 D/C day mgmt > 30 min Diagnoses Bipolar I disorder with mixed features F31.9 Impulsive R45.87 Depression with suicidal ideation F32.A; R45.851 Bipolar affective disorder, currently depressed, moderate F31.32
== END 2024-01-30 10:50 | disposition home or self-care (01) | DRG 885 ==
LOC: ED 13:21 → 3S 18:26

== ENCOUNTER 2024-04-12 15:42 | Inpatient (IN) ==
[2024-04-12 16:30] LABS: Pregnancy Test, Urine Negative (Negative)
[2024-04-12 16:36] LABS: Appearance Urine Clear (Clear); Bacteria Urine Automated None Seen (None Seen); Bilirubin Urine Negative (Negative); Blood Urine 1+ (Negative); Cast Urine Automated 0-2 /lpf (0-2); Color Urine Yellow; Epithelial Cell Urine Auto 0-2 /hpf (0-2); Glucose Urine UA Negative (Negative); Ketones Urine Negative (Negative); Leukocyte Esterase Urine Trace (Negative); Nitrite Urine Negative (Negative); Protein Urine Negative (Negative); RBC Urine Automated 0-2 /hpf (0-2); Specific Gravity Urine 1.003 (1.000-1.030); Urobilinogen Urine Negative (Negative); WBC Urine Automated 0-5 /hpf (0-5)
[2024-04-12 17:36] LABS: Basophils # (auto) 0.06 K/uL (0.00-0.20); Basophils % (auto) 0.5 %; Eosinophils # (auto) 0.08 K/uL (0.00-0.50); Eosinophils % (auto) 0.7 %; Hematocrit (blood only) 38.7 % (37.0-47.0); Immature Granulocytes # (auto) 0.05 K/uL (0.01-0.20); Immature Granulocytes % (auto) 0.4 %; Lymphocytes # (auto) 1.97 K/uL (1.20-3.40); Lymphocytes % (auto) 16.6 %; Mean Corpuscular Hemoglobin 29.3 pg (25.0-34.0); Mean Corpuscular Hgb Conc 33.6 g/dL (32.0-36.0); Mean Corpuscular Volume 87.4 fL (80.0-100.0); Mean Platelet Volume 9.7 fL (9.4-12.4); Monocytes # (auto) 0.76 K/uL (0.11-0.59); Monocytes % (auto) 6.4 %; Neutrophils # (auto) 8.93 K/uL (1.40-6.50); Neutrophils % (auto) 75.4 %; Platelet Count 280 K/uL (130-400); RDW Coefficient of Variation 12.7 % (11.5-14.5); RDW Standard Deviation 41.1 fL (36.4-46.3); Red Blood Count 4.43 M/uL (4.20-5.40); White Blood Count 11.85 K/ul (4.8-10.8)
[2024-04-12 17:48] LABS: Lithium 0.7 mmol/L (0.6-1.2)
[2024-04-12 17:53] LABS: Albumin Globulin Ratio 1.5 (0.9-2); Albumin Level 4.7 gm/dl (3.4-5.0); BUN Creatinine Ratio 12.8 (10-20); Bilirubin,Total 0.3 mg/dl (0.2-1.0); Calcium 9.6 mg/dl (8.6-10.3); Creatinine Clr Calc Pharmacy 78.9 ml/min; Globulin 3.1 gm/dl (2.5-4.0); Potassium 3.6 mmol/L (3.5-5.1); Total Protein 7.8 gm/dl (6.0-8.3)
[2024-04-12 17:58] LABS: Acetaminophen < 3 ug/ml (10-30); Salicylate < 3.0 mg/dl (3.0-30)
[2024-04-12 18:08] LABS: Thyroid Stimulating Hormone 1.644 uIu/ml (0.300-4.500)
--- NOTE | 2024-04-12 18:08 | Emergency Department Note ---
Impression & Plan Manic bipolar I disorder, COVID-19 ED Provider Note Provider: Danish Zhang MD DATE OF SERVICE: 04/12/2024 CHIEF COMPLAINT: Evaluation, manic HISTORY OF PRESENT ILLNESS: Patient is a 23-year-old female history of bipolar presenting here today encouraged, by family. Patient over the past week is reportedly's been feeling more manic. Not sleeping much and using some caffeine. States she is not really having hallucinations or wanting to harm her self or others but has felt somewhat depressed and sad. Patient states she does not feel like she wants to kill her self or anyone else. Does have a history of bipolar and states it feels like she began become manic. Her son's been sick over the past week and she been quite stressed with this. He is less [id number]. Her mother is watching the child now. Patient states she has had maybe a little bit of a sniffle but denies any significant fevers, difficulty breathing, abdominal pain, chest pain, or myalgias. Has been trying to quit smoking recently. Has been in contact with outpatient providers at [facility] point in the also recommended she be referred. Patient has a history of inpatient psychiatric stays last in January. Patient mostly complains of medication particular last few days before then sort of scattered with her psychiatric medications. PAST MEDICAL HISTORY: As noted above MEDICATIONS: Reviewed no medications the patient states compliance the last several days SOCIAL HISTORY: Trying to work to quit smoking PHYSICAL EXAM: GENERAL: alert and oriented in no acute distress on bed Head: normocephalic and atraumatic EYES: No injection, discharge or icterus. EOMI. NECK: Trachea midline. Good range of motion ENT: Mucous membranes pink and moist. LUNGS: Airway patent. No retractions. Breath sounds clear with good air entry bilaterally. HEART: Regular rate and rhythm. No chest wall tenderness SKIN: Acyanotic, warm, dry, without rashes EXTREMITIES: Without swelling, tenderness or deformity NEUROLOGICAL: No focal deficits. No aphasia. No facial droop or slurred speech. Ambulatory. Psych: Manic with some pressured speech. Denies SI or HI. Not responding to external stimuli. Patient's laboratory studies and imaging reviewed. Differential includes Mood disorder, infection, hypoglycemia, electrolyte abnormalities, cardiac sources, intracerebral event, toxicologic, trauma, neurologic, as well as other pathologies. IMPRESSION/MEDICAL DECISION MAKING: Patient does appear somewhat manic. Borderline fever here upon arrival. Borderline tachycardia. Does not appear toxic and easily ambulatory here. No significant respiratory distress or respiratory complaints of the maybe a little bit of a sore throat. Son has been ill. COVID test completed and positive. Likely ill with URI symptoms from this. Does not appear in any extremis. Patient blood work otherwise checked and without severe abnormalities; no significant anemia with a borderline leukocytosis 11.8. No findings concerning for UTI. Negative test. No significant lecture light DC or signs of renal dysfunction. Given that heating patch and gum to help withdrawal symptoms and given that she is coming to the hallway and walking around with pressured speech and seems somewhat manic was given some Zyprexa. She wishes for inpatient treatment. Seen with case management. Given was from patient treatment appears to be some robyn, complicated by the fact that were COVID-positive will discuss with the hospital for further observation here with psychiatric consultation as primary psychiatric placement her COVID-positive status is difficult. Discussed with the hospitalist for further care here. Given additional Ativan to help calm her and she was still somewhat manic and agitated after receiving Zyprexa. DIAGNOSIS: COVID-19, robyn DISPOSITION: Hospitalist will evaluate Patient was agreeable with this plan. Past Med/Surg History Problem List (Updated 04/12/24 @ 21:13 by Danish Zhang M.D.) COVID-19 (Acute) Manic bipolar I disorder (Acute) Bipolar affective disorder, currently depressed, moderate Normal course Tobacco smoking affecting Placental abruption in third trimester Hemorrhage affecting in third trimester ADD (attention deficit disorder) No significant past medical history Medical History Robyn Marijuana use during Bipolar disorder No pertinent family history Surgical History No pertinent past surgical history Social History Smoking Status: Current every day smoker Tobacco Type: Cigarettes Second Hand Exposure: Yes; Do You Dip or Chew Tobacco: No; Hx Alcohol Use: No Hx Substance Use: Yes Last Used Substance Other:: Marijuana daily- pt states she has medical card (unable to provide) Preferred Language: Thai Communication Ability: Effective 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 Beliefs That Will Affect Care: None marital status: Single Current Living Situation Comment: Boyfriend- Gary Moreno Feels Safe at Home: Yes Gender Identity: Female Assistive Devices: None Allergies Allergies Allergy/AdvReac Type Severity Reaction Status Date / Time No Known Allergies Allergy Verified 04/12/24 16:33 Home Meds Home Medications Medication Instructions Recorded Confirmed bupropion HCl 150 mg 24 hr tablet, 150 mg PO DAILY 04/12/24 04/12/24 extended release lithium carbonate 450 mg 450 mg PO DAILY 04/12/24 04/12/24 tablet,extended release Results & Data (ED) Vital Signs Vital Signs - 24 hr 04/12/24 15:57 04/12/24 16:50 04/12/24 18:52 Temperature 37.6 C H 37 C Temperature Source Temporal Artery Scan Oral Pulse Rate 143 H Pulse Rate [Right Finger] 102 H 112 H Pulse Rhythm [Right Finger] Regular Pulse Strength [Right Finger] Normal Respiratory Rate 24 20 18 Respiratory Effort / Characteristics Non-Labored Spontaneous Respiratory Depth Normal Normal Respiratory Pattern Regular Blood Pressure [Right Arm] 130/64 130/81 Blood Pressure Mean [Right Arm] 86 97 Pulse Oximetry 96 99 98 Oxygen Delivery Method Room Air Room Air Sepsis Recent Fever Within 48 Hours No Sepsis New/Unexplained Change in Mental Status No Sepsis Action Taken by Nursing No Action Required 04/12/24 20:00 04/12/24 20:40 Temperature Temperature Source Pulse Rate 91 H Pulse Rate [Right Finger] 93 H Pulse Rhythm [Right Finger] Pulse Strength [Right Finger] Respiratory Rate 18 Respiratory Effort / Characteristics Non-Labored Spontaneous Respiratory Depth Normal Respiratory Pattern Regular Blood Pressure [Right Arm] 120/88 Blood Pressure Mean [Right Arm] 98 Pulse Oximetry 97 Oxygen Delivery Method Room Air Sepsis Recent Fever Within 48 Hours Sepsis New/Unexplained Change in Mental Status Sepsis Action Taken by Nursing Laboratory Data 04/12/24 17:21 04/12/24 17:21 Lab Results 04/12/24 04/12/24 04/12/24 Range/Units 17:15 17:21 Unknown WBC 11.85 H (4.8-10.8) K/ul RBC 4.43 (4.20-5.40) M/uL Hgb 13.0 (12.0-16.0) g/dl Hct 38.7 (37.0-47.0) % MCV 87.4 (80.0-100.0) fL MCH 29.3 (25.0-34.0) pg MCHC 33.6 (32.0-36.0) g/dL RDW Std Deviation 41.1 (36.4-46.3) fL RDW Coeff of Jatinder 12.7 (11.5-14.5) % Plt Count 280 (130-400) K/uL MPV 9.7 (9.4-12.4) fL Immature Gran % (Auto) 0.4 % Neut % (Auto) 75.4 % Lymph % (Auto) 16.6 % [place] % (Auto) 6.4 % Eos % (Auto) 0.7 % Baso % (Auto) 0.5 % Neut # (Auto) 8.93 H (1.40-6.50) K/uL Lymph # (Auto) 1.97 (1.20-3.40) K/uL [place] # (Auto) 0.76 H (0.11-0.59) K/uL Eos # (Auto) 0.08 (0.00-0.50) K/uL Baso # (Auto) 0.06 (0.00-0.20) K/uL Immature Gran # (Auto) 0.05 (0.01-0.20) K/uL Sodium 134 L (136-145) mmol/L Potassium 3.6 (3.5-5.1) mmol/L Chloride 104 (98-107) mmol/L Carbon Dioxide 22 (21-32) mmol/L Anion Gap 8 (3-11) BUN 11 (6-23) mg/dl Creatinine 0.86 (0.6-1.2) mg/dl Est Cr Clr Drug Dosing 78.9 ml/min eGFR 96.09 BUN/Creatinine Ratio 12.8 (10-20) Glucose 93 (70-99(Fasting)) mg/dl Calcium 9.6 (8.6-10.3) mg/dl Total Bilirubin 0.3 (0.2-1.0) mg/dl AST 20 (13-39) U/L ALT 17 (7-52) U/L Alkaline Phosphatase 67 (34-104) U/L Total Protein 7.8 (6.0-8.3) gm/dl Albumin 4.7 (3.4-5.0) gm/dl Globulin 3.1 (2.5-4.0) gm/dl Albumin/Globulin Ratio 1.5 (0.9-2) TSH 1.644 (0.300-4.500) uIu/ml Urine Color Yellow Urine Appearance Clear (Clear) Urine pH 6.0 (4.5-7.5) Ur Specific [place] 1.003 (1.000-1.030) Urine Protein Negative (Negative) Urine Glucose (UA) Negative (Negative) Urine Ketones Negative (Negative) Urine Blood 1+ H (Negative) Urine Nitrite Negative (Negative) Urine Bilirubin Negative (Negative) Urine Urobilinogen Negative (Negative) Ur Leukocyte Esterase Trace H (Negative) Urine WBC (Auto) 0-5 (0-5) /hpf Urine RBC (Auto) 0-2 (0-2) /hpf U Hyaline Cast (Auto) 0-2 (0-2) /lpf U Epithel Cells (Auto) 0-2 (0-2) /hpf Urine Bacteria (Auto) None Seen (None Seen) Urine Test Negative (Negative) Salicylates < 3.0 L (3.0-30) mg/dl Urine Opiates Screen Neg (Neg) Ur Methadone, Qual Neg (Neg) Urine Fentanyl Screen Neg (Neg) Acetaminophen < 3 L (10-30) ug/ml Urine Barbiturates Neg (Neg) Ur Phencyclidine (PCP) Neg (Neg) U Amphetamin/Meth Scrn Neg (Neg) MDMA (Ecstasy) Screen Pos H (Neg) U Benzodiazepines Scrn Neg (Neg) [place] 0.7 (0.6-1.2) mmol/L Ur Cocaine Metabolite Neg (Neg) U Marijuana (THC) Screen Pos H (Neg) Ethyl Alcohol mg/dL < 10.0 (<10.0) mg/dl SARS-CoV-2, RNA, NAAT POSITIVE A (NEGATIVE) Administered Medications Potassium Chloride/Sodium Chloride (Normal Saline W/20 Meq Kcl) 20 meq in 1,000 mls @ 100 mls/hr IV .Q10H ONE Stop: 04/13/24 05:54 Last Admin: 04/12/24 20:34 Dose: 100 mls/hr Documented By: HUMZA Nicotine (Nicotine 21 Mg/24 Hr Tdsy) 1 patch TD QAM PAT Stop: 05/12/24 17:59 Last Admin: 04/12/24 18:15 Dose: 1 patch Documented By: MAJOR Nicotine Polacrilex (Nicotine Polacrilex 2 Mg Gum) 1 piece MT Q2H PRN PRN Reason: withdrawal Stop: 05/12/24 17:58 Last Admin: 04/12/24 18:15 Dose: 1 piece Documented By: MAJOR Discontinued Medications Olanzapine (Olanzapine Zydis 5 Mg Orally Dis. Tab) 5 mg PO ONCE ONE Stop: 04/12/24 18:03 Last Admin: 04/12/24 18:14 Dose: 5 mg Documented By: MAJOR Potassium Chloride (Potassium Chloride Crtab 20 Meq Tabcr) 40 meq PO NOW STA Stop: 04/12/24 19:55 Last Admin: 04/12/24 20:34 Dose: 40 meq Documented By: HUMZA Discharge Plan Visit Data Chief Complaint: Mental Health Evaluation Stated Complaint: [facility] ED Provider: Danish Zhang Discharge Problem: Manic bipolar I disorder, COVID-19 Patient Disposition: Being Evaluated by Hospitalist Forms Stand Alone Forms: [facility], Suicide Prevention Resources Prescriptions Prescriptions: No Action lithium carbonate 450 mg tablet extended release 450 mg PO DAILY bupropion HCl 150 mg tablet extended release 24 hr 150 mg PO DAILY Referrals Referrals: Gail Gil MD [Primary Care Provider] -
[2024-04-12] MEDS: OLANZapine ZYDIS 5 MG ORALLY DIS. TAB PO ONE (18:14)
[2024-04-12] MEDS: NICOTINE 21 MG/24 HR TDSY TD SCH (18:15)
[2024-04-12] MEDS: NICOTINE POLACRILEX 2 MG GUM MT PRN (18:15)
[2024-04-12 18:31] LABS: Amphetamines+Metham, Urine Neg (Neg); Barbiturates, Urine Neg (Neg); Benzodiazepine, Urine Neg (Neg); Cocaine, Urine Neg (Neg); Fentanyl, Urine Neg (Neg); MDMA (Ecstacy), Urine Pos (Neg); Marijuana, Urine Pos (Neg); Methadone, Urine Neg (Neg); Opiate, Urine Neg (Neg); Phencyclidine, Urine Neg (Neg)
[2024-04-12] MEDS: POTASSIUM CHLORIDE CRTAB 20 MEQ TABCR PO STA (20:34)
[2024-04-12] MEDS: NSS + 20MEQ KCL 20 MEQ/1,000 ML BAG IV ONE (20:34)
--- NOTE | 2024-04-12 20:34 | History & Physical Report ---
Date of Service April 12, 2024 Assessment & Plan (1) Manic bipolar I disorder: (2) COVID-19: Plan: HPI, ROS, PE, med rec completed by myself, Sari Fatima PA-C Assessment and Plan per Dr Magaña. See addendum History of Present Illness Chief Complaint: "feeling manic" Primary Care Provider: Gail Gil MD Patient is a 23-year-old female with PMH bipolar disorder, anxiety, depression, presented to ER with c/o "feeling manic". Per inpatient chart review patient had recent psychiatric hospital admission 01/26/24-01/30/24 here at [facility] for bipolar, impulsivity, depression, anxiety, SI and was discharged on bupropion, lithium, mirtazapine, hydroxyzine prn. Patient states that she continued on bupropion and lithium since discharge but a couple of weeks ago she stopped her meds and missed a couple of doses as she felt she didn't need them. She reports that missing her medications is typically a sign that she needs psychiatric help. It is somewhat difficult to obtain history secondary to patient's disorganized thoughts. States has been sleeping and doesn't feel lack of sleep like her prior manic episodes. She does state she has some "singular thoughts that come so fast I don't know what they are". She states recently she has lost interest in doing things she enjoys like looking at her phone and coloring. She has lost appetite and eating one meal a day. She states she is continuing to care for her 10 month old baby. Patient states she sought help today as her mother is willing to care for her baby while she seeks treatment. She reports living with her brother. States her brother has been annoying her with hearing sounds on his phone and adjusting the thermostat. She denies suicidal ideations but states that she has been "picking at her lips and licking her lips at attempts of disfigurement". She denies feeling ill but has had a cough since attempting to quit smoking cigarettes and marijuana recently. She states she started smoking 1ppd again and "smoking alot of pot" again. Denies rhinorrhea, sore throat, SOB, CP, fever/chills. She denies child or others with URI symptoms. Denies N/V/D/C, BOWLES, dizziness, syncope, vision changes, neck pain, CP, SOB, palpitations, hemoptysis, otalgia, rhinorrhea, abdominal pain, paresthesias, weakness, extremity edema, rashes, urinary symptoms. Patient denies ETOH use. +Marijuana use but denies other drug use. Today in ER urine drug screen + MDMA, marijuana + COVID-19 Allergies Allergy/AdvReac Type Severity Reaction Status Date / Time No Known Allergies Allergy Verified 04/12/24 16:33 Home Medications Medication Instructions Recorded Confirmed Type bupropion HCl 150 mg 24 hr tablet, 150 mg PO HS 04/12/24 04/12/24 History extended release lithium carbonate 450 mg 450 mg PO DAILY 04/12/24 04/12/24 History tablet,extended release Past Med/Surg History Problem List COVID-19 (Acute) Manic bipolar I disorder (Acute) Bipolar affective disorder, currently depressed, moderate Normal course Tobacco smoking affecting Placental abruption in third trimester Hemorrhage affecting in third trimester ADD (attention deficit disorder) No significant past medical history Medical History Depression with suicidal ideation Mood disorder Impulsive Bipolar I disorder with mixed features Hattie Marijuana use during Bipolar disorder No pertinent family history Surgical History No pertinent past surgical history Social History Smoking Status: Current every day smoker Tobacco Type: Cigarettes Cigarettes Per Day: 3; Second Hand Exposure: No; Do You Dip or Chew Tobacco: No; Tobacco Cessation Education Requested by Patient: No Hx Alcohol Use: No Hx Substance Use: Yes Last Used Substance: Just Prior to Arrival Last Used Substance Other:: Marijuana daily- pt states she has medical card (unable to provide) Preferred Language: Latvian Communication Ability: Effective Intraoperative Neuro Tech Required: No Beliefs That Will Affect Care: None marital status: Single Current Living Situation: Family Current Living Situation Comment: lives with brother Other Information That Helps Us Care for You: No Feels Safe at Home: Yes Safety Concerns: Feels Safe At This Time Gender Identity: Female Assistive Devices: None Review of Systems Review of Systems: All systems reviewed & are unremarkable except as noted in HPI & below Physical Exam Physical Exam: General: no distress, Thin female Head: normocephalic, atraumatic Eyes: conjunctiva non-injected, anicteric ENT: normal inspection external ears, nose, mucous membranes moist Neck: supple, trachea midline Lungs: clear, no respiratory distress, no wheezing/rhonchi/rales CV: RRR, no murmur, no pretibial edema Abd: normal BS, soft, non-tender Ext: no cyanosis, no calf tenderness Neuro: A&O x 3, no focal deficits noted, normal affect Skin: warm, dry Results & Data Results & Data Vital Signs (Past 12 Hours) Vital Signs Temp Pulse Pulse Resp BP Pulse Ox O2 Del Method 04/12/24 18:52 37 C 112 H 18 130/81 98 04/12/24 16:50 102 H 20 130/64 99 Room Air 04/12/24 15:57 37.6 C H 143 H 24 96 Room Air Laboratory Results Short CBC 04/12/24 Range/Units 17:21 WBC 11.85 H (4.8-10.8) K/ul Hgb 13.0 (12.0-16.0) g/dl Hct 38.7 (37.0-47.0) % Plt Count 280 (130-400) K/uL BMP 04/12/24 17:21 Sodium 134 L Potassium 3.6 Chloride 104 Carbon Dioxide 22 BUN 11 Creatinine 0.86 Glucose 93 Calcium 9.6 Liver Function 04/12/24 Range/Units 17:21 Total Bilirubin 0.3 (0.2-1.0) mg/dl AST 20 (13-39) U/L ALT 17 (7-52) U/L Alkaline Phosphatase 67 (34-104) U/L Albumin 4.7 (3.4-5.0) gm/dl Urine 04/12/24 Range/Units Unknown Urine Color Yellow Urine Appearance Clear (Clear) Urine pH 6.0 (4.5-7.5) Ur Specific [place] 1.003 (1.000-1.030) Urine Protein Negative (Negative) Urine Glucose (UA) Negative (Negative) Supervising Physician Co-Signing Physician Notes IM ATTENDING : Patient seen and examined. History obtained from patient and records. Concur with salient points upon review of preceding documentation by Ms. Sari García PA-C. I take responsibility for plan of care below. FINAL ASSESSMENT AND PLAN as follows : Hattie history of bipolar disorder, patient currently denies suicidality, patient with episodic agitation at the ER COVID-19 illness Tachycardia secondary to illness Ongoing tobacco abuse Admit to medical telemetry given tachycardia IVF Zyprexa as needed agitation Psych consult re: hattie Supportive management for COVID-19 illness Nicotine patch DVT prophylaxis. Lovenox subcu Full code Text document was generated using [employer] voice recognition software. It may contain grammatical or spelling errors. Kindly contact undersigned for clarification of any documentation item in question.
[2024-04-12 21:40] LABS: Magnesium 2.2 mg/dl (1.7-2.4)
[2024-04-12] MEDS ORDERED: hydrOXYzine HCl 10 MG TAB PO PRN (22:09)
[2024-04-12] MEDS ORDERED: OLANZapine 10 MG/2.1 ML SDV IM PRN (22:09)
[2024-04-13] MEDS: MELATONIN 3 MG TAB PO PRN (02:31)
--- OUTSIDE RECORDS SUMMARY | 2024-04-13 05:29 | External Medical Summary | Summary of Care ---
Author Name Unknown Organization [facility] Address [address] [place] [address] Phone [phone] Care Team Providers Care Patch Washer Name Role Phone Gail Gil MD Primary Care Provid er Reason for Referral * Evaluate & Treat - Unlimited Visits (Within 30 days (routine)) - Pending Review Specialty Diagnoses / Procedures Referred By Alyssa jason Referred To Contact Psychiatry Diagnoses Bipolar 1 disorder (HCC) Anxiety Depression with suicidal ideation Gail Gil MD [address] [place] [address] Referral ID Status Reason Start Date Expiration Date Visits Requested Visits Authorized [id number] Pending Review Specialty Services Required 02/12/[phone] Question Answer Referral Priority Within 30 days (routine) Where should this appointment be scheduled? [facility] Is this referral for medication management? Yes Reason for Referral Bipolar Comments Scheduling: this pt was previously seen at [facility] - try there first, but if they are not willing to take her back, then please route to [facility] Psychiatry. thanks Reason for Visit * Reason Onset Date Comments Hospital Follow-Up No concerns o r issues at this time Hospital Follow-Up 02/12/2024 Encounter Details Date Type Department Care Team ([facility] st Contact Info) Description 02/12/2024 2:00 PM EDT Office Visit [facility] [address] [place] [address] Gail Gil MD [address] [place] [address] Hospital discharge follow-up*; Bipolar 1 disorder (HCC); Anxiety; Depression with suicidal ideation Allergies No known active allergiesdocumented as of this encounter (statuses as of 02/12/2024) Medications Medication Sig Dispensed Refills Start Date End Date Status Azelastine HCl 0.15 % Nasal SolutionIndications :Dysfunction of right eustachian tube Administer 1 [place] into nostril in the morning and 1 [place] before bedtime. 30 mL 12 04/11/2023 Active Additional Information Patient not taking.Reported on 06/15/2023 ARIPiprazole ER 400 MG Intramuscular Prefilled Syringe (Abilify Maintena) Inject 400 mg into a large muscle Every Month. Active Benztropine Mesylate 1 MG Oral Tablet (Cogentin) TAKE 1 TABLET BY MOUTH 2 TIMES A DAY NEEDED FOR MUSCLE SPASM. 09/01/2023 Active ARIPiprazole 5 MG Oral Tablet (Abilify) Take 1 Tablet by mouth in the morning. 30 Tablet 09/14/2023 Active Additional Information Patient not taking.Reported on 02/12/2024 buPROPion HCl ER (XL) 150 MG Oral Tablet Extended Release 24 Hour (Wellbutrin XL)Indications:Bipo lar 1 disorder (HCC),Anxiety,Depre ssion with suicidal ideation Take 1 Tablet by mouth in the morning. 30 Tablet 1 02/12/2024 Active hydrOXYzine HCl 25 MG Oral TabletIndications:B ipolar 1 disorder (HCC),Anxiety,Depre ssion with suicidal ideation Take 1 Tablet by mouth 3 times a day as needed for Anxiety. (may use 1-2 tabs, max daily dose 200 mg) 90 Tablet 02/12/2024 Active Chunky Carbonate 300 MG Oral Tablet (Eskalith)Indicatio ns:Bipolar 1 disorder (HCC),Anxiety,Depre ssion with suicidal ideation Take 1 Tablet by mouth in the morning. 30 Tablet 1 02/12/2024 Active Mirtazapine 15 MG Oral Tablet Disintegrating (Remeron Soltab)Indications: Bipolar 1 disorder (HCC),Anxiety,Depre ssion with suicidal ideation Place 1 Tablet on tongue at bedtime. 30 Tablet 5 02/12/2024 Active hydrOXYzine HCl 25 MG Oral Tablet Take 1 Tablet by mouth 3 times a day as needed for Anxiety. (may use 1-2 tabs, max daily dose 200 mg) 90 Tablet 09/14/2023 4 Discontinue d(Refill) buPROPion HCl ER (XL) 150 MG Oral Tablet Extended Release 24 Hour (Wellbutrin XL) Take 1 Tablet by mouth in the morning. 01/30/2024 4 Discontinue d(Refill) Chunky Carbonate 300 MG Oral Tablet (Eskalith) Take 1 Tablet by mouth in the morning. 01/30/2024 4 Discontinue d(Refill) Mirtazapine 15 MG Oral Tablet Disintegrating (Remeron Soltab) Place 1 Tablet on tongue at bedtime. 4 Discontinue d(Refill) documented as of this encounter (statuses as of 02/12/2024) Active Problems Problem Noted Date Diagnosed Date Bipolar 1 disorder 09/11/2023 Abnormal GTT (glucose tolerance test) 04/11/2023 Gonorrhea affecting 04/06/2023 Overview: Gonorrhea of the throat - Patient tested positive on 01/12/23 and was treated at the [facility]. Neg testing 03/2023 Marijuana use during 03/29/2023 Overview: Urine drug screen positive for cannabinoids on 03/28/23 at [facility] visit at 26w3d History of abnormal cervical Pap smear 3 Overview: 03/2022 ASCUS, HPV+. Pap repeated 03/27/2023 at [facility] visit. History of gonorrhea 03/27/2023 Family history of Down syndrome 03/27/2023 Overview: Maternal aunt. Offered Qnatal at [facility] on 03/27/23 at 26w2d. Patient checking [...] resolved Need for food assistance referred to [facility] and local food alberts 03/27/2023 Gabriela Guallpa, [...] Late care 03/15/2023 Overview: Initiated care at [facility] at 26w2d. Dating ultrasound was done at [facility] at 16 weeks. Anxiety 03/15/2023 Vapes nicotine containing substance 03/15/2023 documented as of this encounter (statuses as of 02/12/2024) Immunizations Name Administration Dates Next Due [id number] PENTAVALENT NON-US 01/13/2000 DTaP Dipth/Tet/Acell Pertussis (Infanrix), [...] Tobacco: Never Tobacco Cessation:Ready to Q uit: Not Asked; Counseling Given: Not Answered Alcohol Use Standard Drinks/Week [...] money to get more. Never true 09/07/2023 [place] Depression Scale Answer Date Recorded [place] Depression Scale Total 2 10/10/2023 The thought of harming myself has occurred to me . Never 10/10/2023 Childcare Answer Date Recorded Do you feel overwhelmed with taking care of a child, family member or friend? No 09/07/2023 Does your family need help f inding childcare? (Household - for ages 0-17 years) Not on file 09/07/2023 Clothing Answer Date Recorded Have you been unable to get clothing when it was really needed? No 09/07/2023 Is your family able to get c lothes or diapers when needed? (Household - for ages 0-17 years) Not on file 09/07/2023 Personal Safety Answer Date Recorded Do you feel unsafe or have concerns for your saf ety? No 09/07/2023 Do you have concerns for you r family's safety? (Household - for ages 0-17 years) Not on file 09/07/2023 Utilities Answer Date Recorded Do you have trouble paying y our heating, water, or electric bill? Yes 09/07/2023 Is your family able to pay t he heat, water, or electric bill? (Household - for ages 0-17 years) Not on file 09/07/2023 Does your family have access to good internet? (Household - for ages 0-17 years) Not on file 09/07/2023 Employment Status Answer Date Recorded Are you unemployed or without regular income? Ye s 09/07/2023 Does the household have a re gular source of income? (Household - for ages 0-17 years) Not on file 09/07/2023 Social Connections Answer Date Recorded How often do you feel lonely or isolated from th ose around you? Never 09/07/2023 Financial Resource Strain Answer Date R ecorded Do you have any trouble payi ng for your medications, or do you think you might in the future? No 09/07/2023 Does your family have troubl e paying for medicine? (Household - for ages 0-17 years) Not on file 09/07/2023 Transportation Needs Answer Date Record ed READ ONLY Do you have troubl e getting a ride to medical visits or work? Never True 09/07/2023 Does your family have a hard time getting a ride to doctors visits? (Household - for ages 0-17 years) Not on file 09/07/2023 Has lack of transportation k ept you from medical appointments, meetings, work, or from getting things needed for daily living? Check all that apply. (Adult - for ages 18 years and over) Not on file 09/07/2023 Do you (or your family) have trouble finding or paying for a ride (transportation)? (Household - for ages 0-17 years) Not on file 09/07/2023 Housing Stability Answer Date Recorded Do you currently live in a s helter or have no steady place to sleep at night? No 09/07/2023 READ ONLY Do you think you a re at risk of becoming homeless? No 09/07/2023 Does your family worry about paying for your home or becoming homeless? (Household - for ages 0-17 years) Not on file 0 09/07/2023 Are you homeless or worried that you might be in the future? (Adult - for ages 18 years and over) Not on file Are you (or your family) jimmy eless or worried that you might be in the future? (Household - for ages 0-17 years) Not on file Food Insecurity Answer Date Recorded Do you need food for this week? No 09/07/2023 Are you able to get enough f ood for your family? (Household - for ages 0-17 years) Not on file 09/07/2023 Does your family need food t his week? (Household - for ages 0-17 years) Not on file 09/07/2023 Do you always have enough fo od for your family? (Household - for ages 0-17 years) Not on file 09/07/2023 Sex and Gender Information Value Date Recorded Sex Assigned at Female 03/27/2023 2:49 PM EDT Gender Identity Female 03/27/2023 2:49 PM EDT Sexual Orientation Straight 03/27/2023 2: 49 PM EDT Job Start Date Occupation Industry Not on file Not on file Not on file documented as of this encounter Last Filed Vital Signs Vital Sign Reading Time Taken Comments Blood Pressure 110/68 02/12/2024 2:21 PM EDT Pulse 82 02/12/2024 2:21 PM EDT Temperature 36.4 C (97.5 F) 02/12/2024 2:21 PM ED T Respiratory Rate 17 02/12/2024 2:21 PM EDT Oxygen Saturation 98% 02/12/2024 2:21 PM EDT Inhaled Oxygen Concentration - - Weight 59.1 kg (130 lb 6.4 oz) 02/12/2024 2:21 P M EDT Height 160 cm (5' 3") 02/12/2024 2:21 PM EDT Body Mass Index 23.1 02/12/2024 2:21 PM EDT documented in this encounter Progress Notes * Gail Gil MD - 02/12/2024 2:30 PM EDT Images from the original note were not included. ASSESSMENT / PLAN: Una Eagle is a 23 year old female with PMHx bipolar I / depression / SI - Here for [facility] - Admitted at [facility] Admission date: 01/25 Discharge date: 01/29 Presented with: depressed mood, mood swings, impulsivity, anhedonia, insomnia, intermittent SI, panic attacks Diagnosis: bipolar I, impulsivity, depression w SI, bipolar affective disorder Diagnostics: Labs unremarkable Hospital stay complicated by: 1- none Treatments / Consultation(s): 1- Psychiatry - mirtazapine 15mg qhs, lithium carbonate 300mg HS, wellbutrin XL 150mg daily [facility] - Faizan Keller She does not currently have a psychiatrist - referral placed She may be able to go back to [place], but unsure. Hospital discharge follow-up (Primary) - DISCH MED RECON CUR MED LIS Bipolar 1 disorder (HCC) - buPROPion HCl ER (XL) 150 MG Oral Tablet Extended Release 24 Hour (Wellbutrin XL); Take 1 Tablet by mouth in the morning. - hydrOXYzine HCl 25 MG Oral Tablet; Take 1 Tablet by mouth 3 times a day as needed for Anxiety. (may use 1-2 tabs, max daily dose 200 mg) - Chunky Carbonate 300 MG Oral Tablet (Eskalith); Take 1 Tablet by mouth in the morning. - Mirtazapine 15 MG Oral Tablet Disintegrating (Remeron Soltab); Place 1 Tablet on tongue at bedtime. - DISCH MED RECON CUR MED LIS - ADULT/PEDS PSYCHIATRY REFERRAL OP Anxiety - buPROPion HCl ER (XL) 150 MG Oral Tablet Extended Release 24 Hour (Wellbutrin XL); Take 1 Tabletby mouth in the morning. - hydrOXYzine HCl 25 MG Oral Tablet; Take 1 Tablet by mouth 3 times a day as needed for Anxiety. (may use 1-2 tabs, max daily dose 200 mg) - Chunky Carbonate 300 MG Oral Tablet (Eskalith); Take 1 Tablet by mouth in the morning. - Mirtazapine 15 MG Oral Tablet Disintegrating (Remeron Soltab); Place 1 Tablet on tongue at bedtime. - DISCH MED RECON CUR MED LIS - ADULT/PEDS PSYCHIATRY REFERRAL OP Depression with suicidal ideation - buPROPion HCl ER (XL) 150 MG Oral Tablet Extended Release 24 Hour (Wellbutrin XL); Take 1 Tablet by mouth in the morning. - hydrOXYzine HCl 25 MG Oral Tablet; Take 1 Tablet by mouth 3 times a day as needed for Anxiety. (may use 1-2 tabs, max daily dose 200 mg) - Chunky Carbonate 300 MG Oral Tablet (Eskalith); Take 1 Tablet by mouth in the morning. - Mirtazapine 15 MG Oral Tablet Disintegrating (Remeron Soltab); Place 1 Tablet on tongue at bedtime. - DISCH MED RECON CUR MED LIS - ADULT/PEDS PSYCHIATRY REFERRAL OP If needed, prefers contact by: Ok to leave message on phone: SUBJECTIVE: Nursing Notes: Stephanie Oakes LPN 02/12/24 1428 Signed The patient has been properly identified by confirmation of name and date of . Chief Complaint Patient presents with Hospital Follow-Up No concerns or issues at this time HPI: Una Eagle is a 23 year old female. Here for recheck. See inpatient report summarized as above She is here with her 9 month old. Says she is doing well. Says she has been on lithium before, no issues. Says she is currently staying w her mom. Baby's father is currently in fpc. Reviewed sources 1-DC summary Patient Active Problem List Diagnosis Normal Late care Anxiety Vapes nicotine containing substance History of abnormal cervical Pap smear History of gonorrhea Family history of Down syndrome Health counseling Marijuana use during Gonorrhea affecting Abnormal GTT (glucose tolerance test) Bipolar 1 disorder (HCC) Current Outpatient Medications Medication Sig Dispense Refill buPROPion HCl ER (XL) 150 MG Oral Tablet Extended Release 24 Hour (Wellbutrin XL) Take 1 Tablet by mouth in the morning. 30 Tablet 1 hydrOXYzine HCl 25 MG Oral Tablet Take 1 Tablet by mouth 3 times a day as needed for Anxiety. (may use 1-2 tabs, max daily dose 200 mg) 90 Tablet 0 Chunky Carbonate 300 MG Oral Tablet (Eskalith) Take 1 Tablet by mouth in the morning. 30 Tablet 1 Mirtazapine 15 MG Oral Tablet Disintegrating (Remeron Soltab) Place 1 Tablet on tongue at bedtime. 30 Tablet 5 Azelastine HCl 0.15 % Nasal Solution Administer 1 [place] into nostril in the morning and 1 [place] before bedtime. (Patient not taking: Reported on 06/15/2023) 30 mL 12 ARIPiprazole ER 400 MG Intramuscular Prefilled Syringe (Abilify Maintena) Inject 400 mg into a large muscle Every Month. (Patient not taking: Reported on 02/12/2024) Benztropine Mesylate 1 MG Oral Tablet (Cogentin) TAKE 1 TABLET BY MOUTH 2 TIMES A DAY NEEDED FORMUSCLE SPASM. (Patient not taking: Reported on 02/12/2024) ARIPiprazole 5 MG Oral Tablet (Abilify) Take 1 Tablet by mouth in the morning. (Patient not taking:Reported on 02/12/2024) 30 Tablet 0 No current facility-administered medications for this visit. OBJECTIVE: BP 110/68 | Pulse 82 | Temp 36.4 C (97.5 F) | Resp 17 | Ht 1.6 m (5' 3") | Wt 59.1 kg (130 lb 6.4 oz) | LMP 02/02/2024 | SpO2 98% | BMI 23.10 kg/m | BSA 1.62 m Vitals reviewed and is normotensive / afebrile / and not tachycardic General: No acute distress. Neuro: Alert Pleasant & interactive. Respiratory: Good inspiratory effort, no labored breathing. HEENT: Conjunctivae appear clear. No swelling noted face or lips. Skin: No rash visible on exposed skin areas, normal coloration & appears dry. Psych: Normal affect. Fluent speech. Gail Gil MD [address] [address] There are no Patient Instructions on file for this visit. documented in this encounter Nursing Notes * Stephanie Oakes LPN - 02/12/2024 2:28 PM EDT The patient has been properly identified by confirmation of name and date of . Chief Complaint Patient presents with Hospital Follow-Up No concerns or issues at this time documented in this encounter Plan of Treatment Scheduled Referrals Name Type Priority Associated Diagnoses Orde r Schedule ADULT/PEDS PSYCHIATRY REFERRAL OP Referral Within 30 days (routine) Bipolar 1 disorder (HCC) Anxiety Depression with suicidal ideation Ordered: 02/12/2024 Health Maintenance Due Date Last Done Comments Pneumococcal Vaccine: Pediatrics (0 to 5 Years) and At-Risk Patients (6 to 64 Years) (1 of 2 - PCV) 2004 Hepatitis B Vaccine (1 of 3 - 19+ 3-dose series) 2017 COVID-19 Vaccine ( - 2022-2 4 season) 2023 HPV (Gardasil) Vaccine (3 - 3-dose series) 12/04/2023 09/11/2023, 04/05/2021 Influenza Vaccine (FLU shot) (#1) 2024 03/27/2023 Pap Smear 03/27/2026 03/27/2023, 04/05/2021 DTaP,Tdap,and Td Vaccines (3 - Td or Tdap) 04/24/2033 04/24/2023, 01/13/2000 Gonorrhea / Chlamydia Screen Discontinued 07/2022, 04/05/2021 MENINGOCOCCAL (MENACTRA/MENVEO) Aged Out No longer eligible based on patient's age to complete this topic documented as of this encounter Medical Devices Not on filedocumented as of this encounter Visit Diagnoses Diagnosis Hospital discharge follow-up- Primary Other follow-up examination Bipolar 1 disorder (HCC) Bipolar I disorder, most recent episode (or current) unspecified Anxiety Anxiety state, unspecified Depression with suicidal ideation Depressive disorder, not elsewhere classified documented in this encounter Care Teams Patch Washer Relationship Specialty Start Date End Date Gail Gil MD [address] [place] [address] PCP - General Family Medicine 03/18/21 documented as of this encounter
--- OUTSIDE RECORDS SUMMARY | 2024-04-13 05:29 | External Medical Summary | Summary of Care ---
Author Name Unknown Organization [facility] Address [address] [place] [address] Phone [phone] Care Team Providers Care Heat [employer]der [employer] Name Role Phone Gail Gil MD Primary Care Provid er Reason for Visit * Reason Onset Date Comments MyCode Consent 02/12/2024 Encounter Details Date Type Department Care Team (Late st Contact Info) Description 02/12/2024 Orders Only Outcomes Research Department [address] [place] [address] Maty Emanuel CHRA MyCode Research Other*[id number]* Allergies No known active allergiesdocumented as of this encounter (statuses as of 02/12/2024) Medications Medication Sig Dispensed Refills Start Date End Date Status Azelastine HCl 0.15 % Nasal SolutionIndications: Dysfunction of right eustachian tube Administer 1 [place] [...] in the morning. 30 Tablet 09/14/2023 Active hydrOXYzine HCl 25 MG Oral Tablet Take 1 Tablet by mouth 3 times a day as needed for Anxiety. (may use 1-2 tabs, max daily dose 200 mg) 90 Tablet 09/14/2023 Active documented as of this encounter (statuses as of 02/12/2024) Active Problems Problem Noted Date Diagnosed Date Bipolar 1 disorder 09/11/2023 Abnormal GTT (glucose tolerance test) 04/11/2023 Gonorrhea affecting 04/06/2023 Overview: Gonorrhea of the throat - Patient tested positive on 01/12/23 and was treated at the [facility]. Neg testing 03/2023 Marijuana use during 03/29/2023 [...] Late care 03/15/2023 Overview: Initiated care at [facility] at 26w2d. Dating ultrasound was done at [facility] at 16 weeks. Anxiety 03/15/2023 Vapes nicotine containing substance 03/15/2023 documented as of this encounter (statuses as of 02/12/2024) Immunizations Name Administration Dates Next Due [id number] PENTAVALENT NON-US 01/13/2000 DTaP Dipth/Tet/Acell Pertussis (Infanrix), [...] money to get more. Never true 09/07/2023 [place] Depression Scale Answer Date Recorded [place] Depression Scale Total 2 10/10/2023 The thought [...] as of this encounter Progress Notes * Maty Emanuel CHRA - 02/12/2024 2:14 PM EDT [employer] Consent Documentation Una Eagle provided consent/authorization to participate in the [employer] Project. documented in this encounter Plan of Treatment Scheduled Orders Name Type Priority Associated Diagnoses Orde r Schedule MYCODE INITIAL ADULT Lab Routine MyCode Research Other*[id number] Expected: 02/12/2024 (Approximate), Expires: 03/03/2025 Health Maintenance Due Date Last Done Comments Pneumococcal Vaccine: Pediatrics (0 to 5 Years) and At-Risk Patients (6 to 64 Years) (1 of 2 - PCV) 2004 Hepatitis B Vaccine (1 of 3 - 19+ 3-dose series) 2017 COVID-19 Vaccine (1 - 2022-2 4 season) 2023 HPV (Gardasil) [...] as of this encounter Visit Diagnoses Diagnosis MyCode Research Other*[id number]- Primary documented in this encounter Care Teams [employer] Relationship Specialty Start Date End Date Gail Gil MD [address] [place] [address] PCP - General Family Medicine 03/18/21 documented as of this encounter
[2024-04-13 06:35] LABS: Basophils # (auto) 0.04 K/uL (0.00-0.20); Basophils % (auto) 0.6 %; Eosinophils # (auto) 0.33 K/uL (0.00-0.50); Eosinophils % (auto) 4.9 %; Hematocrit (blood only) 36.7 % (37.0-47.0); Hemoglobin 11.9 g/dl (12.0-16.0); Immature Granulocytes # (auto) 0.01 K/uL (0.01-0.20); Immature Granulocytes % (auto) 0.1 %; Lymphocytes # (auto) 2.82 K/uL (1.20-3.40); Lymphocytes % (auto) 41.5 %; Mean Corpuscular Hemoglobin 29.2 pg (25.0-34.0); Mean Corpuscular Hgb Conc 32.4 g/dL (32.0-36.0); Mean Corpuscular Volume 90.2 fL (80.0-100.0); Monocytes # (auto) 0.67 K/uL (0.11-0.59); Monocytes % (auto) 9.9 %; Neutrophils # (auto) 2.92 K/uL (1.40-6.50); Platelet Count 246 K/uL (130-400); RDW Coefficient of Variation 12.9 % (11.5-14.5); Red Blood Count 4.07 M/uL (4.20-5.40); White Blood Count 6.79 K/ul (4.8-10.8)
[2024-04-13 07:00] LABS: Calcium 8.7 mg/dl (8.6-10.3); Creatinine Clr Calc Pharmacy 79.3 ml/min; Potassium 4.4 mmol/L (3.5-5.1)
--- NOTE | 2024-04-13 08:19 | XRay Report ---
XR chest 1V portable CLINICAL HISTORY: cough TECHNIQUE: Single frontal radiograph of the chest was obtained. Comparison: Comparison is made to chest radiograph 01/04/2019 FINDINGS: No lines and tubes are seen. The cardiomediastinal silhouette is normal. The lungs are clear. No evid ence of pleural effusion or pneumothorax. IMPRESSION: No acute chest disease. ACT 112: Negative or not required by law. Electronically signed by: Jasson Saunders M.D. 04/13/2024 8:18 AM
[2024-04-13] MEDS ORDERED: INFLUENZA VACC TS2024-25(6m+)/PF (IIV3) 0.5mL Syr IM ONE (09:00)
[2024-04-13] MEDS: ENOXAPARIN INJ 30 MG/0.3 ML SYR SQ SCH (09:55)
[2024-04-13] MEDS: LITHIUM CARBONATE 450 MG TABCR PO SCH (09:56)
[2024-04-13] MEDS ORDERED: LORazepam 2 MG/1 ML VIAL IV PRN (12:28)
[2024-04-13] MEDS: LORazepam 2 MG/1 ML VIAL IV STA (12:37)
[2024-04-13] MEDS ORDERED: OLANZapine 10 MG/2.1 ML SDV IM PRN (13:55)
--- NOTE | 2024-04-13 15:06 | Hospitalist Progress Note ---
Date of Service April 13, 2024 Assessment & Plan (1) Manic bipolar I disorder: Plan: Patient had an episode of agitation in the afternoon requiring IV Ativan Psych notified Received recommendations from psychiatry service: Olanzapine 10 mg at bedtime Ativan 1 mg at bedtime As needed olanzapine, continue lithium, stop bupropion (2) COVID-19: Plan: Asymptomatic Chest x-ray: No pneumonia Continue supportive care Monitor could have had COVID recently and positive covid test could be residual viral DNA DVT prophylaxis Lovenox Disposition Pending per psych service Admission and Anticipated Discharge Date Admission Date: April 12, 2024 Subjective Follow-up for orbyn, COVID-19 positive test, etc. Seen resting in chair, no acute distress RN Suzi over the bedside throughout whole encounter States breathing seems to be somewhat better compared to yesterday Denies depression, suicidal ideation Otherwise feels okay overall Denies shortness of breath, cough and sputum production or chills, myalgias, diarrhea No other new symptoms Review of Systems Review of Systems: all noted and negative except for above Physical Exam Physical Exam: General- oriented x 3, not in distress, speaks in sentences with no effort or accessory muscle use Eyes- anicteric Neck- no JVD Lungs- clear breath sounds bilaterally, no rales/wheezes Heart- normal rate, regular rhythm; no murmurs Abdomen- normal bowel sounds, nondistended, soft, nontender Extremities- no pretibial edema, no calf tenderness Neuro- alert, oriented x 3; no gross focal neurologic deficits Skin- warm & dry Results & Data Results & Data Vital Signs (Past 12 Hours) Vital Signs Temp Pulse Pulse Resp BP Pulse Ox O2 Del Method 04/13/24 14:23 94 H 04/13/24 08:50 36.9 C 87 21 115/73 99 Room Air 04/13/24 07:32 73 all noted and reviewed including below
--- NOTE | 2024-04-13 15:32 | Psychiatric Consultation ---
Date of Consultation April 13, 2024 Impression / Recommendations Impression 23 y/o female h/o Bipolar 1 mixed episode presents with recent poor sleep, poor appetite, elevated goal directed activity, tangential thought process, anxious mood presents in mixed manic state. No acute safety concerns identified. Still adherent to meds given [place] level in range. Likely mixed manic episode based on symptoms. Recommend olanzapine initiation given efficacy in mixed manic states. May benefit from inpatient admission once medically cleared. Overall, I spent a total of 60 minutes with this case including review of chart records, nursing report, review of lab work, direct evaluation of the patient at bedside, counseling the patient, discussion of the patient with the hospitalist provider, discussion with the psychiatric liaison during clinical rounds, and documentation in the electronic health record. (1) Bipolar 1 disorder, mixed: (2) Cannabis abuse: (3) Post traumatic stress disorder (PTSD): (4) Generalized anxiety disorder: (5) Borderline personality disorder: (6) Compliant with medication regimen: Plan Will recommend to Start Olanzapine 10mg PO HS, Olanzapine 5mg BID PO/IM PRN for agitation, Lorazepam 1mg PO HS for sleep, continue [place] 450mg daily, hold home Bupropion, does not require bedside sitter, will see her daily until covid negative and then can consider transfer to inpatient behavioral health. Psych History Chief Complaint "Upset with my grandmother" History of Present Illness Pt seen in elaborate dress with scarf, hat in pt room. Appears restless. Reports recent argument with grandmother and blames family for knowing whats best for her. Discussing past trauma. Tangential at times. Reports having a "manic week" engaging in many activities. Reports inc caffeine consumptions and working all day. Cities "delusional" concern about her child who has been crying more then usual. Reports being busy all day but "not constructive." Endorses good sleep (previously endorsed poor sleep). Reports high energy. Says she is "obsessively worried about her child." Reports adherence to Dek[place]b 450mg and Wellbutrin 150mg; was not taking Mirtazapine after last hospital d/c bc was not continued outpatient. Reports family is hindering her from achieving her goals. Agreeable to start of olanzapine. Denies SI, HI. Past Psychiatric History Current Psychiatric Diagnosis: Bipolar, PTSD History of Previous Suicide Attempt: No Allergies Allergy/AdvReac Type Severity Reaction Status Date / Time No Known Allergies Allergy Verified 04/12/24 16:33 Home Medications Medication Instructions Recorded Confirmed Type bupropion HCl 150 mg 24 hr tablet, 150 mg PO HS 04/12/24 04/12/24 History extended release lithium carbonate 450 mg 450 mg PO DAILY 04/12/24 04/12/24 History tablet,extended release Patient History Medical History Depression with suicidal ideation Mood disorder Impulsive Bipolar I disorder with mixed features Hattie Marijuana use during Bipolar disorder No pertinent family history Surgical History No pertinent past surgical history Social History Smoking Status: Current every day smoker Tobacco Type: Cigarettes Cigarettes Per Day: 3; Second Hand Exposure: No; Do You Dip or Chew Tobacco: No; Tobacco Cessation Education Requested by Patient: No Hx Alcohol Use: No Hx Substance Use: Yes Last Used Substance: Just Prior to Arrival Last Used Substance Other:: Marijuana daily- pt states she has medical card (unable to provide) Preferred Language: Hebrew Communication Ability: Effective Attendant Honor Bar Required: No Beliefs That Will Affect Care: None marital status: Single Current Living Situation: Family Current Living Situation Comment: lives with brother Other Information That Helps Us Care for You: No Feels Safe at Home: Yes Safety Concerns: Feels Safe At This Time Gender Identity: Female Assistive Devices: None Physical Exam Mental Examination: Appearance: Unkempt Eye Contact: Maintains Eye Contact Motor Behavior: Pacing and Hyperactive Speech: Excessive, Loud and Repetitive Mood: Anxious Affect: Anxious and Labile Thought Process: Disorganized, Flight of Ideas and Racing Insight: Poor Judgement: Poor Vital Signs (Past 24 Hours): Last Vital Signs Temp 36.9 C 04/13/24 15:29 Pulse 60 04/13/24 15:29 Resp 22 04/13/24 15:29 BP 127/87 04/13/24 15:29 Pulse Ox 99 04/13/24 15:29 O2 Del Method Room Air 04/13/24 15:29 Results & Data (PSY) Diagnostic Findings VSS. CBC, CMP, UA within expected limits. [place] 0.7. UDS+MDMA, THC. Covid19+. Medications Administered D[place] Carbonate ([place] Carbonate 450 Mg Tabcr) 450 mg PO DAILY [facility] Stop: 05/13/24 08:59 Last Admin: 04/13/24 09:56 Dose: 450 mg Documented By: ANNIE Melatonin (Melatonin 3 Mg Tab) 6 mg PO HS PRN PRN Reason: Sleep Stop: 05/12/24 22:07 Last Admin: 04/13/24 02:31 Dose: 6 mg Documented By: JW Miscellaneous (Remove Nicoderm Patch) 1 each N/A DAILY@0859 [facility] Stop: 05/13/24 08:58 Last Admin: 04/13/24 09:55 Dose: 1 each Documented By: ANNIE Nicotine (Nicotine 21 Mg/24 Hr Tdsy) 1 patch TD QAM [facility] Stop: 05/12/24 17:59 Last Admin: 04/13/24 11:06 Dose: 1 patch Documented By: Admin: 04/12/24 18:15 Dose: 1 patch Documented By: MAJOR Nicotine Polacrilex (Nicotine Polacrilex 2 Mg Gum) 1 piece MT Q2H PRN PRN Reason: withdrawal Stop: 05/12/24 17:58 Last Admin: 04/12/24 18:15 Dose: 1 piece Documented By: MAJ[place] [address] IN/OBS CONSULT LVL 4,60M Patient Type New History Comprehensive Exam Comprehensive Medical Decision Making Moderate Complexity Diagnoses Bipolar 1 disorder, mixed F31.60 Cannabis abuse F12.10 Post traumatic stress disorder (PTSD) F43.10 Generalized anxiety disorder F41.1 Borderline personality disorder F60.3 Compliant with medication regimen Z91.89
[2024-04-13] MEDS: LORazepam 1 MG TAB PO SCH (20:25)
[2024-04-13] MEDS: OLANZapine 10 MG TAB PO SCH (21:21)
[2024-04-14] MEDS: ENOXAPARIN INJ 40 MG/0.4 ML SYR SQ SCH (09:27)
--- NOTE | 2024-04-14 14:07 | Hospitalist Progress Note ---
Date of Service April 14, 2024 Assessment & Plan (1) Manic bipolar I disorder: Plan: Patient had an episode of agitation in the afternoon requiring IV Ativan Psych notified Received recommendations from psychiatry service: Olanzapine 10 mg at bedtime Ativan 1 mg at bedtime As needed olanzapine, continue lithium, stop bupropion 04/14 Per psych recommendations: Increase lithium to 600 mg p.o. daily Change lorazepam to clonazepam 1 mg at bedtime Psych will continue to follow daily (2) COVID-19: Plan: Positive rhinorrhea, mild cough No other symptoms afebrile, Clear breath sounds Chest x-ray: No pneumonia Continue supportive care Monitor DVT prophylaxis Lovenox Disposition Transfer to psych unit once isolation period completed Admission and Anticipated Discharge Date Admission Date: April 12, 2024 Subjective Follow-up for robyn, COVID-19 infection, etc. Seen with ANKUSH Archer at the bedside throughout whole encounter Patient seen sitting up in bed, comfortable, in good spirits States she feels better today overall Feels racing thoughts is improving Denies suicidal ideation States she has some nasal drainage, had 1 episode of productive cough, yellow sputum today But no shortness of breath, fevers chills, diarrhea, abdominal pain, nausea, muscle pains No other new symptoms Review of Systems Review of Systems: all noted and negative except for above Physical Exam Physical Exam: General- oriented x 3, not in distress, speaks in sentences with no effort or accessory muscle use Eyes- anicteric Neck- no JVD Lungs- clear breath sounds bilaterally, no rales/wheezes Heart- normal rate, regular rhythm; no murmurs Abdomen- normal bowel sounds, nondistended, soft, nontender Extremities- no pretibial edema, no calf tenderness Neuro- alert, oriented x 3; no gross focal neurologic deficits Skin- warm & dry Results & Data Results & Data Vital Signs (Past 12 Hours) Vital Signs Temp Pulse Pulse Resp BP Pulse Ox O2 Del Method 04/14/24 12:25 37.4 C 91 H 22 135/96 98 Room Air 04/14/24 09:15 36.6 C 83 20 119/77 99 Room Air 04/14/24 07:39 60 04/14/24 04:09 36.6 C 49 L 16 105/71 100 Room Air all noted and reviewed including below
--- NOTE | 2024-04-14 14:21 | Psychiatric Progress Note ---
Date of Service April 14, 2024 Impression / Recommendations Impression 23 y/o female h/o Bipolar 1 mixed episode presents with recent poor sleep, poor appetite, elevated goal directed activity, tangential thought process, racing thoughts, dec need for sleep concerning for robyn. Still adherent to outpatient meds given [place] level in range. Possible mixed manic episode based on symptoms. A: Overnight presented improved sleep. Patient continues to present in a manic state with high energy, inc goal directed activity, elated mood, tangential thought process, dec need for sleep. Today no acute safety concerns identified. Recommend to optimize lithium dosing and sleep medication. Pt agreeable. Once medically cleared (2 consecutive negative covid tests) would benefit from transfer to inpatient behavioral health for further care and management. Overall, I spent a total of 40 minutes with this case including review of chart records, nursing report, review of lab work, direct evaluation of the patient at bedside, counseling the patient, discussion of the patient with the hospitalist provider, discussion with the psychiatric liaison during clinical rounds, and documentation in the electronic health record. (1) Bipolar 1 disorder, mixed: (2) Cannabis abuse: (3) Post traumatic stress disorder (PTSD): (4) Generalized anxiety disorder: (5) Borderline personality disorder: (6) Compliant with medication regimen: Plan -Continue Olanzapine 10mg HS -Increase [place]is to 600mg daily (trough level in 4 days) -D/c nightly Lorazepam -Start Clonazepam 1mg HS -Hold home bupropion -Does not require bedside sitter -Transfer to inpatient behavioral health once covid negative x2 Suicide Risk Level Suicide Risk Level: Low (q15 min observation checks) Protective Factors Assessment Employed: No Interval History Chief Complaint "Not sure if I have ADHD" Subjective Subjective The patient is seen in elaborate dress with her scrubs over her street clothes, wearing a scarf, wearing a makeshift pointy hat. She immediately starts talking presents a tangential thought process moving from topic to topic. She reports having difficulty focusing on tasks. She shows me her coloring pages and how she organized her room. She presents direct eye contact throughout the interview. She reports feeling "elated, great, 10 out of 10". Says that she slept like an darniel but then later reports sometimes forgetting to sleep. When asked about energy she says it is great and she feels like "I drink 5 red bowls". She denies auditory visualizations. Reports that "being manic is stressful". Says that she stops making noise no one will hear her and that she will disappear. She feels that her presence may cause harm. She provides permission for me to call her mother Nava ([phone]) Physical Exam Mental Examination Appearance: Unkempt Eye Contact: Maintains Eye Contact Motor Behavior: Pacing and Hyperactive Speech: Excessive, Loud and Repetitive Mood: Anxious Affect: Anxious and Labile Thought Process: Disorganized, Flight of Ideas and Racing Thought Content: Disorganized, Obsessional Thoughts and Preoccupation Hallucinations: None Insight: Poor Judgement: Poor Vital Signs (Past 24 Hours) Last Vital Signs Temp 37.4 C 04/14/24 12:25 Pulse 91 H 04/14/24 12:25 Resp 22 04/14/24 12:25 BP 135/96 04/14/24 12:25 Pulse Ox 98 04/14/24 12:25 O2 Del Method Room Air 04/14/24 12:25 Results & Data ([facility]) Current Inpatient Medications Current Inpatient Medications: Current Inpatient Medications Acetaminophen (Acetaminophen 325 Mg Tab) 650 mg PO QID PRN PRN Reason: pain/fever Stop: 05/12/24 22:07 Clonazepam (Clonazepam 1 Mg Tab) 1 mg PO HS PAT Stop: 05/14/24 20:59 Enoxaparin Sodium (Enoxaparin Inj 40 Mg/0.4 Ml Syr) 40 mg SQ QAM PAT Stop: 05/14/24 08:59 Last Admin: 04/14/24 09:27 Dose: Not Given Promethazine HCl (Phenergan) 6.25 mg in 50.25 mls @ 201 mls/hr IV Q6H PRN PRN Reason: Nausea And Vomiting Stop: 05/12/24 22:07 Loris Carbonate (Loris Carbonate Slow Rel 300 Mg Tab) 600 mg PO DAILY PAT Stop: 05/15/24 08:59 Lorazepam (Lorazepam 2 Mg/1 Ml Vial) 0.5 mg IV Q4H PRN PRN Reason: Anxiety/Agitation Stop: 05/13/24 12:27 Melatonin (Melatonin 3 Mg Tab) 6 mg PO HS PRN PRN Reason: Sleep Stop: 05/12/24 22:07 Last Admin: 04/13/24 21:21 Dose: 6 mg Miscellaneous (Remove Nicoderm Patch) 1 each N/A DAILY@0859 [facility] Stop: 05/13/24 08:58 Last Admin: 04/14/24 09:26 Dose: 1 each Nicotine (Nicotine 21 Mg/24 Hr Tdsy) 1 patch TD QAM PAT Stop: 05/12/24 17:59 Last Admin: 04/14/24 09:31 Dose: 1 patch Nicotine Polacrilex (Nicotine Polacrilex 2 Mg Gum) 1 piece MT Q2H PRN PRN Reason: withdrawal Stop: 05/12/24 17:58 Last Admin: 04/12/24 18:15 Dose: 1 piece Olanzapine (Olanzapine 10 Mg Tab) 10 mg PO HS PAT Stop: 05/13/24 20:59 Last Admin: 04/13/24 21:21 Dose: 10 mg Olanzapine (Olanzapine 10 Mg/2.1 Ml Sdv) 5 mg IM BID PRN PRN Reason: Agitation Stop: 05/12/24 22:08 Mental Health & Subst Abuse Tx Therapist Name of Therapist: unknown
[2024-04-14] MEDS: clonazePAM 1 MG TAB PO SCH (20:04)
[2024-04-15] MEDS: LITHIUM CARBONATE SLOW REL 300 MG TAB PO SCH (08:05)
--- NOTE | 2024-04-15 12:54 | Hospitalist Progress Note ---
Date of Service April 15, 2024 Assessment & Plan (1) Manic bipolar I disorder: Plan: Patient had an episode of agitation in the afternoon requiring IV Ativan Psych notified Received recommendations from psychiatry service: Olanzapine 10 mg at bedtime Ativan 1 mg at bedtime As needed olanzapine, continue lithium, stop bupropion 04/14 Per psych recommendations: Increase lithium to 600 mg p.o. daily Change lorazepam to clonazepam 1 mg at bedtime Psych will continue to follow daily 04/15 Hattie seems to be improving, psychiatry service on board Further management of psych meds per psychiatry service (2) COVID-19: Plan: Positive rhinorrhea, mild cough No other symptoms afebrile, Clear breath sounds Chest x-ray: No pneumonia Continue supportive care Monitor 04/15 Symptoms improving Repeat COVID test today DVT prophylaxis Lovenox Disposition Transfer to psych unit once isolation period completed Admission and Anticipated Discharge Date Admission Date: April 12, 2024 Subjective Follow-up for COVID 19 infection, hattie, etc. Seen with ANKUSH Archer at the bedside throughout whole encounter Patient seen sitting up in bed, comfortable, good spirits States she feels better today Racing thoughts continue to improve Nasal drainage also improving, less or cough, no shortness of breath No other new symptoms Review of Systems Review of Systems: all noted and negative except for above Physical Exam Physical Exam: General- oriented x 3, not in distress, speaks in sentences with no effort or accessory muscle use Eyes- anicteric Neck- no JVD Lungs- clear breath sounds bilaterally, no rales/wheezes Heart- normal rate, regular rhythm; no murmurs Abdomen- normal bowel sounds, nondistended, soft, nontender Extremities- no pretibial edema, no calf tenderness Neuro- alert, oriented x 3; no gross focal neurologic deficits Skin- warm & dry Results & Data Results & Data Vital Signs (Past 12 Hours) Vital Signs Pulse O2 Del Method 04/15/24 07:17 64 04/15/24 07:17 Room Air all noted and reviewed including below
--- NOTE | 2024-04-15 15:02 | Psychiatric Progress Note ---
Date of Service April 15, 2024 Impression / Recommendations Impression 23 y/o female h/o Bipolar 1 mixed episode presents with recent poor sleep, poor appetite, elevated goal directed activity, tangential thought process, racing thoughts, dec need for sleep concerning for robyn. Still adherent to outpatient meds given [place] level in range. Possible mixed manic episode based on symptoms. A: Continues to present improved sleep. Improve thought process today and is more organized. Continues to be hypertalkative presents high energy levels. Goal directed activity. No acute safety concerns presented. Patient has been diverting caffeine gummies in voluntarily gave it to us after recommendation to stop use. recommend to screen incoming belongings for stimulants. Plan to optimize olanzapine dose and increase to 15 mg at bedtime. Overall, I spent a total of 40 minutes with this case including review of chart records, nursing report, review of lab work, direct evaluation of the patient at bedside, counseling the patient, discussion of the patient with the hospitalist provider, discussion with the psychiatric liaison during clinical rounds, and documentation in the electronic health record. (1) Bipolar 1 disorder, mixed: (2) Cannabis abuse: (3) Post traumatic stress disorder (PTSD): (4) Generalized anxiety disorder: (5) Borderline personality disorder: (6) Compliant with medication regimen: Plan -Increase Olanzapine to 15mg HS -Continue [place] to 600mg daily (trough level in 3 days) -Continue Clonazepam 1mg HS -Hold home bupropion -Does not require bedside sitter -Transfer to inpatient behavioral health once covid negative x2 -24hrs between Suicide Risk Level Suicide Risk Level: Low (q15 min observation checks) Risk Factors Assessment Do You Have Access To A Gun?: No Protective Factors Assessment Employed: No Interval History Identifying Information 23 y/o female h/o Bipolar 1 mixed episode presents with recent poor sleep, poor appetite, elevated goal directed activity, tangential thought process, racing thoughts, dec need for sleep concerning for robyn. Still adherent to outpatient meds given [place] level in range. Possible mixed manic episode based on symptoms. Chief Complaint "Very Manic" Subjective Subjective Patient was seen & assessed and interval progress reviewed with treatment team nursing and social work The patient is in a less elaborate dressed today. She reports sleeping "amazingly". She presents improved insight about her condition and says that she is very manic. Reports sometimes not being able to help her behavior. Says that her son is doing well. Recognizes that sometimes she does not do mentally well to take care of him and needs to get help from family members. She reports a history of medication nonadherence and that it was a bad idea. When asked about energy levels that she reports "lots of anger". Has been ruminating about past "trauma". Reports energy is 9 out of 10. Says she has a plan for therapy, nature walks in, cleaning her house when she leaves the hospital. She currently lives with her younger brother and son. Mother lives 45 minutes away and visits frequently throughout the week. She reports taking caffeine regularly and shows us caffeine pills that she has been taking while in the hospital. She voluntarily gives us that caffeine pills after explaining how it may not be beneficial for her right now. She reports regular cannabis abuse which was daily before having her child and currently is at the end of the day and takes occasional breaks. Denies any drug problems. Reports past Abilify maintain a shot and did not continue in outpatient; unclear why. Reports missing her case management appointments however is interested in continuing. Denies SI and HI. Later in the day was provided resources for mental health unit and was seen dancing in her room with loud music. Physical Exam Mental Examination Appearance: Unkempt Eye Contact: Maintains Eye Contact Motor Behavior: Pacing and Hyperactive Speech: Normal and Excessive Mood: Anxious and Elevated Affect: Euphoric Thought Process: Racing Thought Content: Obsessional Thoughts and Preoccupation Hallucinations: None Insight: Poor (to limited, improving) Judgement: Poor (to limited, med adherent) Vital Signs (Past 24 Hours) Last Vital Signs Temp 37 C 04/14/24 19:27 Pulse 64 04/15/24 07:17 Resp 16 04/14/24 19:27 BP 119/79 04/14/24 19:27 Pulse Ox 95 04/14/24 19:27 O2 Del Method Room Air 04/15/24 07:17 Results & Data ([facility]) Laboratory Results Laboratory Results - last 24 hr 04/15/24 Unknown SARS-CoV-2 RNA (RT-PCR) Pending Current Inpatient Medications Current Inpatient Medications: Current Inpatient Medications Acetaminophen (Acetaminophen 325 Mg Tab) 650 mg PO QID PRN PRN Reason: pain/fever Stop: 05/12/24 22:07 Clonazepam (Clonazepam 1 Mg Tab) 1 mg PO HS PAT Stop: 05/14/24 20:59 Last Admin: 04/14/24 20:04 Dose: 1 mg Enoxaparin Sodium (Enoxaparin Inj 40 Mg/0.4 Ml Syr) 40 mg SQ QAM PAT Stop: 05/14/24 08:59 Last Admin: 04/15/24 08:04 Dose: Not Given Promethazine HCl (Phenergan) 6.25 mg in 50.25 mls @ 201 mls/hr IV Q6H PRN PRN Reason: Nausea And Vomiting Stop: 05/12/24 22:07 [place] Carbonate ([place] Carbonate Slow Rel 300 Mg Tab) 600 mg PO DAILY PAT Stop: 05/15/24 08:59 Last Admin: 04/15/24 08:05 Dose: 600 mg Lorazepam (Lorazepam 2 Mg/1 Ml Vial) 0.5 mg IV Q4H PRN PRN Reason: Anxiety/Agitation Stop: 05/13/24 12:27 Melatonin (Melatonin 3 Mg Tab) 6 mg PO HS PRN PRN Reason: Sleep Stop: 05/12/24 22:07 Last Admin: 04/13/24 21:21 Dose: 6 mg Miscellaneous (Remove Nicoderm Patch) 1 each N/A DAILY@0859 [facility] Stop: 05/13/24 08:58 Last Admin: 04/15/24 11:36 Dose: 1 each Nicotine (Nicotine 21 Mg/24 Hr Tdsy) 1 patch TD QAM PAT Stop: 05/12/24 17:59 Last Admin: 04/15/24 08:05 Dose: 1 patch Nicotine Polacrilex (Nicotine Polacrilex 2 Mg Gum) 1 piece MT Q2H PRN PRN Reason: withdrawal Stop: 05/12/24 17:58 Last Admin: 04/15/24 08:37 Dose: 1 piece Olanzapine (Olanzapine 10 Mg/2.1 Ml Sdv) 5 mg IM BID PRN PRN Reason: Agitation Stop: 05/12/24 22:08 Olanzapine (Olanzapine 5 Mg Tablet) 15 mg PO HS PAT Stop: 05/15/24 20:59 Mental Health & Subst Abuse Tx Psychiatrist Date Of Appointment With Psychiatric Provider: Apr 22 2024 Time of Appointment with Psychiatrist: 2:15pm Therapist Name of Therapist: unknown Gun Numberer Name of Gun Numberer: Denies Post Discharge Appointments Primary Care Physician Name Of Family Doctor/PCP: Dr [facility]
[2024-04-15] MEDS: COUGH DROP (SUGAR FREE) LOZ 24 LOZ/1 BOX BUCCAL PRN (16:34)
[2024-04-15] MEDS: OLANZapine 5 MG TABLET PO SCH (19:59)
[2024-04-16] MEDS: ACETAMINOPHEN 325 MG TAB PO PRN (13:55)
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
--- NOTE | 2024-04-16 16:52 | Hospitalist Progress Note ---
Date of Service April 16, 2024 Assessment & Plan (1) Manic bipolar I disorder: Plan: Patient admitted to medicine service in light of COVID-19 positive test Has been followed by psychiatry service while admitted Psych meds adjusted Today, add trazodone at bedtime per psych recommendations Continue lithium, olanzapine Will need 2 consecutive COVID-negative tests or completion of 5 more days of isolation prior to transfer to the psych unit (2) COVID-19: Plan: Positive rhinorrhea, mild cough No other symptoms afebrile, Clear breath sounds Chest x-ray: No pneumonia 04/16 Symptoms Continue to improve First positive COVID test was done on admission, April 12 Repeat COVID Test done on April 15: Positive Continue with supportive care DVT prophylaxis Lovenox Disposition Transfer to psych unit once isolation period completed Admission and Anticipated Discharge Date Admission Date: April 12, 2024 Subjective Follow-up for robyn, COVID-19 infection, etc. Seen with ANKUSH Archer at the bedside throughout whole encounter Patient is calm, cooperative States she feels fine overall Rhinorrhea, cough improving No fevers or chills, abdominal pain, diarrhea, muscle pains States racing thoughts also improving No other new symptoms Review of Systems Review of Systems: all noted and negative except for above Physical Exam Physical Exam: General- oriented x 3, not in distress, speaks in sentences with no effort or accessory muscle use Eyes- anicteric Neck- no JVD Lungs- clear breath sounds bilaterally, no rales/wheezes Heart- normal rate, regular rhythm; no murmurs Abdomen- normal bowel sounds, nondistended, soft, nontender Extremities- no pretibial edema, no calf tenderness Neuro- alert, oriented x 3; no gross focal neurologic deficits Skin- warm & dry Results & Data Results & Data Vital Signs (Past 12 Hours) Vital Signs Temp Pulse Pulse Resp BP Pulse Ox O2 Del Method 04/16/24 15:56 36.7 C 102 H 16 146/94 H 97 Room Air 04/16/24 12:35 36.6 C 76 16 121/90 97 Room Air 04/16/24 07:55 36.7 C 78 16 112/77 98 Room Air 04/16/24 07:00 58 L all noted and reviewed including below
[2024-04-16] MEDS: LORazepam 1 MG TAB PO PRN (21:43)
[2024-04-16] MEDS: traZODone HCL 50 MG TAB PO SCH (21:43)
--- NOTE | 2024-04-17 08:35 | Hospitalist Progress Note ---
Date of Service April 17, 2024 Assessment & Plan (1) Manic bipolar I disorder: Plan: Patient admitted to medicine service in light of COVID-19 positive test Has been followed by psychiatry service while admitted Psych meds adjusted Per psychiatry - Added trazodone at bedtime and olanzapine 5 mg QAM Continue lithium, olanzapine HS Will need 2 consecutive COVID-negative tests or completion of 4 more days of isolation prior to transfer to the psych unit (2) COVID-19: Plan: Positive rhinorrhea, mild cough No other symptoms afebrile, Clear breath sounds Chest x-ray: No pneumonia 04/16 Symptoms Continue to improve First positive COVID test was done on admission, April 12 Repeat COVID Test done on April 15: Positive Continue with supportive care DVT prophylaxis Lovenox Disposition Transfer to psych unit once isolation period completed Admission and Anticipated Discharge Date Admission Date: April 12, 2024 Subjective Follow-up for robyn, COVID-19 infection, etc. Sitter present at the bedside Patient is calm, cooperative, reports having caffeine withdrawal headache States she feels fine overall has minimal cough No fevers or chills, abdominal pain, or muscle pains No other new symptoms Seen by psych -> olanzapine 5 mg AM Review of Systems Review of Systems: All systems reviewed & are unremarkable except as noted in Subjective Physical Exam Physical Exam: General- oriented x 3, not in distress, speaks in sentences with no effort or accessory muscle use Eyes- anicteric Neck- no JVD Lungs- clear breath sounds bilaterally, no rales/wheezes Heart- normal rate, regular rhythm; no murmurs Abdomen- normal bowel sounds, nondistended, soft, nontender Extremities- no pretibial edema, no calf tenderness Neuro- alert, oriented x 3; no gross focal neurologic deficits Skin- warm & dry Results & Data Results & Data Vital Signs (Past 12 Hours) Vital Signs Temp Pulse Pulse Resp BP Pulse Ox O2 Del Method 04/17/24 07:42 36.6 C 79 18 108/73 97 Room Air 04/17/24 07:19 67 04/16/24 23:09 87 04/16/24 23:00 36.8 C 112 H 18 137/87 95 Room Air 04/16/24 20:56 36.5 C 90 18 132/78 96 Room Air Laboratory Results 04/17/24 Range/Units 08:40 WBC 5.75 (4.8-10.8) K/ul RBC 4.69 (4.20-5.40) M/uL Hgb 13.7 (12.0-16.0) g/dl Hct 42.0 (37.0-47.0) % MCV 89.6 (80.0-100.0) fL MCH 29.2 (25.0-34.0) pg MCHC 32.6 (32.0-36.0) g/dL RDW Std Deviation 41.3 (36.4-46.3) fL RDW Coeff of Jatinder 12.6 (11.5-14.5) % Plt Count 304 (130-400) K/uL MPV 9.8 (9.4-12.4) fL Sodium 136 (136-145) mmol/L Potassium 4.2 (3.5-5.1) mmol/L Chloride 106 (98-107) mmol/L Carbon Dioxide 25 (21-32) mmol/L Anion Gap 5 (3-11) BUN 18 (6-23) mg/dl Creatinine 0.94 (0.6-1.2) mg/dl Est Cr Clr Drug Dosing 75.7 ml/min eGFR 86.36 BUN/Creatinine Ratio 19.1 (10-20) Glucose 103 H (70-99(Fasting)) mg/dl Calcium 9.6 (8.6-10.3) mg/dl Phosphorus 3.3 (2.5-4.9) mg/dl Magnesium 2.3 (1.7-2.4) mg/dl Medications Administered Current Inpatient Medications Acetaminophen (Acetaminophen 325 Mg Tab) 650 mg PO QID PRN PRN Reason: pain/fever Stop: 05/12/24 22:07 Last Admin: 04/17/24 08:02 Dose: 650 mg Clonazepam (Clonazepam 1 Mg Tab) 1 mg PO HS PAT Stop: 05/14/24 20:59 Last Admin: 04/16/24 21:43 Dose: 1 mg Enoxaparin Sodium (Enoxaparin Inj 40 Mg/0.4 Ml Syr) 40 mg SQ QAM PAT Stop: 05/14/24 08:59 Last Admin: 04/16/24 10:01 Dose: Not Given Promethazine HCl (Phenergan) 6.25 mg in 50.25 mls @ 201 mls/hr IV Q6H PRN PRN Reason: Nausea And Vomiting Stop: 05/12/24 22:[address] [place] Carbonate ([place] Carbonate Slow Rel 300 Mg Tab) 600 mg PO DAILY PAT Stop: 05/15/24 08:59 Last Admin: 04/17/24 08:02 Dose: 600 mg Lorazepam (Lorazepam 2 Mg/1 Ml Vial) 0.5 mg IV Q4H PRN PRN Reason: Anxiety/Agitation Stop: 05/13/24 12:27 Lorazepam (Lorazepam 1 Mg Tab) 1 mg PO Q6H PRN PRN Reason: Anxiety Stop: 05/16/24 16:13 Last Admin: 04/16/24 21:43 Dose: 1 mg Melatonin (Melatonin 3 Mg Tab) 6 mg PO HS PRN PRN Reason: Sleep Stop: 05/12/24 22:07 Last Admin: 04/16/24 21:42 Dose: 6 mg Menthol (Cough Drop (Sugar Free) Kristin 24 Kristin/1 Box) 1 kristin BUCCAL Q4H PRN PRN Reason: Sore Throat Stop: 05/15/24 15:52 Last Admin: 04/16/24 21:44 Dose: 1 kristin Miscellaneous (Remove Nicoderm Patch) 1 each N/A DAILY@0859 PAT Stop: 05/13/24 08:58 Last Admin: 04/17/24 08:02 Dose: 1 each Nicotine (Nicotine 21 Mg/24 Hr Tdsy) 1 patch TD QAM PAT Stop: 05/12/24 17:59 Last Admin: 04/16/24 10:02 Dose: 1 patch Nicotine Polacrilex (Nicotine Polacrilex 2 Mg Gum) 1 piece MT Q2H PRN PRN Reason: withdrawal Stop: 05/12/24 17:58 Last Admin: 04/16/24 06:08 Dose: 1 piece Olanzapine (Olanzapine 10 Mg/2.1 Ml Sdv) 5 mg IM BID PRN PRN Reason: Agitation Stop: 05/12/24 22:08 Olanzapine (Olanzapine 5 Mg Tablet) 15 mg PO HS PAT Stop: 05/15/24 20:59 Last Admin: 04/16/24 21:58 Dose: 15 mg Trazodone HCl (Trazodone Hcl 50 Mg Tab) 50 mg PO HS PAT Stop: 05/16/24 20:59 Last Admin: 04/16/24 21:43 Dose: 50 mg
[2024-04-17] MEDS: PROMETHAZINE 6.25 MG/50.25 ML BAG IV PRN (09:19)
[2024-04-17 09:30] LABS: Hemoglobin 13.7 g/dl (12.0-16.0); Mean Corpuscular Hemoglobin 29.2 pg (25.0-34.0); Mean Corpuscular Hgb Conc 32.6 g/dL (32.0-36.0); Mean Corpuscular Volume 89.6 fL (80.0-100.0); Mean Platelet Volume 9.8 fL (9.4-12.4); Platelet Count 304 K/uL (130-400); RDW Coefficient of Variation 12.6 % (11.5-14.5); RDW Standard Deviation 41.3 fL (36.4-46.3); Red Blood Count 4.69 M/uL (4.20-5.40); White Blood Count 5.75 K/ul (4.8-10.8)
[2024-04-17 09:46] LABS: BUN Creatinine Ratio 19.1 (10-20); Calcium 9.6 mg/dl (8.6-10.3); Creatinine Clr Calc Pharmacy 75.7 ml/min; Magnesium 2.3 mg/dl (1.7-2.4); Phosphorus 3.3 mg/dl (2.5-4.9); Potassium 4.2 mmol/L (3.5-5.1)
[2024-04-17] MEDS ORDERED: OLANZapine ZYDIS 5 MG ORALLY DIS. TAB PO PRN (11:05)
--- NOTE | 2024-04-17 13:52 | Psychiatric Progress Note ---
Date of Service April 17, 2024 Impression / Recommendations Impression 23 y/o female h/o Bipolar 1 mixed episode presents with recent poor sleep, poor appetite, elevated goal directed activity, tangential thought process, racing thoughts, dec need for sleep concerning for robyn. Still adherent to outpatient meds given [place] level in range. Possible mixed manic episode based on symptoms. A: Patient continues to be manic with decreased need for sleep, increased grandiosity, elevated energy. Multiple future plans and goal directed. Recommend to start olanzapine 5 mg in the morning. No acute safety concerns presented. Overall, I spent a total of 45 minutes with this case including review of chart records, nursing report, review of lab work, direct evaluation of the patient at bedside, counseling the patient, discussion of the patient with the hospitalist provider, discussion with the psychiatric liaison during clinical rounds, and documentation in the electronic health record. (1) Bipolar 1 disorder, mixed: (2) Cannabis abuse: (3) Post traumatic stress disorder (PTSD): (4) Generalized anxiety disorder: (5) Borderline personality disorder: (6) Compliant with medication regimen: Plan -Continue Trazodone 50mg HS -Start Olanzapine 5mg QAM -Continue Olanzapine to 15mg HS -Continue [place] 600mg daily (trough level in 1 days) -Continue Clonazepam 1mg HS -Hold home bupropion -Does not require bedside sitter -Transfer to inpatient behavioral health once covid negative x2 -24hrs between or 10 days isolation Suicide Risk Level Suicide Risk Level: Low (q15 min observation checks) Risk Factors Assessment Do You Have Access To A Gun?: No Protective Factors Assessment Employed: No Interval History Identifying Information 23 y/o female h/o Bipolar 1 mixed episode presents with recent poor sleep, poor appetite, elevated goal directed activity, tangential thought process, racing thoughts, dec need for sleep concerning for robyn. Still adherent to outpatient meds given [place] level in range. Possible mixed manic episode based on symptoms. Chief Complaint "Tired" Subjective Subjective Patient was seen & assessed and interval progress reviewed with treatment team nursing and social work On approach patient puts on her mask. Presented appropriate garb. Is sitting. Says that she feels "tired". Says that she slept well. She reports frustration being hospital because she has multiple plans "want to get stuff done". Says that she became famous overnight "I am pretty well-known". People have been seeing her in dreams and want to contact her after seeing her profile picture. Reports thousands of people have been trying to reach out to her. She shows me her Facebook messenger and most of the messages were sent by her. Says that people are drawn to talk to her. Reports that energy is 10 out of 10 spiritually and 8 out of 10 physically. Complains of continued headache and reports caffeine withdrawal. Reports multiple future plans including getting government assistance for food stamps, reading to her child, advertising for her mom's air BNB. She denies SI. Agreeable to continued hospitalization. Physical Exam Mental Examination Appearance: Unkempt Eye Contact: Maintains Eye Contact Motor Behavior: Unremarkable (more calm today) Speech: Normal and Excessive Mood: Anxious and Elevated Affect: Euphoric Thought Process: Linear and Racing Thought Content: Obsessional Thoughts and Preoccupation Hallucinations: None Insight: Poor (to limited, improving) Judgement: Poor (to limited, med adherent) Vital Signs (Past 24 Hours) Last Vital Signs Temp 36.6 C 04/17/24 07:42 Pulse 79 04/17/24 07:42 Resp 18 04/17/24 07:42 BP 108/73 04/17/24 07:42 Pulse Ox 97 04/17/24 07:42 O2 Del Method Room Air 04/17/24 12:18 Results & Data ([facility]) Laboratory Results Laboratory Results - last 24 hr 04/17/24 08:40 WBC 5.75 RBC 4.69 Hgb 13.7 Hct 42.0 MCV 89.6 MCH 29.2 MCHC 32.6 RDW Std Deviation 41.3 RDW Coeff of Jatinder 12.6 Plt Count 304 MPV 9.8 Sodium 136 Potassium 4.2 Chloride 106 Carbon Dioxide 25 Anion Gap 5 BUN 18 Creatinine 0.94 Est Cr Clr Drug Dosing 75.7 eGFR 86.36 BUN/Creatinine Ratio 19.1 Glucose 103 H Calcium 9.6 Phosphorus 3.3 Magnesium 2.3 Current Inpatient Medications Current Inpatient Medications: Current Inpatient Medications Acetaminophen (Acetaminophen 325 Mg Tab) 650 mg PO QID PRN PRN Reason: pain/fever Stop: 05/12/24 22:07 Last Admin: 04/17/24 08:02 Dose: 650 mg Clonazepam (Clonazepam 1 Mg Tab) 1 mg PO HS PAT Stop: 05/14/24 20:59 Last Admin: 04/16/24 21:43 Dose: 1 mg Enoxaparin Sodium (Enoxaparin Inj 40 Mg/0.4 Ml Syr) 40 mg SQ QAM [facility] Stop: 05/14/24 08:59 Last Admin: 04/17/24 09:24 Dose: Not Given Promethazine HCl (Phenergan) 6.25 mg in 50.25 mls @ 201 mls/hr IV Q6H PRN PRN Reason: Nausea And Vomiting Stop: 05/12/24 22:07 Last Infusion: 04/17/24 09:46 Dose: Infused [place] Carbonate ([place] Carbonate Slow Rel 300 Mg Tab) 600 mg PO DAILY [facility] Stop: 05/15/24 08:59 Last Admin: 04/17/24 08:02 Dose: 600 mg Lorazepam (Lorazepam 2 Mg/1 Ml Vial) 0.5 mg IV Q4H PRN PRN Reason: Anxiety/Agitation Stop: 05/13/24 12:27 Lorazepam (Lorazepam 1 Mg Tab) 1 mg PO Q6H PRN PRN Reason: Anxiety Stop: 05/16/24 16:13 Last Admin: 04/17/24 08:56 Dose: 1 mg Melatonin (Melatonin 3 Mg Tab) 6 mg PO HS PRN PRN Reason: Sleep Stop: 05/12/24 22:07 Last Admin: 04/16/24 21:42 Dose: 6 mg Menthol (Cough Drop (Sugar Free) Kristin 24 Kristin/1 Box) 1 kristin BUCCAL Q4H PRN PRN Reason: Sore Throat Stop: 05/15/24 15:52 Last Admin: 04/17/24 08:56 Dose: 1 kristin Miscellaneous (Remove Nicoderm Patch) 1 each N/A DAILY@0859 [facility] Stop: 05/13/24 08:58 Last Admin: 04/17/24 08:02 Dose: 1 each Nicotine (Nicotine 21 Mg/24 Hr Tdsy) 1 patch TD QAM [facility] Stop: 05/12/24 17:59 Last Admin: 04/17/24 11:27 Dose: 1 patch Nicotine Polacrilex (Nicotine Polacrilex 2 Mg Gum) 1 piece MT Q2H PRN PRN Reason: withdrawal Stop: 05/12/24 17:58 Last Admin: 04/16/24 06:08 Dose: 1 piece Olanzapine (Olanzapine 10 Mg/2.1 Ml Sdv) 5 mg IM BID PRN PRN Reason: Agitation Stop: 05/12/24 22:08 Olanzapine (Olanzapine 5 Mg Tablet) 15 mg PO HS PAT Stop: 05/15/24 20:59 Last Admin: 04/16/24 21:58 Dose: 15 mg Olanzapine (Olanzapine Zydis 5 Mg Orally Dis. Tab) 5 mg PO BID PRN PRN Reason: Agitation Stop: 05/17/24 11:14 Olanzapine (Olanzapine 5 Mg Tablet) 5 mg PO QAM PAT Stop: 05/18/24 08:59 Trazodone HCl (Trazodone Hcl 50 Mg Tab) 50 mg PO HS PAT Stop: 05/16/24 20:59 Last Admin: 04/16/24 21:43 Dose: 50 mg Mental Health & Subst Abuse Tx Psychiatrist Date Of Appointment With Psychiatric Provider: Apr 22 2024 Time of Appointment with Psychiatrist: 2:15pm Therapist Name of Therapist: unknown Hot Box Spotter Name of Hot Box Spotter: Denies Post Discharge Appointments Primary Care Physician Name Of Family Doctor/PCP: Dr Zeke Barksdale office
[2024-04-17] MEDS: IBUPROFEN 200 MG TAB PO STA (17:04)
[2024-04-18] MEDS: OLANZapine 5 MG TABLET PO SCH (08:15)
--- NOTE | 2024-04-18 08:17 | Hospitalist Progress Note ---
Date of Service April 18, 2024 Assessment & Plan (1) Manic bipolar I disorder: Plan: Patient admitted to medicine service in light of COVID-19 positive test Has been followed by psychiatry service while admitted Psych meds adjusted Per psychiatry - -[place] level tomorrow AM prior to dose (order placed) -Continue Trazodone 50mg HS -Continue Olanzapine 5mg QAM, Olanzapine 15mg HS -Continue [place] 600mg daily (trough level in 1 days) -Continue Clonazepam 1mg HS -Hold home bupropion Will need 2 consecutive COVID-negative tests or completion of 3 more days of isolation prior to transfer to the psych unit (2) COVID-19: Plan: Positive rhinorrhea, mild cough No other symptoms afebrile, Clear breath sounds Chest x-ray: No pneumonia 04/16 Symptoms Continue to improve First positive COVID test was done on admission, April 12 Repeat COVID Test done on April 15: Positive Continue with supportive care DVT prophylaxis Lovenox Disposition Transfer to psych unit once isolation period completed Admission and Anticipated Discharge Date Admission Date: April 12, 2024 Subjective Follow-up for robyn, COVID-19 infection, etc. Patient is calm, cooperative, reports having caffeine withdrawal headache States she feels fine overall has minimal cough No fevers or chills, abdominal pain, or muscle pains No other new symptoms Psychiatry following closely Review of Systems Review of Systems: All systems reviewed & are unremarkable except as noted in Subjective Physical Exam Physical Exam: General- oriented x 3, not in distress, speaks in sentences with no effort or accessory muscle use Eyes- anicteric Neck- no JVD Lungs- clear breath sounds bilaterally, no rales/wheezes Heart- normal rate, regular rhythm; no murmurs Abdomen- normal bowel sounds, nondistended, soft, nontender Extremities- no pretibial edema, no calf tenderness Neuro- alert, oriented x 3; no gross focal neurologic deficits Skin- warm & dry Results & Data Results & Data Vital Signs (Past 12 Hours) Vital Signs Temp Pulse Pulse Resp BP Pulse Ox O2 Del Method 04/18/24 07:32 63 04/18/24 02:30 36.7 C 66 18 129/74 96 Room Air 04/17/24 23:57 83 Laboratory Results 04/12/24 Range/Units Unknown Urine MDEA negative MDMA negative Urine MDMA negative U Marijuana THC Carboxy 57 H (<5) ng/mL Drug Screen Comment SEE NOTE Medications Administered Current Inpatient Medications Acetaminophen (Acetaminophen 325 Mg Tab) 650 mg PO QID PRN PRN Reason: pain/fever Stop: 05/12/24 22:07 Last Admin: 04/17/24 15:51 Dose: 650 mg Clonazepam (Clonazepam 1 Mg Tab) 1 mg PO HS PAT Stop: 05/14/24 20:59 Last Admin: 04/17/24 21:08 Dose: 1 mg Enoxaparin Sodium (Enoxaparin Inj 40 Mg/0.4 Ml Syr) 40 mg SQ QAM [facility] Stop: 05/14/24 08:59 Last Admin: 04/18/24 08:16 Dose: Not Given Promethazine HCl (Phenergan) 6.25 mg in 50.25 mls @ 201 mls/hr IV Q6H PRN PRN Reason: Nausea And Vomiting Stop: 05/12/24 22:07 Last Infusion: 04/17/24 09:46 Dose: Infused [place] Carbonate ([place] Carbonate Slow Rel 300 Mg Tab) 600 mg PO DAILY [facility] Stop: 05/15/24 08:59 Last Admin: 04/18/24 08:14 Dose: 600 mg Lorazepam (Lorazepam 2 Mg/1 Ml Vial) 0.5 mg IV Q4H PRN PRN Reason: Anxiety/Agitation Stop: 05/13/24 12:27 Lorazepam (Lorazepam 1 Mg Tab) 1 mg PO Q6H PRN PRN Reason: Anxiety Stop: 05/16/24 16:13 Last Admin: 04/17/24 21:08 Dose: 1 mg Melatonin (Melatonin 3 Mg Tab) 6 mg PO HS PRN PRN Reason: Sleep Stop: 05/12/24 22:07 Last Admin: 04/17/24 21:08 Dose: 6 mg Menthol (Cough Drop (Sugar Free) Kristin 24 Kristin/1 Box) 1 kristin BUCCAL Q4H PRN PRN Reason: Sore Throat Stop: 05/15/24 15:52 Last Admin: 04/17/24 21:10 Dose: 1 kristin Miscellaneous (Remove Nicoderm Patch) 1 each N/A DAILY@0859 [facility] Stop: 05/13/24 08:58 Last Admin: 04/17/24 08:02 Dose: 1 each Nicotine (Nicotine 21 Mg/24 Hr Tdsy) 1 patch TD QAM [facility] Stop: 05/12/24 17:59 Last Admin: 04/18/24 08:15 Dose: 1 patch Nicotine Polacrilex (Nicotine Polacrilex 2 Mg Gum) 1 piece MT Q2H PRN PRN Reason: withdrawal Stop: 05/12/24 17:58 Last Admin: 04/16/24 06:08 Dose: 1 piece Olanzapine (Olanzapine 10 Mg/2.1 Ml Sdv) 5 mg IM BID PRN PRN Reason: Agitation Stop: 05/12/24 22:08 Olanzapine (Olanzapine 5 Mg Tablet) 15 mg PO HS PAT Stop: 05/15/24 20:59 Last Admin: 04/17/24 21:14 Dose: 15 mg Olanzapine (Olanzapine Zydis 5 Mg Orally Dis. Tab) 5 mg PO BID PRN PRN Reason: Agitation Stop: 05/17/24 11:14 Olanzapine (Olanzapine 5 Mg Tablet) 5 mg PO QAM PAT Stop: 05/18/24 08:59 Last Admin: 04/18/24 08:15 Dose: 5 mg Trazodone HCl (Trazodone Hcl 50 Mg Tab) 50 mg PO HS PAT Stop: 05/16/24 20:59 Last Admin: 04/17/24 21:08 Dose: 50 mg
--- NOTE | 2024-04-18 13:09 | Psychiatric Progress Note ---
Date of Service April 18, 2024 Impression / Recommendations Impression 23 y/o female h/o Bipolar 1 mixed episode presents with recent poor sleep, poor appetite, elevated goal directed activity, tangential thought process, racing thoughts, dec need for sleep concerning for robyn. Still adherent to outpatient meds given [place] level in range. Possible mixed manic episode based on symptoms. A: Today patient appears less restless and reports improvement in racing thoughts. Continues to present elevated mood, decreased need for sleep, hypertalkativeness. Is tolerating olanzapine well and we will plan to continue. Plan for lithium trough level tomorrow morning prior to a.m. dose. Overall, I spent a total of 40 minutes with this case including review of chart records, nursing report, review of lab work, direct evaluation of the patient at bedside, counseling the patient, discussion of the patient with the hospitalist provider, discussion with the psychiatric liaison during clinical rounds, and documentation in the electronic health record. (1) Bipolar 1 disorder, mixed: (2) Cannabis abuse: (3) Post traumatic stress disorder (PTSD): (4) Generalized anxiety disorder: (5) Borderline personality disorder: (6) Compliant with medication regimen: Plan -[place] level tomorrow AM prior to dose (order placed) -Continue Trazodone 50mg HS -Continue Olanzapine 5mg QAM, Olanzapine 15mg HS -Continue [place] 600mg daily (trough level in 1 days) -Continue Clonazepam 1mg HS -Hold home bupropion -Does not require bedside sitter -Transfer to inpatient behavioral health once covid negative x2 -24hrs between or 10 days isolation Suicide Risk Level Suicide Risk Level: Low (q15 min observation checks) Risk Factors Assessment Do You Have Access To A Gun?: No Protective Factors Assessment Employed: No Interval History Identifying Information 23 y/o female h/o Bipolar 1 mixed episode presents with recent poor sleep, poor appetite, elevated goal directed activity, tangential thought process, racing thoughts, dec need for sleep concerning for robyn. Still adherent to outpatient meds given [place] level in range. Possible mixed manic episode based on symptoms. Chief Complaint "A lot better" Subjective Subjective Patient was seen & assessed and interval progress reviewed with treatment team nursing and social work Patient reports having less anger and anxiety today. Reports sleeping all night and want to take a nap. She spoke to her grandmother and reconciled with their. He talks about a history of her child and reports having a baby with her best friend and her coparenting. Best friend is currently dealing with addiction and is in a penitentiary house. She wants to stay on medications and prevent relapse of robyn. She reports energy is 4 out of 10. Says her mood is "fantastic". Physical Exam Mental Examination Appearance: Unkempt Eye Contact: Maintains Eye Contact Motor Behavior: Unremarkable (more calm today) Speech: Normal and Excessive Mood: Anxious and Elevated Affect: Euphoric Thought Process: Linear and Racing Thought Content: Obsessional Thoughts and Preoccupation Hallucinations: None Insight: Poor (to limited, improving) Judgement: Poor (to limited, med adherent) Vital Signs (Past 24 Hours) Last Vital Signs Temp 36.7 C 04/18/24 08:42 Pulse 88 04/18/24 08:42 Resp 18 04/18/24 08:42 BP 126/73 04/18/24 08:42 Pulse Ox 96 04/18/24 08:42 O2 Del Method Room Air 04/18/24 08:42 Results & Data ([facility]) Current Inpatient Medications Current Inpatient Medications: Current Inpatient Medications Acetaminophen (Acetaminophen 325 Mg Tab) 650 mg PO QID PRN PRN Reason: pain/fever Stop: 05/12/24 22:07 Last Admin: 04/18/24 09:53 Dose: 650 mg Clonazepam (Clonazepam 1 Mg Tab) 1 mg PO HS [facility] Stop: 05/14/24 20:59 Last Admin: 04/17/24 21:08 Dose: 1 mg Enoxaparin Sodium (Enoxaparin Inj 40 Mg/0.4 Ml Syr) 40 mg SQ QAM PAT Stop: 05/14/24 08:59 Last Admin: 04/18/24 08:16 Dose: Not Given Promethazine HCl (Phenergan) 6.25 mg in 50.25 mls @ 201 mls/hr IV Q6H PRN PRN Reason: Nausea And Vomiting Stop: 05/12/24 22:07 Last Infusion: 04/17/24 09:46 Dose: Infused [place] Carbonate ([place] Carbonate Slow Rel 300 Mg Tab) 600 mg PO DAILY PAT Stop: 05/15/24 08:59 Last Admin: 04/18/24 08:14 Dose: 600 mg Lorazepam (Lorazepam 2 Mg/1 Ml Vial) 0.5 mg IV Q4H PRN PRN Reason: Anxiety/Agitation Stop: 05/13/24 12:27 Lorazepam (Lorazepam 1 Mg Tab) 1 mg PO Q6H PRN PRN Reason: Anxiety Stop: 05/16/24 16:13 Last Admin: 04/17/24 21:08 Dose: 1 mg Melatonin (Melatonin 3 Mg Tab) 6 mg PO HS PRN PRN Reason: Sleep Stop: 05/12/24 22:07 Last Admin: 04/17/24 21:08 Dose: 6 mg Menthol (Cough Drop (Sugar Free) Kristin 24 Kristin/1 Box) 1 kristin BUCCAL Q4H PRN PRN Reason: Sore Throat Stop: 05/15/24 15:52 Last Admin: 04/17/24 21:10 Dose: 1 kristin Miscellaneous (Remove Nicoderm Patch) 1 each N/A DAILY@0859 [facility] Stop: 05/13/24 08:58 Last Admin: 04/18/24 08:38 Dose: Not Given Nicotine (Nicotine 21 Mg/24 Hr Tdsy) 1 patch TD QAM PAT Stop: 05/12/24 17:59 Last Admin: 04/18/24 08:15 Dose: 1 patch Nicotine Polacrilex (Nicotine Polacrilex 2 Mg Gum) 1 piece MT Q2H PRN PRN Reason: withdrawal Stop: 05/12/24 17:58 Last Admin: 04/16/24 06:08 Dose: 1 piece Olanzapine (Olanzapine 10 Mg/2.1 Ml Sdv) 5 mg IM BID PRN PRN Reason: Agitation Stop: 05/12/24 22:08 Olanzapine (Olanzapine 5 Mg Tablet) 15 mg PO HS PAT Stop: 05/15/24 20:59 Last Admin: 04/17/24 21:14 Dose: 15 mg Olanzapine (Olanzapine Zydis 5 Mg Orally Dis. Tab) 5 mg PO BID PRN PRN Reason: Agitation Stop: 05/17/24 11:14 Olanzapine (Olanzapine 5 Mg Tablet) 5 mg PO QAM PAT Stop: 05/18/24 08:59 Last Admin: 04/18/24 08:15 Dose: 5 mg Trazodone HCl (Trazodone Hcl 50 Mg Tab) 50 mg PO HS PAT Stop: 05/16/24 20:59 Last Admin: 04/17/24 21:08 Dose: 50 mg Mental Health & Subst Abuse Tx Psychiatrist Date Of Appointment With Psychiatric Provider: Apr 22 2024 Time of Appointment with Psychiatrist: 2:15pm Therapist Name of Therapist: unknown Topper Packer Name of Topper Packer: Denies Post Discharge Appointments Primary Care Physician Name Of Family Doctor/PCP: Dr Zeke Barksdale office
[2024-04-18 16:13] LABS: MDA negative; MDEA negative; MDMA (Ecstasy) Urine, Confirm negative; Marijuana Quant, GCMS Urine 57 ng/mL (<5)
[2024-04-18] MEDS: IBUPROFEN 200 MG TAB PO STA (17:25)
--- NOTE | 2024-04-19 13:41 | Psychiatric Progress Note ---
Date of Service April 19, 2024 Impression / Recommendations Impression 23 y/o female h/o Bipolar 1 mixed episode presents with recent poor sleep, poor appetite, elevated goal directed activity, tangential thought process, racing thoughts, dec need for sleep concerning for robyn. Still adherent to outpatient meds given [place] level in range. Possible mixed manic episode based on symptoms. A: Patient continues to be hyper-talkative, labile, presenting elated mood, restless at times. Sleep has improved. [place] level resulted in was subtherapeutic at 0.3. Plan to optimize lithium dose today. Overall, I spent a total of 30 minutes with this case including review of chart records, nursing report, review of lab work, direct evaluation of the patient at bedside, counseling the patient, discussion of the patient with the hospitalist provider, discussion with the psychiatric liaison during clinical rounds, and documentation in the electronic health record. (1) Bipolar 1 disorder, mixed: (2) Cannabis abuse: (3) Post traumatic stress disorder (PTSD): (4) Generalized anxiety disorder: (5) Borderline personality disorder: (6) Compliant with medication regimen: Plan -Increase lithium to 900 mg at bedtime (order placed) -Continue Trazodone 50mg HS -Continue Olanzapine 5mg QAM, Olanzapine 15mg HS -Continue [place] 600mg daily (trough level in 1 days) -Continue Clonazepam 1mg HS -Hold home bupropion -Does not require bedside sitter -Transfer to inpatient behavioral health once covid negative x2 -24hrs between or 10 days isolation *If patient requests to leave must see psychiatry first for safety assessment Suicide Risk Level Suicide Risk Level: Low (q15 min observation checks) Risk Factors Assessment Do You Have Access To A Gun?: No Protective Factors Assessment Employed: No Interval History Identifying Information 23 y/o female h/o Bipolar 1 mixed episode presents with recent poor sleep, poor appetite, elevated goal directed activity, tangential thought process, racing thoughts, dec need for sleep concerning for robyn. Still adherent to outpatient meds given [place] level in range. Possible mixed manic episode based on symptoms. Chief Complaint "Got into argument with mom" Subjective Subjective Patient was seen & assessed and interval progress reviewed with treatment team nursing and social work Upon approach patient immediately started talking and was rambling. Reports that her brother undermines her. Says that she had an argument with her mom. She is speaking quickly. Reports having poor self-esteem when younger and was depressed. Says that she feels "great" but then becomes labile and starts crying. Says that "people love me". Tolerating medications well. Says that depression started at 14 years of age when she confronted childhood trauma. Updated about care plan. Physical Exam Mental Examination Appearance: Unkempt Eye Contact: Maintains Eye Contact Motor Behavior: Unremarkable (more calm today) Speech: Normal and Excessive Mood: Anxious and Elevated Affect: Euphoric Thought Process: Linear and Racing Thought Content: Obsessional Thoughts and Preoccupation Hallucinations: None Insight: Poor (to limited, improving) Judgement: Poor (to limited, med adherent) Vital Signs (Past 24 Hours) Last Vital Signs Temp 37.0 C 04/19/24 11:04 Pulse 109 H 04/19/24 11:04 Resp 18 04/19/24 11:04 BP 120/86 04/19/24 11:04 Pulse Ox 98 04/19/24 11:04 O2 Del Method Room Air 04/19/24 11:04 Results & Data ([facility]) Laboratory Results Laboratory Results - last 24 hr 04/12/24 04/19/24 Unknown 07:08 Urine MDEA negative MDMA negative Urine MDMA negative [place] 0.3 L U Marijuana THC Carboxy 57 H Drug Screen Comment SEE NOTE Current Inpatient Medications Current Inpatient Medications: Current Inpatient Medications Acetaminophen (Acetaminophen 325 Mg Tab) 650 mg PO QID PRN PRN Reason: pain/fever Stop: 05/12/24 22:07 Last Admin: 04/18/24 16:10 Dose: 650 mg Clonazepam (Clonazepam 1 Mg Tab) 1 mg PO HS [facility] Stop: 05/14/24 20:59 Last Admin: 04/18/24 20:55 Dose: 1 mg Enoxaparin Sodium (Enoxaparin Inj 40 Mg/0.4 Ml Syr) 40 mg SQ QAM PAT Stop: 05/14/24 08:59 Last Admin: 04/19/24 08:39 Dose: Not Given Promethazine HCl (Phenergan) 6.25 mg in 50.25 mls @ 201 mls/hr IV Q6H PRN PRN Reason: Nausea And Vomiting Stop: 05/12/24 22:07 Last Infusion: 04/17/24 09:46 Dose: Infused [place] Carbonate ([place] Carbonate 450 Mg Tabcr) 900 mg PO HS PAT Stop: 05/19/24 20:59 Lorazepam (Lorazepam 2 Mg/1 Ml Vial) 0.5 mg IV Q4H PRN PRN Reason: Anxiety/Agitation Stop: 05/13/24 12:27 Lorazepam (Lorazepam 1 Mg Tab) 1 mg PO Q6H PRN PRN Reason: Anxiety Stop: 05/16/24 16:13 Last Admin: 04/17/24 21:08 Dose: 1 mg Melatonin (Melatonin 3 Mg Tab) 6 mg PO HS PRN PRN Reason: Sleep Stop: 05/12/24 22:07 Last Admin: 04/17/24 21:08 Dose: 6 mg Menthol (Cough Drop (Sugar Free) Kristin 24 Kristin/1 Box) 1 kristin BUCCAL Q4H PRN PRN Reason: Sore Throat Stop: 05/15/24 15:52 Last Admin: 04/17/24 21:10 Dose: 1 kristin Miscellaneous (Remove Nicoderm Patch) 1 each N/A DAILY@0859 [facility] Stop: 05/13/24 08:58 Last Admin: 04/19/24 08:47 Dose: 1 each Nicotine (Nicotine 21 Mg/24 Hr Tdsy) 1 patch TD QAM PAT Stop: 05/12/24 17:59 Last Admin: 04/19/24 08:48 Dose: 1 patch Nicotine Polacrilex (Nicotine Polacrilex 2 Mg Gum) 1 piece MT Q2H PRN PRN Reason: withdrawal Stop: 05/12/24 17:58 Last Admin: 04/18/24 16:10 Dose: 1 piece Olanzapine (Olanzapine 10 Mg/2.1 Ml Sdv) 5 mg IM BID PRN PRN Reason: Agitation Stop: 05/12/24 22:08 Olanzapine (Olanzapine 5 Mg Tablet) 15 mg PO HS PAT Stop: 05/15/24 20:59 Last Admin: 04/18/24 20:57 Dose: 15 mg Olanzapine (Olanzapine Zydis 5 Mg Orally Dis. Tab) 5 mg PO BID PRN PRN Reason: Agitation Stop: 05/17/24 11:14 Olanzapine (Olanzapine 5 Mg Tablet) 5 mg PO QAM PAT Stop: 05/18/24 08:59 Last Admin: 04/19/24 08:47 Dose: 5 mg Trazodone HCl (Trazodone Hcl 50 Mg Tab) 50 mg PO HS PAT Stop: 05/16/24 20:59 Last Admin: 04/18/24 20:55 Dose: 50 mg Mental Health & Subst Abuse Tx Psychiatrist Date Of Appointment With Psychiatric Provider: Apr 22 2024 Time of Appointment with Psychiatrist: 2:15pm Therapist Name of Therapist: unknown Pulp Bleacher Name of Pulp Bleacher: Denies Post Discharge Appointments Primary Care Physician Name Of Family Doctor/PCP: Dr Zeke gonzales
--- NOTE | 2024-04-19 16:01 | Hospitalist Progress Note ---
Date of Service April 19, 2024 Assessment & Plan (1) Manic bipolar I disorder: Plan: Patient admitted to medicine service in light of COVID-19 positive test Has been followed by psychiatry service while admitted Psych meds adjusted Per psychiatry - [place] level resulted in was subtherapeutic at 0.3. Plan to optimize lithium dose today. -Increase lithium to 900 mg at bedtime (order placed) -Continue Trazodone 50mg HS -Continue Olanzapine 5mg QAM, Olanzapine 15mg HS -Continue [place] 600mg daily (trough level in 1 days) -Continue Clonazepam 1mg HS -Hold home bupropion Will need 2 consecutive COVID-negative tests or completion of 3 more days of isolation prior to transfer to the psych unit (2) COVID-19: Plan: Positive rhinorrhea, mild cough No other symptoms afebrile, Clear breath sounds Chest x-ray: No pneumonia 04/16 Symptoms Continue to improve First positive COVID test was done on admission, April 12 Repeat COVID Test done on April 15: Positive Continue with supportive care DVT prophylaxis Lovenox Disposition Transfer to psych unit once isolation period completed Admission and Anticipated Discharge Date Admission Date: April 12, 2024 Subjective Follow-up for robyn, COVID-19 infection, etc. Patient is calm, cooperative. Was visited by her grandmother today. Took shower today. States she feels fine overall has minimal cough No fevers or chills, abdominal pain, or muscle pains No other new symptoms Psychiatry following closely Review of Systems Review of Systems: All systems reviewed & are unremarkable except as noted in Subjective Physical Exam Physical Exam: General- oriented x 3, not in distress, speaks in sentences with no effort or accessory muscle use Eyes- anicteric Neck- no JVD Lungs- clear breath sounds bilaterally, no rales/wheezes Heart- normal rate, regular rhythm; no murmurs Abdomen- normal bowel sounds, nondistended, soft, nontender Extremities- no pretibial edema, no calf tenderness Neuro- alert, oriented x 3; no gross focal neurologic deficits Skin- warm & dry Results & Data Results & Data Vital Signs (Past 12 Hours) Vital Signs Temp Pulse Pulse Resp BP Pulse Ox O2 Del Method 04/19/24 15:27 90 04/19/24 11:04 37.0 C 109 H 18 120/86 98 Room Air 04/19/24 08:39 37.0 C 77 18 120/83 98 Room Air 04/19/24 07:29 84 04/19/24 04:42 36.6 C 79 18 92/60 L 98 Room Air Medications Administered Current Inpatient Medications Acetaminophen (Acetaminophen 325 Mg Tab) 650 mg PO QID PRN PRN Reason: pain/fever Stop: 05/12/24 22:07 Last Admin: 04/18/24 16:10 Dose: 650 mg Clonazepam (Clonazepam 1 Mg Tab) 1 mg PO HS [facility] Stop: 05/14/24 20:59 Last Admin: 04/18/24 20:55 Dose: 1 mg Enoxaparin Sodium (Enoxaparin Inj 40 Mg/0.4 Ml Syr) 40 mg SQ QAM PAT Stop: 05/14/24 08:59 Last Admin: 04/19/24 08:39 Dose: Not Given Promethazine HCl (Phenergan) 6.25 mg in 50.25 mls @ 201 mls/hr IV Q6H PRN PRN Reason: Nausea And Vomiting Stop: 05/12/24 22:07 Last Infusion: 04/17/24 09:46 Dose: Infused [place] Carbonate ([place] Carbonate 450 Mg Tabcr) 900 mg PO HS PAT Stop: 05/19/24 20:59 Lorazepam (Lorazepam 2 Mg/1 Ml Vial) 0.5 mg IV Q4H PRN PRN Reason: Anxiety/Agitation Stop: 05/13/24 12:27 Lorazepam (Lorazepam 1 Mg Tab) 1 mg PO Q6H PRN PRN Reason: Anxiety Stop: 05/16/24 16:13 Last Admin: 04/17/24 21:08 Dose: 1 mg Melatonin (Melatonin 3 Mg Tab) 6 mg PO HS PRN PRN Reason: Sleep Stop: 05/12/24 22:07 Last Admin: 04/17/24 21:08 Dose: 6 mg Menthol (Cough Drop (Sugar Free) Kristin 24 Kristin/1 Box) 1 kristin BUCCAL Q4H PRN PRN Reason: Sore Throat Stop: 05/15/24 15:52 Last Admin: 04/17/24 21:10 Dose: 1 kristin Miscellaneous (Remove Nicoderm Patch) 1 each N/A DAILY@0859 [facility] Stop: 05/13/24 08:58 Last Admin: 04/19/24 08:47 Dose: 1 each Nicotine (Nicotine 21 Mg/24 Hr Tdsy) 1 patch TD QAM PAT Stop: 05/12/24 17:59 Last Admin: 04/19/24 08:48 Dose: 1 patch Nicotine Polacrilex (Nicotine Polacrilex 2 Mg Gum) 1 piece MT Q2H PRN PRN Reason: withdrawal Stop: 05/12/24 17:58 Last Admin: 04/18/24 16:10 Dose: 1 piece Olanzapine (Olanzapine 10 Mg/2.1 Ml Sdv) 5 mg IM BID PRN PRN Reason: Agitation Stop: 05/12/24 22:08 Olanzapine (Olanzapine 5 Mg Tablet) 15 mg PO HS PAT Stop: 05/15/24 20:59 Last Admin: 04/18/24 20:57 Dose: 15 mg Olanzapine (Olanzapine Zydis 5 Mg Orally Dis. Tab) 5 mg PO BID PRN PRN Reason: Agitation Stop: 05/17/24 11:14 Olanzapine (Olanzapine 5 Mg Tablet) 5 mg PO QAM PAT Stop: 05/18/24 08:59 Last Admin: 04/19/24 08:47 Dose: 5 mg Trazodone HCl (Trazodone Hcl 50 Mg Tab) 50 mg PO HS PAT Stop: 05/16/24 20:59 Last Admin: 04/18/24 20:55 Dose: 50 mg
[2024-04-19] MEDS: LITHIUM CARBONATE 450 MG TABCR PO SCH (22:15)
[2024-04-20 07:13] VITALS: RESP 18
--- NOTE | 2024-04-20 10:33 | Hospitalist Progress Note ---
Date of Service April 20, 2024 Assessment & Plan (1) Manic bipolar I disorder: Plan: Patient admitted to medicine service in light of COVID-19 positive test Has been followed by psychiatry service while admitted Psych meds adjusted Per psychiatry - [place] level resulted in was subtherapeutic at 0.3. Plan to optimize lithium dose today. -C/w lithium to 900 mg at bedtime (will need repeat level in 4-6 days) -Continue Trazodone 50mg HS -Continue Olanzapine 5mg QAM, Olanzapine 15mg HS -Continue [place] 600mg daily (trough level in 1 days) -Continue Clonazepam 1mg HS -Hold home bupropion Will need 2 consecutive COVID-negative tests or completion of 10 days (from 04/12) of isolation prior to transfer to the psych unit (2) COVID-19: Plan: Positive rhinorrhea, mild cough No other symptoms afebrile, Clear breath sounds Chest x-ray: No pneumonia 04/16 Symptoms Continue to improve First positive COVID test was done on admission, April 12 Repeat COVID Test done on April 15: Positive Continue with supportive care DVT prophylaxis Lovenox Disposition Transfer to psych unit once isolation period completed Admission and Anticipated Discharge Date Admission Date: April 12, 2024 Subjective Follow-up for robyn, COVID-19 infection, etc. Patient is calm, cooperative. Was visited by her grandmother yesterday. Today she has been coloring. States she feels well overall has minimal cough No fevers or chills, abdominal pain, or muscle pains No other new symptoms Psychiatry following closely, lithium dose was increased Review of Systems Review of Systems: All systems reviewed & are unremarkable except as noted in Subjective Physical Exam Physical Exam: General- oriented x 3, not in distress, speaks in sentences with no effort or accessory muscle use Eyes- anicteric Neck- no JVD Lungs- clear breath sounds bilaterally, no rales/wheezes Heart- normal rate, regular rhythm; no murmurs Abdomen- normal bowel sounds, nondistended, soft, nontender Extremities- no pretibial edema, no calf tenderness Neuro- alert, oriented x 3; no gross focal neurologic deficits Skin- warm & dry Results & Data Results & Data Vital Signs (Past 12 Hours) Vital Signs Temp Pulse Pulse Resp BP Pulse Ox O2 Del Method 04/20/24 08:46 70 04/20/24 07:12 36.6 C 81 18 112/71 99 Room Air Medications Administered Current Inpatient Medications Acetaminophen (Acetaminophen 325 Mg Tab) 650 mg PO QID PRN PRN Reason: pain/fever Stop: 05/12/24 22:07 Last Admin: 04/18/24 16:10 Dose: 650 mg Clonazepam (Clonazepam 1 Mg Tab) 1 mg PO HS [facility] Stop: 05/14/24 20:59 Last Admin: 04/19/24 22:15 Dose: 1 mg Enoxaparin Sodium (Enoxaparin Inj 40 Mg/0.4 Ml Syr) 40 mg SQ QAM PAT Stop: 05/14/24 08:59 Last Admin: 04/20/24 08:02 Dose: 40 mg Promethazine HCl (Phenergan) 6.25 mg in 50.25 mls @ 201 mls/hr IV Q6H PRN PRN Reason: Nausea And Vomiting Stop: 05/12/24 22:07 Last Infusion: 04/17/24 09:46 Dose: Infused [place] Carbonate ([place] Carbonate 450 Mg Tabcr) 900 mg PO HS [facility] Stop: 05/19/24 20:59 Last Admin: 04/19/24 22:15 Dose: 900 mg Lorazepam (Lorazepam 2 Mg/1 Ml Vial) 0.5 mg IV Q4H PRN PRN Reason: Anxiety/Agitation Stop: 05/13/24 12:27 Lorazepam (Lorazepam 1 Mg Tab) 1 mg PO Q6H PRN PRN Reason: Anxiety Stop: 05/16/24 16:13 Last Admin: 04/17/24 21:08 Dose: 1 mg Melatonin (Melatonin 3 Mg Tab) 6 mg PO HS PRN PRN Reason: Sleep Stop: 05/12/24 22:07 Last Admin: 04/19/24 22:15 Dose: 6 mg Menthol (Cough Drop (Sugar Free) Kristin 24 Kristin/1 Box) 1 kristin BUCCAL Q4H PRN PRN Reason: Sore Throat Stop: 05/15/24 15:52 Last Admin: 04/17/24 21:10 Dose: 1 kristin Miscellaneous (Remove Nicoderm Patch) 1 each N/A DAILY@0859 [facility] Stop: 05/13/24 08:58 Last Admin: 04/20/24 08:01 Dose: 1 each Nicotine (Nicotine 21 Mg/24 Hr Tdsy) 1 patch TD QAM PAT Stop: 05/12/24 17:59 Last Admin: 04/20/24 09:35 Dose: 1 patch Nicotine Polacrilex (Nicotine Polacrilex 2 Mg Gum) 1 piece MT Q2H PRN PRN Reason: withdrawal Stop: 05/12/24 17:58 Last Admin: 04/18/24 16:10 Dose: 1 piece Olanzapine (Olanzapine 10 Mg/2.1 Ml Sdv) 5 mg IM BID PRN PRN Reason: Agitation Stop: 05/12/24 22:08 Olanzapine (Olanzapine 5 Mg Tablet) 15 mg PO HS PAT Stop: 05/15/24 20:59 Last Admin: 04/19/24 22:15 Dose: 15 mg Olanzapine (Olanzapine Zydis 5 Mg Orally Dis. Tab) 5 mg PO BID PRN PRN Reason: Agitation Stop: 05/17/24 11:14 Olanzapine (Olanzapine 5 Mg Tablet) 5 mg PO QAM PAT Stop: 05/18/24 08:59 Last Admin: 04/20/24 08:03 Dose: 5 mg Trazodone HCl (Trazodone Hcl 50 Mg Tab) 50 mg PO HS PAT Stop: 05/16/24 20:59 Last Admin: 04/19/24 22:15 Dose: 50 mg
--- NOTE | 2024-04-20 13:20 | Psychiatric Progress Note ---
Date of Service April 20, 2024 Impression / Recommendations Impression 23 y/o wm with h/o Bipolar 1 mixed episode presents with recent poor sleep, poor appetite, elevated goal directed activity, tangential thought process, racing thoughts, dec need for sleep concerning for robyn. Still adherent to outpatient meds given [place] level in range. Possible mixed manic episode based on symptoms. A: Ongoing symptoms of hypomania but she reports improving sleep and no symptoms of psychosis. Tolerating medication adjustments, [place] increased (will need new level in 4-6 days). Could consider abilify GODOY however, given benefit of olanzapine so far may make more sense to consider cross-taper in 2-3 weeks once robyn has fully resolved and sleep stabilized. Overall, I spent a total of 45 minutes with this case including review of chart records, review of labwork, direct evaluation of the patient at bedside, counseling the patient, discussion with the psychiatric liason during clinical rounds and documentation in the electronic health record. (1) Bipolar 1 disorder, mixed: (2) Cannabis abuse: (3) Post traumatic stress disorder (PTSD): (4) Generalized anxiety disorder: (5) Borderline personality disorder: (6) Compliant with medication regimen: Plan -c/w lithium to 900 mg at bedtime -Continue Trazodone 50mg HS -Continue Olanzapine 5mg QAM, Olanzapine 15mg HS -Continue Clonazepam 1mg HS -Hold home bupropion -Does not require bedside sitter -Transfer to inpatient behavioral health once covid negative x2 -24hrs between or 10 days isolation vs discharge home if symptoms improve *If patient requests to leave must see psychiatry first for safety assessment Suicide Risk Level Suicide Risk Level Comments: Acute risk is low given denial of SI, future oriented, feels able to ask for support if needed Risk Factors Assessment Do You Have Access To A Gun?: No Protective Factors Assessment Employed: No Interval History Identifying Information 23 y/o female h/o Bipolar 1 mixed episode presents with recent poor sleep, poor appetite, elevated goal directed activity, tangential thought process, racing thoughts, dec need for sleep concerning for robyn. Still adherent to outpatient meds given [place] level in range. Possible mixed manic episode based on symptoms. Chief Complaint "I'm amazing". Subjective Subjective Patient was seen & assessed and interval progress reviewed. Overnight: no events/issues Today: -mood described as "amazing" -Shows artwork she's colored as a way to "get out my manic energy" -Hopeful she can go home soon and see her son -no medication issues -sleeping well and took a nap this morning -denies any symptoms of psychosis, reports "no more internal dialogue" -hopeful she could restart abilify GODOY at some point but also finding olanzapine very helpful for sleep Physical Exam Psychiatric Orientation: alert, oriented x 3 and cooperative Apperance: appropriately dressed and appropriately groomed Eye Contact: good eye contact Motor Behavior: + psychomotor agitation (walking around but not excessively) Speech: normal rate/rhythm/volume of speech Affect: euthymic affect Mood: no depressed mood, no anxious mood and no irritable mood Thought Process: + circumstantial thought process Thought Content: reality based without delusions Suicidal Thoughts: denies suicidal thoughts Homicidal Thoughts: denies homicidal thoughts Hallucinations: no auditory hallucinations and no visual hallucinations Insight: good insight Judgment: + fair judgement Vital Signs (Past 24 Hours) Last Vital Signs Temp 36.5 C 04/20/24 11:01 Pulse 78 04/20/24 11:01 Resp 18 04/20/24 11:01 BP 99/60 L 04/20/24 11:01 Pulse Ox 98 04/20/24 11:01 O2 Del Method Room Air 04/20/24 11:01 Results & Data ([facility]) Current Inpatient Medications Current Inpatient Medications: Current Inpatient Medications Acetaminophen (Acetaminophen 325 Mg Tab) 650 mg PO QID PRN PRN Reason: pain/fever Stop: 05/12/24 22:07 Last Admin: 04/18/24 16:10 Dose: 650 mg Clonazepam (Clonazepam 1 Mg Tab) 1 mg PO HS PAT Stop: 05/14/24 20:59 Last Admin: 04/19/24 22:15 Dose: 1 mg Enoxaparin Sodium (Enoxaparin Inj 40 Mg/0.4 Ml Syr) 40 mg SQ QAM PAT Stop: 05/14/24 08:59 Last Admin: 04/20/24 08:02 Dose: 40 mg Promethazine HCl (Phenergan) 6.25 mg in 50.25 mls @ 201 mls/hr IV Q6H PRN PRN Reason: Nausea And Vomiting Stop: 05/12/24 22:07 Last Infusion: 04/17/24 09:46 Dose: Infused [place] Carbonate ([place] Carbonate 450 Mg Tabcr) 900 mg PO HS PAT Stop: 05/19/24 20:59 Last Admin: 04/19/24 22:15 Dose: 900 mg Lorazepam (Lorazepam 2 Mg/1 Ml Vial) 0.5 mg IV Q4H PRN PRN Reason: Anxiety/Agitation Stop: 05/13/24 12:27 Lorazepam (Lorazepam 1 Mg Tab) 1 mg PO Q6H PRN PRN Reason: Anxiety Stop: 05/16/24 16:13 Last Admin: 04/17/24 21:08 Dose: 1 mg Melatonin (Melatonin 3 Mg Tab) 6 mg PO HS PRN PRN Reason: Sleep Stop: 05/12/24 22:07 Last Admin: 04/19/24 22:15 Dose: 6 mg Menthol (Cough Drop (Sugar Free) Kristin 24 Kristin/1 Box) 1 kristin BUCCAL Q4H PRN PRN Reason: Sore Throat Stop: 05/15/24 15:52 Last Admin: 04/17/24 21:10 Dose: 1 kristin Miscellaneous (Remove Nicoderm Patch) 1 each N/A DAILY@0859 [facility] Stop: 05/13/24 08:58 Last Admin: 04/20/24 08:01 Dose: 1 each Nicotine (Nicotine 21 Mg/24 Hr Tdsy) 1 [facility] Stop: 05/12/24 17:59 Last Admin: 04/20/24 09:35 Dose: 1 patch Nicotine Polacrilex (Nicotine Polacrilex 2 Mg Gum) 1 piece MT Q2H PRN PRN Reason: withdrawal Stop: 05/12/24 17:58 Last Admin: 04/18/24 16:10 Dose: 1 piece Olanzapine (Olanzapine 10 Mg/2.1 Ml Sdv) 5 mg IM BID PRN PRN Reason: Agitation Stop: 05/12/24 22:08 Olanzapine (Olanzapine 5 Mg Tablet) 15 mg PO HS PAT Stop: 05/15/24 20:59 Last Admin: 04/19/24 22:15 Dose: 15 mg Olanzapine (Olanzapine Zydis 5 Mg Orally Dis. Tab) 5 mg PO BID PRN PRN Reason: Agitation Stop: 05/17/24 11:14 Olanzapine (Olanzapine 5 Mg Tablet) 5 mg PO QAM [facility] Stop: 05/18/24 08:59 Last Admin: 04/20/24 08:03 Dose: 5 mg Trazodone HCl (Trazodone Hcl 50 Mg Tab) 50 mg PO HS PAT Stop: 05/16/24 20:59 Last Admin: 04/19/24 22:15 Dose: 50 mg Mental Health & Subst Abuse Tx Psychiatrist Date Of Appointment With Psychiatric Provider: Apr 22 2024 Time of Appointment with Psychiatrist: 2:15pm Therapist Name of Therapist: unknown Carpenter Super[employer] Name of Carpenter Supervisor [employer]: Denies Post Discharge Appointments Primary Care Physician Name Of Family Doctor/PCP: Dr Zeke Barksdale office
[2024-04-21 00:03] VITALS: O2SAT 97
[2024-04-21 07:12] VITALS: TEMP 98.4
--- NOTE | 2024-04-21 12:15 | Psychiatric Progress Note ---
Date of Service April 21, 2024 Impression / Recommendations Impression 23 y/o wm with h/o Bipolar 1 mixed episode presents with recent poor sleep, poor appetite, elevated goal directed activity, tangential thought process, racing thoughts, dec need for sleep concerning for robyn. Still adherent to outpatient meds given [place] level in range. Possible mixed manic episode based on symptoms. A: Mood stable, no signs of robyn, sleeping well (>7 hours per night) and tolerating medications. She desires discharge and no evidence for acute mood symptoms and no 302 criteria. Ideally she will have a [place] level in 3-5 days given recent dose increase in the outpatient setting (by her PCP or outpt psych provider). Medication changes included olanzapine for BPAD acute robyn and increase of [place] for BPAD and use of trazodone for sleep promotion and she tolerated this well. Motivational interviewing done regarding her goals to continue to avoid tobacco use after discharge and reviewed quit line resource and given patch and gum scripts. Baseline labs of fasting glucose, fasting lipid profile, and weight were preformed within the last year (August 2023). Recommend repeat weight in one month. Recommend repeat fasting glucose, HbA1c and fasting lipid profile within 12 weeks if she remains on olanzapine and then annually. If symptoms arise recommend checking BP, EKG, prolactin level as clinically indicated or relevant. Baseline labs of thyroid function, kidney function, weight, electrolytes, CBC, and UA were preformed. [place] level was 0.3 mmol/L on 04/19/2024 so the dose was then increased from 600mg HS to 900mg HS on 04/19/2024. Recommend repeat lithium level in 3-5 days if possible, thyroid function and kidney function labwork at 6 months and then annually or anytime symptoms arise. She participated in safety planning and in discussions about ways to seek support and recognizing warning signs and utilizing coping skills. Today the patient voices readiness for discharge. They note improvement in mood and anxiety. They deny thoughts of harm to self or others. Thoughts are organized and they are clinically improved from admission. There is no evidence of psychosis. They improved in the hospital with support and medication adjustments. They agree to take medications as prescribed and keep follow-up appointments. At the time of the discharge they are deemed to be stable and appropriate for outpatient level of care. They are not deemed to be at imminent risk of harm to self or others. They are aware of emergency and crisis services. Knows to call 911 or go to nearest emergency care center if in a crisis which cannot be handled as an outpatient. Suicide risk assessment: Acute risk is low given improvement in mood and denial of SI, lack of access to lethal means, plan to avoid substance use, improvement in sleep, hopefulness and improvement in psychosis. Chronic risk is moderate given some non-modifiable risk factors: psychiatric co-morbid diagnoses, periods of impulsivity, prior psychiatric hospitalizations, mood disorder but also with protective factors including good social support, sense of responsibility to family and social supports, young child, outpatient care in place, positive coping skills, positive problem solving, willingness to engage with treatment, self- observation. Counseled on ways to reduce acute and chronic risk including engaging with outpatient providers, using safety plan if needed, utilizing supports, taking medication, and using coping skills. Modifiable risk factors of robyn, anxiety, insomnia were addressed during hospitalization through development of new coping skills and medication adjustments. Overall, I spent a total of 60 minutes with this case including review of chart records, review of labwork, direct evaluation of the patient at bedside, counseling the patient, discussion with the psychiatric liason during clinical rounds and documentation in the electronic health record. (1) Bipolar 1 disorder, mixed: (2) Cannabis abuse: (3) Post traumatic stress disorder (PTSD): (4) Generalized anxiety disorder: (5) Borderline personality disorder: (6) Compliant with medication regimen: Plan -Safe and appropriate for discharge -c/w lithium to 900 mg HS, ideally level in 3-5 days -Continue Trazodone 50mg HS -Continue Olanzapine 5mg QAM, Olanzapine 15mg HS -Discontinue Klonopin -Discontinue Wellbutrin -She has outpatient psychiatry and therapy follow-up appointments -Reviewed crisis information, resources Risk Factors Assessment Do You Have Access To A Gun?: No Protective Factors Assessment Employed: No Interval History Identifying Information 23 y/o female h/o Bipolar 1 mixed episode presents with recent poor sleep, poor appetite, elevated goal directed activity, tangential thought process, racing thoughts, dec need for sleep concerning for robyn. Still adherent to outpatient meds given [place] level in range. Possible mixed manic episode based on symptoms. Chief Complaint "I'm good, I would really like to go home and be with my son". Subjective Subjective Patient was seen & assessed and interval progress reviewed. Overnight events: -slept well including per appellate conferee Today: -reports stable mood -Feels she is no longer experiencing any sx of robyn -wants to go home and be with her son, feels anxious being away from him due to pressure of childcare responsibilities on her sister and mother -denies any safety concerns -denies any medication issues -agreeable with stopping Klonopin -will consider option for abilify GODOY with outpt provider at [place] -reviewed outpt apts for psych, therapy and CM referral process started Physical Exam Psychiatric Orientation: alert, oriented x 3 and cooperative Apperance: appropriately dressed and appropriately groomed Eye Contact: good eye contact Motor Behavior: no abnormal motor movements Speech: normal rate/rhythm/volume of speech Affect: euthymic affect Mood: no depressed mood, no anxious mood and no irritable mood Thought Process: goal directed thought process Thought Content: reality based without delusions Suicidal Thoughts: denies suicidal thoughts Homicidal Thoughts: denies homicidal thoughts Hallucinations: no auditory hallucinations and no visual hallucinations Insight: good insight Judgment: good judgement Vital Signs (Past 24 Hours) Last Vital Signs Temp 36.9 C 04/21/24 07:12 Pulse 68 04/21/24 08:29 Resp 18 04/21/24 07:12 BP 104/74 04/21/24 07:12 Pulse Ox 97 04/21/24 07:12 O2 Del Method Room Air 04/21/24 07:12 Results & Data ([facility]) Current Inpatient Medications Current Inpatient Medications: Current Inpatient Medications Acetaminophen (Acetaminophen 325 Mg Tab) 650 mg PO QID PRN PRN Reason: pain/fever Stop: 05/12/24 22:07 Last Admin: 04/21/24 07:51 Dose: 650 mg Clonazepam (Clonazepam 1 Mg Tab) 1 mg PO HS PAT Stop: 05/14/24 20:59 Last Admin: 04/20/24 20:54 Dose: 1 mg Enoxaparin Sodium (Enoxaparin Inj 40 Mg/0.4 Ml Syr) 40 mg SQ QAM PAT Stop: 05/14/24 08:59 Last Admin: 04/21/24 07:52 Dose: 40 mg Promethazine HCl (Phenergan) 6.25 mg in 50.25 mls @ 201 mls/hr IV Q6H PRN PRN Reason: Nausea And Vomiting Stop: 05/12/24 22:07 Last Infusion: 04/17/24 09:46 Dose: Infused [place] Carbonate ([place] Carbonate 450 Mg Tabcr) 900 mg PO HS PAT Stop: 05/19/24 20:59 Last Admin: 04/20/24 20:54 Dose: 900 mg Lorazepam (Lorazepam 2 Mg/1 Ml Vial) 0.5 mg IV Q4H PRN PRN Reason: Anxiety/Agitation Stop: 05/13/24 12:27 Lorazepam (Lorazepam 1 Mg Tab) 1 mg PO Q6H PRN PRN Reason: Anxiety Stop: 05/16/24 16:13 Last Admin: 04/17/24 21:08 Dose: 1 mg Melatonin (Melatonin 3 Mg Tab) 6 mg PO HS PRN PRN Reason: Sleep Stop: 05/12/24 22:07 Last Admin: 04/20/24 20:54 Dose: 6 mg Menthol (Cough Drop (Sugar Free) Kristin 24 Kristin/1 Box) 1 kristin BUCCAL Q4H PRN PRN Reason: Sore Throat Stop: 05/15/24 15:52 Last Admin: 04/20/24 20:58 Dose: 1 kristin Miscellaneous (Remove Nicoderm Patch) 1 each N/A DAILY@0859 [facility] Stop: 05/13/24 08:58 Last Admin: 04/21/24 07:52 Dose: 1 each Nicotine (Nicotine 21 Mg/24 Hr Tdsy) 1 patch TD QAM PAT Stop: 05/12/24 17:59 Last Admin: 04/21/24 07:52 Dose: 1 patch Nicotine Polacrilex (Nicotine Polacrilex 2 Mg Gum) 1 piece MT Q2H PRN PRN Reason: withdrawal Stop: 05/12/24 17:58 Last Admin: 04/20/24 20:54 Dose: 1 piece Olanzapine (Olanzapine 10 Mg/2.1 Ml Sdv) 5 mg IM BID PRN PRN Reason: Agitation Stop: 05/12/24 22:08 Olanzapine (Olanzapine 5 Mg Tablet) 15 mg PO HS PAT Stop: 05/15/24 20:59 Last Admin: 04/20/24 20:54 Dose: 15 mg Olanzapine (Olanzapine Zydis 5 Mg Orally Dis. Tab) 5 mg PO BID PRN PRN Reason: Agitation Stop: 05/17/24 11:14 Olanzapine (Olanzapine 5 Mg Tablet) 5 mg PO QAM PAT Stop: 05/18/24 08:59 Last Admin: 04/21/24 07:52 Dose: 5 mg Trazodone HCl (Trazodone Hcl 50 Mg Tab) 50 mg PO HS PAT Stop: 05/16/24 20:59 Last Admin: 04/20/24 20:54 Dose: 50 mg Mental Health & Subst Abuse Tx Psychiatrist Date Of Appointment With Psychiatric Provider: Apr 22 2024 Time of Appointment with Psychiatrist: 2:15pm Therapist Name of Therapist: unknown Marble Cleaner Name of Marble Cleaner: Denies Post Discharge Appointments Primary Care Physician Name Of Family Doctor/PCP: Dr Zeke gonzales
--- NOTE | 2024-04-21 13:07 | Discharge Summary ---
Date of Service April 21, 2024 Admission HPI Per Admitting Provider Patient is a 23-year-old female with PMH bipolar disorder, anxiety, depression, presented to ER with c/o "feeling manic". Per inpatient chart review patient had recent psychiatric hospital admission 01/26/24-01/30/24 here at [facility] for bipolar, impulsivity, depression, anxiety, SI and was discharged on bupropion, lithium, mirtazapine, hydroxyzine prn. Patient states that she continued on bupropion and lithium since discharge but a couple of weeks ago she stopped her meds and missed a couple of doses as she felt she didn't need them. She reports that missing her medications is typically a sign that she needs psychiatric help. It is somewhat difficult to obtain history secondary to patient's disorganized thoughts. States has been sleeping and doesn't feel lack of sleep like her prior manic episodes. She does state she has some "singular thoughts that come so fast I don't know what they are". She states recently she has lost interest in doing things she enjoys like looking at her phone and coloring. She has lost appetite and eating one meal a day. She states she is continuing to care for her 10 month old baby. Patient states she sought help today as her mother is willing to care for her baby while she seeks treatment. She reports living with her brother. States her brother has been annoying her with hearing sounds on his phone and adjusting the thermostat. She denies suicidal ideations but states that she has been "picking at her lips and licking her lips at attempts of disfigurement". She denies feeling ill but has had a cough since attempting to quit smoking cigarettes and marijuana recently. She states she started smoking 1ppd again and "smoking alot of pot" again. Denies rhinorrhea, sore throat, SOB, CP, fever/chills. She denies child or others with URI symptoms. Denies N/V/D/C, BOWLES, dizziness, syncope, vision changes, neck pain, CP, SOB, palpitations, hemoptysis, otalgia, rhinorrhea, abdominal pain, paresthesias, weakness, extremity edema, rashes, urinary symptoms. Patient denies ETOH use. +Marijuana use but denies other drug use. Today in ER urine drug screen + MDMA, marijuana + COVID-19 Admission Exam Per Admitting Provider General: no distress, Thin female Head: normocephalic, atraumatic Eyes: conjunctiva non-injected, anicteric ENT: normal inspection external ears, nose, mucous membranes moist Neck: supple, trachea midline Lungs: clear, no respiratory distress, no wheezing/rhonchi/rales CV: RRR, no murmur, no pretibial edema Abd: normal BS, soft, non-tender Ext: no cyanosis, no calf tenderness Neuro: A&O x 3, no focal deficits noted, normal affect Skin: warm, dry Principal Diagnosis Bipolar 1 mixed episode , Young + COVID Discharge Exam General- oriented x 3, not in distress, speaks in sentences with no effort or accessory muscle use Eyes- anicteric Neck- no JVD Lungs- clear breath sounds bilaterally, no rales/wheezes Heart- normal rate, regular rhythm; no murmurs Abdomen- normal bowel sounds, nondistended, soft, nontender Extremities- no pretibial edema, no calf tenderness Neuro- alert, oriented x 3; no gross focal neurologic deficits Skin- warm & dry Discharge Data Allergies Allergy/AdvReac Type Severity Reaction Status Date / Time No Known Allergies Allergy Verified 04/12/24 16:33 Consultations 04/12/24 19:43 ED Decision to Admit Stat 04/13/24 01:19 Consult Psychiatry Routine Hospital Course (1) Manic bipolar I disorder: Patient admitted to medicine service in light of COVID-19 positive test Has been followed by psychiatry service while admitted Psych meds adjusted Per psychiatry - [place] level resulted in was subtherapeutic at 0.3. -C/w lithium to 900 mg at bedtime (will need repeat level in 3-5 days) -Continue Trazodone 50mg HS -Continue Olanzapine 5mg QAM, Olanzapine 15mg HS -Continue [place] 600mg daily (trough level in 1 days) -Continue Clonazepam 1mg HS -Hold home bupropion (2) COVID-19: Positive rhinorrhea, mild cough No other symptoms afebrile, Clear breath sounds Chest x-ray: No pneumonia Symptoms Continue to improve First positive COVID test was done on admission, April 12 Repeat COVID Test done on April 15: Positive Continue with supportive care Total Time Total Time Spent Total Time Spent (In Minutes): 40 Discharge Plan Discharge Items Patient Disposition: Home - Self-Care Reason For Visit: TACHY, COVID, YOUNG, COVID Discharge Diagnosis: Young + COVID Activity: Per Instructions section Non-emergency contact: Primary Care Provider and Psychiatrist Call non-emergency contact if: you have any medication questions and your symptoms worsen Follow-up/Referrals: [facility] [Outside] - 05/01/24 10:30 am [facility] [Outside] - 04/29/24 1:30 pm Gail Gil MD [Primary Care Provider] - Diet: Regular Addtl Attending Provider Instructions: Follow up with your primary care physician within 1-2 weeks, and with psychiatry. You will need bloodwork - lithium level check in 3-5 days - this can be dome by your primary care physician or psychiatrist. Addtl Rn Transfer Provider Instructions: Per psychiatry SPECIAL CARE INSTRUCTIONS: 1. Follow through with your scheduled aftercare appointments. If unable to keep an appointment, please call to reschedule. 2. Take your medication only as prescribed. Medication should not be changed or stopped without the approval of your doctor. In the event of worsening symptoms or concerns about side effects, contact your doctor immediately. 3. Utilize new healthy coping skills, anger management skills, and stress management skills learned during your hospitalization. Journal feelings and process them with a support person. Identify stressors or situations that may result in relapse, deterioration or inappropriate behaviors and develop a plan to deal with those issues. 4. If your coping skills are ineffective and you are in crisis, contact your outpatient providers for direction. If unable to reach your providers, please call the [facility] CRISIS LINE AT , go to the [facility] walk-in center at [address], [address], [place], or go to the closest Emergency Room. 5. Avoid alcohol and un-prescribed drugs. 6. Your condition is stable for discharge to outpatient level of care, but recovery is an ongoing process. Ifthoughts to harm yourself or others return, follow the safety plan developed during your stay. Planning for a safe return home includes securing weapons. Our treatment team recommends weaponsbe removed from the home until your outpatient provider reassesses your progress. In rare cases where the items themselvescannot be removed, guns and ammunitionshould be secured separatelyand keys stored by a reliable personoutside of the home. If you were admitted on an involuntary commitment, the police or other legal authorities may be involved in this process. AFTERCARE APPOINTMENTS: * Please call your insurance company prior to your scheduled appointment to confirm your aftercare providers are covered. Take your insurance information to your appointments. WHO TO CALL AND WHEN: Medical Emergencies: For questions or emergencies related to your hospital stay, please contact the Inpatient Behavioral Health Unit at [phone]. A parachute rigger is on-call 16/01 for the Behavioral Health Unit for emergencies At any time you feel your situation is an emergency, you may also call 911 immediately. National Crisis Hotline: 925 Pending Studies at Discharge: No Stand-Alone Forms: My [facility] [place], Smoking Cessation Medications and DC Order Prescriptions: New trazodone 50 mg Tablet 50 mg PO HS 30 Days Qty: 30 0RF nicotine (polacrilex) [Nicorette] 2 mg Gum 2 mg MT Q2H PRN (Reason: nicotine cravings) 30 Days Qty: 120 0RF olanzapine 5 mg Tablet 5 mg PO QAM 30 Days Qty: 30 0RF lithium carbonate 450 mg Tablet Extended Release 900 mg PO HS 30 Days Qty: 60 0RF nicotine [Nicoderm CQ] 21 mg/24 hr Patch 24 Hour 1 patch transdermal QAM 28 Days Qty: 28 0RF olanzapine 15 mg tablet 15 mg PO HS 30 Days Qty: 30 0RF Discontinued lithium carbonate 450 mg tablet extended release 450 mg PO DAILY bupropion HCl 150 mg tablet extended release 24 hr 150 mg PO HS Discharge Orders: Discharge Order (Routine); Ordered 04/21/24 Ordered By: Julian Phillips Admission Data Admit Date/Time: 04/12/24 22:07 Attending Provider: Julian Phillips Admit Provider: Ricardo Magaña Primary Care Provider: Gail Gil Other Providers: Ricardo Magaña; Marion Ponce; Pablo Agarwal; Pool Porras Jr; Noreen Nguyễn; Martine Rodriguez; Warren Langford; Antonina Aguayo; Sebastian Sharma
[2024-04-21 13:25] VITALS: BP 121/85; PULSE 89
== END 2024-04-21 14:11 | disposition home or self-care (01) | DRG 885 ==
LOC: ED 15:42 → SUATTDRO 22:07 → 4W 22:07 → 2W 04-19 20:52